=== PATIENT | female | born 1950 | race Hispanic/Latino ===

== ENCOUNTER 2019-02-18 03:42 | Inpatient (IN) | payer MEDICARE ==
[2019-02-18] MEDS ORDERED: NACL 0.9% 1000 ML 1,000 ML IV ONE ×2 (03:59→06:09)
[2019-02-18] MEDS ORDERED: HumuLIN R IV ONE ×2 (04:22→06:08)
[2019-02-18] MEDS ORDERED: HumuLIN R ONE (04:26)
[2019-02-18] MEDS ORDERED: ZOFRAN ONE ×2 (04:29→15:21)
[2019-02-18 04:31] LABS: Hematocrit 42.9 % (30.3-42.9); Mean Corpuscular HGB Conc 33 % (30-34); Mean Corpuscular Volume 88 fl (79-97); Platelet Count 260 K/mm3 (140-440); Red Blood Count 4.87 M/mm3 (3.65-5.03); Red Cell Distribution Width 13.7 % (13.2-15.2)
[2019-02-18] MEDS ORDERED: ZOFRAN IV ONE (04:33)
[2019-02-18 04:48] LABS: Albumin 3.7 g/dL (3.9-5); Calcium 9.1 mg/dL (8.4-10.2)
[2019-02-18] MEDS ORDERED: ATIVAN ONE ×2 (04:53→11:17)
[2019-02-18] MEDS ORDERED: KEPPRA 1,000 MG/NS 0.75% 100ML 1,000 MG/100 ML BAG IV ONE ×2 (04:54→06:34)
--- NOTE | 2019-02-18 05:02 | Cat Scan Report ---
CT HEAD WITHOUT CONTRAST INDICATION : Altered mental status. Possible stroke. TECHNIQUE: Axial, coronal and sagittal CT imaging was performed from the skull apex through the skul l base without contrast. All CT scans at this location are performed using CT dose reduction for ALA RA by means of automated exposure control. COMPARISON: None available. FINDINGS: PARENCHYMA: No mass, midline shift, hemorrhage, extraaxial collection or acute territorial infarctio n. There is generalized atrophy. VENTRICLES: Prominent secondary to atrophy. No acute abnormality. SOFT TISSUES: Soft tissues including the orbits appear normal. BONES: No acute osseous abnormality. SINUSES: No significant abnormality. ADDITIONAL FINDINGS: There is dense calcification of the internal carotid and vertebral arteries. IMPRESSION: No acute intracranial abnormality. If there is continued concern for an acute stroke, an MRI of the b rain without contrast is recommended for further evaluation. Signer Name: Júnior Kohler MD Signed: 02/18/2019 4:57 AM Workstation Name: [id number]
--- NOTE | 2019-02-18 05:11 | Emergency Department Report ---
<MARLY YADAV - Last Filed: 02/18/19 08:38> ED Altered Mental Status HPI - General Chief Complaint: Altered Mental Status Stated Complaint: AMS/HYPERGLYCEMIA Time Seen by Provider: 02/18/19 04:54 - Related Data Home Medications Medication Instructions Recorded Confirmed Last Taken Gabapentin [Neurontin] 600 mg PO BID 02/18/19 02/18/19 Unknown Losartan/Hydrochlorothiazide 1 each PO QDAY 02/18/19 02/18/19 Unknown [Losartan-Hctz 100-25 mg Tab] Meloxicam [Mobic] 7.5 mg PO QDAY 02/18/19 02/18/19 Unknown Sertraline [Zoloft] 150 mg PO QDAY 02/18/19 02/18/19 Unknown Simvastatin 40 mg PO QDAY 02/18/19 02/18/19 Unknown metFORMIN XR [Glucophage XR] 1,000 mg PO BID 02/18/19 02/18/19 Unknown Allergies Allergy/AdvReac Type Severity Reaction Status Date / Time No Known Allergies Allergy Verified 09/19/13 22:38 ED Past Medical Hx - Medications Home Medications: Home Medications Medication Instructions Recorded Confirmed Last Taken Type Gabapentin [Neurontin] 600 mg PO BID 02/18/19 02/18/19 Unknown History Losartan/Hydrochlorothiazide 1 each PO QDAY 02/18/19 02/18/19 Unknown History [Losartan-Hctz 100-25 mg Tab] Meloxicam [Mobic] 7.5 mg PO QDAY 02/18/19 02/18/19 Unknown History Sertraline [Zoloft] 150 mg PO QDAY 02/18/19 02/18/19 Unknown History Simvastatin 40 mg PO QDAY 02/18/19 02/18/19 Unknown History metFORMIN XR [Glucophage XR] 1,000 mg PO BID 02/18/19 02/18/19 Unknown History ED Course - Reevaluation(s) Reevaluation #2: 02/18/19 07:22 pt s/o to me by Dr Harris. Awaiting [facility] call back for admission approval - Consultations Consultation #1: 02/18/19 07:33 case d/w L[facility] with [facility], states pt may be admitted here also received call back from tele neuro Dr Albrecht (sp?), informed of cta findings + L carotid stenosis of 70%. He will place a note once computer technical issues are resolved. - ABG Interpretation Ph: [phone] PCO2: 92 PO2: 111 Bicarbonate: 25 Interpretation: respiratory acidosis, other (on 32% fio2) - Lab Data Result diagrams: 02/18/19 04:01 02/18/19 06:23 ED Disposition Clinical Impression: CVA (cerebral vascular accident), Altered mental status, DKA (diabetic ketoacidoses), Respiratory acidosis, New onset seizure Disposition: [id number] OP ADMIT IP TO THIS HOSP Is pt being admited?: Yes Condition: Stable Time of Disposition: 07:34 <SYLVIA HARRIS - Last Filed: 02/19/19 08:40> ED Altered Mental Status HPI - General Source: EMS Mode of arrival: Stretcher Limitations: Altered Mental Status - History of Present Illness Initial Comments: Patient is 68 years old female with history of hypertension, diabetes, COPD and depression. Patient brought to the emergency room via EMS for evaluation of al tered mental status. Patient accompanied by her grandson. He stated that last time he saw her normal at 8:30 PM before he went to bed. He stated that he woke up this morning trying to get to work he found her sitting on the floor, confused. He stated that he picked up and put her on her bed and then called 911. EMS personnel stated that patient was confused but moving all 4 extremities with a negative stroke scale. Upon arrival to the ER patient is moving all extremities but confused. Stroke scale is negative. MD Complaint: altered mental status, confusion -: unknown Consistency of Symptoms: waxing and waning ED Review of Systems ROS: Stated complaint: AMS/HYPERGLYCEMIA Other details as noted in HPI Comment: Unobtainable due to pts medical conditions ED Past Medical Hx - Past Medical History Hx Hypertension: Yes Hx Diabetes: Yes Hx Psychiatric Treatment: Yes (depression) Additional medical history: neuropathy, high chol. - Surgical History Additional Surgical History: tubal, c section, - Social History Smoking Status: Current Every Day Smoker Substance Use Type: None ED Physical Exam - General Limitations: Altered Mental Status General appearance: alert, in no apparent distress - Head Head exam: Present: atraumatic, normocephalic, normal inspection - ENT ENT exam: Present: normal exam, normal orophraynx, mucous membranes moist - Neck Neck exam: Present: normal inspection, full ROM. Absent: tenderness, meningismus, lymphadenopathy, thyromegaly - Respiratory Respiratory exam: Present: normal lung sounds bilaterally - Cardiovascular Cardiovascular Exam: Present: regular rate, normal rhythm, normal heart sounds - GI/Abdominal GI/Abdominal exam: Present: soft, normal bowel sounds. Absent: distended, tenderness, guarding, rebound, rigid - Extremities Exam Extremities exam: Present: normal inspection, full ROM, normal capillary refill - Back Exam Back exam: Present: normal inspection, full ROM - Neurological Exam Neurological exam: Present: alert, altered, CN II-XII intact - Skin Skin exam: Present: warm, intact, normal color ED Course Vital Signs 02/18/19 02/18/19 02/18/19 03:52 03:58 04:00 Temperature 98 F Pulse Rate 101 H 101 H 98 H Respiratory 20 18 21 Rate Blood Pressure 219/91 Blood Pressure 165/87 [Left] O2 Sat by Pulse 88 92 Oximetry 02/18/19 02/18/19 02/18/19 04:16 04:30 04:56 Temperature Pulse Rate 99 H 107 H Respiratory 25 H 21 Rate Blood Pressure 205/77 205/77 205/77 Blood Pressure [Left] O2 Sat by Pulse 96 98 Oximetry 02/18/19 02/18/19 02/18/19 05:24 05:30 05:46 Temperature Pulse Rate 128 H 125 H 121 H Respiratory 17 15 17 Rate Blood Pressure 229/94 229/94 205/77 Blood Pressure [Left] O2 Sat by Pulse 92 94 94 Oximetry 02/18/19 02/18/19 02/18/19 06:00 06:10 06:16 Temperature Pulse Rate 124 H 112 H 114 H Respiratory 14 20 20 Rate Blood Pressure 207/92 207/92 207/92 Blood Pressure [Left] O2 Sat by Pulse 93 98 97 Oximetry 02/18/19 02/18/19 02/18/19 06:30 06:46 07:00 Temperature Pulse Rate 118 H 118 H 125 H Respiratory 20 14 19 Rate Blood Pressure 207/92 207/92 223/98 Blood Pressure [Left] O2 Sat by Pulse 98 100 100 Oximetry 02/18/19 02/18/19 02/18/19 07:16 07:30 07:46 Temperature Pulse Rate 125 H 123 H 120 H Respiratory 14 19 28 H Rate Blood Pressure 223/98 223/98 186/83 Blood Pressure [Left] O2 Sat by Pulse 100 100 99 Oximetry 07/24/19 07/24/19 07/24/19 08:00 08:13 08:16 Temperature Pulse Rate 117 H 118 H 120 H Respiratory 28 H 28 H 12 Rate Blood Pressure 186/83 167/78 Blood Pressure 186/83 [Left] O2 Sat by Pulse 100 99 99 Oximetry 02/18/19 02/18/19 02/18/19 08:30 08:46 09:00 Temperature Pulse Rate 114 H 115 H 112 H Respiratory 28 H 28 H 24 Rate Blood Pressure 162/78 162/78 183/91 Blood Pressure [Left] O2 Sat by Pulse 99 100 99 Oximetry 02/18/19 02/18/19 02/18/19 09:16 09:30 09:46 Temperature Pulse Rate 121 H 112 H 117 H Respiratory 18 24 23 Rate Blood Pressure 183/91 178/91 178/91 Blood Pressure [Left] O2 Sat by Pulse 99 98 100 Oximetry 02/18/19 02/18/19 02/18/19 10:00 10:16 10:30 Temperature Pulse Rate 118 H 123 H 113 H Respiratory 14 19 19 Rate Blood Pressure 178/91 221/121 189/89 Blood Pressure [Left] O2 Sat by Pulse 100 100 100 Oximetry 02/18/19 02/18/19 02/18/19 10:46 11:00 11:16 Temperature Pulse Rate 120 H 115 H 112 H Respiratory 18 23 20 Rate Blood Pressure 189/89 181/90 181/90 Blood Pressure [Left] O2 Sat by Pulse 100 100 100 Oximetry 02/18/19 02/18/19 02/18/19 11:30 11:46 12:00 Temperature Pulse Rate 113 H 114 H 114 H Respiratory 19 12 15 Rate Blood Pressure 187/97 187/97 208/98 Blood Pressure [Left] O2 Sat by Pulse 97 100 98 Oximetry 02/18/19 02/18/19 02/18/19 12:16 12:30 12:46 Temperature Pulse Rate 114 H 114 H 119 H Respiratory 16 10 L 19 Rate Blood Pressure 208/98 208/98 226/105 Blood Pressure [Left] O2 Sat by Pulse 100 100 100 Oximetry 02/18/19 02/18/19 02/18/19 13:00 13:16 13:30 Temperature Pulse Rate 120 H 113 H 114 H Respiratory 15 12 14 Rate Blood Pressure 214/100 209/103 208/111 Blood Pressure [Left] O2 Sat by Pulse 99 99 100 Oximetry 02/18/19 02/18/19 02/18/19 13:46 14:00 14:16 Temperature Pulse Rate 111 H 108 H 105 H Respiratory 18 19 11 L Rate Blood Pressure 208/111 200/88 200/88 Blood Pressure [Left] O2 Sat by Pulse 100 98 99 Oximetry 02/18/19 02/18/19 02/18/19 14:30 14:46 15:10 Temperature Pulse Rate 109 H 109 H 110 H Respiratory 21 14 20 Rate Blood Pressure 191/84 191/84 181/69 Blood Pressure [Left] O2 Sat by Pulse 96 98 100 Oximetry 02/18/19 02/18/19 02/18/19 15:16 15:30 15:46 Temperature Pulse Rate 119 H 116 H 107 H Respiratory 14 22 19 Rate Blood Pressure 191/84 181/69 181/69 Blood Pressure [Left] O2 Sat by Pulse 99 Oximetry 02/18/19 02/18/19 16:00 16:16 Temperature Pulse Rate 106 H 105 H Respiratory 13 20 Rate Blood Pressure 178/84 178/84 Blood Pressure [Left] O2 Sat by Pulse 99 99 Oximetry - Reevaluation(s) Reevaluation #1: 02/18/19 05:11 At 4:33 AM, While nurses was inserting IV lines, she noticed that patient stopped moving her right upper extremities and noticed a facial droop to the right side. I examined the patient, confirmed stroke. Stroke protocol initiated patient immediately moved to CT scan and neurology consult obtained. Patient develop right sided seizure, focal. Patient immediately received Ativan and started on Keppra 1 g. 02/18/19 05:44 - Lab Data Result diagrams: 02/19/19 04:35 02/19/19 00:59 Lab Results 02/18/19 02/18/19 02/18/19 Range/Units 04:01 04:01 04:03 WBC 15.9 H (4.5-11.0) K/mm3 RBC 4.87 (3.65-5.03) M/mm3 Hgb 14.0 (10.1-14.3) gm/dl Hct 42.9 (30.3-42.9) % MCV 88 (79-97) fl MCH 29 (28-32) pg MCHC 33 (30-34) % RDW 13.7 (13.2-15.2) % Plt Count 260 (140-440) K/mm3 Add Manual Diff Complete Total Counted 100 Seg Neuts % (Manual) 84.0 H (40.0-70.0) % Band Neutrophils % 0 % Lymphocytes % (Manual) 12.0 L (13.4-35.0) % Reactive Lymphs % (Man) 0 % Monocytes % (Manual) 3.0 (0.0-7.3) % Eosinophils % (Manual) 1.0 (0.0-4.3) % Basophils % (Manual) 0 (0.0-1.8) % Metamyelocytes % 0 % Myelocytes % 0 % Promyelocytes % 0 % Blast Cells % 0 % Nucleated RBC % Not Reportable Seg Neutrophils # Man 13.4 H (1.8-7.7) K/mm3 Band Neutrophils # 0.0 K/mm3 Lymphocytes # (Manual) 1.9 (1.2-5.4) K/mm3 Abs React Lymphs (Man) 0.0 K/mm3 Monocytes # (Manual) 0.5 (0.0-0.8) K/mm3 Eosinophils # (Manual) 0.2 (0.0-0.4) K/mm3 Basophils # (Manual) 0.0 (0.0-0.1) K/mm3 Metamyelocytes # 0.0 K/mm3 Myelocytes # 0.0 K/mm3 Promyelocytes # 0.0 K/mm3 Blast Cells # 0.0 K/mm3 WBC Morphology Not Reportable Hypersegmented Neuts Not Reportable Hyposegmented Neuts Not Reportable Hypogranular Neuts Not Reportable Smudge Cells Not Reportable Toxic Granulation 1+ Toxic Vacuolation Not Reportable Dohle Bodies Not Reportable Pelger-Huet Anomaly Not Reportable Donaldo Rods Not Reportable Platelet Estimate Consistent w auto Clumped Platelets Not Reportable Plt Clumps, EDTA Not Reportable Large Platelets Not Reportable Giant Platelets Not Reportable Platelet Satelliting Not Reportable Plt Morphology Comment Not Reportable RBC Morphology Normal Dimorphic RBCs Not Reportable Polychromasia Not Reportable Hypochromasia Not Reportable Poikilocytosis Not Reportable Anisocytosis Not Reportable Microcytosis Not Reportable Macrocytosis Not Reportable Spherocytes Not Reportable Pappenheimer Bodies Not Reportable Sickle Cells Not Reportable Target Cells Not Reportable Tear Drop Cells Not Reportable Ovalocytes Not Reportable Helmet Cells Not Reportable Alejandre-Parcelas De Navarro Bodies Not Reportable Over[place] Rings Not Reportable [place] Cells Not Reportable Bite Cells Not Reportable Crenated Cell Not Reportable Elliptocytes Not Reportable Acanthocytes (Spur) Not Reportable Rouleaux Not Reportable Hemoglobin C Crystals Not Reportable Schistocytes Not Reportable Malaria parasites Not Reportable Liam Bodies Not Reportable Hem Pathologist Commnt No POC ABG pH (7.35-7.45) POC ABG pO2 (80-105) POC ABG HCO3 (22-26 mml/L) POC ABG Total CO2 (23-27mmol/L) POC ABG O2 Sat POC ABG Base Excess ((-2) - (+3)mmol/L) VBG pH (7.320-7.420) FiO2 % Sodium 127 L (137-145) mmol/L Potassium 4.0 (3.6-5.0) mmol/L Chloride 88.5 L (98-107) mmol/L Carbon Dioxide 23 (22-30) mmol/L Anion Gap 20 mmol/L BUN 16 (7-17) mg/dL Creatinine 1.3 H (0.7-1.2) mg/dL Estimated GFR 41 ml/min BUN/Creatinine Ratio 12 % Glucose 744 H* (65-100) mg/dL POC Glucose > 500 H (70-105) Lactic Acid (0.7-2.0) mmol/L Calcium 9.1 (8.4-10.2) mg/dL Phosphorus (2.5-4.5) mg/dL Magnesium (1.7-2.3) mg/dL Total Bilirubin 0.40 (0.1-1.2) mg/dL AST 28 (5-40) units/L ALT 14 (7-56) units/L Alkaline Phosphatase 153 H (35-129) units/L Total Protein 7.5 (6.3-8.2) g/dL Albumin 3.7 L (3.9-5) g/dL Albumin/Globulin Ratio 1.0 % Urine Color (Yellow) Urine Turbidity (Clear) Urine pH (5.0-7.0) Ur Specific [place] (1.003-1.030) Urine Protein (Negative) mg/dL Urine Glucose (UA) (Negative) mg/dL Urine Ketones (Negative) mg/dL Urine Blood (Negative) Urine Nitrite (Negative) Urine Bilirubin (Negative) Urine Urobilinogen (<2.0) mg/dL Ur Leukocyte Esterase (Negative) Urine WBC (Auto) (0.0-6.0) /HPF Urine RBC (Auto) (0.0-6.0) /HPF 02/18/19 02/18/19 02/18/19 Range/Units 05:25 05:32 06:03 WBC (4.5-11.0) K/mm3 RBC (3.65-5.03) M/mm3 Hgb (10.1-14.3) gm/dl Hct (30.3-42.9) % MCV (79-97) fl MCH (28-32) pg MCHC (30-34) % RDW (13.2-15.2) % Plt Count (140-440) K/mm3 Add Manual Diff Total Counted Seg Neuts % (Manual) (40.0-70.0) % Band Neutrophils % % Lymphocytes % (Manual) (13.4-35.0) % Reactive Lymphs % (Man) % Monocytes % (Manual) (0.0-7.3) % Eosinophils % (Manual) (0.0-4.3) % Basophils % (Manual) (0.0-1.8) % Metamyelocytes % % Myelocytes % % Promyelocytes % % Blast Cells % % Nucleated RBC % Seg Neutrophils # Man (1.8-7.7) K/mm3 Band Neutrophils # K/mm3 Lymphocytes # (Manual) (1.2-5.4) K/mm3 Abs React Lymphs (Man) K/mm3 Monocytes # (Manual) (0.0-0.8) K/mm3 Eosinophils # (Manual) (0.0-0.4) K/mm3 Basophils # (Manual) (0.0-0.1) K/mm3 Metamyelocytes # K/mm3 Myelocytes # K/mm3 Promyelocytes # K/mm3 Blast Cells # K/mm3 WBC Morphology Hypersegmented Neuts Hyposegmented Neuts Hypogranular Neuts Smudge Cells Toxic Granulation Toxic Vacuolation Dohle Bodies Pelger-Huet Anomaly Donaldo Rods Platelet Estimate Clumped Platelets Plt Clumps, EDTA Large Platelets Giant Platelets Platelet Satelliting Plt Morphology Comment RBC Morphology Dimorphic RBCs Polychromasia Hypochromasia Poikilocytosis Anisocytosis Microcytosis Macrocytosis Spherocytes Pappenheimer Bodies Sickle Cells Target Cells Tear Drop Cells Ovalocytes Helmet Cells Alejandre-Parcelas De Navarro Bodies Overton Rings [place] Cells Bite Cells Crenated Cell Elliptocytes Acanthocytes (Spur) Rouleaux Hemoglobin C Crystals Schistocytes Malaria parasites Liam Bodies Hem Pathologist Commnt POC ABG pH 7.058 L (7.35-7.45) POC ABG pO2 111 H (80-105) POC ABG HCO3 25.9 (22-26 mml/L) POC ABG Total CO2 29 (23-27mmol/L) POC ABG O2 Sat 95 POC ABG Base Excess -4 ((-2) - (+3)mmol/L) VBG pH 7.118 L* (7.320-7.420) FiO2 32 % Sodium (137-145) mmol/L Potassium (3.6-5.0) mmol/L Chloride (98-107) mmol/L Carbon Dioxide (22-30) mmol/L Anion Gap mmol/L BUN (7-17) mg/dL Creatinine (0.7-1.2) mg/dL Estimated GFR ml/min BUN/Creatinine Ratio % Glucose (65-100) mg/dL POC Glucose 484 H (70-105) Lactic Acid (0.7-2.0) mmol/L Calcium (8.4-10.2) mg/dL Phosphorus (2.5-4.5) mg/dL Magnesium (1.7-2.3) mg/dL Total Bilirubin (0.1-1.2) mg/dL AST (5-40) units/L ALT (7-56) units/L Alkaline Phosphatase (35-129) units/L Total Protein (6.3-8.2) g/dL Albumin (3.9-5) g/dL Albumin/Globulin Ratio % Urine Color (Yellow) Urine Turbidity (Clear) Urine pH (5.0-7.0) Ur Specific [place] (1.003-1.030) Urine Protein (Negative) mg/dL Urine Glucose (UA) (Negative) mg/dL Urine Ketones (Negative) mg/dL Urine Blood (Negative) Urine Nitrite (Negative) Urine Bilirubin (Negative) Urine Urobilinogen (<2.0) mg/dL Ur Leukocyte Esterase (Negative) Urine WBC (Auto) (0.0-6.0) /HPF Urine RBC (Auto) (0.0-6.0) /HPF 02/18/19 02/18/19 02/18/19 Range/Units 06:05 06:05 06:23 WBC (4.5-11.0) K/mm3 RBC (3.65-5.03) M/mm3 Hgb (10.1-14.3) gm/dl Hct (30.3-42.9) % MCV (79-97) fl MCH (28-32) pg MCHC (30-34) % RDW (13.2-15.2) % Plt Count (140-440) K/mm3 Add Manual Diff Total Counted Seg Neuts % (Manual) (40.0-70.0) % Band Neutrophils % % Lymphocytes % (Manual) (13.4-35.0) % Reactive Lymphs % (Man) % Monocytes % (Manual) (0.0-7.3) % Eosinophils % (Manual) (0.0-4.3) % Basophils % (Manual) (0.0-1.8) % Metamyelocytes % % Myelocytes % % Promyelocytes % % Blast Cells % % Nucleated RBC % Seg Neutrophils # Man (1.8-7.7) K/mm3 Band Neutrophils # K/mm3 Lymphocytes # (Manual) (1.2-5.4) K/mm3 Abs React Lymphs (Man) K/mm3 Monocytes # (Manual) (0.0-0.8) K/mm3 Eosinophils # (Manual) (0.0-0.4) K/mm3 Basophils # (Manual) (0.0-0.1) K/mm3 Metamyelocytes # K/mm3 Myelocytes # K/mm3 Promyelocytes # K/mm3 Blast Cells # K/mm3 WBC Morphology Hypersegmented Neuts Hyposegmented Neuts Hypogranular Neuts Smudge Cells Toxic Granulation Toxic Vacuolation Dohle Bodies Pelger-Huet Anomaly Donaldo Rods Platelet Estimate Clumped Platelets Plt Clumps, EDTA Large Platelets Giant Platelets Platelet Satelliting Plt Morphology Comment RBC Morphology Dimorphic RBCs Polychromasia Hypochromasia Poikilocytosis Anisocytosis Microcytosis Macrocytosis Spherocytes Pappenheimer Bodies Sickle Cells Target Cells Tear Drop Cells Ovalocytes Helmet Cells Alejandre-Parcelas De Navarro Bodies Over[place] Rings Erica Cells Bite Cells Crenated Cell Elliptocytes Acanthocytes (Spur) Rouleaux Hemoglobin C Crystals Schistocytes Malaria parasites Liam Bodies Hem Pathologist Commnt POC ABG pH (7.35-7.45) POC ABG pO2 (80-105) POC ABG HCO3 (22-26 mml/L) POC ABG Total CO2 (23-27mmol/L) POC ABG O2 Sat POC ABG Base Excess ((-2) - (+3)mmol/L) VBG pH (7.320-7.420) FiO2 % Sodium 127 L 131 L (137-145) mmol/L Potassium 3.3 L 3.9 (3.6-5.0) mmol/L Chloride 92.0 L 92.9 L (98-107) mmol/L Carbon Dioxide 22 25 (22-30) mmol/L Anion Gap 16 17 mmol/L BUN 14 14 (7-17) mg/dL Creatinine 1.3 H 1.3 H (0.7-1.2) mg/dL Estimated GFR 41 41 ml/min BUN/Creatinine Ratio 11 11 % Glucose 603 H* 544 H* (65-100) mg/dL POC Glucose (70-105) Lactic Acid (0.7-2.0) mmol/L Calcium 8.4 8.7 (8.4-10.2) mg/dL Phosphorus 4.90 H (2.5-4.5) mg/dL Magnesium 1.50 L (1.7-2.3) mg/dL Total Bilirubin (0.1-1.2) mg/dL AST (5-40) units/L ALT (7-56) units/L Alkaline Phosphatase (35-129) units/L Total Protein (6.3-8.2) g/dL Albumin (3.9-5) g/dL Albumin/Globulin Ratio % Urine Color (Yellow) Urine Turbidity (Clear) Urine pH (5.0-7.0) Ur Specific [place] (1.003-1.030) Urine Protein (Negative) mg/dL Urine Glucose (UA) (Negative) mg/dL Urine Ketones (Negative) mg/dL Urine Blood (Negative) Urine Nitrite (Negative) Urine Bilirubin (Negative) Urine Urobilinogen (<2.0) mg/dL Ur Leukocyte Esterase (Negative) Urine WBC (Auto) (0.0-6.0) /HPF Urine RBC (Auto) (0.0-6.0) /HPF 02/18/19 02/18/19 02/18/19 Range/Units 06:23 06:29 06:37 WBC (4.5-11.0) K/mm3 RBC (3.65-5.03) M/mm3 Hgb (10.1-14.3) gm/dl Hct (30.3-42.9) % MCV (79-97) fl MCH (28-32) pg MCHC (30-34) % RDW (13.2-15.2) % Plt Count (140-440) K/mm3 Add Manual Diff Total Counted Seg Neuts % (Manual) (40.0-70.0) % Band Neutrophils % % Lymphocytes % (Manual) (13.4-35.0) % Reactive Lymphs % (Man) % Monocytes % (Manual) (0.0-7.3) % Eosinophils % (Manual) (0.0-4.3) % Basophils % (Manual) (0.0-1.8) % Metamyelocytes % % Myelocytes % % Promyelocytes % % Blast Cells % % Nucleated RBC % Seg Neutrophils # Man (1.8-7.7) K/mm3 Band Neutrophils # K/mm3 Lymphocytes # (Manual) (1.2-5.4) K/mm3 Abs React Lymphs (Man) K/mm3 Monocytes # (Manual) (0.0-0.8) K/mm3 Eosinophils # (Manual) (0.0-0.4) K/mm3 Basophils # (Manual) (0.0-0.1) K/mm3 Metamyelocytes # K/mm3 Myelocytes # K/mm3 Promyelocytes # K/mm3 Blast Cells # K/mm3 WBC Morphology Hypersegmented Neuts Hyposegmented Neuts Hypogranular Neuts Smudge Cells Toxic Granulation Toxic Vacuolation Dohle Bodies Pelger-Huet Anomaly Donaldo Rods Platelet Estimate Clumped Platelets Plt Clumps, EDTA Large Platelets Giant Platelets Platelet Satelliting Plt Morphology Comment RBC Morphology Dimorphic RBCs Polychromasia Hypochromasia Poikilocytosis Anisocytosis Microcytosis Macrocytosis Spherocytes Pappenheimer Bodies Sickle Cells Target Cells Tear Drop Cells Ovalocytes Helmet Cells Alejandre-Parcelas De Navarro Bodies Over[place] Rings [place] Cells Bite Cells Crenated Cell Elliptocytes Acanthocytes (Spur) Rouleaux Hemoglobin C Crystals Schistocytes Malaria parasites Liam Bodies Hem Pathologist Commnt POC ABG pH (7.35-7.45) POC ABG pO2 (80-105) POC ABG HCO3 (22-26 mml/L) POC ABG Total CO2 (23-27mmol/L) POC ABG O2 Sat POC ABG Base Excess ((-2) - (+3)mmol/L) VBG pH (7.320-7.420) FiO2 % Sodium (137-145) mmol/L Potassium (3.6-5.0) mmol/L Chloride (98-107) mmol/L Carbon Dioxide (22-30) mmol/L Anion Gap mmol/L BUN (7-17) mg/dL Creatinine (0.7-1.2) mg/dL Estimated GFR ml/min BUN/Creatinine Ratio % Glucose (65-100) mg/dL POC Glucose 421 H (70-105) Lactic Acid 2.40 H* (0.7-2.0) mmol/L Calcium (8.4-10.2) mg/dL Phosphorus (2.5-4.5) mg/dL Magnesium (1.7-2.3) mg/dL Total Bilirubin (0.1-1.2) mg/dL AST (5-40) units/L ALT (7-56) units/L Alkaline Phosphatase (35-129) units/L Total Protein (6.3-8.2) g/dL Albumin (3.9-5) g/dL Albumin/Globulin Ratio % Urine Color Straw (Yellow) Urine Turbidity Clear (Clear) Urine pH 5.0 (5.0-7.0) Ur Specific [place] 1.027 (1.003-1.030) Urine Protein 100 mg/dl (Negative) mg/dL Urine Glucose (UA) >=500 (Negative) mg/dL Urine Ketones Neg (Negative) mg/dL Urine Blood Neg (Negative) Urine Nitrite Neg (Negative) Urine Bilirubin Neg (Negative) Urine Urobilinogen < 2.0 (<2.0) mg/dL Ur Leukocyte Esterase Neg (Negative) Urine WBC (Auto) < 1.0 (0.0-6.0) /HPF Urine RBC (Auto) 2.0 (0.0-6.0) /HPF 02/18/19 02/18/19 Range/Units 07:32 07:38 WBC (4.5-11.0) K/mm3 RBC (3.65-5.03) M/mm3 Hgb (10.1-14.3) gm/dl Hct (30.3-42.9) % MCV (79-97) fl MCH (28-32) pg MCHC (30-34) % RDW (13.2-15.2) % Plt Count (140-440) K/mm3 Add Manual Diff Total Counted Seg Neuts % (Manual) (40.0-70.0) % Band Neutrophils % % Lymphocytes % (Manual) (13.4-35.0) % Reactive Lymphs % (Man) % Monocytes % (Manual) (0.0-7.3) % Eosinophils % (Manual) (0.0-4.3) % Basophils % (Manual) (0.0-1.8) % Metamyelocytes % % Myelocytes % % Promyelocytes % % Blast Cells % % Nucleated RBC % Seg Neutrophils # Man (1.8-7.7) K/mm3 Band Neutrophils # K/mm3 Lymphocytes # (Manual) (1.2-5.4) K/mm3 Abs React Lymphs (Man) K/mm3 Monocytes # (Manual) (0.0-0.8) K/mm3 Eosinophils # (Manual) (0.0-0.4) K/mm3 Basophils # (Manual) (0.0-0.1) K/mm3 Metamyelocytes # K/mm3 Myelocytes # K/mm3 Promyelocytes # K/mm3 Blast Cells # K/mm3 WBC Morphology Hypersegmented Neuts Hyposegmented Neuts Hypogranular Neuts Smudge Cells Toxic Granulation Toxic Vacuolation Dohle Bodies Pelger-Huet Anomaly Donaldo Rods Platelet Estimate Clumped Platelets Plt Clumps, EDTA Large Platelets Giant Platelets Platelet Satelliting Plt Morphology Comment RBC Morphology Dimorphic RBCs Polychromasia Hypochromasia Poikilocytosis Anisocytosis Microcytosis Macrocytosis Spherocytes Pappenheimer Bodies Sickle Cells Target Cells Tear Drop Cells Ovalocytes Helmet Cells Alejandre-Parcelas De Navarro Bodies [place] Rings Erica Cells Bite Cells Crenated Cell Elliptocytes Acanthocytes (Spur) Rouleaux Hemoglobin C Crystals Schistocytes Malaria parasites Liam Bodies Hem Pathologist Commnt POC ABG pH (7.35-7.45) POC ABG pO2 (80-105) POC ABG HCO3 (22-26 mml/L) POC ABG Total CO2 (23-27mmol/L) POC ABG O2 Sat POC ABG Base Excess ((-2) - (+3)mmol/L) VBG pH (7.320-7.420) FiO2 % Sodium (137-145) mmol/L Potassium (3.6-5.0) mmol/L Chloride (98-107) mmol/L Carbon Dioxide (22-30) mmol/L Anion Gap mmol/L BUN (7-17) mg/dL Creatinine (0.7-1.2) mg/dL Estimated GFR ml/min BUN/Creatinine Ratio % Glucose (65-100) mg/dL POC Glucose 405 H (70-105) Lactic Acid 1.70 (0.7-2.0) mmol/L Calcium (8.4-10.2) mg/dL Phosphorus (2.5-4.5) mg/dL Magnesium (1.7-2.3) mg/dL Total Bilirubin (0.1-1.2) mg/dL AST (5-40) units/L ALT (7-56) units/L Alkaline Phosphatase (35-129) units/L Total Protein (6.3-8.2) g/dL Albumin (3.9-5) g/dL Albumin/Globulin Ratio % Urine Color (Yellow) Urine Turbidity (Clear) Urine pH (5.0-7.0) Ur Specific [place] (1.003-1.030) Urine Protein (Negative) mg/dL Urine Glucose (UA) (Negative) mg/dL Urine Ketones (Negative) mg/dL Urine Blood (Negative) Urine Nitrite (Negative) Urine Bilirubin (Negative) Urine Urobilinogen (<2.0) mg/dL Ur Leukocyte Esterase (Negative) Urine WBC (Auto) (0.0-6.0) /HPF Urine RBC (Auto) (0.0-6.0) /HPF - Medical Decision Making Patient is 68 years old female with history of hypertension, diabetes, COPD and depression. Patient brought to the emergency room via EMS for evaluation of altered mental status. Patient accompanied by her grandson. He stated that last time he saw her normal at 8:30 PM before he went to bed. He stated that he woke up this morning trying to get to work he found her sitting on the floor, confused. He stated that he picked up and put her on her bed and then called 911. EMS personnel stated that patient was confused but moving all 4 extremi ties with a negative stroke scale. Upon arrival to the ER patient is moving all extremities but confused. Stroke scale is negative. Patient care transferred to Dr. Marly Yadav at 07:00 AM. Critical Care Time: Yes Critical care time in (mins) excluding proc time.: 30 Critical care attestation.: If time is entered above; I have spent that time in minutes in the direct care of this critically ill patient, excluding procedure time. ED Disposition Is pt being admited?: Yes
[2019-02-18] MEDS ORDERED: D50W (25GM) Syringe IV PRN ×2 (05:47→09:30)
[2019-02-18 05:58] LABS: Basophils % (Manual) 0 % (0.0-1.8); Platelet Estimate Consistent w Auto; RBC Morphology Normal; Total Cells Counted 100; Toxic Granulation 1+
[2019-02-18] MEDS ORDERED: HumuLIN R 100 UNITS in NACL 0.9% 99 ML IV SCH ×2 (06:00→10:00)
[2019-02-18] MEDS ORDERED: ZOSYN/NS 3.375GM/50ML 3.375 GM/50 ML BAG IV ONE (06:08)
--- NOTE | 2019-02-18 06:31 | XRay Report ---
CHEST 1 VIEW 02/18/2019 6:11 AM INDICATION / CLINICAL INFORMATION: sepsis. COMPARISON: None available. FINDINGS: SUPPORT DEVICES: None. HEART / MEDIASTINUM: No significant abnormality. LUNGS / PLEURA: There is mild bibasilar atelectasis. No significant pleural effusion. No pneumothorax . ADDITIONAL FINDINGS: No significant additional findings. IMPRESSION: 1. No acute findings. 2. Mild bibasilar atelectasis. Signer Name: Júnior Kohler MD Signed: 02/18/2019 6:27 AM Workstation Name: [id number]
[2019-02-18 06:41] LABS: Calcium 8.4 mg/dL (8.4-10.2)
[2019-02-18] MEDS ORDERED: ATIVAN IV NR (06:45)
[2019-02-18 06:58] LABS: Bilirubin,Urine NEG (Negative); Blood,Urine NEG (Negative); Color,Urine Straw (Yellow); Urobilinogen,Urine < 2.0 mg/dL (<2.0); WBC,Urine < 1.0 /HPF (0.0-6.0)
[2019-02-18 07:06] LABS: Calcium 8.7 mg/dL (8.4-10.2)
--- NOTE | 2019-02-18 08:19 | Cat Scan Report ---
NECK CT ANGIOGRAM 02/18/2019 HISTORY: Stroke. FINDINGS: Contrast-enhanced CT angiographic images of the neck were obtained. In addition to the axia l images, sagittal and coronal reformatted images were obtained. In addition, 3 plane MIP reconstruct ions were produced. At the left bifurcation, prominent atherosclerotic plaque is present, associated with stenosis of the origin of the internal carotid artery, which has a maximum stenosis of approximately 70%. At the right bifurcation, there is atherosclerotic plaque associated with the carotid bifurcation. Th ere is approximately 20% narrowing at the origin of the right internal carotid artery. Vertebral artery contours are unremarkable. Visualized portions of the aortic arch are unremarkable. Incidental note is made of a 1.4 cm midline thyroid nodule, and some additional smaller bilateral thy roid cysts. Soft tissue structures are otherwise unremarkable. IMPRESSION: Atherosclerotic change of the carotid bifurcations, with 70% narrowing at the origin of t he left internal carotid artery. NASCET like criteria were used in this evaluation. INCIDENTAL THYROID NODULE RECOMMENDATIONS Nonpalpable nodules detected on US or other anatomic imaging studies are termed incidentally discover ed nodules or incidentalomas. Nonpalpable nodules have the same risk of malignancy as palpable nodule s with the same size. Generally, only nodules >1 cm should be evaluated, since they have a greater po tential to be clinically significant cancers. (CONNER, 2009). Follow up for incidental thyroid nodules <1 cm is not recommended. In patients <35 years with an incidental thyroid nodule detected on CT, MRI, or extrathyroidal ultras ound, dedicated thyroid ultrasound is recommended if the nodule is 1 cm, has no suspicious imaging fe atures, and if the patient has normal life expectancy. In patients 35 years with an incidental thyroid nodule detected on CT, MRI, or extrathyroidal ultraso und, dedicated thyroid ultrasound is recommended if the nodule is 1.5 cm, has no suspicious imaging f eatures, and if the patient has normal life expectancy. All CT scans at this location are performed using dose reduction to ALARA by means of automated expos ure control. Signer Name: Suleman Umanzor MD Signed: 02/18/2019 8:15 AM Workstation Name: [id number]
--- NOTE | 2019-02-18 08:24 | Cat Scan Report ---
BRAIN CT ANGIOGRAM 02/18/2019 HISTORY: Stroke FINDINGS: Contrast-enhanced CT angiographic images of the intracranial circulation were obtained. In addition to the axial images, sagittal and coronal reformatted images were obtained. In addition, 3 p leonardo MIP reconstructions were produced. Atherosclerotic vascular calcifications are seen along the course of the distal internal carotid gage wily bilaterally at the level of the cavernous sinuses. There is no evidence of occlusion or signific ant stenosis. Intracranial anterior circulation vessels show normal contours with no evidence of vessel occlusion. Vertebrobasilar system is unremarkable. Atherosclerotic vascular calcifications are associated with the distal left vertebral artery. IMPRESSION: No acute abnormality. All CT scans at this location are performed using dose reduction to ALARA by means of automated expos ure control. Signer Name: Suleman Umanzor MD Signed: 02/18/2019 8:20 AM Workstation Name: [id number]
--- NOTE | 2019-02-18 09:07 | History and Physical Report ---
History of Present Illness Date of examination: 02/18/19 Date of admission: 02/18/19 Chief complaint: AMS History of present illness: Unable to obtain hx from Patient, hX Obtained from FAMILY AND ED NOTE Patient is a 68-year-old female with past medical history according to the grandson of hypertension diabetes depression COPD and chronic tobacco use of pack a day for over 40+ years. She presents to the ED this morning after she was noted by the grandson for 4.30 a.m. to be on the floor following hearing a followed sound. The patient was confused and she attempted to pick the patient up from the floor and also called 911. On arrival now 1 personal history the patient was confused but moving all extremities was unable to follow any she was transferred to the ED on arrival to the ED was placed on a BiPAP machine as she was noted to have difficulty with respiration including hypercarbia. She was also noted to have a blood sugar for several 100s but no evidence of acetone or ketones. Also noted to have a blood pressure of over 2:30 on admission. According to the ED documentation the patient was noted to Have seizure disorder her in the ED on route to the CT No prior hx of stroke or seizure Past History Past Medical History: CAD, COPD, diabetes Past Surgical History: No surgical history Social history: lives with family, smoking Family history: no significant family history Medications and Allergies Allergies Allergy/AdvReac Type Severity Reaction Status Date / Time No Known Allergies Allergy Verified 09/19/13 22:38 Home Medications Medication Instructions Recorded Confirmed Last Taken Type Gabapentin [Neurontin] 600 mg PO BID 02/18/19 02/18/19 Unknown History Losartan/Hydrochlorothiazide 1 each PO QDAY 02/18/19 02/18/19 Unknown History [Losartan-Hctz 100-25 mg Tab] Meloxicam [Mobic] 7.5 mg PO QDAY 02/18/19 02/18/19 Unknown History Sertraline [Zoloft] 150 mg PO QDAY 02/18/19 02/18/19 Unknown History Simvastatin 40 mg PO QDAY 02/18/19 02/18/19 Unknown History metFORMIN XR [Glucophage XR] 1,000 mg PO BID 02/18/19 02/18/19 Unknown History Active Meds: Active Medications Dextrose (D50w (25gm) Syringe) 0 ml IV PRN PRN PRN Reason: Hypoglycemia Insulin Human Regular 100 (units/ Sodium Chloride) 100 mls @ 1 mls/hr IV TITR TAN; Protocol Last Admin: 02/18/19 06:45 Dose: 8 units/hr, 8 mls/hr Documented by: Review of Systems ROS unobtainable: due to mental status Exam - Physical Exam Narrative exam: VITAL SIGNS: Reviewed. GENERAL: The patient appears normally developed, in severe distress and AMS, on continus BIPAP. Vital signs as documented. HEAD: No signs of head trauma. EYES: Pupils are equal. EARS: Hearing grossly intact. MOUTH: Oropharynx is normal. NECK: No adenopathy, no JVD. CHEST: Chest with clear breath sounds bilaterally. No wheezes, rales, or rhonchi. CARDIAC: Regular rate and rhythm. S1 and S2, without murmurs, gallops, or r ubs. VASCULAR: No Edema. Peripheral pulses normal and equal in all extremities. ABDOMEN: Soft, non tender and non distended. No rebound or guarding, and no masses palpated. Bowel Sounds normal. MUSCULOSKELETAL: Good range of motion of all major joints. Extremities without clubbing, cyanosis or edema. NEUROLOGIC EXAM: Confused, agitated, not following commands. Moves all extremities PSYCHIATRIC: unable to examine SKIN: detail exam as documented in skin assessment - Constitutional Vitals: Temp Pulse Resp BP Pulse Ox 98 F 118 H 28 H 186/83 99 02/18/19 03:58 02/18/19 08:13 02/18/19 08:13 02/18/19 08:13 02/18/19 08:13 Results - Labs CBC & Chem 7: 02/18/19 04:01 02/18/19 12:09 Labs: Laboratory Last Values WBC 15.9 K/mm3 (4.5-11.0) H 02/18/19 04:01 RBC 4.87 M/mm3 (3.65-5.03) 02/18/19 04:01 Hgb 14.0 gm/dl (10.1-14.3) 02/18/19 04:01 Hct 42.9 % (30.3-42.9) 02/18/19 04:01 MCV 88 fl (79-97) 02/18/19 04:01 MCH 29 pg (28-32) 02/18/19 04:01 MCHC 33 % (30-34) 02/18/19 04:01 RDW 13.7 % (13.2-15.2) 02/18/19 04:01 Plt Count 260 K/mm3 (140-440) 02/18/19 04:01 Add Manual Diff Complete 02/18/19 04:01 Total Counted 100 02/18/19 04:01 Seg Neuts % (Manual) 84.0 % (40.0-70.0) H 02/18/19 04:01 0 % 02/18/19 04:01 12.0 % (13.4-35.0) L 02/18/19 04:01 Reactive Lymphs % (Man) 0 % 02/18/19 04:01 3.0 % (0.0-7.3) 02/18/19 04:01 1.0 % (0.0-4.3) 02/18/19 04:01 0 % (0.0-1.8) 02/18/19 04:01 0 % 02/18/19 04:01 0 % 02/18/19 04:01 0 % 02/18/19 04:01 0 % 02/18/19 04:01 Nucleated RBC % Not Reportable 02/18/19 04:01 Seg Neutrophils # Man 13.4 K/mm3 (1.8-7.7) H 02/18/19 04:01 Band Neutrophils # 0.0 K/mm3 02/18/19 04:01 1.9 K/mm3 (1.2-5.4) 02/18/19 04:01 Abs React Lymphs (Man) 0.0 K/mm3 02/18/19 04:01 0.5 K/mm3 (0.0-0.8) 02/18/19 04:01 0.2 K/mm3 (0.0-0.4) 02/18/19 04:01 0.0 K/mm3 (0.0-0.1) 02/18/19 04:01 0.0 K/mm3 02/18/19 04:01 0.0 K/mm3 02/18/19 04:01 0.0 K/mm3 02/18/19 04:01 Blast Cells # 0.0 K/mm3 02/18/19 04:01 WBC Morphology Not Reportable 02/18/19 04:01 Hypersegmented Neuts Not Reportable 02/18/19 04:01 Hyposegmented Neuts Not Reportable 02/18/19 04:01 Hypogranular Neuts Not Reportable 02/18/19 04:01 Not Reportable 02/18/19 04:01 1+ 02/18/19 04:01 Not Reportable 02/18/19 04:01 Not Reportable 02/18/19 04:01 Not Reportable 02/18/19 04:01 Not Reportable 02/18/19 04:01 Consistent w auto 02/18/19 04:01 Not Reportable 02/18/19 04:01 Plt Clumps, EDTA Not Reportable 02/18/19 04:01 Not Reportable 02/18/19 04:01 Not Reportable 02/18/19 04:01 Not Reportable 02/18/19 04:01 Plt Morphology Comment Not Reportable 02/18/19 04:01 RBC Morphology Normal 02/18/19 04:01 Dimorphic RBCs Not Reportable 02/18/19 04:01 Not Reportable 02/18/19 04:01 Not Reportable 02/18/19 04:01 Not Reportable 02/18/19 04:01 Not Reportable 02/18/19 04:01 Not Reportable 02/18/19 04:01 Not Reportable 02/18/19 04:01 Not Reportable 02/18/19 04:01 Not Reportable 02/18/19 04:01 Not Reportable 02/18/19 04:01 Not Reportable 02/18/19 04:01 Not Reportable 02/18/19 04:01 Not Reportable 02/18/19 04:01 Not Reportable 02/18/19 04:01 Not Reportable 02/18/19 04:01 Not Reportable 02/18/19 04:01 Not Reportable 02/18/19 04:01 Not Reportable 02/18/19 04:01 Not Reportable 02/18/19 04:01 Not Reportable 02/18/19 04:01 Acanthocytes (Spur) Not Reportable 02/18/19 04:01 Rouleaux Not Reportable 02/18/19 04:01 Not Reportable 02/18/19 04:01 Not Reportable 02/18/19 04:01 Not Reportable 02/18/19 04:01 Not Reportable 02/18/19 04:01 Hem Pathologist Commnt No 02/18/19 04:01 POC ABG pH 7.058 (7.35-7.45) L 02/18/19 06:03 POC ABG pO2 111 (80-105) H 02/18/19 06:03 POC ABG HCO3 25.9 (22-26 mml/L) 02/18/19 06:03 POC ABG Total CO2 29 (23-27mmol/L) 02/18/19 06:03 POC ABG O2 Sat 95 02/18/19 06:03 POC ABG Base Excess -4 ((-2) - (+3)mmol/L) 02/18/19 06:03 VBG pH 7.118 (7.320-7.420) L* 02/18/19 05:25 32 % 02/18/19 06:03 Sodium 131 mmol/L (137-145) L 02/18/19 06:23 Potassium 3.9 mmol/L (3.6-5.0) 02/18/19 06:23 Chloride 92.9 mmol/L (98-107) L 02/18/19 06:23 Carbon Dioxide 25 mmol/L (22-30) 02/18/19 06:23 17 mmol/L 02/18/19 06:23 BUN 14 mg/dL (7-17) 02/18/19 06:23 1.3 mg/dL (0.7-1.2) H 02/18/19 06:23 Estimated GFR 41 ml/min 02/18/19 06:23 11 % 02/18/19 06:23 Glucose 544 mg/dL (65-100) H* 02/18/19 06:23 POC Glucose 408 (70-105) H 02/18/19 08:40 Lactic Acid 1.70 mmol/L (0.7-2.0) 02/18/19 07:32 Calcium 8.7 mg/dL (8.4-10.2) 02/18/19 06:23 Phosphorus 4.90 mg/dL (2.5-4.5) H 02/18/19 06:05 Magnesium 1.50 mg/dL (1.7-2.3) L 02/18/19 06:05 0.40 mg/dL (0.1-1.2) 02/18/19 04:01 AST 28 units/L (5-40) 02/18/19 04:01 ALT 14 units/L (7-56) 02/18/19 04:01 153 units/L (35-129) H 02/18/19 04:01 7.5 g/dL (6.3-8.2) 02/18/19 04:01 3.7 g/dL (3.9-5) L 02/18/19 04:01 1.0 % 02/18/19 04:01 Straw (Yellow) 02/18/19 06:37 Clear (Clear) 02/18/19 06:37 5.0 (5.0-7.0) 02/18/19 06:37 Ur Specific [place] 1.027 (1.003-1.030) 02/18/19 06:37 100 mg/dl mg/dL (Negative) 02/18/19 06:37 >=500 mg/dL (Negative) 02/18/19 06:37 Neg mg/dL (Negative) 02/18/19 06:37 Neg (Negative) 02/18/19 06:37 Neg (Negative) 02/18/19 06:37 Neg (Negative) 02/18/19 06:37 < 2.0 mg/dL (<2.0) 02/18/19 06:37 Ur Leukocyte Esterase Neg (Negative) 02/18/19 06:37 < 1.0 /HPF (0.0-6.0) 02/18/19 06:37 2.0 /HPF (0.0-6.0) 02/18/19 06:37 Assessment and Plan Assessment and plan: Unable to obtain hx from Patient, hX Obtained from FAMILY AND ED NOTE Patient is a 68-year-old female with past medical history according to the grandson of hypertension diabetes depression COPD and chronic tobacco use of pack a day for over 40+ years. She presents to the ED this morning after she wa s noted by the grandson for 4.30 a.m. to be on the floor following hearing a followed sound. The patient was confused and she attempted to pick the patient up from the floor and also called 911. On arrival now 1 personal history the patient was confused but moving all extremities was unable to follow any she was transferred to the ED on arrival to the ED was placed on a BiPAP machine as she was noted to have difficulty with respiration including hypercarbia. She was also noted to have a blood sugar for several 100s but no evidence of acetone or ketones. Also noted to have a blood pressure of over 2:30 on admission. According to the ED documentation the patient was noted to Have seizure disorder her in the ED on route to the CT No prior hx of stroke or seizure CXR: unremarkable Acute Combined Hypoxic and Hypercapenic respiratory failure Hyperosomolar Nonketotic Hyperglycemia Acute Metabolic Encephalopathy Seizure Respiratory acidosis DM type 2 with hypgerlycemia Hyponatremia Leukocytosis Hypertensive Urgency Tobacco use disorder COPD Plan Admit to ICU Start on Insulin drip ON dka protocol. correct electrolytes as needed continue empiric abx Monitor cultures Seizure Prophylaxis Monitor Mental status Aspiration Precautions MoniTOR bp FOR BETTER CONTROL Hairspring Vibrator and Neurology consult The high probability of a clinically significant, sudden or life threatening deterioration of the [pulmonary, endocrine] system(s) required my full and direct attention, intervention and personal management. The aggregate critical care time was [75] minutes. This time is in addition to time spent performing reported procedures but includes the following: [x] Data Review and interpretation [x] Patient assessment and monitoring of vital signs [x] Documentation [x] Medication orders and management Advance Directives: Yes Plan of care discussed with patient/family: Yes
[2019-02-18] MEDS ORDERED: SODIUM CHLORIDE FLUSH SYRINGE 10 ML IV PRN (09:30)
[2019-02-18] MEDS ORDERED: SODIUM CHLORIDE FLUSH SYRINGE 10 ML IV NR (10:00)
[2019-02-18] MEDS ORDERED: MAGNESIUM SULFATE 1 GM in NACL 0.9% 50 ML IV ONE (10:00)
[2019-02-18] MEDS ORDERED: D5W/0.45% NACL/KCL 20 MEQ 20 MEQ/1,000 ML BAG IV SCH (10:00)
[2019-02-18 10:03] LABS: Calcium 8.6 mg/dL (8.4-10.2)
[2019-02-18 10:06] LABS: LDL Cholesterol,Direct TNR mg/dL (50-130)
[2019-02-18] MEDS: SODIUM CHLORIDE FLUSH SYRINGE 10 ML IV SCH (10:07)
[2019-02-18 10:20] LABS: Chol/HDL Ratio 5.26 %; HDL Cholesterol 42 mg/dL (40-59)
[2019-02-18] MEDS ORDERED: ATIVAN IV ONE (11:13)
[2019-02-18] MEDS ORDERED: NACL 0.9% 1000 ML 2,000 ML ONE (11:41)
[2019-02-18] MEDS ORDERED: NACL 0.9% 1000 ML 2,000 ML IV ONE (11:47)
--- NOTE | 2019-02-18 12:01 | Consultation ---
History of Present Illness Consult date: 02/18/19 Reason for Consult: ams Chief complaint: ams, per er attn, pt unable to give hx History of present illness: hx taken from grandson pt was found down at 2 am, 'i heard a thump and i saw her on the floor, she was confused disorient, but talking, but she wouldnt complete her sentences' no sz at the scene no prior strokes or sz or neuro hx pmh HTN DM COPD pt arrived w ams no vomiting no posturing no trauma no blood loss wax waning MS na 130 leukocytosis pt arrived w resp acidosis, BG >700, and altered stroke w/u was done, no tpa, CT head neg, CTA h.n, L ICA 70% no fever on admission HTN urgency on admission pt was found to have poss right sided weakness BP 230s/90s tachy no a.fib given zosyn, and ativan for witnessed sz in ED no recurrent sz placed on bipap somnolent on Insulin drip for ?DKA w gap FH neg for neuro dis SH smoker all: NKA ROS : unable to be obtained, pt is stuporous concern for stroke, in setting of elevated BG, new onset sz, right sided weakness, resp acidosis, dka keppra loaded Medications and Allergies Allergies Allergy/AdvReac Type Severity Reaction Status Date / Time No Known Allergies Allergy Verified 09/19/13 22:38 Home Medications Medication Instructions Recorded Confirmed Last Taken Type Gabapentin [Neurontin] 600 mg PO BID 02/18/19 02/18/19 Unknown History Losartan/Hydrochlorothiazide 1 each PO QDAY 02/18/19 02/18/19 Unknown History [Losartan-Hctz 100-25 mg Tab] Meloxicam [Mobic] 7.5 mg PO QDAY 02/18/19 02/18/19 Unknown History Sertraline [Zoloft] 150 mg PO QDAY 02/18/19 02/18/19 Unknown History Simvastatin 40 mg PO QDAY 02/18/19 02/18/19 Unknown History metFORMIN XR [Glucophage XR] 1,000 mg PO BID 02/18/19 02/18/19 Unknown History Active Meds: Active Medications Albuterol (Proventil) 2.5 mg IH Q3HRT PRN PRN Reason: Shortness Of Breath Dextrose (D50w (25gm) Syringe) 0 ml IV PRN PRN PRN Reason: Hypoglycemia Insulin Human Regular 100 (units/ Sodium Chloride) 100 mls @ 1 mls/hr IV TITR TAN; Protocol Last Titration: 02/18/19 11:03 Dose: 5 units/hr, 5 mls/hr Documented by: Potassium Chloride/Dextrose/Sod Cl (D5w/0.45% Nacl/Kcl 20 Meq) 20 meq in 1,000 mls @ 125 mls/hr IV DIRECT TAN Sodium Chloride (Nacl 0.9% 1000 Ml) 2,000 mls @ 999 mls/hr IV BOLUS ONE Stop: 02/18/19 13:47 Last Admin: 02/18/19 11:49 Dose: 999 mls/hr Documented by: Sodium Chloride (Sodium Chloride Flush Syringe 10 Ml) 10 ml IV BID TAN Last Admin: 02/18/19 10:07 Dose: 10 ml Documented by: Sodium Chloride (Sodium Chloride Flush Syringe 10 Ml) 10 ml IV PRN PRN PRN Reason: LINE FLUSH Physical Examination - Vital Signs Vital Signs: Vital Signs 187/97 114 99% 22 98 degrees Pulse Resp 101 H 20 02/18/19 03:52 02/18/19 03:52 - Physical Exam Narrative exam: stupor non verbal not FSC pt quickly becomes restless and agitated no active sz no interictal sz like activity favors moving the L side bipap no forced gaze, dolls not performed d/t pt found down, no CT cervical perrl CN: limited testing face mild R facial droop , no discharge nose or ears R arm leg spont movements, but seems weaker then L UE LE w/d to pain x 4 L>R no rash abd soft no asymm edema pulses good x 4 tone down x all limbs no posturing Results - Laboratory Findings CBC and BMP: 02/18/19 04:01 02/18/19 09:27 Abnormal Lab Findings: Abnormal Labs 02/18/19 02/18/19 02/18/19 04:01 04:01 04:03 WBC 15.9 H Seg Neuts % (Manual) 84.0 H Lymphocytes % (Manual) 12.0 L Seg Neutrophils # Man 13.4 H POC ABG pH POC ABG pCO2 POC ABG pO2 VBG pH Sodium 127 L Potassium Chloride 88.5 L Carbon Dioxide Creatinine 1.3 H Glucose 744 H* POC Glucose > 500 H Lactic Acid Phosphorus Magnesium Alkaline Phosphatase 153 H Albumin 3.7 L Triglycerides Cholesterol 02/18/19 02/18/19 02/18/19 05:25 05:32 06:03 WBC Seg Neuts % (Manual) Lymphocytes % (Manual) Seg Neutrophils # Man POC ABG pH 7.058 L POC ABG pCO2 POC ABG pO2 111 H VBG pH 7.118 L* Sodium Potassium Chloride Carbon Dioxide Creatinine Glucose POC Glucose 484 H Lactic Acid Phosphorus Magnesium Alkaline Phosphatase Albumin Triglycerides Cholesterol 02/18/19 02/18/19 02/18/19 06:05 06:05 06:23 WBC Seg Neuts % (Manual) Lymphocytes % (Manual) Seg Neutrophils # Man POC ABG pH POC ABG pCO2 POC ABG pO2 VBG pH Sodium 127 L 131 L Potassium 3.3 L Chloride 92.0 L 92.9 L Carbon Dioxide Creatinine 1.3 H 1.3 H Glucose 603 H* 544 H* POC Glucose Lactic Acid Phosphorus 4.90 H Magnesium 1.50 L Alkaline Phosphatase Albumin Triglycerides Cholesterol 02/18/19 02/18/19 02/18/19 06:23 06:29 07:38 WBC Seg Neuts % (Manual) Lymphocytes % (Manual) Seg Neutrophils # Man POC ABG pH POC ABG pCO2 POC ABG pO2 VBG pH Sodium Potassium Chloride Carbon Dioxide Creatinine Glucose POC Glucose 421 H 405 H Lactic Acid 2.40 H* Phosphorus Magnesium Alkaline Phosphatase Albumin Triglycerides Cholesterol 02/18/19 02/18/19 02/18/19 08:40 09:27 09:27 WBC Seg Neuts % (Manual) Lymphocytes % (Manual) Seg Neutrophils # Man POC ABG pH POC ABG pCO2 POC ABG pO2 VBG pH Sodium 130 L Potassium Chloride 97.5 L Carbon Dioxide 19 L Creatinine Glucose 401 H POC Glucose 408 H Lactic Acid Phosphorus Magnesium Alkaline Phosphatase Albumin Triglycerides 425 H Cholesterol 221 H 02/18/19 02/18/19 02/18/19 09:27 09:39 10:47 WBC Seg Neuts % (Manual) Lymphocytes % (Manual) Seg Neutrophils # Man POC ABG pH 7.154 L POC ABG pCO2 68.7 H POC ABG pO2 133 H VBG pH Sodium Potassium Chloride Carbon Dioxide Creatinine Glucose POC Glucose 357 H Lactic Acid Phosphorus 5.10 H Magnesium 1.60 L Alkaline Phosphatase Albumin Triglycerides Cholesterol 02/18/19 11:08 WBC Seg Neuts % (Manual) Lymphocytes % (Manual) Seg Neutrophils # Man POC ABG pH POC ABG pCO2 POC ABG pO2 VBG pH Sodium Potassium Chloride Carbon Dioxide Creatinine Glucose POC Glucose 278 H Lactic Acid Phosphorus Magnesium Alkaline Phosphatase Albumin Triglycerides Cholesterol Assessment and Plan AMS: acute in setting of DKA, resp acidosis, metabolic derrangements, leukocytosis , electrolyte derangements acute onset of R sided weakness, along w new onset sz, given keppra no recurrent sz, less probable that pt is in status, she arouses but goes back to sleep no a.fib no fever poss stroke acute isch L MCA embolic, stable vs new onset sz (poss d/t elevated BG) w todds paralysis to the right Ct cervical pt found down r/o fracture rectal asa daily no need for cont. AED for now, sz precautions, if recurrent sz please notify neuro hold EEG for now, sz likely provoked mri b if stroke on L MCA, vascular consult will be needed, concerning for poss symptomatic L ICA cont. current management of above mentioned issues
--- NOTE | 2019-02-18 13:06 | Consultation ---
History of Present Illness Consult date: 02/18/19 Requesting physician: MARLY BOWEN Reason for consult: other (Acute hypercapnic hypoxemic respiratory failure) History of present illness: PULMONARY/CCM CONSULT NOTE (Full dictation # [id number]) Please see dictated notes for full details Medications and Allergies Allergies Allergy/AdvReac Type Severity Reaction Status Date / Time No Known Allergies Allergy Verified 09/19/13 22:38 Home Medications Medication Instructions Recorded Confirmed Last Taken Type Gabapentin [Neurontin] 600 mg PO BID 02/18/19 02/18/19 Unknown History Losartan/Hydrochlorothiazide 1 each PO QDAY 02/18/19 02/18/19 Unknown History [Losartan-Hctz 100-25 mg Tab] Meloxicam [Mobic] 7.5 mg PO QDAY 02/18/19 02/18/19 Unknown History Sertraline [Zoloft] 150 mg PO QDAY 02/18/19 02/18/19 Unknown History Simvastatin 40 mg PO QDAY 02/18/19 02/18/19 Unknown History metFORMIN XR [Glucophage XR] 1,000 mg PO BID 02/18/19 02/18/19 Unknown History Active Meds: Active Medications Albuterol (Proventil) 2.5 mg IH Q3HRT PRN PRN Reason: Shortness Of Breath Aspirin (Aspirin) 300 mg MS QDAY TAN Dextrose (D50w (25gm) Syringe) 0 ml IV PRN PRN PRN Reason: Hypoglycemia Insulin Human Regular 100 (units/ Sodium Chloride) 100 mls @ 1 mls/hr IV TITR TAN; Protocol Last Titration: 02/18/19 12:29 Dose: 4 units/hr, 4 mls/hr Documented by: Potassium Chloride/Dextrose/Sod Cl (D5w/0.45% Nacl/Kcl 20 Meq) 20 meq in 1,000 mls @ 125 mls/hr IV DIRECT TAN Sodium Chloride (Nacl 0.9% 1000 Ml) 2,000 mls @ 999 mls/hr IV BOLUS ONE Stop: 02/18/19 13:47 Last Admin: 02/18/19 11:49 Dose: 999 mls/hr Documented by: Sodium Chloride (Sodium Chloride Flush Syringe 10 Ml) 10 ml IV BID TAN Last Admin: 02/18/19 10:07 Dose: 10 ml Documented by: Sodium Chloride (Sodium Chloride Flush Syringe 10 Ml) 10 ml IV PRN PRN PRN Reason: LINE FLUSH Physical Examination Vital signs: Vital Signs Pulse Resp 101 H 20 02/18/19 03:52 02/18/19 03:52 Results - Laboratory Findings CBC and BMP: 02/19/19 04:35 02/19/19 00:59 ABG POC ABG pH 7.154 (7.35-7.45) L 02/18/19 10:47 POC ABG pCO2 68.7 (35-45) H 02/18/19 10:47 POC ABG pO2 133 (80-105) H 02/18/19 10:47 POC ABG HCO3 24.1 (22-26 mml/L) 02/18/19 10:47 POC ABG Total CO2 26 (23-27mmol/L) 02/18/19 10:47 POC ABG O2 Sat 98 02/18/19 10:47 Abnormal lab findings: Abnormal Labs 02/18/19 02/18/19 02/18/19 04:01 04:01 04:03 WBC 15.9 H Seg Neuts % (Manual) 84.0 H Lymphocytes % (Manual) 12.0 L Seg Neutrophils # Man 13.4 H POC ABG pH POC ABG pCO2 POC ABG pO2 VBG pH Sodium 127 L Potassium Chloride 88.5 L Carbon Dioxide Creatinine 1.3 H Glucose 744 H* POC Glucose > 500 H Lactic Acid Phosphorus Magnesium Alkaline Phosphatase 153 H Albumin 3.7 L Triglycerides Cholesterol 02/18/19 02/18/19 02/18/19 05:25 05:32 06:03 WBC Seg Neuts % (Manual) Lymphocytes % (Manual) Seg Neutrophils # Man POC ABG pH 7.058 L POC ABG pCO2 POC ABG pO2 111 H VBG pH 7.118 L* Sodium Potassium Chloride Carbon Dioxide Creatinine Glucose POC Glucose 484 H Lactic Acid Phosphorus Magnesium Alkaline Phosphatase Albumin Triglycerides Cholesterol 02/18/19 02/18/19 02/18/19 06:05 06:05 06:23 WBC Seg Neuts % (Manual) Lymphocytes % (Manual) Seg Neutrophils # Man POC ABG pH POC ABG pCO2 POC ABG pO2 VBG pH Sodium 127 L 131 L Potassium 3.3 L Chloride 92.0 L 92.9 L Carbon Dioxide Creatinine 1.3 H 1.3 H Glucose 603 H* 544 H* POC Glucose Lactic Acid Phosphorus 4.90 H Magnesium 1.50 L Alkaline Phosphatase Albumin Triglycerides Cholesterol 02/18/19 02/18/19 02/18/19 06:23 06:29 07:38 WBC Seg Neuts % (Manual) Lymphocytes % (Manual) Seg Neutrophils # Man POC ABG pH POC ABG pCO2 POC ABG pO2 VBG pH Sodium Potassium Chloride Carbon Dioxide Creatinine Glucose POC Glucose 421 H 405 H Lactic Acid 2.40 H* Phosphorus Magnesium Alkaline Phosphatase Albumin Triglycerides Cholesterol 02/18/19 02/18/19 02/18/19 08:40 09:27 09:27 WBC Seg Neuts % (Manual) Lymphocytes % (Manual) Seg Neutrophils # Man POC ABG pH POC ABG pCO2 POC ABG pO2 VBG pH Sodium 130 L Potassium Chloride 97.5 L Carbon Dioxide 19 L Creatinine Glucose 401 H POC Glucose 408 H Lactic Acid Phosphorus Magnesium Alkaline Phosphatase Albumin Triglycerides 425 H Cholesterol 221 H 02/18/19 02/18/19 02/18/19 09:27 09:39 10:47 WBC Seg Neuts % (Manual) Lymphocytes % (Manual) Seg Neutrophils # Man POC ABG pH 7.154 L POC ABG pCO2 68.7 H POC ABG pO2 133 H VBG pH Sodium Potassium Chloride Carbon Dioxide Creatinine Glucose POC Glucose 357 H Lactic Acid Phosphorus 5.10 H Magnesium 1.60 L Alkaline Phosphatase Albumin Triglycerides Cholesterol 02/18/19 02/18/19 11:08 12:35 WBC Seg Neuts % (Manual) Lymphocytes % (Manual) Seg Neutrophils # Man POC ABG pH POC ABG pCO2 POC ABG pO2 VBG pH Sodium Potassium Chloride Carbon Dioxide Creatinine Glucose POC Glucose 278 H 239 H Lactic Acid Phosphorus Magnesium Alkaline Phosphatase Albumin Triglycerides Cholesterol
[2019-02-18 13:22] LABS: Calcium 8.5 mg/dL (8.4-10.2)
[2019-02-18] MEDS ORDERED: D5W/0.45% NACL/KCL 20 MEQ 20 MEQ/1,000 ML BAG IV ONE (13:36)
[2019-02-18] MEDS ORDERED: HYDROGEN PEROXIDE ONE (15:34)
[2019-02-18] MEDS ORDERED: HALDOL ONE (15:34)
[2019-02-18] MEDS ORDERED: HALDOL IM ONE (15:49)
--- NOTE | 2019-02-18 16:03 | Cat Scan Report ---
CT CERVICAL SPINE WITHOUT CONTRAST INDICATION / CLINICAL INFORMATION: pt found down, please r/o fracture. TECHNIQUE: Axial CT images were obtained through the cervical spine. Sagittal and coronal reformatted images wer e produced. All CT scans at this location are performed using CT dose reduction for ALARA by means of automated exposure control. COMPARISON: CTA neck 02/18/2019. LIMITATIONS: Patient was unable to cooperate for the examination. Patient motion artifact degrades im age quality. I cannot exclude the possibility of fracture or subluxation at the C5 or C6 levels. Sierra ent underwent CT neck on 02/18/2019. The CTA neck is a satisfactory study which includes complete eval uation of the cervical spine. If there is no reason to suspect an interval change in the status of th e cervical spine since CTA neck performed at 0531 hours on 02/18/2019 then no additional evaluation wo uld be required. If there has been an interval change since CTA neck examination then repeat CT cervi lillian spine should be performed. FINDINGS: ALIGNMENT: The C5 and C6 levels cannot be adequately evaluated on this study. VERTEBRAE: The C5 and C6 levels cannot be adequately evaluated on this study. DISC SPACES: The C5-6 and C6-7 disc levels cannot be adequately evaluated on this study. Disc height is normally maintained elsewhere. INDIVIDUAL LEVEL ANALYSIS: C2-3:No abnormality. C3-4: Mild facet arthropathy. No additional abnormality.. C4-5: Right worse than left facet arthritic changes. Mild bilateral foraminal narrowing. No additiona l abnormality. C5-6: This level cannot be evaluated on CT cervical spine. This level was adequately evaluated on rec ent CTA neck. On recent CTA neck bilateral facet arthropathy was demonstrated. C6-7: This level cannot be adequately evaluated on this CT cervical spine study. This level was not a dequately evaluated on CTA neck also dated 02/18/2019. Bilateral facet arthritic changes are demonstra leroy. Anterior osteophyte formation is observed. Central spinal canal is adequate in size. Mild bilate ral foraminal narrowing is observed. C7-T1: No abnormality. CRANIOCERVICAL JUNCTION:No significant abnormality. SPINAL CANAL: Central spinal canal cannot be evaluated C5 and C6 levels. PARASPINAL SOFT TISSUES: Abnormal thyroid gland. Please refer to CTA neck report. LUNG APICES: No significant abnormality of visualized lungs. IMPRESSION: 1. This study is limited by patient motion. C5-6 and C6-7 levels cannot be adequately evaluated on th is study. 2. Patient underwent recent CTA neck 02/18/2019 at 0531 hours. This included complete evaluation of th e cervical spine and was a technically satisfactory study. If there has been no change in the patient 's condition to suggest interval change in the status of the cervical spine and no further evaluation is required. If there has been a significant change suggesting a change in the status of the cervica l spine and repeat examination should be considered. Signer Name: Andrae Barraza MD Signed: 02/18/2019 3:59 PM Workstation Name: [id number]
[2019-02-18 17:47] LABS: Calcium 8.2 mg/dL (8.4-10.2)
[2019-02-18] MEDS: VASOTEC IV SCH ×2 (19:00→23:28)
[2019-02-18] MEDS: APRESOLINE IV PRN (20:09)
[2019-02-18] MEDS ORDERED: LANTUS SUB-Q SCH (22:00)
[2019-02-18] MEDS: ZOSYN/NS 4.5GM/100ML 4.5 GM/100 ML VIAL IV SCH (22:26)
[2019-02-19 01:45] LABS: Calcium 8.1 mg/dL (8.4-10.2)
[2019-02-19] MEDS: PROVENTIL IH PRN (02:56)
[2019-02-19] MEDS: ZOSYN/NS 4.5GM/100ML 4.5 GM/100 ML VIAL IV SCH ×3 (03:43→21:03)
[2019-02-19 05:08] LABS: Hematocrit 37.2 % (30.3-42.9); Hemoglobin 12.3 gm/dl (10.1-14.3); Mean Corpuscular HGB Conc 33 % (30-34); Mean Corpuscular Volume 88 fl (79-97); Platelet Count 200 K/mm3 (140-440); Red Blood Count 4.25 M/mm3 (3.65-5.03); Red Cell Distribution Width 13.9 % (13.2-15.2)
[2019-02-19] MEDS: HumaLOG SUB-Q SCH ×3 (07:31→18:50)
[2019-02-19] MEDS: VASOTEC IV SCH ×3 (08:00→19:00)
[2019-02-19] MEDS: APRESOLINE IV PRN ×2 (09:18→20:56)
[2019-02-19] MEDS: ASPIRIN PR SCH (11:01)
[2019-02-19] MEDS: SODIUM CHLORIDE FLUSH SYRINGE 10 ML IV SCH ×2 (11:02→21:54)
[2019-02-19] MEDS ORDERED: HALDOL IV ONE (12:05)
[2019-02-19] MEDS: ZITHROMAX 500 MG in NACL 0.9% 250ML 250 ML IV SCH (14:00)
[2019-02-19] MEDS: ZOFRAN IV PRN ×2 (15:00→21:52)
--- NOTE | 2019-02-19 15:02 | Progress Note ---
Assessment and Plan Acute toxic metabolic encephalopathy Hyperosmolar, nonketotic state. Leukocytosis, etiology unclear. Hypertensive urgency. Acute hypercapnic, hypoxemic respiratory failure. Hypomagnesemia. Obesity. History of coronary artery disease. Acute chronic obstructive pulmonary disease exacerbation. Tobacco use disorder. - get ABG stat and attempt to give daytime breaks of BIPAP - place NGT to LIS if vomits again - prn Haldol ordered +/- oral seroquel - avoid benzodiazepines - continue bronchodilators with pulmonary hygiene per RT - complete empiric AB's (de-escalate based on clinical and microbiologic data) - continue supplemental oxygen as needed to keep O2 sat's > 90% - send sputum C&S - continue accuchecks with glycemic control per SSI for target blood glucose <180mg/dL - Agitation management - Prevention of delirium, maintenance of sleep-wake cycle - VTE and Stress ulcer prophylaxis - continue other care per attending / other consultants ... re-evaluate in am & prn CONDITION: CRITICAL PROGNOSIS: GRAVE to GUARDED CODE STATUS: FULL CODE The high probability of a clinically significant, sudden or life-threatening deterioration of the [respiratory and neurologic] system(s) required my full and direct attention, intervention and personal management. The aggregate critical care time was [35] minutes without overlap. Time includes spent on; [x] Data Review and interpretation [x] Patient assessment and monitoring of vital signs [x] Documentation [x] Medication orders and management Subjective Date of service: 02/19/19 Principal diagnosis: Ac encephalopathy; HNKK; HTNsive urgency; Ac hypercapnic hypoxemic resp emmanuel Interval history: Patient is seen today for: Acute toxic metabolic encephalopathy; Hyperosmolar, nonketotic state; Leukocytosis, etiology unclear; Hypertensive urgency; Acute hypercapnic, hypoxemic respiratory failure; Hypomagnesemia; Obesity; History of coronary artery disease; Acute chronic obstructive pulmonary disease exacerbation; Tobacco use disorder. Seen and examined at bedside; 24hour events reviewed; nursing and respiratory care staff consulted; no adverse overnight events reported to me; remains on continuous BIPAP therapy; last ABG still uncompensated acidosis; still inco herent and requiring intermittent sedation / anxiolysis; no emesis reported today Objective Vital Signs - 12hr 02/19/19 02/19/19 02/19/19 03:15 03:45 04:00 Temperature 99.1 F Pulse Rate 116 H Pulse Rate [ 117 H Bilateral Throughout] Respiratory 17 Rate Respiratory 22 Rate [Bilateral Throughout] Blood Pressure 155/63 O2 Sat by Pulse 97 Oximetry 02/19/19 02/19/19 02/19/19 05:00 06:00 07:00 Temperature Pulse Rate 113 H 109 H Pulse Rate [ Bilateral Throughout] Respiratory 22 16 Rate Respiratory Rate [Bilateral Throughout] Blood Pressure 151/64 151/64 151/64 O2 Sat by Pulse 94 97 96 Oximetry 02/19/19 02/19/19 02/19/19 08:00 08:58 09:00 Temperature 98.2 F Pulse Rate 102 H 107 H 99 H Pulse Rate [ Bilateral Throughout] Respiratory 20 15 Rate Respiratory Rate [Bilateral Throughout] Blood Pressure 187/82 175/84 O2 Sat by Pulse 97 100 Oximetry 02/19/19 02/19/19 02/19/19 09:18 10:01 10:50 Temperature Pulse Rate 95 H 106 H 100 H Pulse Rate [ Bilateral Throughout] Respiratory 15 21 Rate Respiratory Rate [Bilateral Throughout] Blood Pressure 175/84 175/84 186/57 O2 Sat by Pulse 98 99 Oximetry 02/19/19 02/19/19 02/19/19 11:01 11:14 12:00 Temperature 98.7 F Pulse Rate 111 H 96 H Pulse Rate [ Bilateral Throughout] Respiratory 25 H 21 Rate Respiratory Rate [Bilateral Throughout] Blood Pressure 156/57 143/59 O2 Sat by Pulse 97 97 97 Oximetry 02/19/19 02/19/19 13:00 14:00 Temperature Pulse Rate 90 86 Pulse Rate [ Bilateral Throughout] Respiratory 18 14 Rate Respiratory Rate [Bilateral Throughout] Blood Pressure 145/61 145/57 O2 Sat by Pulse 99 99 Oximetry Constitutional: appears uncomfortable, other (elderly looking CF, normocephalic and traumatic with increased resp effort on BIPAP) Eyes: non-icteric ENT: oropharynx moist Neck: supple, no lymphadenopathy, no JVD, other (large neck circumference) Effort: mildly labored Ascultation: Bilateral: diminished breath sounds, rhonchi Percussion: Bilateral: not dull Cardiovascular: regular rate and rhythm, other (No R/M) Gastrointestinal: normoactive bowel sounds, soft, non-tender, non-distended Integumentary: rash Extremities: no cyanosis, no edema, pink and warm, pulses normal, no ischemia or petechiae Neurologic: non-focal exam (grossly), pupils equal and round, motor strength normal and, unable to assess Psychiatric: other (Unable to assess re: AMS) CBC and BMP: 02/21/19 04:03 02/21/19 04:03 ABG, PT/INR, D-dimer: ABG POC ABG pH 7.225 (7.35-7.45) L 02/18/19 15:34 POC ABG pCO2 52.1 (35-45) H 02/18/19 15:34 POC ABG pO2 99 (80-105) 02/18/19 15:34 POC ABG HCO3 21.6 (22-26 mml/L) 02/18/19 15:34 POC ABG Total CO2 23 (23-27mmol/L) 02/18/19 15:34 POC ABG O2 Sat 96 02/18/19 15:34 Abnormal lab findings: Abnormal Labs 02/18/19 02/18/19 02/18/19 04:01 04:01 04:03 WBC 15.9 H Seg Neuts % (Manual) 84.0 H Lymphocytes % (Manual) 12.0 L Seg Neutrophils # Man 13.4 H POC ABG pH POC ABG pCO2 POC ABG pO2 VBG pH Sodium 127 L Potassium Chloride 88.5 L Carbon Dioxide Creatinine 1.3 H Glucose 744 H* POC Glucose > 500 H Lactic Acid Calcium Phosphorus Magnesium Alkaline Phosphatase 153 H C-Reactive Protein Albumin 3.7 L Triglycerides Cholesterol 02/18/19 02/18/19 02/18/19 05:25 05:32 06:03 WBC Seg Neuts % (Manual) Lymphocytes % (Manual) Seg Neutrophils # Man POC ABG pH 7.058 L POC ABG pCO2 POC ABG pO2 111 H VBG pH 7.118 L* Sodium Potassium Chloride Carbon Dioxide Creatinine Glucose POC Glucose 484 H Lactic Acid Calcium Phosphorus Magnesium Alkaline Phosphatase C-Reactive Protein Albumin Triglycerides Cholesterol 02/18/19 02/18/19 02/18/19 06:05 06:05 06:23 WBC Seg Neuts % (Manual) Lymphocytes % (Manual) Seg Neutrophils # Man POC ABG pH POC ABG pCO2 POC ABG pO2 VBG pH Sodium 127 L 131 L Potassium 3.3 L Chloride 92.0 L 92.9 L Carbon Dioxide Creatinine 1.3 H 1.3 H Glucose 603 H* 544 H* POC Glucose Lactic Acid Calcium Phosphorus 4.90 H Magnesium 1.50 L Alkaline Phosphatase C-Reactive Protein Albumin Triglycerides Cholesterol 02/18/19 02/18/19 02/18/19 06:23 06:29 07:38 WBC Seg Neuts % (Manual) Lymphocytes % (Manual) Seg Neutrophils # Man POC ABG pH POC ABG pCO2 POC ABG pO2 VBG pH Sodium Potassium Chloride Carbon Dioxide Creatinine Glucose POC Glucose 421 H 405 H Lactic Acid 2.40 H* Calcium Phosphorus Magnesium Alkaline Phosphatase C-Reactive Protein Albumin Triglycerides Cholesterol 02/18/19 02/18/19 02/18/19 08:40 09:27 09:27 WBC Seg Neuts % (Manual) Lymphocytes % (Manual) Seg Neutrophils # Man POC ABG pH POC ABG pCO2 POC ABG pO2 VBG pH Sodium 130 L Potassium Chloride 97.5 L Carbon Dioxide 19 L Creatinine Glucose 401 H POC Glucose 408 H Lactic Acid Calcium Phosphorus Magnesium Alkaline Phosphatase C-Reactive Protein Albumin Triglycerides 425 H Cholesterol 221 H 02/18/19 02/18/19 02/18/19 09:27 09:39 10:47 WBC Seg Neuts % (Manual) Lymphocytes % (Manual) Seg Neutrophils # Man POC ABG pH 7.154 L POC ABG pCO2 68.7 H POC ABG pO2 133 H VBG pH Sodium Potassium Chloride Carbon Dioxide Creatinine Glucose POC Glucose 357 H Lactic Acid Calcium Phosphorus 5.10 H Magnesium 1.60 L Alkaline Phosphatase C-Reactive Protein Albumin Triglycerides Cholesterol 02/18/19 02/18/19 02/18/19 11:08 12:09 12:35 WBC Seg Neuts % (Manual) Lymphocytes % (Manual) Seg Neutrophils # Man POC ABG pH POC ABG pCO2 POC ABG pO2 VBG pH Sodium Potassium Chloride Carbon Dioxide Creatinine Glucose 216 H POC Glucose 278 H 239 H Lactic Acid Calcium Phosphorus Magnesium Alkaline Phosphatase C-Reactive Protein Albumin Triglycerides Cholesterol 02/18/19 02/18/19 02/18/19 13:37 14:42 15:34 WBC Seg Neuts % (Manual) Lymphocytes % (Manual) Seg Neutrophils # Man POC ABG pH 7.225 L POC ABG pCO2 52.1 H POC ABG pO2 VBG pH Sodium Potassium Chloride Carbon Dioxide Creatinine Glucose POC Glucose 165 H 205 H Lactic Acid Calcium Phosphorus Magnesium Alkaline Phosphatase C-Reactive Protein Albumin Triglycerides Cholesterol 02/18/19 02/18/19 02/18/19 16:04 16:55 17:06 WBC Seg Neuts % (Manual) Lymphocytes % (Manual) Seg Neutrophils # Man POC ABG pH POC ABG pCO2 POC ABG pO2 VBG pH Sodium Potassium Chloride Carbon Dioxide Creatinine Glucose 247 H POC Glucose 204 H 240 H Lactic Acid Calcium 8.2 L Phosphorus Magnesium Alkaline Phosphatase C-Reactive Protein Albumin Triglycerides Cholesterol 02/18/19 02/18/19 02/18/19 18:12 19:03 20:00 WBC Seg Neuts % (Manual) Lymphocytes % (Manual) Seg Neutrophils # Man POC ABG pH POC ABG pCO2 POC ABG pO2 VBG pH Sodium Potassium Chloride Carbon Dioxide Creatinine Glucose POC Glucose 211 H 192 H 168 H Lactic Acid Calcium Phosphorus Magnesium Alkaline Phosphatase C-Reactive Protein Albumin Triglycerides Cholesterol 02/18/19 02/18/19 02/18/19 21:06 22:04 23:08 WBC Seg Neuts % (Manual) Lymphocytes % (Manual) Seg Neutrophils # Man POC ABG pH POC ABG pCO2 POC ABG pO2 VBG pH Sodium Potassium Chloride Carbon Dioxide Creatinine Glucose POC Glucose 109 H 140 H 146 H Lactic Acid Calcium Phosphorus Magnesium Alkaline Phosphatase C-Reactive Protein Albumin Triglycerides Cholesterol 02/19/19 02/19/19 02/19/19 00:30 00:59 04:35 WBC 18.4 H Seg Neuts % (Manual) Lymphocytes % (Manual) Seg Neutrophils # Man POC ABG pH POC ABG pCO2 POC ABG pO2 VBG pH Sodium Potassium Chloride Carbon Dioxide 19 L D Creatinine Glucose 261 H POC Glucose 225 H Lactic Acid Calcium 8.1 L Phosphorus Magnesium Alkaline Phosphatase C-Reactive Protein Albumin Triglycerides Cholesterol 02/19/19 02/19/19 02/19/19 06:06 12:22 13:19 WBC Seg Neuts % (Manual) Lymphocytes % (Manual) Seg Neutrophils # Man POC ABG pH POC ABG pCO2 POC ABG pO2 VBG pH Sodium Potassium Chloride Carbon Dioxide Creatinine Glucose POC Glucose 366 H 246 H Lactic Acid 2.10 H* Calcium Phosphorus Magnesium Alkaline Phosphatase C-Reactive Protein Albumin Triglycerides Cholesterol 02/19/19 13:19 WBC Seg Neuts % (Manual) Lymphocytes % (Manual) Seg Neutrophils # Man POC ABG pH POC ABG pCO2 POC ABG pO2 VBG pH Sodium Potassium Chloride Carbon Dioxide Creatinine Glucose POC Glucose Lactic Acid Calcium Phosphorus Magnesium Alkaline Phosphatase C-Reactive Protein 1.40 H Albumin Triglycerides Cholesterol Chest x-ray: image reviewed (no focal infiltrate yesterday) Allied health notes reviewed: nursing
[2019-02-19] MEDS ORDERED: ZOFRAN ONE (15:10)
[2019-02-19] MEDS ORDERED: REGLAN IV PRN (15:12)
[2019-02-19] MEDS: D5/0.45NS 1,000 ML IV SCH (15:18)
--- NOTE | 2019-02-19 17:06 | Progress Note ---
Assessment and Plan Assessment and plan: Unable to obtain hx from Patient, hX Obtained from FAMILY AND ED NOTE Patient is a 68-year-old female with past medical history according to the grandson of hypertension diabetes depression COPD and chronic tobacco use of pack a day for over 40+ years. She presents to the ED this morning after she was noted by the grandson for 4.30 a.m. to be on the floor following hearing a followed sound. The patient was confused and she attempted to pick the patient up from the floor and also called 911. On arrival now 1 personal history the patient was confused but moving all extremities was unable to follow any she was transferred to the ED on arrival to the ED was placed on a BiPAP machine as she was noted to have difficulty with respiration including hypercarbia. She was also noted to have a blood sugar for several 100s but no evidence of acetone or ketones. Also noted to have a blood pressure of over 2:30 on admission. According to the ED documentation the patient was noted to Have seizure disorder her in the ED on route to the CT No prior hx of stroke or seizure CXR: unremarkable Acute Combined Hypoxic and Hypercapenic respiratory failure-IMPROVING Hyperosomolar Nonketotic Hyperglycemia Acute Metabolic Encephalopathy Seizure Respiratory acidosis DM type 2 with hypgerlycemia Hyponatremia Leukocytosis Hypertensive Urgency Tobacco use disorder COPD Plan Continue ICU care, can downgrade to IMCU if mental status is improving Now off insulin drip, adjust SQ insulin for better control Awaiting CT study correct electrolytes as needed continue empiric abx Monitor cultures Seizure Prophylaxis Haldol PRN Monitor Mental status Aspiration Precautions MoniTOR bp FOR BETTER CONTROL User Acceptance Tester and Neurology consult Poor prognosis, discussed with grandson The high probability of a clinically significant, sudden or life threatening deterioration of the [pulmonary, endocrine] system(s) required my full and direct attention, intervention and personal management. The aggregate critical care time was [35] minutes. This time is in addition to time spent performing reported procedures but includes the following: [x] Data Review and interpretation [x] Patient assessment and monitoring of vital signs [x] Documentation [x] Medication orders and management History Interval history: Patient seen and examined, although off BIPAP and maintaining adequate saturation, she remains confused Hospitalist Physical - Physical exam Narrative exam: VITAL SIGNS: Reviewed. GENERAL: The patient appears normally developed, still encephalopathic, off BIPAP. Vital signs as documented. HEAD: No signs of head trauma. EYES: Pupils are equal. EARS: Hearing grossly intact. MOUTH: Oropharynx is normal. NECK: No adenopathy, no JVD. CHEST: Chest with clear breath sounds bilaterally. No wheezes, rales, or rhonchi. CARDIAC: Regular rate and rhythm. S1 and S2, without murmurs, gallops, or rubs. VASCULAR: No Edema. Peripheral pulses normal and equal in all extremities. ABDOMEN: Soft, non tender and non distended. No rebound or guarding, and no masses palpated. Bowel Sounds normal. MUSCULOSKELETAL: Good range of motion of all major joints. Extremities without clubbing, cyanosis or edema. NEUROLOGIC EXAM: Confused, agitated, not following commands. Moves all extremities PSYCHIATRIC: unable to examine SKIN: detail exam as documented in skin assessment - Constitutional Vitals: Temp Pulse Resp BP Pulse Ox 98.7 F 86 14 145/57 99 02/19/19 12:00 02/19/19 14:00 02/19/19 14:00 02/19/19 14:00 02/19/19 14:00 Results - Labs CBC & Chem 7: 02/19/19 04:35 02/19/19 00:59 Labs: Laboratory Last Values WBC 18.4 K/mm3 (4.5-11.0) H 02/19/19 04:35 RBC 4.25 M/mm3 (3.65-5.03) 02/19/19 04:35 Hgb 12.3 gm/dl (10.1-14.3) 02/19/19 04:35 Hct 37.2 % (30.3-42.9) 02/19/19 04:35 MCV 88 fl (79-97) 02/19/19 04:35 MCH 29 pg (28-32) 02/19/19 04:35 MCHC 33 % (30-34) 02/19/19 04:35 RDW 13.9 % (13.2-15.2) 02/19/19 04:35 Plt Count 200 K/mm3 (140-440) 02/19/19 04:35 Add Manual Diff Complete 02/18/19 04:01 Total Counted 100 02/18/19 04:01 Seg Neuts % (Manual) 84.0 % (40.0-70.0) H 02/18/19 04:01 0 % 02/18/19 04:01 12.0 % (13.4-35.0) L 02/18/19 04:01 Reactive Lymphs % (Man) 0 % 02/18/19 04:01 3.0 % (0.0-7.3) 02/18/19 04:01 1.0 % (0.0-4.3) 02/18/19 04:01 0 % (0.0-1.8) 02/18/19 04:01 0 % 02/18/19 04:01 0 % 02/18/19 04:01 0 % 02/18/19 04:01 0 % 02/18/19 04:01 Nucleated RBC % Not Reportable 02/18/19 04:01 Seg Neutrophils # Man 13.4 K/mm3 (1.8-7.7) H 02/18/19 04:01 Band Neutrophils # 0.0 K/mm3 02/18/19 04:01 1.9 K/mm3 (1.2-5.4) 02/18/19 04:01 Abs React Lymphs (Man) 0.0 K/mm3 02/18/19 04:01 0.5 K/mm3 (0.0-0.8) 02/18/19 04:01 0.2 K/mm3 (0.0-0.4) 02/18/19 04:01 0.0 K/mm3 (0.0-0.1) 02/18/19 04:01 0.0 K/mm3 02/18/19 04:01 0.0 K/mm3 02/18/19 04:01 0.0 K/mm3 02/18/19 04:01 Blast Cells # 0.0 K/mm3 02/18/19 04:01 WBC Morphology Not Reportable 02/18/19 04:01 Hypersegmented Neuts Not Reportable 02/18/19 04:01 Hyposegmented Neuts Not Reportable 02/18/19 04:01 Hypogranular Neuts Not Reportable 02/18/19 04:01 Not Reportable 02/18/19 04:01 1+ 02/18/19 04:01 Not Reportable 02/18/19 04:01 Not Reportable 02/18/19 04:01 Not Reportable 02/18/19 04:01 Not Reportable 02/18/19 04:01 Consistent w auto 02/18/19 04:01 Not Reportable 02/18/19 04:01 Plt Clumps, EDTA Not Reportable 02/18/19 04:01 Not Reportable 02/18/19 04:01 Not Reportable 02/18/19 04:01 Not Reportable 02/18/19 04:01 Plt Morphology Comment Not Reportable 02/18/19 04:01 RBC Morphology Normal 02/18/19 04:01 Dimorphic RBCs Not Reportable 02/18/19 04:01 Not Reportable 02/18/19 04:01 Not Reportable 02/18/19 04:01 Not Reportable 02/18/19 04:01 Not Reportable 02/18/19 04:01 Not Reportable 02/18/19 04:01 Not Reportable 02/18/19 04:01 Not Reportable 02/18/19 04:01 Not Reportable 02/18/19 04:01 Not Reportable 02/18/19 04:01 Not Reportable 02/18/19 04:01 Not Reportable 02/18/19 04:01 Not Reportable 02/18/19 04:01 Not Reportable 02/18/19 04:01 Not Reportable 02/18/19 04:01 Not Reportable 02/18/19 04:01 Not Reportable 02/18/19 04:01 Not Reportable 02/18/19 04:01 Not Reportable 02/18/19 04:01 Not Reportable 02/18/19 04:01 Acanthocytes (Spur) Not Reportable 02/18/19 04:01 Rouleaux Not Reportable 02/18/19 04:01 Not Reportable 02/18/19 04:01 Not Reportable 02/18/19 04:01 Not Reportable 02/18/19 04:01 Not Reportable 02/18/19 04:01 Hem Pathologist Commnt No 02/18/19 04:01 POC ABG pH 7.390 (7.35-7.45) 02/19/19 15:10 POC ABG pCO2 52.1 (35-45) H 02/18/19 15:34 POC ABG pO2 81 (80-105) 02/19/19 15:10 POC ABG HCO3 16.8 (22-26 mml/L) 02/19/19 15:10 POC ABG Total CO2 18 (23-27mmol/L) 02/19/19 15:10 POC ABG O2 Sat 96 02/19/19 15:10 POC ABG Base Excess -8 ((-2) - (+3)mmol/L) 02/19/19 15:10 VBG pH 7.118 (7.320-7.420) L* 02/18/19 05:25 30 % 02/19/19 15:10 Sodium 137 mmol/L (137-145) 02/19/19 00:59 Potassium 4.3 mmol/L (3.6-5.0) 02/19/19 00:59 Chloride 104.0 mmol/L (98-107) 02/19/19 00:59 Carbon Dioxide 19 mmol/L (22-30) L D 02/19/19 00:59 18 mmol/L 02/19/19 00:59 BUN 12 mg/dL (7-17) 02/19/19 00:59 1.2 mg/dL (0.7-1.2) 02/19/19 00:59 Estimated GFR 45 ml/min 02/19/19 00:59 10 % 02/19/19 00:59 Glucose 261 mg/dL (65-100) H 02/19/19 00:59 POC Glucose 246 (70-105) H 02/19/19 12:22 304 Mosm/kg 02/18/19 09:27 Lactic Acid 2.10 mmol/L (0.7-2.0) H* 02/19/19 13:19 Calcium 8.1 mg/dL (8.4-10.2) L 02/19/19 00:59 Phosphorus 5.10 mg/dL (2.5-4.5) H 02/18/19 09:27 Magnesium 1.60 mg/dL (1.7-2.3) L 02/18/19 09:27 0.40 mg/dL (0.1-1.2) 02/18/19 04:01 AST 28 units/L (5-40) 02/18/19 04:01 ALT 14 units/L (7-56) 02/18/19 04:01 153 units/L (35-129) H 02/18/19 04:01 1.40 mg/dL (0.00-1.30) H 02/19/19 13:19 7.5 g/dL (6.3-8.2) 02/18/19 04:01 3.7 g/dL (3.9-5) L 02/18/19 04:01 1.0 % 02/18/19 04:01 Triglycerides 425 mg/dL (2-149) H 02/18/19 09:27 Cholesterol 221 mg/dL (50-199) H 02/18/19 09:27 TNR 02/18/19 09:27 42 mg/dL (40-59) 02/18/19 09:27 5.26 % 02/18/19 09:27 Straw (Yellow) 02/18/19 06:37 Clear (Clear) 02/18/19 06:37 5.0 (5.0-7.0) 02/18/19 06:37 Ur Specific [place] 1.027 (1.003-1.030) 02/18/19 06:37 100 mg/dl mg/dL (Negative) 02/18/19 06:37 >=500 mg/dL (Negative) 02/18/19 06:37 Neg mg/dL (Negative) 02/18/19 06:37 Neg (Negative) 02/18/19 06:37 Neg (Negative) 02/18/19 06:37 Neg (Negative) 02/18/19 06:37 < 2.0 mg/dL (<2.0) 02/18/19 06:37 Ur Leukocyte Esterase Neg (Negative) 02/18/19 06:37 < 1.0 /HPF (0.0-6.0) 02/18/19 06:37 2.0 /HPF (0.0-6.0) 02/18/19 06:37 Active Medications - Current Medications Current Medications: Generic Name Dose Route Start Last Admin Trade Name Freq PRN Reason Stop Dose Admin Albuterol 2.5 mg 02/18/19 11:00 02/19/19 02:56 Proventil IH 2.5 mg Q3HRT PRN Administration Shortness Of Breath Arformoterol Tartrate 15 mcg 02/19/19 12:30 Brovana Nebu IH Q12HRT TAN Aspirin 300 mg 02/18/19 14:00 02/19/19 11:01 Aspirin NM 300 mg QDAY TAN Administration Dextrose 0 ml 02/18/19 09:30 D50w (25gm) Syringe IV PRN PRN Hypoglycemia Enalaprilat 1.25 mg 02/18/19 18:00 02/19/19 13:12 Vasotec IV 1.25 mg Q6HR TAN Administration Famotidine 20 mg 02/20/19 10:00 Pepcid IV QDAY TAN Haloperidol Lactate 5 mg 02/19/19 15:02 Haldol IV 02/22/19 15:01 Q6H PRN Agitation Hydralazine HCl 10 mg 02/18/19 17:26 02/19/19 09:18 Apresoline IV 10 mg Q4HR PRN Administration Hypertension Potassium Chloride/Dextrose/Sod Cl 20 meq in 1,000 mls @ 125 mls/hr 02/18/19 10:00 02/18/19 13:43 D5w/0.45% Nacl/Kcl 20 Meq IV 125 mls/hr DIRECT TAN Administration Piperacillin Sod/Tazobactam Sod 4.5 gm in 100 mls @ 200 mls/hr 02/18/19 20:00 02/19/19 13:10 Zosyn/Ns 4.5gm/100ml IV 200 mls/hr Q8H TAN Administration Protocol Azithromycin 500 mg/ Sodium 250 mls @ 250 mls/hr 02/19/19 13:00 02/19/19 14:00 Chloride IV 02/24/19 12:59 250 mls/hr Q24HR TAN Administration Protocol Dextrose/Sodium Chloride 1,000 mls @ 50 mls/hr 02/19/19 15:00 02/19/19 15:18 D5/0.45ns IV 50 mls/hr DIRECT TAN Administration Insulin Human Isoph/Insulin Regular 20 unit 02/19/19 09:30 02/19/19 10:00 Humulin 70/30 SUB-Q 20 unit BIDDIAB TAN Administration Insulin Human Lispro 0 unit 02/19/19 06:00 02/19/19 13:13 Humalog SUB-Q 4 unit Q6HR TAN Administration Protocol Metoclopramide HCl 10 mg 02/19/19 15:12 Reglan IV Q6H PRN Nausea And Vomiting Ondansetron HCl 4 mg 02/19/19 15:12 Zofran IV Q6H PRN Nausea And Vomiting Sodium Chloride 10 ml 02/18/19 10:00 02/19/19 11:02 Sodium Chloride Flush Syringe 10 Ml IV 10 ml BID TAN Administration Sodium Chloride 10 ml 02/18/19 09:30 Sodium Chloride Flush Syringe 10 Ml IV PRN PRN LINE FLUSH Nutrition/Malnutrition Assess - Dietary Evaluation Nutrition/Malnutrition Findings: Nutrition Notes Start: 02/19/19 15:02 Freq: Status: Active Protocol: Document 02/19/19 15:02 RM (Rec: 02/19/19 15:07 RM [id number]) Nutrition Notes Need for Assessment generated from: MD Order Initial or Follow up Assessment Current Diagnosis COPD,Diabetes,Hypertension, Respiratory Failure Other Pertinent Diagnosis Depression, Hyperglycemia Current Diet NPO Labs/Tests Reviewed Pertinent Medications Reviewed Height 5 ft 4 in Weight 77.564 kg [place] Body Weight (kg) 54.54 BMI 29.3 Subjective/Other Information Consulted for nutritional recommendations and diet education. Screened for malnutrition and skin risk. Pollo 17 points. Pt asleep w/ BiPAP. No temporal or orbital wasting. Burn Absent Trauma Absent #1 Nutrition Diagnosis Predicted suboptimal energy intake Etiology COPD As Evidenced by Signs and Symptoms NPO status Is patient on ventilator? Yes Is Patient Ambulatory and/or Out of Bed No REE-([facility]-confined to bed) 1560.264 Calculation Used for Recommendations [facility] Additional Notes Protein Needs: 93-155g (1.2-2g /kg) Fluid Needs: 1 ml/kcal Nutrition Intervention Change Diet Order: Advance diet when medically able Add Supplement/Snack (indicate name/kcal Ensure Enlive 1 daily once /protein ) diet advanced Provides kCal: 350 Provides Protein (gm) 20 Goal #1 Diet advancement Anticipated Discharge Needs: Unable to determine at this time Follow-Up By: 02/23/19 Additional Comments Follow for diet advancement, DM diet education, malnurition assessment
[2019-02-19] MEDS: HALDOL IV PRN (18:48)
[2019-02-19] MEDS: BROVANA NEBU IH SCH (20:35)
[2019-02-20] MEDS: HumaLOG SUB-Q SCH ×4 (00:41→18:00)
[2019-02-20] MEDS: HALDOL IV PRN (00:47)
[2019-02-20] MEDS: VASOTEC IV SCH ×5 (01:00→23:25)
--- NOTE | 2019-02-20 01:13 | Consultation ---
PULMONARY CRITICAL CARE CONSULTATION NOTE CONSULTING PHYSICIAN: To Claros MD REASON FOR CONSULTATION: Acute hypoxemic and hypercapnic respiratory failure, possible diabetic ketoacidosis, altered mental status. CHIEF COMPLAINT AND HISTORY OF PRESENT ILLNESS: The patient is a 68-year-old female with past medical history significant amongst other things for a diagnosis of diabetes and hypertension, also chronic tobacco use, a 40+ pack year smoker, came into the Emergency Room after she was found on the floor around 4:30 a.m. on the day of presentation. She heard a sound, she was confused. 911 was called. In the ER, she was moving all extremities, but not following any commands. She had at least one episode of very small volume emesis when I stopped by to see her. She was hypoglycemic. She was placed on a bilevel positive airway pressure ventilation therapy earlier and she was beginning to show some improvement in her hypercapnia. There was a questionable history of seizures according to old documentation, but the family could not confirm that. When I stopped by to see her, she was just coming back from the CT scan of her brain. They said she was really agitated during that procedure. She was again moving all extremities, but not following commands. This really is as much of the history of presentation as I have. PAST MEDICAL HISTORY: Coronary artery disease, COPD, diabetes. She is obese and then possible history of seizures. PAST SURGICAL HISTORY: Unknown. MEDICATIONS: She was on at the time I stopped by to see were reviewed, pertinent medications include the following: Albuterol nebulizer treatments 2.5 mg nebulized q. 3 hours p.r.n., aspirin 300 mg per rectum daily, insulin drip was going at 4 units per hour. She had also received D5 half NS with 20 of K at 125 mL per hour. ALLERGIES: No known drug allergies. DIET: Obese lady, acute weight loss or gain, history is unknown. Family denies significant weight loss. FAMILY AND SOCIAL HISTORY: Lives in the community, 40+ pack year tobacco smoking history. No current alcohol or illicit drug use or abuse history. FAMILY HISTORY: Otherwise unknown and grandchildren unable to give me a history. REVIEW OF SYSTEMS: Unobtainable secondary to patient's medical and mental condition. Since she has been here, no gross hematochezia or melena, no gross hematuria, no hematemesis. She had the emesis small volume, it was creamy looking gastric contents. No witnessed seizures in the ER. Review of systems otherwise unobtainable. PHYSICAL EXAMINATION: VITAL SIGNS: At presentation in the Emergency Room, she was afebrile, temperature 98.0 Fahrenheit with a pulse of 101, respiratory rate of 20, blood pressure 165/87 as high as 219/91, O2 sats were 88%, inspired oxygen concentration at that time was not recorded. When I stopped by to see her, her O2 sats were 99% that was on 4 liters nasal cannula at that time. GENERAL: She is elderly looking obese female, normocephalic, atraumatic, restless in the bed with mildly increased respiratory effort at rest. HEAD, EYES, EARS, NOSE AND THROAT: She was anicteric, no conjunctival erythema. Oropharynx was moist. Unable to evaluate the posterior oropharynx. No gross jugular venous distention, no thyromegaly. NECK: Grossly, there were no palpable lymph nodes in the supraclavicular or submandibular lymph node chains. LUNGS: Auscultation of both lung downing revealed diminished bilateral breath sounds, prolonged expiratory phase. No active wheezing. HEART: Heart sounds 1 and 2 are heard. They were regular in rate and rhythm at time of my evaluation without overt rubs or murmurs. ABDOMEN: Soft, full, bowel sounds are positive. It was protuberant, but nontender, no palpable hepatosplenomegaly. EXTREMITIES: Without overt digital clubbing, cyanosis, no pedal edema. No calf erythema or tenderness. NEUROLOGIC: Pupils were equal, round, about 4 mm, reactive to light. Extraocular muscle movements could not be assessed. There was no nystagmus. She moved all 4 extremities spontaneously. The skin was of normal turgor without overt cellulitis or rash. LABORATORY DATA: From my review, white cell count 15,900 at presentation with a hemoglobin of 14.0, hematocrit of 42.9, platelet count of 260. No band forms on the manual differential. On presentation, blood gas showed a pH of 7.06 with a pCO2 not recorded and a pO2 of 100, that was on 3 liters, 32% FiO2. The most recent ABG showed a pH of 7.15 with a pCO2 of 69, pO2 of 33 that was on 35% FiO2. This presentation, sodium 131, potassium 3.9, chloride 93, bicarbonate 25, BUN was 14, creatinine 1.3, glucose was 544. Lactic acid was within normal limits. Magnesium was low at 1.5. Liver function tests otherwise within normal limits. Urinalysis, she was spilling glucose, but she was negative for nitrites or leukocyte esterase. Total cholesterol was 221. Blood cultures were drawn, no growth to date. She has just gone for a CT scan of the head, I will be following that as well as CTA of the head and neck. A chest x-ray was done, essentially it shows really clear lung downing, chronic looking interstitial markings, is poorly positioned faint film, it is lordotic also, borderline cardiomegaly, no pneumothorax, no gross bony fracture that I can see. CT of the cervical spine is also pending. It seems like the CT spine has been resulted, because of motion, difficult to evaluate C5-C6 and C6-C7, but a recent CT angiogram did not reveal any C-spine fracture. ASSESSMENT AND PLAN: 1. Acute toxic metabolic encephalopathy, most likely. I will follow up on the CT of the brain. 2. Hyperosmolar, nonketotic state. 3. Leukocytosis, etiology unclear. 4. Hypertensive urgency. 5. Acute hypercapnic, hypoxemic respiratory failure. 6. Hypomagnesemia. 7. Obesity. 8. History of coronary artery disease. 9. Acute chronic obstructive pulmonary disease exacerbation. 10. Tobacco use disorder. PLAN: 1. She has received a dose of Zofran. No further vomiting, no emesis or dry heaving noted. She will be placed back on bilevel positive air pressure ventilation therapy. She will be acutely hyperventilated. Aspiration precautions will be maintained. Oxygen will be weaned to keep sats greater than or equal to about 90%. I will start her on long-acting bronchodilators as well as inhaled corticosteroids. I will hold on systemic steroids as I doubt that she is really having a true COPD exacerbation. She will be placed on empiric antibiotics including coverage for community-acquired pneumonias. Lactic acid level will be ordered. CRP level will be ordered. Those will be trended to help assess clinical decision making. We will see if her mental status improves to where she can be started on oral nutrition. For now, we will keep her n.p.o. while she is on the IV insulin therapy. We will keep an eye on her anion gap, make sure she does not go into true diabetic ketoacidosis. Better blood pressure control will be obtained. If we are not able to obtain blood pressure control with p.r.n. hydralazine and labetalol, she will be started on IV Cardene drip. She may need to be evaluated for possible seizure activity, but we will see how her mental status improves as the acid base balance is corrected. Cultures have been drawn. Antibiotics will be deescalated based on results of clinical and microbiologic data, p.r.n. Ativan for any seizure type activity, but we will try and avoid benzodiazepines, especially with her altered mental status. I will write for some p.r.n. Haldol also. Vasopressors will be started as necessary if she does go the other route and then becomes hypotensive. Flu and pneumonia vaccination will be addressed per protocol. Once she is doing better, tobacco cessation will be strongly counseled. Thank you very much for the consult. We will follow along and make further recommendations as picture progresses/becomes clearer. I should mention repeat arterial blood gas will be ordered and if she is not headed in the right direction, endotracheal intubation will be done to improve ventilation. She is critically ill, on life-sustaining interventions and at high risk including the risk of from cardiopulmonary and neurologic system deterioration. At this time, I spent about 35-40 minutes of critical care time without overlap excluding any procedural time that may be necessary. JOB# [id number] MELONIE/ZARINA RHODES
[2019-02-20] MEDS: SODIUM CHLORIDE FLUSH SYRINGE 10 ML IV SCH ×3 (02:38→23:29)
[2019-02-20] MEDS: ZOSYN/NS 4.5GM/100ML 4.5 GM/100 ML VIAL IV SCH (05:46)
[2019-02-20] MEDS: D5/0.45NS 1,000 ML IV SCH (06:03)
[2019-02-20 06:05] LABS: Hematocrit 38.8 % (30.3-42.9); Hemoglobin 12.4 gm/dl (10.1-14.3); Mean Corpuscular HGB Conc 32 % (30-34); Mean Corpuscular Volume 88 fl (79-97); Platelet Count 179 K/mm3 (140-440); Red Blood Count 4.41 M/mm3 (3.65-5.03); Red Cell Distribution Width 13.9 % (13.2-15.2)
[2019-02-20 06:29] LABS: Calcium 8.5 mg/dL (8.4-10.2)
[2019-02-20] MEDS: BROVANA NEBU IH SCH ×3 (08:42→21:14)
[2019-02-20] MEDS ORDERED: NACL 0.9% 1000 ML 1,000 ML IV ONE (08:59)
--- NOTE | 2019-02-20 09:45 | Progress Note ---
Assessment and Plan Acute Combined Hypoxic and Hypercapenic respiratory failure-IMPROVING Hyperosomolar Nonketotic Hyperglycemia Acute Metabolic Encephalopathy Seizure Respiratory acidosis DM type 2 with hypgerlycemia Hyponatremia, resolved Acute renal failure Leukocytosis. with lactic acidosis Hypertensive Urgency Tobacco use disorder COPD -ABG in the morning -PATIENT ESCORT to evaluate swallow function, if she passes initiate a diet -Aspiration precautions, HOB >40 -Nicotine withdrawal precautions, place a patch she is at risk of withdrawal -Bronchodilators fro COPD management - avoid benzodiazepines - continue bronchodilators with pulmonary hygiene per RT - complete empiric AB's (de-escalate based on clinical and microbiologic data) - continue supplemental oxygen as needed to keep O2 sat's > 90% - continue accuchecks with glycemic control per SSI for target blood glucose <180mg/dL - Agitation management - Prevention of delirium, maintenance of sleep-wake cycle, melatonin QHS - VTE prophylaxis - continue other care per attending / other consultants CONDITION: CRITICAL PROGNOSIS: GUARDED CODE STATUS: FULL CODE The high probability of a clinically significant, sudden or life-threatening deterioration of the [respiratory, endocrine and neurologic] system(s) required my full and direct attention, intervention and personal management. The aggregate critical care time was [35] minutes without overlap. Time includes spent on; [x] Data Review and interpretation [x] Patient assessment and monitoring of vital signs [x] Documentation [x] Medication orders and management Subjective Date of service: 02/20/19 Interval history: Patient is seen today for: Acute toxic metabolic encephalopathy; Hyperosmolar- hyperglycemic state; leukocytosis with lactic acidosis; hypertensive urgency . Seen and examined at bedside; 24hour events reviewed; vitals, labs, medications, chart and imaging reviewed; nursing and respiratory care staff consulted; no adverse overnight events reported to me; in 4 point restraint and complains of thirst ; last ABG compensated acidosis; intermittent confusion per RN, however is able to obey simple commands, though inconsistently; no fevers overnight; no vomiting, no chest pain, has some shortness of breath, on 2L NC Objective Vital Signs - 12hr 02/19/19 02/20/19 02/20/19 22:00 00:00 00:03 Temperature 99.8 F H Pulse Rate 120 H 117 H Pulse Rate [ 117 H Left Dorsalis Pedis] Respiratory 15 18 Rate Blood Pressure 151/65 O2 Sat by Pulse 96 99 Oximetry 02/20/19 02/20/19 02/20/19 00:36 01:00 01:12 Temperature Pulse Rate 122 H 115 H 117 H Pulse Rate [ Left Dorsalis Pedis] Respiratory 12 22 18 Rate Blood Pressure 149/69 O2 Sat by Pulse 98 94 99 Oximetry 02/20/19 02/20/19 02/20/19 02:01 03:01 04:00 Temperature Pulse Rate 124 H 120 H 122 H Pulse Rate [ 115 H Left Dorsalis Pedis] Respiratory 15 13 16 Rate Blood Pressure 156/65 O2 Sat by Pulse 100 100 100 Oximetry 02/20/19 02/20/19 02/20/19 04:04 04:07 05:00 Temperature 98.8 F Pulse Rate 120 H 117 H Pulse Rate [ Left Dorsalis Pedis] Respiratory 24 14 Rate Blood Pressure 156/65 148/58 O2 Sat by Pulse 99 98 Oximetry 02/20/19 02/20/19 06:00 08:42 Temperature Pulse Rate 118 H Pulse Rate [ Left Dorsalis Pedis] Respiratory 13 Rate Blood Pressure 155/81 O2 Sat by Pulse 97 97 Oximetry Constitutional: appears uncomfortable, other (elderly looking CF, normocephalic and traumatic , in mild respiraotry distress, upper airway sounds, writhing in bed) Eyes: non-icteric ENT: oropharynx dry, other (short neck) Neck: supple, no lymphadenopathy, no JVD, other (large neck circumference) Effort: mildly labored Ascultation: Bilateral: diminished breath sounds, rhonchi Percussion: Bilateral: not dull Cardiovascular: regular rate and rhythm, other (S1,S2, No R/M) Gastrointestinal: normoactive bowel sounds, soft, non-tender, non-distended Integumentary: rash Extremities: no cyanosis, no edema, pink and warm, pulses normal, no ischemia or petechiae Neurologic: non-focal exam (moves all extremities, obeys one step commands), pupils equal and round, motor strength normal and Psychiatric: anxious, other CBC and BMP: 02/20/19 04:57 02/20/19 04:57 ABG, PT/INR, D-dimer: ABG POC ABG pH 7.390 (7.35-7.45) 02/19/19 15:10 POC ABG pO2 81 (80-105) 02/19/19 15:10 POC ABG HCO3 16.8 (22-26 mml/L) 02/19/19 15:10 POC ABG Total CO2 18 (23-27mmol/L) 02/19/19 15:10 POC ABG O2 Sat 96 02/19/19 15:10 Abnormal lab findings: Abnormal Labs 02/18/19 02/18/19 02/18/19 04:01 04:01 04:03 WBC 15.9 H Seg Neuts % (Manual) 84.0 H Lymphocytes % (Manual) 12.0 L Seg Neutrophils # Man 13.4 H POC ABG pH POC ABG pCO2 POC ABG pO2 VBG pH Sodium 127 L Potassium Chloride 88.5 L Carbon Dioxide Creatinine 1.3 H Glucose 744 H* POC Glucose > 500 H Lactic Acid Calcium Phosphorus Magnesium AST Alkaline Phosphatase 153 H C-Reactive Protein Albumin 3.7 L Triglycerides Cholesterol 02/18/19 02/18/19 02/18/19 05:25 05:32 06:03 WBC Seg Neuts % (Manual) Lymphocytes % (Manual) Seg Neutrophils # Man POC ABG pH 7.058 L POC ABG pCO2 POC ABG pO2 111 H VBG pH 7.118 L* Sodium Potassium Chloride Carbon Dioxide Creatinine Glucose POC Glucose 484 H Lactic Acid Calcium Phosphorus Magnesium AST Alkaline Phosphatase C-Reactive Protein Albumin Triglycerides Cholesterol 02/18/19 02/18/19 02/18/19 06:05 06:05 06:23 WBC Seg Neuts % (Manual) Lymphocytes % (Manual) Seg Neutrophils # Man POC ABG pH POC ABG pCO2 POC ABG pO2 VBG pH Sodium 127 L 131 L Potassium 3.3 L Chloride 92.0 L 92.9 L Carbon Dioxide Creatinine 1.3 H 1.3 H Glucose 603 H* 544 H* POC Glucose Lactic Acid Calcium Phosphorus 4.90 H Magnesium 1.50 L AST Alkaline Phosphatase C-Reactive Protein Albumin Triglycerides Cholesterol 02/18/19 02/18/19 02/18/19 06:23 06:29 07:38 WBC Seg Neuts % (Manual) Lymphocytes % (Manual) Seg Neutrophils # Man POC ABG pH POC ABG pCO2 POC ABG pO2 VBG pH Sodium Potassium Chloride Carbon Dioxide Creatinine Glucose POC Glucose 421 H 405 H Lactic Acid 2.40 H* Calcium Phosphorus Magnesium AST Alkaline Phosphatase C-Reactive Protein Albumin Triglycerides Cholesterol 02/18/19 02/18/1919 08:40 09:27 09:27 WBC Seg Neuts % (Manual) Lymphocytes % (Manual) Seg Neutrophils # Man POC ABG pH POC ABG pCO2 POC ABG pO2 VBG pH Sodium 130 L Potassium Chloride 97.5 L Carbon Dioxide 19 L Creatinine Glucose 401 H POC Glucose 408 H Lactic Acid Calcium Phosphorus Magnesium AST Alkaline Phosphatase C-Reactive Protein Albumin Triglycerides 425 H Cholesterol 221 H 02/18/19 02/18/19 02/18/19 09:27 09:39 10:47 WBC Seg Neuts % (Manual) Lymphocytes % (Manual) Seg Neutrophils # Man POC ABG pH 7.154 L POC ABG pCO2 68.7 H POC ABG pO2 133 H VBG pH Sodium Potassium Chloride Carbon Dioxide Creatinine Glucose POC Glucose 357 H Lactic Acid Calcium Phosphorus 5.10 H Magnesium 1.60 L AST Alkaline Phosphatase C-Reactive Protein Albumin Triglycerides Cholesterol 02/18/19 02/18/19 02/18/19 11:08 12:09 12:35 WBC Seg Neuts % (Manual) Lymphocytes % (Manual) Seg Neutrophils # Man POC ABG pH POC ABG pCO2 POC ABG pO2 VBG pH Sodium Potassium Chloride Carbon Dioxide Creatinine Glucose 216 H POC Glucose 278 H 239 H Lactic Acid Calcium Phosphorus Magnesium AST Alkaline Phosphatase C-Reactive Protein Albumin Triglycerides Cholesterol 02/18/19 02/18/19 02/18/19 13:37 14:42 15:34 WBC Seg Neuts % (Manual) Lymphocytes % (Manual) Seg Neutrophils # Man POC ABG pH 7.225 L POC ABG pCO2 52.1 H POC ABG pO2 VBG pH Sodium Potassium Chloride Carbon Dioxide Creatinine Glucose POC Glucose 165 H 205 H Lactic Acid Calcium Phosphorus Magnesium AST Alkaline Phosphatase C-Reactive Protein Albumin Triglycerides Cholesterol 02/18/19 02/18/19 02/18/19 16:04 16:55 17:06 WBC Seg Neuts % (Manual) Lymphocytes % (Manual) Seg Neutrophils # Man POC ABG pH POC ABG pCO2 POC ABG pO2 VBG pH Sodium Potassium Chloride Carbon Dioxide Creatinine Glucose 247 H POC Glucose 204 H 240 H Lactic Acid Calcium 8.2 L Phosphorus Magnesium AST Alkaline Phosphatase C-Reactive Protein Albumin Triglycerides Cholesterol 02/18/19 02/18/19 02/18/19 18:12 19:03 20:00 WBC Seg Neuts % (Manual) Lymphocytes % (Manual) Seg Neutrophils # Man POC ABG pH POC ABG pCO2 POC ABG pO2 VBG pH Sodium Potassium Chloride Carbon Dioxide Creatinine Glucose POC Glucose 211 H 192 H 168 H Lactic Acid Calcium Phosphorus Magnesium AST Alkaline Phosphatase C-Reactive Protein Albumin Triglycerides Cholesterol 02/18/19 02/18/19 02/18/19 21:06 22:04 23:08 WBC Seg Neuts % (Manual) Lymphocytes % (Manual) Seg Neutrophils # Man POC ABG pH POC ABG pCO2 POC ABG pO2 VBG pH Sodium Potassium Chloride Carbon Dioxide Creatinine Glucose POC Glucose 109 H 140 H 146 H Lactic Acid Calcium Phosphorus Magnesium AST Alkaline Phosphatase C-Reactive Protein Albumin Triglycerides Cholesterol 02/19/19 02/19/19 02/19/19 00:30 00:59 04:35 WBC 18.4 H Seg Neuts % (Manual) Lymphocytes % (Manual) Seg Neutrophils # Man POC ABG pH POC ABG pCO2 POC ABG pO2 VBG pH Sodium Potassium Chloride Carbon Dioxide 19 L D Creatinine Glucose 261 H POC Glucose 225 H Lactic Acid Calcium 8.1 L Phosphorus Magnesium AST Alkaline Phosphatase C-Reactive Protein Albumin Triglycerides Cholesterol 02/19/19 02/19/19 02/19/19 06:06 12:22 13:19 WBC Seg Neuts % (Manual) Lymphocytes % (Manual) Seg Neutrophils # Man POC ABG pH POC ABG pCO2 POC ABG pO2 VBG pH Sodium Potassium Chloride Carbon Dioxide Creatinine Glucose POC Glucose 366 H 246 H Lactic Acid 2.10 H* Calcium Phosphorus Magnesium AST Alkaline Phosphatase C-Reactive Protein Albumin Triglycerides Cholesterol 02/19/19 02/19/19 02/20/19 13:19 18:47 00:01 WBC Seg Neuts % (Manual) Lymphocytes % (Manual) Seg Neutrophils # Man POC ABG pH POC ABG pCO2 POC ABG pO2 VBG pH Sodium Potassium Chloride Carbon Dioxide Creatinine Glucose POC Glucose 159 H 217 H Lactic Acid Calcium Phosphorus Magnesium AST Alkaline Phosphatase C-Reactive Protein 1.40 H Albumin Triglycerides Cholesterol 02/20/19 02/20/19 02/20/19 04:57 04:57 05:44 WBC 17.3 H Seg Neuts % (Manual) Lymphocytes % (Manual) Seg Neutrophils # Man POC ABG pH POC ABG pCO2 POC ABG pO2 VBG pH Sodium Potassium Chloride 109.0 H Carbon Dioxide 18 L Creatinine 1.6 H Glucose 359 H POC Glucose 295 H Lactic Acid Calcium Phosphorus Magnesium AST 44 H Alkaline Phosphatase C-Reactive Protein Albumin 3.0 L Triglycerides Cholesterol 02/20/19 09:37 WBC Seg Neuts % (Manual) Lymphocytes % (Manual) Seg Neutrophils # Man POC ABG pH POC ABG pCO2 POC ABG pO2 VBG pH Sodium Potassium Chloride Carbon Dioxide Creatinine Glucose POC Glucose 213 H Lactic Acid Calcium Phosphorus Magnesium AST Alkaline Phosphatase C-Reactive Protein Albumin Triglycerides Cholesterol Chest x-ray: image reviewed (Rotated, increased interstitial markings,) Allied health notes reviewed: nursing
[2019-02-20] MEDS: PEPCID IV SCH (10:02)
--- NOTE | 2019-02-20 10:49 | Progress Note ---
Assessment and Plan AMS : multifactorial , improving : metabolic infectious respiratory hematologic, HTN urgency (? PRES) no recurrent sz no ob. signs of large stroke on exam no neuro decline MRI b pending no recurrent strokes no a.fib ddx: poss stroke (less likely) vs PRES cont. asa no indication for AED keep normotensive euthermic euglycemic avoid benzo and antipsych meds for sedation, use soft restraint sched melatonin and prn use of low dose benadryl IV Subjective Date of service: 02/20/19 Principal diagnosis: ams Interval history: AMS has improved mildly, Resp distress has improved moderately no sz no fever no concern for large stroke hard of hearing, but denies new focal brain deficits in restraints, moving all ext well no a.fib still leuckocytosis glucose in 200s ABG normalizing asa abx haldol HTN meds denies H[place] no LOC no n.v.v. still confused resp acidosis bipap Objective - Exam Narrative Exam: awake alert hard of hearing unable to name objects, will repeat will fsc oriented to self NAD sitting up comfortable, no resp distress no extra movements EOMI perrl CN intact 5/5 x all limbs tone symm sensory intact to LT to all limbs no agnosia no obvious aphasia, although confusion may be limiting testing of cortical functions - Vital Sign Vital Signs - 12hr 02/20/19 02/20/19 02/20/19 00:00 00:03 00:36 Temperature 99.8 F H Pulse Rate 117 H 122 H Pulse Rate [ Bilateral Throughout] Pulse Rate [ 117 H Left Dorsalis Pedis] Respiratory 18 12 Rate Respiratory Rate [Bilateral Throughout] Blood Pressure O2 Sat by Pulse 99 98 Oximetry 02/20/19 02/20/19 02/20/19 01:00 01:12 02:01 Temperature Pulse Rate 115 H 117 H 124 H Pulse Rate [ Bilateral Throughout] Pulse Rate [ Left Dorsalis Pedis] Respiratory 22 18 15 Rate Respiratory Rate [Bilateral Throughout] Blood Pressure 149/69 O2 Sat by Pulse 94 99 100 Oximetry 02/20/19 02/20/19 02/20/19 03:01 04:00 04:04 Temperature Pulse Rate 120 H 122 H 120 H Pulse Rate [ Bilateral Throughout] Pulse Rate [ 115 H Left Dorsalis Pedis] Respiratory 13 16 24 Rate Respiratory Rate [Bilateral Throughout] Blood Pressure 156/65 156/65 O2 Sat by Pulse 100 100 99 Oximetry 02/20/19 02/20/19 02/20/19 04:07 05:00 06:00 Temperature 98.8 F Pulse Rate 117 H 118 H Pulse Rate [ Bilateral Throughout] Pulse Rate [ Left Dorsalis Pedis] Respiratory 14 13 Rate Respiratory Rate [Bilateral Throughout] Blood Pressure 148/58 155/81 O2 Sat by Pulse 98 97 Oximetry 02/20/19 02/20/19 08:42 09:00 Temperature Pulse Rate Pulse Rate [ 108 H Bilateral Throughout] Pulse Rate [ Left Dorsalis Pedis] Respiratory Rate Respiratory 20 Rate [Bilateral Throughout] Blood Pressure O2 Sat by Pulse 97 Oximetry - Cardiovascular Extremities: no peripheral edema bilat - Gastrointestinal Gastrointestinal: soft - Laboratory Findings CBC and BMP: 02/20/19 04:57 02/20/19 04:57 Abnormal Lab Findings: Abnormal Labs 02/18/19 02/18/19 02/18/19 04:01 04:01 04:03 WBC 15.9 H Seg Neuts % (Manual) 84.0 H Lymphocytes % (Manual) 12.0 L Seg Neutrophils # Man 13.4 H POC ABG pH POC ABG pCO2 POC ABG pO2 VBG pH Sodium 127 L Potassium Chloride 88.5 L Carbon Dioxide Creatinine 1.3 H Glucose 744 H* POC Glucose > 500 H Lactic Acid Calcium Phosphorus Magnesium AST Alkaline Phosphatase 153 H C-Reactive Protein Albumin 3.7 L Triglycerides Cholesterol 02/18/19 02/18/19 02/18/19 05:25 05:32 06:03 WBC Seg Neuts % (Manual) Lymphocytes % (Manual) Seg Neutrophils # Man POC ABG pH 7.058 L POC ABG pCO2 POC ABG pO2 111 H VBG pH 7.118 L* Sodium Potassium Chloride Carbon Dioxide Creatinine Glucose POC Glucose 484 H Lactic Acid Calcium Phosphorus Magnesium AST Alkaline Phosphatase C-Reactive Protein Albumin Triglycerides Cholesterol 02/18/19 02/18/19 02/18/19 06:05 06:05 06:23 WBC Seg Neuts % (Manual) Lymphocytes % (Manual) Seg Neutrophils # Man POC ABG pH POC ABG pCO2 POC ABG pO2 VBG pH Sodium 127 L 131 L Potassium 3.3 L Chloride 92.0 L 92.9 L Carbon Dioxide Creatinine 1.3 H 1.3 H Glucose 603 H* 544 H* POC Glucose Lactic Acid Calcium Phosphorus 4.90 H Magnesium 1.50 L AST Alkaline Phosphatase C-Reactive Protein Albumin Triglycerides Cholesterol 02/18/19 02/18/19 02/18/19 06:23 06:29 07:38 WBC Seg Neuts % (Manual) Lymphocytes % (Manual) Seg Neutrophils # Man POC ABG pH POC ABG pCO2 POC ABG pO2 VBG pH Sodium Potassium Chloride Carbon Dioxide Creatinine Glucose POC Glucose 421 H 405 H Lactic Acid 2.40 H* Calcium Phosphorus Magnesium AST Alkaline Phosphatase C-Reactive Protein Albumin Triglycerides Cholesterol 02/18/19 02/18/19 02/18/19 08:40 09:27 09:27 WBC Seg Neuts % (Manual) Lymphocytes % (Manual) Seg Neutrophils # Man POC ABG pH POC ABG pCO2 POC ABG pO2 VBG pH Sodium 130 L Potassium Chloride 97.5 L Carbon Dioxide 19 L Creatinine Glucose 401 H POC Glucose 408 H Lactic Acid Calcium Phosphorus Magnesium AST Alkaline Phosphatase C-Reactive Protein Albumin Triglycerides 425 H Cholesterol 221 H 02/18/19 02/18/19 02/18/19 09:27 09:39 10:47 WBC Seg Neuts % (Manual) Lymphocytes % (Manual) Seg Neutrophils # Man POC ABG pH 7.154 L POC ABG pCO2 68.7 H POC ABG pO2 133 H VBG pH Sodium Potassium Chloride Carbon Dioxide Creatinine Glucose POC Glucose 357 H Lactic Acid Calcium Phosphorus 5.10 H Magnesium 1.60 L AST Alkaline Phosphatase C-Reactive Protein Albumin Triglycerides Cholesterol 02/18/19 02/18/19 02/18/19 11:08 12:09 12:35 WBC Seg Neuts % (Manual) Lymphocytes % (Manual) Seg Neutrophils # Man POC ABG pH POC ABG pCO2 POC ABG pO2 VBG pH Sodium Potassium Chloride Carbon Dioxide Creatinine Glucose 216 H POC Glucose 278 H 239 H Lactic Acid Calcium Phosphorus Magnesium AST Alkaline Phosphatase C-Reactive Protein Albumin Triglycerides Cholesterol 02/18/19 02/18/19 02/18/19 13:37 14:42 15:34 WBC Seg Neuts % (Manual) Lymphocytes % (Manual) Seg Neutrophils # Man POC ABG pH 7.225 L POC ABG pCO2 52.1 H POC ABG pO2 VBG pH Sodium Potassium Chloride Carbon Dioxide Creatinine Glucose POC Glucose 165 H 205 H Lactic Acid Calcium Phosphorus Magnesium AST Alkaline Phosphatase C-Reactive Protein Albumin Triglycerides Cholesterol 02/18/19 02/18/19 02/18/19 16:04 16:55 17:06 WBC Seg Neuts % (Manual) Lymphocytes % (Manual) Seg Neutrophils # Man POC ABG pH POC ABG pCO2 POC ABG pO2 VBG pH Sodium Potassium Chloride Carbon Dioxide Creatinine Glucose 247 H POC Glucose 204 H 240 H Lactic Acid Calcium 8.2 L Phosphorus Magnesium AST Alkaline Phosphatase C-Reactive Protein Albumin Triglycerides Cholesterol 02/18/19 02/18/19 02/18/19 18:12 19:03 20:00 WBC Seg Neuts % (Manual) Lymphocytes % (Manual) Seg Neutrophils # Man POC ABG pH POC ABG pCO2 POC ABG pO2 VBG pH Sodium Potassium Chloride Carbon Dioxide Creatinine Glucose POC Glucose 211 H 192 H 168 H Lactic Acid Calcium Phosphorus Magnesium AST Alkaline Phosphatase C-Reactive Protein Albumin Triglycerides Cholesterol 02/18/19 02/18/19 02/18/19 21:06 22:04 23:08 WBC Seg Neuts % (Manual) Lymphocytes % (Manual) Seg Neutrophils # Man POC ABG pH POC ABG pCO2 POC ABG pO2 VBG pH Sodium Potassium Chloride Carbon Dioxide Creatinine Glucose POC Glucose 109 H 140 H 146 H Lactic Acid Calcium Phosphorus Magnesium AST Alkaline Phosphatase C-Reactive Protein Albumin Triglycerides Cholesterol 02/19/19 02/19/19 02/19/19 00:30 00:59 04:35 WBC 18.4 H Seg Neuts % (Manual) Lymphocytes % (Manual) Seg Neutrophils # Man POC ABG pH POC ABG pCO2 POC ABG pO2 VBG pH Sodium Potassium Chloride Carbon Dioxide 19 L D Creatinine Glucose 261 H POC Glucose 225 H Lactic Acid Calcium 8.1 L Phosphorus Magnesium AST Alkaline Phosphatase C-Reactive Protein Albumin Triglycerides Cholesterol 02/19/19 02/19/19 02/19/19 06:06 12:22 13:19 WBC Seg Neuts % (Manual) Lymphocytes % (Manual) Seg Neutrophils # Man POC ABG pH POC ABG pCO2 POC ABG pO2 VBG pH Sodium Potassium Chloride Carbon Dioxide Creatinine Glucose POC Glucose 366 H 246 H Lactic Acid 2.10 H* Calcium Phosphorus Magnesium AST Alkaline Phosphatase C-Reactive Protein Albumin Triglycerides Cholesterol 02/19/19 02/19/19 02/20/19 13:19 18:47 00:01 WBC Seg Neuts % (Manual) Lymphocytes % (Manual) Seg Neutrophils # Man POC ABG pH POC ABG pCO2 POC ABG pO2 VBG pH Sodium Potassium Chloride Carbon Dioxide Creatinine Glucose POC Glucose 159 H 217 H Lactic Acid Calcium Phosphorus Magnesium AST Alkaline Phosphatase C-Reactive Protein 1.40 H Albumin Triglycerides Cholesterol 02/20/19 02/20/19 02/20/19 04:57 04:57 05:44 WBC 17.3 H Seg Neuts % (Manual) Lymphocytes % (Manual) Seg Neutrophils # Man POC ABG pH POC ABG pCO2 POC ABG pO2 VBG pH Sodium Potassium Chloride 109.0 H Carbon Dioxide 18 L Creatinine 1.6 H Glucose 359 H POC Glucose 295 H Lactic Acid Calcium Phosphorus Magnesium AST 44 H Alkaline Phosphatase C-Reactive Protein Albumin 3.0 L Triglycerides Cholesterol 02/20/19 09:37 WBC Seg Neuts % (Manual) Lymphocytes % (Manual) Seg Neutrophils # Man POC ABG pH POC ABG pCO2 POC ABG pO2 VBG pH Sodium Potassium Chloride Carbon Dioxide Creatinine Glucose POC Glucose 213 H Lactic Acid Calcium Phosphorus Magnesium AST Alkaline Phosphatase C-Reactive Protein Albumin Triglycerides Cholesterol
[2019-02-20] MEDS: HABITROL TD SCH (14:32)
[2019-02-20] MEDS: ZOSYN/NS 2.25 GM/50ML 2.25 GM/50 ML BAG IV SCH ×3 (14:37→23:25)
[2019-02-20] MEDS: ATROVENT IH SCH ×2 (16:25→21:14)
[2019-02-20] MEDS: PROVENTIL IH PRN (16:25)
[2019-02-20] MEDS: ZITHROMAX 500 MG in NACL 0.9% 250ML 250 ML IV SCH (16:43)
[2019-02-20] MEDS: ASPIRIN PR SCH (17:59)
[2019-02-21] MEDS: PROVENTIL IH PRN (01:55)
[2019-02-21] MEDS: ATROVENT IH SCH ×4 (01:56→19:54)
[2019-02-21 04:31] LABS: Hematocrit 36.8 % (30.3-42.9); Hemoglobin 11.9 gm/dl (10.1-14.3); Mean Corpuscular HGB Conc 32 % (30-34); Mean Corpuscular Volume 88 fl (79-97); Platelet Count 152 K/mm3 (140-440); Red Blood Count 4.17 M/mm3 (3.65-5.03); Red Cell Distribution Width 13.9 % (13.2-15.2)
[2019-02-21] MEDS: APRESOLINE IV PRN (04:35)
[2019-02-21 05:17] LABS: Albumin 2.8 g/dL (3.9-5); Calcium 8.5 mg/dL (8.4-10.2)
[2019-02-21] MEDS: ZOSYN/NS 2.25 GM/50ML 2.25 GM/50 ML BAG IV SCH ×3 (05:36→21:45)
[2019-02-21] MEDS: VASOTEC IV SCH (05:36)
[2019-02-21] MEDS: HumaLOG SUB-Q SCH ×3 (06:34→17:48)
[2019-02-21] MEDS: HCTZ PO SCH (09:51)
[2019-02-21] MEDS: APRESOLINE PO SCH ×3 (09:51→21:37)
[2019-02-21] MEDS: COZAAR PO SCH (09:51)
[2019-02-21] MEDS: DELTASONE PO SCH (09:51)
[2019-02-21] MEDS: KCL 10MEQ/100ML 10 MEQ/100 ML BAG IV SCH ×3 (09:52→13:07)
[2019-02-21] MEDS: HABITROL TD SCH (09:52)
[2019-02-21] MEDS: PEPCID IV SCH (09:52)
[2019-02-21] MEDS: SODIUM CHLORIDE FLUSH SYRINGE 10 ML IV SCH ×2 (09:53→21:43)
[2019-02-21] MEDS: HALDOL IV PRN ×2 (09:53→21:37)
[2019-02-21] MEDS: ZITHROMAX 500 MG in NACL 0.9% 250ML 250 ML IV SCH (09:55)
[2019-02-21] MEDS: ASPIRIN PR SCH (09:56)
[2019-02-21] MEDS: BROVANA NEBU IH SCH ×2 (09:58→19:53)
[2019-02-21] MEDS ORDERED: NON-FORMULARY (Losartan/Hydrochlorothiazide [Losartan-Hctz 100-25 Mg Tab] 1 EACH) PO SCH (10:00)
--- NOTE | 2019-02-21 10:17 | Progress Note ---
Assessment and Plan Assessment and plan: Unable to obtain hx from Patient, hX Obtained from FAMILY AND ED NOTE Patient is a 68-year-old female with past medical history according to the grandson of hypertension diabetes depression COPD and chronic tobacco use of pack a day for over 40+ years. She presents to the ED this morning after she was noted by the grandson for 4.30 a.m. to be on the floor following hearing a followed sound. The patient was confused and she attempted to pick the patient up from the floor and also called 911. On arrival now 1 personal history the patient was confused but moving all extremities was unable to follow any she was transferred to the ED on arrival to the ED was placed on a BiPAP machine as she was noted to have difficulty with respiration including hypercarbia. She was also noted to have a blood sugar for several 100s but no evidence of acetone or ketones. Also noted to have a blood pressure of over 2:30 on admission. According to the ED documentation the patient was noted to Have seizure disorder her in the ED on route to the CT No prior hx of stroke or seizure CXR: unremarkable Acute Combined Hypoxic and Hypercapenic respiratory failure-IMPROVING Hyperosomolar Nonketotic Hyperglycemia Acute Metabolic Encephalopathy Seizure Respiratory acidosis DM type 2 with hypgerlycemia Hyponatremia Leukocytosis Hypertensive Urgency Tobacco use disorder COPD Plan Continue ICU care, can downgrade to IMCU if mental status is improving Now off insulin drip, adjust SQ insulin for better control Awaiting CT study correct electrolytes as needed continue empiric abx Monitor cultures Seizure Prophylaxis Haldol PRN Monitor Mental status Aspiration Precautions MoniTOR bp FOR BETTER CONTROL Design Transferrer and Neurology consult Poor prognosis, discussed with grandson The high probability of a clinically significant, sudden or life threatening deterioration of the [pulmonary, endocrine] system(s) required my full and direct attention, intervention and personal management. The aggregate critical care time was [35] minutes. This time is in addition to time spent performing reported procedures but includes the following: [x] Data Review and interpretation [x] Patient assessment and monitoring of vital signs [x] Documentation [x] Medication orders and management History Interval history: Patient seen and examined, although off BIPAP and maintaining adequate saturation, she remains confused Hospitalist Physical - Physical exam Narrative exam: VITAL SIGNS: Reviewed. GENERAL: The patient appears normally developed, still encephalopathic, off BIPAP. Vital signs as documented. HEAD: No signs of head trauma. EYES: Pupils are equal. EARS: Hearing grossly intact. MOUTH: Oropharynx is normal. NECK: No adenopathy, no JVD. CHEST: Chest with clear breath sounds bilaterally. No wheezes, rales, or rhonchi. CARDIAC: Regular rate and rhythm. S1 and S2, without murmurs, gallops, or rubs. VASCULAR: No Edema. Peripheral pulses normal and equal in all extremities. ABDOMEN: Soft, non tender and non distended. No rebound or guarding, and no masses palpated. Bowel Sounds normal. MUSCULOSKELETAL: Good range of motion of all major joints. Extremities without clubbing, cyanosis or edema. NEUROLOGIC EXAM: Confused, agitated, not following commands. Moves all extremities PSYCHIATRIC: unable to examine SKIN: detail exam as documented in skin assessment - Constitutional Vitals: Temp Pulse Resp BP Pulse Ox 98.8 F 122 H 18 177/107 98 02/21/19 03:33 02/21/19 09:00 02/21/19 09:00 02/21/19 06:00 02/21/19 09:58 Results - Labs CBC & Chem 7: 02/21/19 04:03 02/21/19 04:03 Labs: Laboratory Last Values WBC 15.6 K/mm3 (4.5-11.0) H 02/21/19 04:03 RBC 4.17 M/mm3 (3.65-5.03) 02/21/19 04:03 Hgb 11.9 gm/dl (10.1-14.3) 02/21/19 04:03 Hct 36.8 % (30.3-42.9) 02/21/19 04:03 MCV 88 fl (79-97) 02/21/19 04:03 MCH 29 pg (28-32) 02/21/19 04:03 MCHC 32 % (30-34) 02/21/19 04:03 RDW 13.9 % (13.2-15.2) 02/21/19 04:03 Plt Count 152 K/mm3 (140-440) 02/21/19 04:03 Add Manual Diff Complete 02/18/19 04:01 Total Counted 100 02/18/19 04:01 Seg Neuts % (Manual) 84.0 % (40.0-70.0) H 02/18/19 04:01 0 % 02/18/19 04:01 12.0 % (13.4-35.0) L 02/18/19 04:01 Reactive Lymphs % (Man) 0 % 02/18/19 04:01 3.0 % (0.0-7.3) 02/18/19 04:01 1.0 % (0.0-4.3) 02/18/19 04:01 0 % (0.0-1.8) 02/18/19 04:01 0 % 02/18/19 04:01 0 % 02/18/19 04:01 0 % 02/18/19 04:01 0 % 02/18/19 04:01 Nucleated RBC % Not Reportable 02/18/19 04:01 Seg Neutrophils # Man 13.4 K/mm3 (1.8-7.7) H 02/18/19 04:01 Band Neutrophils # 0.0 K/mm3 02/18/19 04:01 1.9 K/mm3 (1.2-5.4) 02/18/19 04:01 Abs React Lymphs (Man) 0.0 K/mm3 02/18/19 04:01 0.5 K/mm3 (0.0-0.8) 02/18/19 04:01 0.2 K/mm3 (0.0-0.4) 02/18/19 04:01 0.0 K/mm3 (0.0-0.1) 02/18/19 04:01 0.0 K/mm3 02/18/19 04:01 0.0 K/mm3 02/18/19 04:01 0.0 K/mm3 02/18/19 04:01 Blast Cells # 0.0 K/mm3 02/18/19 04:01 WBC Morphology Not Reportable 02/18/19 04:01 Hypersegmented Neuts Not Reportable 02/18/19 04:01 Hyposegmented Neuts Not Reportable 02/18/19 04:01 Hypogranular Neuts Not Reportable 02/18/19 04:01 Not Reportable 02/18/19 04:01 1+ 02/18/19 04:01 Not Reportable 02/18/19 04:01 Not Reportable 02/18/19 04:01 Not Reportable 02/18/19 04:01 Not Reportable 02/18/19 04:01 Consistent w auto 02/18/19 04:01 Not Reportable 02/18/19 04:01 Plt Clumps, EDTA Not Reportable 02/18/19 04:01 Not Reportable 02/18/19 04:01 Not Reportable 02/18/19 04:01 Not Reportable 02/18/19 04:01 Plt Morphology Comment Not Reportable 02/18/19 04:01 RBC Morphology Normal 02/18/19 04:01 Dimorphic RBCs Not Reportable 02/18/19 04:01 Not Reportable 02/18/19 04:01 Not Reportable 02/18/19 04:01 Not Reportable 02/18/19 04:01 Not Reportable 02/18/19 04:01 Not Reportable 02/18/19 04:01 Not Reportable 02/18/19 04:01 Not Reportable 02/18/19 04:01 Not Reportable 02/18/19 04:01 Not Reportable 02/18/19 04:01 Not Reportable 02/18/19 04:01 Not Reportable 02/18/19 04:01 Not Reportable 02/18/19 04:01 Not Reportable 02/18/19 04:01 Not Reportable 02/18/19 04:01 Not Reportable 02/18/19 04:01 Not Reportable 02/18/19 04:01 Not Reportable 02/18/19 04:01 Not Reportable 02/18/19 04:01 Not Reportable 02/18/19 04:01 Acanthocytes (Spur) Not Reportable 02/18/19 04:01 Rouleaux Not Reportable 02/18/19 04:01 Not Reportable 02/18/19 04:01 Not Reportable 02/18/19 04:01 Not Reportable 02/18/19 04:01 Not Reportable 02/18/19 04:01 Hem Pathologist Commnt No 02/18/19 04:01 POC ABG pH 7.390 (7.35-7.45) 02/19/19 15:10 POC ABG pCO2 < 30 (35-45) L 02/19/19 15:10 POC ABG pO2 81 (80-105) 02/19/19 15:10 POC ABG HCO3 16.8 (22-26 mml/L) 02/19/19 15:10 POC ABG Total CO2 18 (23-27mmol/L) 02/19/19 15:10 POC ABG O2 Sat 96 02/19/19 15:10 POC ABG Base Excess -8 ((-2) - (+3)mmol/L) 02/19/19 15:10 VBG pH 7.118 (7.320-7.420) L* 02/18/19 05:25 30 % 02/19/19 15:10 Sodium 139 mmol/L (137-145) 02/21/19 04:03 Potassium 3.5 mmol/L (3.6-5.0) L 02/21/19 04:03 Chloride 107.6 mmol/L (98-107) H 02/21/19 04:03 Carbon Dioxide 22 mmol/L (22-30) 02/21/19 04:03 13 mmol/L 02/21/19 04:03 BUN 14 mg/dL (7-17) 02/21/19 04:03 1.2 mg/dL (0.7-1.2) 02/21/19 04:03 Estimated GFR 45 ml/min 02/21/19 04:03 12 % 02/21/19 04:03 Glucose 137 mg/dL (65-100) H 02/21/19 04:03 POC Glucose 135 (70-105) H 02/21/19 05:26 304 Mosm/kg 02/18/19 09:27 Lactic Acid 2.00 mmol/L (0.7-2.0) 02/19/19 17:14 Calcium 8.5 mg/dL (8.4-10.2) 02/21/19 04:03 Phosphorus 5.10 mg/dL (2.5-4.5) H 02/18/19 09:27 Magnesium 1.60 mg/dL (1.7-2.3) L 02/18/19 09:27 0.50 mg/dL (0.1-1.2) 02/21/19 04:03 AST 45 units/L (5-40) H 02/21/19 04:03 ALT 24 units/L (7-56) 02/21/19 04:03 98 units/L (35-129) 02/21/19 04:03 55.0 umol/L (25-60) 02/19/19 17:14 1.40 mg/dL (0.00-1.30) H 02/19/19 13:19 6.0 g/dL (6.3-8.2) L 02/21/19 04:03 2.8 g/dL (3.9-5) L 02/21/19 04:03 0.9 % 02/21/19 04:03 Triglycerides 425 mg/dL (2-149) H 02/18/19 09:27 Cholesterol 221 mg/dL (50-199) H 02/18/19 09:27 TNR 02/18/19 09:27 42 mg/dL (40-59) 02/18/19 09:27 5.26 % 02/18/19 09:27 Straw (Yellow) 02/18/19 06:37 Clear (Clear) 02/18/19 06:37 5.0 (5.0-7.0) 02/18/19 06:37 Ur Specific [place] 1.027 (1.003-1.030) 02/18/19 06:37 100 mg/dl mg/dL (Negative) 02/18/19 06:37 >=500 mg/dL (Negative) 02/18/19 06:37 Neg mg/dL (Negative) 02/18/19 06:37 Neg (Negative) 02/18/19 06:37 Neg (Negative) 02/18/19 06:37 Neg (Negative) 02/18/19 06:37 < 2.0 mg/dL (<2.0) 02/18/19 06:37 Ur Leukocyte Esterase Neg (Negative) 02/18/19 06:37 < 1.0 /HPF (0.0-6.0) 02/18/19 06:37 2.0 /HPF (0.0-6.0) 02/18/19 06:37 Active Medications - Current Medications Current Medications: Generic Name Dose Route Start Last Admin Trade Name Freq PRN Reason Stop Dose Admin Albuterol 2.5 mg 02/18/19 11:00 02/21/19 01:55 Proventil IH 2.5 mg Q3HRT PRN Administration Shortness Of Breath Arformoterol Tartrate 15 mcg 02/19/19 12:30 02/21/19 09:58 Brovana Nebu IH 15 mcg Q12HRT TAN Administration Aspirin 300 mg 02/18/19 14:00 02/21/19 09:56 Aspirin AL Not Given QDAY TAN Dextrose 0 ml 02/18/19 09:30 D50w (25gm) Syringe IV PRN PRN Hypoglycemia Famotidine 20 mg 02/20/19 10:00 02/21/19 09:52 Pepcid IV 20 mg QDAY TAN Administration Haloperidol Lactate 5 mg 02/19/19 15:02 02/21/19 09:53 Haldol IV 02/22/19 15:01 5 mg Q6H PRN Administration Agitation Hydralazine HCl 10 mg 02/18/19 17:26 02/21/19 04:35 Apresoline IV 10 mg Q4HR PRN Administration Hypertension Hydralazine HCl 50 mg 02/21/19 08:00 02/21/19 09:51 Apresoline PO 50 mg Q8HR TAN Administration Hydrochlorothiazide 25 mg 02/21/19 10:00 02/21/19 09:51 Hctz PO 25 mg QDAY TAN Administration Azithromycin 500 mg/ Sodium 250 mls @ 250 mls/hr 02/19/19 13:00 02/21/19 09:55 Chloride IV 02/24/19 12:59 250 mls/hr Q24HR TAN Administration Protocol Piperacillin Sod/Tazobactam Sod 2.25 gm in 50 mls @ 100 mls/hr 02/20/19 12:00 02/21/19 05:36 Zosyn/Ns 2.25 Gm/50ml IV 02/24/19 11:59 100 mls/hr Q6HR TAN Administration Potassium Chloride 10 meq in 100 mls @ 100 mls/hr 02/21/19 08:00 02/21/19 09:52 Kcl 10meq/100ml IV 02/21/19 11:59 100 mls/hr Q1H TAN Administration Insulin Human Isoph/Insulin Regular 20 unit 02/21/19 08:00 Humulin 70/30 SUB-Q BIDDIAB TAN Insulin Human Lispro 0 unit 02/19/19 06:00 02/21/19 06:34 Humalog SUB-Q Not Given Q6HR TAN Protocol Ipratropium [place] 0.5 mg 02/20/19 16:00 02/21/19 09:57 Atrovent IH 0.5 mg Q8HRT TAN Administration Losartan Potassium 100 mg 02/21/19 10:00 02/21/19 09:51 Cozaar PO 100 mg QDAY TAN Administration Metoclopramide HCl 10 mg 02/19/19 15:12 Reglan IV Q6H PRN Nausea And Vomiting Nicotine 21 mg 02/20/19 13:00 02/21/19 09:52 Habitrol TD 21 mg QDAY TAN Administration Ondansetron HCl 4 mg 02/19/19 15:12 02/19/19 21:52 Zofran IV 4 mg Q6H PRN Administration Nausea And Vomiting Prednisone 30 mg 02/21/19 10:00 02/21/19 09:51 Deltasone PO 30 mg QDAY TAN Administration Sodium Chloride 10 ml 02/18/19 10:00 02/21/19 09:53 Sodium Chloride Flush Syringe 10 Ml IV 10 ml BID TAN Administration Sodium Chloride 10 ml 02/18/19 09:30 Sodium Chloride Flush Syringe 10 Ml IV PRN PRN LINE FLUSH Nutrition/Malnutrition Assess - Dietary Evaluation Nutrition/Malnutrition Findings: Nutrition Notes Start: 02/19/19 15:02 Freq: Status: Active Protocol: Document 02/19/19 15:02 RM (Rec: 02/19/19 15:07 [email or web address]) Nutrition Notes Need for Assessment generated from: MD Order Initial or Follow up Assessment Current Diagnosis COPD,Diabetes,Hypertension, Respiratory Failure Other Pertinent Diagnosis Depression, Hyperglycemia Current Diet NPO Labs/Tests Reviewed Pertinent Medications Reviewed Height 5 ft 4 in Weight 77.564 kg [place] Body Weight (kg) 54.54 BMI 29.3 Subjective/Other Information Consulted for nutritional recommendations and diet education. Screened for malnutrition and skin risk. [place] 17 points. Pt asleep w/ BiPAP. No temporal or orbital wasting. Burn Absent Trauma Absent #1 Nutrition Diagnosis Predicted suboptimal energy intake Etiology COPD As Evidenced by Signs and Symptoms NPO status Is patient on ventilator? Yes Is Patient Ambulatory and/or Out of Bed No REE-([facility]-confined to bed) 1560.264 Calculation Used for Recommendations [facility] Additional Notes Protein Needs: 93-155g (1.2-2g /kg) Fluid Needs: 1 ml/kcal Nutrition Intervention Change Diet Order: Advance diet when medically able Add Supplement/Snack (indicate name/kcal Ensure Enlive 1 daily once /protein ) diet advanced Provides kCal: 350 Provides Protein (gm) 20 Goal #1 Diet advancement Anticipated Discharge Needs: Unable to determine at this time Follow-Up By: 02/23/19 Additional Comments Follow for diet advancement, DM diet education, malnurition assessment
--- NOTE | 2019-02-21 10:17 | Progress Note ---
Assessment and Plan Assessment and plan: Unable to obtain hx from Patient, hX Obtained from FAMILY AND ED NOTE Patient is a 68-year-old female with past medical history according to the grandson of hypertension diabetes depression COPD and chronic tobacco use of pack a day for over 40+ years. She presents to the ED this morning after she was noted by the grandson for 4.30 a.m. to be on the floor following hearing a followed sound. The patient was confused and she attempted to pick the patient up from the floor and also called 911. On arrival now 1 personal history the patient was confused but moving all extremities was unable to follow any she was transferred to the ED on arrival to the ED was placed on a BiPAP machine as she was noted to have difficulty with respiration including hypercarbia. She was also noted to have a blood sugar for several 100s but no evidence of acetone or ketones. Also noted to have a blood pressure of over 2:30 on admission. According to the ED documentation the patient was noted to Have seizure disorder her in the ED on route to the CT No prior hx of stroke or seizure CXR: unremarkable Acute Combined Hypoxic and Hypercapenic respiratory failure-IMPROVING Hyperosomolar Nonketotic Hyperglycemia Acute Metabolic Encephalopathy Seizure Respiratory acidosis DM type 2 with hypgerlycemia Hyponatremia Leukocytosis Hypertensive Urgency Tobacco use disorder COPD Plan Continue IMCU care Now off insulin drip, adjust SQ insulin for better control Awaiting CT study correct electrolytes as needed continue empiric abx Monitor cultures Echo Seizure Prophylaxis Haldol PRN Monitor Mental status Aspiration Precautions MoniTOR bp FOR BETTER CONTROL Activity Therapy Specialist and Neurology consult Poor prognosis, discussed with grandson The high probability of a clinically significant, sudden or life threatening det erioration of the [pulmonary, endocrine] system(s) required my full and direct attention, intervention and personal management. The aggregate critical care time was [35] minutes. This time is in addition to time spent performing reported procedures but includes the following: [x] Data Review and interpretation [x] Patient assessment and monitoring of vital signs [x] Documentation [x] Medication orders and management History Interval history: Patient seen and examined, although off BIPAP and maintaining adequate saturation, she remains confused. No clinical change Hospitalist Physical - Physical exam Narrative exam: VITAL SIGNS: Reviewed. GENERAL: The patient appears normally developed, still encephalopathic, off BIPAP. Vital signs as documented. HEAD: No signs of head trauma. EYES: Pupils are equal. EARS: Hearing grossly intact. MOUTH: Oropharynx is normal. NECK: No adenopathy, no JVD. CHEST: Chest with clear breath sounds bilaterally. No wheezes, rales, or rhonchi. CARDIAC: Regular rate and rhythm. S1 and S2, without murmurs, gallops, or ru bs. VASCULAR: No Edema. Peripheral pulses normal and equal in all extremities. ABDOMEN: Soft, non tender and non distended. No rebound or guarding, and no masses palpated. Bowel Sounds normal. MUSCULOSKELETAL: Good range of motion of all major joints. Extremities without clubbing, cyanosis or edema. NEUROLOGIC EXAM: Confused, agitated, not following commands. Moves all extremities PSYCHIATRIC: unable to examine SKIN: detail exam as documented in skin assessment - Constitutional Vitals: Temp Pulse Resp BP Pulse Ox 98.8 F 122 H 18 177/107 98 02/21/19 03:33 02/21/19 09:00 02/21/19 09:00 02/21/19 06:00 02/21/19 09:58 Results - Labs CBC & Chem 7: 02/21/19 04:03 02/21/19 04:03 Labs: Laboratory Last Values WBC 15.6 K/mm3 (4.5-11.0) H 02/21/19 04:03 RBC 4.17 M/mm3 (3.65-5.03) 02/21/19 04:03 Hgb 11.9 gm/dl (10.1-14.3) 02/21/19 04:03 Hct 36.8 % (30.3-42.9) 02/21/19 04:03 MCV 88 fl (79-97) 02/21/19 04:03 MCH 29 pg (28-32) 02/21/19 04:03 MCHC 32 % (30-34) 02/21/19 04:03 RDW 13.9 % (13.2-15.2) 02/21/19 04:03 Plt Count 152 K/mm3 (140-440) 02/21/19 04:03 Add Manual Diff Complete 02/18/19 04:01 Total Counted 100 02/18/19 04:01 Seg Neuts % (Manual) 84.0 % (40.0-70.0) H 02/18/19 04:01 0 % 02/18/19 04:01 12.0 % (13.4-35.0) L 02/18/19 04:01 Reactive Lymphs % (Man) 0 % 02/18/19 04:01 3.0 % (0.0-7.3) 02/18/19 04:01 1.0 % (0.0-4.3) 02/18/19 04:01 0 % (0.0-1.8) 02/18/19 04:01 0 % 02/18/19 04:01 0 % 02/18/19 04:01 0 % 02/18/19 04:01 0 % 02/18/19 04:01 Nucleated RBC % Not Reportable 02/18/19 04:01 Seg Neutrophils # Man 13.4 K/mm3 (1.8-7.7) H 02/18/19 04:01 Band Neutrophils # 0.0 K/mm3 02/18/19 04:01 1.9 K/mm3 (1.2-5.4) 02/18/19 04:01 Abs React Lymphs (Man) 0.0 K/mm3 02/18/19 04:01 0.5 K/mm3 (0.0-0.8) 02/18/19 04:01 0.2 K/mm3 (0.0-0.4) 02/18/19 04:01 0.0 K/mm3 (0.0-0.1) 02/18/19 04:01 0.0 K/mm3 02/18/19 04:01 0.0 K/mm3 02/18/19 04:01 0.0 K/mm3 02/18/19 04:01 Blast Cells # 0.0 K/mm3 02/18/19 04:01 WBC Morphology Not Reportable 02/18/19 04:01 Hypersegmented Neuts Not Reportable 02/18/19 04:01 Hyposegmented Neuts Not Reportable 02/18/19 04:01 Hypogranular Neuts Not Reportable 02/18/19 04:01 Not Reportable 02/18/19 04:01 1+ 02/18/19 04:01 Not Reportable 02/18/19 04:01 Not Reportable 02/18/19 04:01 Not Reportable 02/18/19 04:01 Not Reportable 02/18/19 04:01 Consistent w auto 02/18/19 04:01 Not Reportable 02/18/19 04:01 Plt Clumps, EDTA Not Reportable 02/18/19 04:01 Not Reportable 02/18/19 04:01 Not Reportable 02/18/19 04:01 Not Reportable 02/18/19 04:01 Plt Morphology Comment Not Reportable 02/18/19 04:01 RBC Morphology Normal 02/18/19 04:01 Dimorphic RBCs Not Reportable 02/18/19 04:01 Not Reportable 02/18/19 04:01 Not Reportable 02/18/19 04:01 Not Reportable 02/18/19 04:01 Not Reportable 02/18/19 04:01 Not Reportable 02/18/19 04:01 Not Reportable 02/18/19 04:01 Not Reportable 02/18/19 04:01 Not Reportable 02/18/19 04:01 Not Reportable 02/18/19 04:01 Not Reportable 02/18/19 04:01 Not Reportable 02/18/19 04:01 Not Reportable 02/18/19 04:01 Not Reportable 02/18/19 04:01 Not Reportable 02/18/19 04:01 Not Reportable 02/18/19 04:01 Not Reportable 02/18/19 04:01 Not Reportable 02/18/19 04:01 Not Reportable 02/18/19 04:01 Not Reportable 02/18/19 04:01 Acanthocytes (Spur) Not Reportable 02/18/19 04:01 Rouleaux Not Reportable 02/18/19 04:01 Not Reportable 02/18/19 04:01 Not Reportable 02/18/19 04:01 Not Reportable 02/18/19 04:01 Not Reportable 02/18/19 04:01 Hem Pathologist Commnt No 02/18/19 04:01 POC ABG pH 7.390 (7.35-7.45) 02/19/19 15:10 POC ABG pCO2 < 30 (35-45) L 02/19/19 15:10 POC ABG pO2 81 (80-105) 02/19/19 15:10 POC ABG HCO3 16.8 (22-26 mml/L) 02/19/19 15:10 POC ABG Total CO2 18 (23-27mmol/L) 02/19/19 15:10 POC ABG O2 Sat 96 02/19/19 15:10 POC ABG Base Excess -8 ((-2) - (+3)mmol/L) 02/19/19 15:10 VBG pH 7.118 (7.320-7.420) L* 02/18/19 05:25 30 % 02/19/19 15:10 Sodium 139 mmol/L (137-145) 02/21/19 04:03 Potassium 3.5 mmol/L (3.6-5.0) L 02/21/19 04:03 Chloride 107.6 mmol/L (98-107) H 02/21/19 04:03 Carbon Dioxide 22 mmol/L (22-30) 02/21/19 04:03 13 mmol/L 02/21/19 04:03 BUN 14 mg/dL (7-17) 02/21/19 04:03 1.2 mg/dL (0.7-1.2) 02/21/19 04:03 Estimated GFR 45 ml/min 02/21/19 04:03 12 % 02/21/19 04:03 Glucose 137 mg/dL (65-100) H 02/21/19 04:03 POC Glucose 135 (70-105) H 02/21/19 05:26 304 Mosm/kg 02/18/19 09:27 Lactic Acid 2.00 mmol/L (0.7-2.0) 02/19/19 17:14 Calcium 8.5 mg/dL (8.4-10.2) 02/21/19 04:03 Phosphorus 5.10 mg/dL (2.5-4.5) H 02/18/19 09:27 Magnesium 1.60 mg/dL (1.7-2.3) L 02/18/19 09:27 0.50 mg/dL (0.1-1.2) 02/21/19 04:03 AST 45 units/L (5-40) H 02/21/19 04:03 ALT 24 units/L (7-56) 02/21/19 04:03 98 units/L (35-129) 02/21/19 04:03 55.0 umol/L (25-60) 02/19/19 17:14 1.40 mg/dL (0.00-1.30) H 02/19/19 13:19 6.0 g/dL (6.3-8.2) L 02/21/19 04:03 2.8 g/dL (3.9-5) L 02/21/19 04:03 0.9 % 02/21/19 04:03 Triglycerides 425 mg/dL (2-149) H 02/18/19 09:27 Cholesterol 221 mg/dL (50-199) H 02/18/19 09:27 TNR 02/18/19 09:27 42 mg/dL (40-59) 02/18/19 09:27 5.26 % 02/18/19 09:27 Straw (Yellow) 02/18/19 06:37 Clear (Clear) 02/18/19 06:37 5.0 (5.0-7.0) 02/18/19 06:37 Ur Specific Bynum 1.027 (1.003-1.030) 02/18/19 06:37 100 mg/dl mg/dL (Negative) 02/18/19 06:37 >=500 mg/dL (Negative) 02/18/19 06:37 Neg mg/dL (Negative) 02/18/19 06:37 Neg (Negative) 02/18/19 06:37 Neg (Negative) 02/18/19 06:37 Neg (Negative) 02/18/19 06:37 < 2.0 mg/dL (<2.0) 02/18/19 06:37 Ur Leukocyte Esterase Neg (Negative) 02/18/19 06:37 < 1.0 /HPF (0.0-6.0) 02/18/19 06:37 2.0 /HPF (0.0-6.0) 02/18/19 06:37 Active Medications - Current Medications Current Medications: Generic Name Dose Route Start Last Admin Trade Name Freq PRN Reason Stop Dose Admin Albuterol 2.5 mg 02/18/19 11:00 02/21/19 01:55 Proventil IH 2.5 mg Q3HRT PRN Administration Shortness Of Breath Arformoterol Tartrate 15 mcg 02/19/19 12:30 02/21/19 09:58 Brovana Nebu IH 15 mcg Q12HRT TAN Administration Aspirin 300 mg 02/18/19 14:00 02/21/19 09:56 Aspirin FL Not Given QDAY TAN Dextrose 0 ml 02/18/19 09:30 D50w (25gm) Syringe IV PRN PRN Hypoglycemia Famotidine 20 mg 02/20/19 10:00 02/21/19 09:52 Pepcid IV 20 mg QDAY TAN Administration Haloperidol Lactate 5 mg 02/19/19 15:02 02/21/19 09:53 Haldol IV 02/22/19 15:01 5 mg Q6H PRN Administration Agitation Hydralazine HCl 10 mg 02/18/19 17:26 02/21/19 04:35 Apresoline IV 10 mg Q4HR PRN Administration Hypertension Hydralazine HCl 50 mg 02/21/19 08:00 02/21/19 09:51 Apresoline PO 50 mg Q8HR TAN Administration Hydrochlorothiazide 25 mg 02/21/19 10:00 02/21/19 09:51 Hctz PO 25 mg QDAY TAN Administration Azithromycin 500 mg/ Sodium 250 mls @ 250 mls/hr 02/19/19 13:00 02/21/19 09:55 Chloride IV 02/24/19 12:59 250 mls/hr Q24HR TAN Administration Protocol Piperacillin Sod/Tazobactam Sod 2.25 gm in 50 mls @ 100 mls/hr 02/20/19 12:00 02/21/19 05:36 Zosyn/Ns 2.25 Gm/50ml IV 02/24/19 11:59 100 mls/hr Q6HR TAN Administration Potassium Chloride 10 meq in 100 mls @ 100 mls/hr 02/21/19 08:00 02/21/19 09:52 Kcl 10meq/100ml IV 02/21/19 11:59 100 mls/hr Q1H TAN Administration Insulin Human Isoph/Insulin Regular 20 unit 02/21/19 08:00 Humulin 70/30 SUB-Q BIDDIAB TAN Insulin Human Lispro 0 unit 02/19/19 06:00 02/21/19 06:34 Humalog SUB-Q Not Given Q6HR TAN Protocol Ipratropium Natoma 0.5 mg 02/20/19 16:00 02/21/19 09:57 Atrovent IH 0.5 mg Q8HRT TAN Administration Losartan Potassium 100 mg 02/21/19 10:00 02/21/19 09:51 Cozaar PO 100 mg QDAY TAN Administration Metoclopramide HCl 10 mg 02/19/19 15:12 Reglan IV Q6H PRN Nausea And Vomiting Nicotine 21 mg 02/20/19 13:00 02/21/19 09:52 Habitrol TD 21 mg QDAY TAN Administration Ondansetron HCl 4 mg 02/19/19 15:12 02/19/19 21:52 Zofran IV 4 mg Q6H PRN Administration Nausea And Vomiting Prednisone 30 mg 02/21/19 10:00 02/21/19 09:51 Deltasone PO 30 mg QDAY TAN Administration Sodium Chloride 10 ml 02/18/19 10:00 02/21/19 09:53 Sodium Chloride Flush Syringe 10 Ml IV 10 ml BID TAN Administration Sodium Chloride 10 ml 02/18/19 09:30 Sodium Chloride Flush Syringe 10 Ml IV PRN PRN LINE FLUSH Nutrition/Malnutrition Assess - Dietary Evaluation Nutrition/Malnutrition Findings: Nutrition Notes Start: 02/19/19 15:02 Freq: Status: Active Protocol: Document 02/19/19 15:02 RM (Rec: 02/19/19 15:07 [id number]) Nutrition Notes Need for Assessment generated from: MD Order Initial or Follow up Assessment Current Diagnosis COPD,Diabetes,Hypertension, Respiratory Failure Other Pertinent Diagnosis Depression, Hyperglycemia Current Diet NPO Labs/Tests Reviewed Pertinent Medications Reviewed Height 5 ft 4 in Weight 77.564 kg [place] Body Weight (kg) 54.54 BMI 29.3 Subjective/Other Information Consulted for nutritional recommendations and diet education. Screened for malnutrition and skin risk. Pollo 17 points. Pt asleep w/ BiPAP. No temporal or orbital wasting. Burn Absent Trauma Absent #1 Nutrition Diagnosis Predicted suboptimal energy intake Etiology COPD As Evidenced by Signs and Symptoms NPO status Is patient on ventilator? Yes Is Patient Ambulatory and/or Out of Bed No REE-([facility]-confined to bed) 1560.264 Calculation Used for Recommendations [facility] Additional Notes Protein Needs: 93-155g (1.2-2g /kg) Fluid Needs: 1 ml/kcal Nutrition Intervention Change Diet Order: Advance diet when medically able Add Supplement/Snack (indicate name/kcal Ensure Enlive 1 daily once /protein ) diet advanced Provides kCal: 350 Provides Protein (gm) 20 Goal #1 Diet advancement Anticipated Discharge Needs: Unable to determine at this time Follow-Up By: 02/23/19 Additional Comments Follow for diet advancement, DM diet education, malnurition assessment
--- NOTE | 2019-02-21 10:31 | Discharge Summary ---
Providers - Providers Date of Admission: 02/18/19 08:38 Attending physician: ANABEL SALAS MD 02/18/19 08:40 Consult to Physician [CONS] Urgent Comment: Consulting Provider: YENNY KING Physician Instructions: Reason For Exam: resp acidosis, hyperglcemia, focal seizure 02/18/19 09:03 Consult to Dietitian/Nutrition [CONS] Routine Physician Instructions: Reason For Exam: DKA Reason for Consult: Nutrition Recommendations Reason for Consult: Diet education 02/18/19 09:05 Consult to Physician [CONS] Routine Comment: Consulting Provider: DENISE TENORIO Physician Instructions: Reason For Exam: SEIZURE 02/20/19 12:51 Speech Therapy Evaluation and Treat [CONS] Routine Reason For Exam: swallow evalaution, aspiration risk 02/20/19 12:53 Physical Therapy Evaluation and Treat [CONS] Routine Comment: Reason For Exam: deconditioning 02/20/19 22:25 Occupational Therapy Evaluate and Treat [CONS] Routine Comment: Reason For Exam: Debility Primary care physician: LASER ENGRAVER Hospitalization Condition: Stable Hospital course: Patient is a 68-year-old female with past medical history according to the grandson of hypertension diabetes depression COPD and chronic tobacco use of pack a day for over 40+ years. She presents to the ED this morning after she was noted by the grandson for 4.30 a.m. to be on the floor following hearing a followed sound. The patient was confused and she attempted to pick the patient up from the floor and also called 911. On arrival now 1 personal history the patient was confused but moving all extremities was unable to follow any she was transferred to the ED on arrival to the ED was placed on a BiPAP machine as she was noted to have difficulty with respiration including hypercarbia. She was also noted to have a blood sugar for several 100s but no evidence of acetone or ketones. Also noted to have a blood pressure of over 2:30 on admission. According to the ED documentation the patient was noted to Have seizure disorder her in the ED on route to the CT No prior hx of stroke or seizure PER Neurology AMS : multifactorial , improving : metabolic infectious respiratory hematologic, HTN urgency (? PRES) no recurrent sz no ob. signs of large stroke on exam no neuro decline MRI b pending no recurrent strokes no a.fib ddx: poss stroke (less likely) vs PRES cont. asa no indication for AED keep normotensive euthermic euglycemic avoid benzo and antipsych meds for sedation, use soft restraint sched melatonin and prn use of low dose benadryl IV CXR: unremarkable Acute Combined Hypoxic and Hypercapenic respiratory failure-IMPROVING Hyperosomolar Nonketotic Hyperglycemia Acute Metabolic Encephalopathy Seizure Respiratory acidosis DM type 2 with hypgerlycemia Hyponatremia Leukocytosis Hypertensive Urgency Tobacco use disorder COPD Plan Continue ICU care, can downgrade to IMCU if mental status is improving Now off insulin drip, adjust SQ insulin for better control Awaiting CT study correct electrolytes as needed continue empiric abx Monitor cultures Echo Seizure Prophylaxis Haldol PRN Monitor Mental status Aspiration Precautions MoniTOR bp FOR BETTER CONTROL Housing Property Manager and Neurology consult Poor prognosis, discussed with [employer] requested patient be transferred to [facility] per their contract. They understand the patient is confused and will need one on one sitter during transfer. Disposition: DC-30 STILL A PATIENT Core Measure Documentation - Palliative Care Palliative Care/ Comfort Measures: Not Applicable Exam - Constitutional Vitals: Temp Pulse Resp BP Pulse Ox 98.8 F 122 H 18 177/107 98 02/21/19 08:00 02/21/19 09:00 02/21/19 09:00 02/21/19 06:00 02/21/19 09:58 Plan Activity: advance as tolerated, fall precautions Diet: diabetic Follow up with: PRIMARY CAREMD [Primary Care Provider] - 3-5 Days
--- NOTE | 2019-02-21 10:35 | Progress Note ---
Assessment and Plan Acute toxic metabolic encephalopathy Hyperosmolar, nonketotic state. Leukocytosis, etiology unclear. Hypertensive urgency. Acute hypercapnic, hypoxemic respiratory failure. Hypomagnesemia. Obesity. History of coronary artery disease. Acute chronic obstructive pulmonary disease exacerbation. Tobacco use disorder. - continue to avoid benzodiazepines - follow 2d ECHO report - ST evaluation and advance diet as tolerated - continue aspiration precautions - prn Haldol ordered - continue bronchodilators with pulmonary hygiene per RT - complete empiric AB's (de-escalate based on clinical and microbiologic data)[BC's NGTD] - continue supplemental oxygen as needed to keep O2 sat's > 90% - follow sputum C&S - continue accuchecks with glycemic control per SSI for target blood glucose <180mg/dL - Agitation management - Prevention of delirium, maintenance of sleep-wake cycle - VTE and Stress ulcer prophylaxis - continue other care per attending / other consultants ... re-evaluate in am & prn CODE STATUS: FULL CODE Subjective Date of service: 02/21/19 Principal diagnosis: Ac encephalopathy; HNKK; HTNsive urgency; Ac hypercapnic hypoxemic resp emmanuel Interval history: Patient is seen today for: Acute toxic metabolic encephalopathy; Hyperosmolar, nonketotic state; Leukocytosis, etiology unclear; Hypertensive urgency; Acute hypercapnic, hypoxemic respiratory failure; Hypomagnesemia; Obesity; History of coronary artery disease; Acute chronic obstructive pulmonary disease exacerbation; Tobacco use disorder. Seen and examined at bedside; 24hour events reviewed; nursing and respiratory care staff consulted; no adverse overnight events reported to me; resting peacefully in bed; still with delirium; hemodynamically stable; No emesis or overt aspiration. Objective Vital Signs - 12hr 02/20/19 02/20/19 02/20/19 23:00 23:12 23:25 Temperature 98.4 F Pulse Rate 89 94 H Pulse Rate [ Bilateral Throughout] Pulse Rate [ Left Dorsalis Pedis] Respiratory 19 Rate Respiratory Rate [Bilateral Throughout] Blood Pressure 142/63 142/63 O2 Sat by Pulse 96 Oximetry 02/21/19 02/21/19 02/21/19 00:00 00:01 01:00 Temperature Pulse Rate 109 H 101 H 101 H Pulse Rate [ Bilateral Throughout] Pulse Rate [ 109 H Left Dorsalis Pedis] Respiratory 19 17 18 Rate Respiratory Rate [Bilateral Throughout] Blood Pressure 140/77 165/71 O2 Sat by Pulse 98 97 Oximetry 02/21/19 02/21/19 02/21/19 01:50 01:57 02:01 Temperature Pulse Rate 101 H 104 H Pulse Rate [ 107 H Bilateral Throughout] Pulse Rate [ Left Dorsalis Pedis] Respiratory 22 15 Rate Respiratory 18 Rate [Bilateral Throughout] Blood Pressure 165/71 160/69 O2 Sat by Pulse 100 100 Oximetry 02/21/19 02/21/19 02/21/19 03:00 03:33 04:00 Temperature 98.8 F Pulse Rate 109 H 106 H Pulse Rate [ Bilateral Throughout] Pulse Rate [ 104 H Left Dorsalis Pedis] Respiratory 27 H 21 Rate Respiratory Rate [Bilateral Throughout] Blood Pressure 160/69 187/89 O2 Sat by Pulse 100 100 Oximetry 02/21/19 02/21/19 02/21/19 04:35 05:00 05:36 Temperature Pulse Rate 107 H 118 H 113 H Pulse Rate [ Bilateral Throughout] Pulse Rate [ Left Dorsalis Pedis] Respiratory 20 Rate Respiratory Rate [Bilateral Throughout] Blood Pressure 187/89 175/88 177/107 O2 Sat by Pulse 98 Oximetry 02/21/19 02/21/19 02/21/19 06:00 08:00 09:00 Temperature 98.8 F Pulse Rate Pulse Rate [ 122 H Bilateral Throughout] Pulse Rate [ Left Dorsalis Pedis] Respiratory Rate Respiratory 18 Rate [Bilateral Throughout] Blood Pressure 177/107 O2 Sat by Pulse 100 Oximetry 02/21/19 09:58 Temperature Pulse Rate Pulse Rate [ Bilateral Throughout] Pulse Rate [ Left Dorsalis Pedis] Respiratory Rate Respiratory Rate [Bilateral Throughout] Blood Pressure O2 Sat by Pulse 98 Oximetry Constitutional: appears uncomfortable, other (elderly looking CF, normocephalic and traumatic with mildly increased resp effort at rest) Eyes: non-icteric ENT: oropharynx moist Neck: supple, no lymphadenopathy, no JVD, other (large neck circumference) Effort: mildly labored Ascultation: Bilateral: diminished breath sounds, rhonchi Percussion: Bilateral: not dull Cardiovascular: regular rate and rhythm, other (No R/M) Gastrointestinal: normoactive bowel sounds, soft, non-tender, non-distended Integumentary: rash Extremities: no cyanosis, no edema, pink and warm, pulses normal, no ischemia or petechiae Neurologic: non-focal exam (grossly), pupils equal and round, motor strength normal and, unable to assess Psychiatric: other (delirious) CBC and BMP: 02/21/19 04:03 02/21/19 04:03 ABG, PT/INR, D-dimer: ABG POC ABG pH 7.390 (7.35-7.45) 02/19/19 15:10 POC ABG pCO2 < 30 (35-45) L 02/19/19 15:10 POC ABG pO2 81 (80-105) 02/19/19 15:10 POC ABG HCO3 16.8 (22-26 mml/L) 02/19/19 15:10 POC ABG Total CO2 18 (23-27mmol/L) 02/19/19 15:10 POC ABG O2 Sat 96 02/19/19 15:10 Abnormal lab findings: Abnormal Labs 02/18/19 02/18/19 02/18/19 04:01 04:01 04:03 WBC 15.9 H Seg Neuts % (Manual) 84.0 H Lymphocytes % (Manual) 12.0 L Seg Neutrophils # Man 13.4 H POC ABG pH POC ABG pCO2 POC ABG pO2 VBG pH Sodium 127 L Potassium Chloride 88.5 L Carbon Dioxide Creatinine 1.3 H Glucose 744 H* POC Glucose > 500 H Lactic Acid Calcium Phosphorus Magnesium AST Alkaline Phosphatase 153 H C-Reactive Protein Total Protein Albumin 3.7 L Triglycerides Cholesterol 02/18/19 02/18/19 02/18/19 05:25 05:32 06:03 WBC Seg Neuts % (Manual) Lymphocytes % (Manual) Seg Neutrophils # Man POC ABG pH 7.058 L POC ABG pCO2 POC ABG pO2 111 H VBG pH 7.118 L* Sodium Potassium Chloride Carbon Dioxide Creatinine Glucose POC Glucose 484 H Lactic Acid Calcium Phosphorus Magnesium AST Alkaline Phosphatase C-Reactive Protein Total Protein Albumin Triglycerides Cholesterol 02/18/19 02/18/19 02/18/19 06:05 06:05 06:23 WBC Seg Neuts % (Manual) Lymphocytes % (Manual) Seg Neutrophils # Man POC ABG pH POC ABG pCO2 POC ABG pO2 VBG pH Sodium 127 L 131 L Potassium 3.3 L Chloride 92.0 L 92.9 L Carbon Dioxide Creatinine 1.3 H 1.3 H Glucose 603 H* 544 H* POC Glucose Lactic Acid Calcium Phosphorus 4.90 H Magnesium 1.50 L AST Alkaline Phosphatase C-Reactive Protein Total Protein Albumin Triglycerides Cholesterol 02/18/19 02/18/19 02/18/19 06:23 06:29 07:38 WBC Seg Neuts % (Manual) Lymphocytes % (Manual) Seg Neutrophils # Man POC ABG pH POC ABG pCO2 POC ABG pO2 VBG pH Sodium Potassium Chloride Carbon Dioxide Creatinine Glucose POC Glucose 421 H 405 H Lactic Acid 2.40 H* Calcium Phosphorus Magnesium AST Alkaline Phosphatase C-Reactive Protein Total Protein Albumin Triglycerides Cholesterol 02/18/19 02/18/19 02/18/19 08:40 09:27 09:27 WBC Seg Neuts % (Manual) Lymphocytes % (Manual) Seg Neutrophils # Man POC ABG pH POC ABG pCO2 POC ABG pO2 VBG pH Sodium 130 L Potassium Chloride 97.5 L Carbon Dioxide 19 L Creatinine Glucose 401 H POC Glucose 408 H Lactic Acid Calcium Phosphorus Magnesium AST Alkaline Phosphatase C-Reactive Protein Total Protein Albumin Triglycerides 425 H Cholesterol 221 H 02/18/19 02/18/19 02/18/19 09:27 09:39 10:47 WBC Seg Neuts % (Manual) Lymphocytes % (Manual) Seg Neutrophils # Man POC ABG pH 7.154 L POC ABG pCO2 68.7 H POC ABG pO2 133 H VBG pH Sodium Potassium Chloride Carbon Dioxide Creatinine Glucose POC Glucose 357 H Lactic Acid Calcium Phosphorus 5.10 H Magnesium 1.60 L AST Alkaline Phosphatase C-Reactive Protein Total Protein Albumin Triglycerides Cholesterol 02/18/19 02/18/19 02/18/19 11:08 12:09 12:35 WBC Seg Neuts % (Manual) Lymphocytes % (Manual) Seg Neutrophils # Man POC ABG pH POC ABG pCO2 POC ABG pO2 VBG pH Sodium Potassium Chloride Carbon Dioxide Creatinine Glucose 216 H POC Glucose 278 H 239 H Lactic Acid Calcium Phosphorus Magnesium AST Alkaline Phosphatase C-Reactive Protein Total Protein Albumin Triglycerides Cholesterol 02/18/19 02/18/19 02/18/19 13:37 14:42 15:34 WBC Seg Neuts % (Manual) Lymphocytes % (Manual) Seg Neutrophils # Man POC ABG pH 7.225 L POC ABG pCO2 52.1 H POC ABG pO2 VBG pH Sodium Potassium Chloride Carbon Dioxide Creatinine Glucose POC Glucose 165 H 205 H Lactic Acid Calcium Phosphorus Magnesium AST Alkaline Phosphatase C-Reactive Protein Total Protein Albumin Triglycerides Cholesterol 02/18/19 02/18/19 02/18/19 16:04 16:55 17:06 WBC Seg Neuts % (Manual) Lymphocytes % (Manual) Seg Neutrophils # Man POC ABG pH POC ABG pCO2 POC ABG pO2 VBG pH Sodium Potassium Chloride Carbon Dioxide Creatinine Glucose 247 H POC Glucose 204 H 240 H Lactic Acid Calcium 8.2 L Phosphorus Magnesium AST Alkaline Phosphatase C-Reactive Protein Total Protein Albumin Triglycerides Cholesterol 02/18/19 02/18/19 02/18/19 18:12 19:03 20:00 WBC Seg Neuts % (Manual) Lymphocytes % (Manual) Seg Neutrophils # Man POC ABG pH POC ABG pCO2 POC ABG pO2 VBG pH Sodium Potassium Chloride Carbon Dioxide Creatinine Glucose POC Glucose 211 H 192 H 168 H Lactic Acid Calcium Phosphorus Magnesium AST Alkaline Phosphatase C-Reactive Protein Total Protein Albumin Triglycerides Cholesterol 02/18/19 02/18/19 02/18/19 21:06 22:04 23:08 WBC Seg Neuts % (Manual) Lymphocytes % (Manual) Seg Neutrophils # Man POC ABG pH POC ABG pCO2 POC ABG pO2 VBG pH Sodium Potassium Chloride Carbon Dioxide Creatinine Glucose POC Glucose 109 H 140 H 146 H Lactic Acid Calcium Phosphorus Magnesium AST Alkaline Phosphatase C-Reactive Protein Total Protein Albumin Triglycerides Cholesterol 02/19/19 02/19/19 02/19/19 00:30 00:59 04:35 WBC 18.4 H Seg Neuts % (Manual) Lymphocytes % (Manual) Seg Neutrophils # Man POC ABG pH POC ABG pCO2 POC ABG pO2 VBG pH Sodium Potassium Chloride Carbon Dioxide 19 L D Creatinine Glucose 261 H POC Glucose 225 H Lactic Acid Calcium 8.1 L Phosphorus Magnesium AST Alkaline Phosphatase C-Reactive Protein Total Protein Albumin Triglycerides Cholesterol 02/19/19 02/19/19 02/19/19 06:06 12:22 13:19 WBC Seg Neuts % (Manual) Lymphocytes % (Manual) Seg Neutrophils # Man POC ABG pH POC ABG pCO2 POC ABG pO2 VBG pH Sodium Potassium Chloride Carbon Dioxide Creatinine Glucose POC Glucose 366 H 246 H Lactic Acid 2.10 H* Calcium Phosphorus Magnesium AST Alkaline Phosphatase C-Reactive Protein Total Protein Albumin Triglycerides Cholesterol 02/19/19 02/19/19 02/19/19 13:19 15:10 18:47 WBC Seg Neuts % (Manual) Lymphocytes % (Manual) Seg Neutrophils # Man POC ABG pH POC ABG pCO2 < 30 L POC ABG pO2 VBG pH Sodium Potassium Chloride Carbon Dioxide Creatinine Glucose POC Glucose 159 H Lactic Acid Calcium Phosphorus Magnesium AST Alkaline Phosphatase C-Reactive Protein 1.40 H Total Protein Albumin Triglycerides Cholesterol 02/20/19 02/20/19 02/20/19 00:01 04:57 04:57 WBC 17.3 H Seg Neuts % (Manual) Lymphocytes % (Manual) Seg Neutrophils # Man POC ABG pH POC ABG pCO2 POC ABG pO2 VBG pH Sodium Potassium Chloride 109.0 H Carbon Dioxide 18 L Creatinine 1.6 H Glucose 359 H POC Glucose 217 H Lactic Acid Calcium Phosphorus Magnesium AST 44 H Alkaline Phosphatase C-Reactive Protein Total Protein Albumin 3.0 L Triglycerides Cholesterol 02/20/19 02/20/19 02/20/19 05:44 09:37 12:32 WBC Seg Neuts % (Manual) Lymphocytes % (Manual) Seg Neutrophils # Man POC ABG pH POC ABG pCO2 POC ABG pO2 VBG pH Sodium Potassium Chloride Carbon Dioxide Creatinine Glucose POC Glucose 295 H 213 H 217 H Lactic Acid Calcium Phosphorus Magnesium AST Alkaline Phosphatase C-Reactive Protein Total Protein Albumin Triglycerides Cholesterol 02/20/19 02/20/19 02/20/19 16:44 18:00 23:43 WBC Seg Neuts % (Manual) Lymphocytes % (Manual) Seg Neutrophils # Man POC ABG pH POC ABG pCO2 POC ABG pO2 VBG pH Sodium Potassium Chloride Carbon Dioxide Creatinine Glucose POC Glucose 265 H 212 H 45 L Lactic Acid Calcium Phosphorus Magnesium AST Alkaline Phosphatase C-Reactive Protein Total Protein Albumin Triglycerides Cholesterol 02/21/19 02/21/19 02/21/19 02:38 04:03 04:03 WBC 15.6 H Seg Neuts % (Manual) Lymphocytes % (Manual) Seg Neutrophils # Man POC ABG pH POC ABG pCO2 POC ABG pO2 VBG pH Sodium Potassium 3.5 L Chloride 107.6 H Carbon Dioxide Creatinine Glucose 137 H POC Glucose 115 H Lactic Acid Calcium Phosphorus Magnesium AST 45 H Alkaline Phosphatase C-Reactive Protein Total Protein 6.0 L Albumin 2.8 L Triglycerides Cholesterol 02/21/19 05:26 WBC Seg Neuts % (Manual) Lymphocytes % (Manual) Seg Neutrophils # Man POC ABG pH POC ABG pCO2 POC ABG pO2 VBG pH Sodium Potassium Chloride Carbon Dioxide Creatinine Glucose POC Glucose 135 H Lactic Acid Calcium Phosphorus Magnesium AST Alkaline Phosphatase C-Reactive Protein Total Protein Albumin Triglycerides Cholesterol Chest x-ray: image reviewed Allied health notes reviewed: nursing
[2019-02-22] MEDS: HumaLOG SUB-Q SCH ×5 (01:00→22:00)
[2019-02-22] MEDS: ATROVENT IH SCH ×3 (01:38→17:27)
[2019-02-22] MEDS: HALDOL IV PRN ×2 (04:28→10:28)
[2019-02-22] MEDS: APRESOLINE PO SCH ×3 (05:15→21:36)
[2019-02-22] MEDS ORDERED: ZOSYN/NS 2.25 GM/50ML 2.25 GM/50 ML BAG IV SCH (06:00)
[2019-02-22] MEDS: BROVANA NEBU IH SCH ×2 (07:57→20:46)
--- NOTE | 2019-02-22 08:13 | Progress Note ---
Assessment and Plan Assessment and plan: Patient is a 68-year-old female with past medical history according to the grandson of hypertension diabetes depression COPD and chronic tobacco use of pack a day for over 40+ years. She presents to the ED this morning after she was noted by the grandson for 4.30 a.m. to be on the floor following hearing a followed sound. The patient was confused and she attempted to pick the patient up from the floor and also called 911. On arrival now 1 personal history the patient was confused but moving all extremities was unable to follow any she was transferred to the ED on arrival to the ED was placed on a BiPAP machine as she was noted to have difficulty with respiration including hypercarbia. She was also noted to have a blood sugar for several 100s but no evidence of acetone or ketones. Also noted to have a blood pressure of over 2:30 on admission. Patient confirms above discussion. States that she has been unable to eat for a week or so prior to presenting to the hospital. As a result she had not taken her insulin. cta neck. Atherosclerotic change of the carotid bifurcations, with 70% narrowing at the origin of the left internal carotid artery. Incidental note is made of a 1.4 cm midline thyroid nodule, and some additional smaller bilateral According to the ED documentation the patient was noted to Have seizure disorder her in the ED on route to the CT No prior hx of stroke or seizure CXR: unremarkable Acute Combined Hypoxic and Hypercapenic respiratory failure-IMPROVING Hyperosomolar Nonketotic Hyperglycemia Acute Metabolic Encephalopathy Seizure Thyroid Nodule Left ICA stenosis Respiratory acidosis DM type 2 with hypgerlycemia Hyponatremia Leukocytosis Hypertensive Urgency Tobacco use disorder COPD Plan Continue supportive care Transfer to [facility] Change accucheck to [facility] thyroid ultrasound and also TFT OUTPATIENT VASCULAR EVAL TO FURTHER EVALUATE ICA STENOSIS ASA Cultures with no growth. 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 GENERAL: The patient appears normally developed, off BIPAP. Vital signs as documented. HEAD: No signs of head trauma. EYES: Pupils are equal. EARS: Hearing grossly intact. MOUTH: Oropharynx is normal. NECK: No adenopathy, no JVD. CHEST: Chest with clear breath sounds bilaterally. No wheezes, rales, or rhonchi. CARDIAC: Regular rate and rhythm. S1 and S2, without murmurs, gallops, or rubs. VASCULAR: No Edema. Peripheral pulses normal and equal in all extremities. ABDOMEN: Soft, non tender and non distended. No rebound or guarding, and no masses palpated. Bowel Sounds normal. MUSCULOSKELETAL: Good range of motion of all major joints. Extremities without clubbing, cyanosis or edema. NEUROLOGIC EXAM: Confused, agitated, not following commands. Moves all extremities PSYCHIATRIC: unable to examine SKIN: detail exam as documented in skin assessment - Constitutional Vitals: Temp Pulse Resp BP Pulse Ox 98.8 F 112 H 16 181/76 98 02/22/19 03:59 02/22/19 08:00 02/22/19 08:00 02/22/19 06:00 02/22/19 08:00 Results - Labs CBC & Chem 7: 02/21/19 04:03 02/21/19 04:03 Labs: Laboratory Last Values WBC 15.6 K/mm3 (4.5-11.0) H 02/21/19 04:03 RBC 4.17 M/mm3 (3.65-5.03) 02/21/19 04:03 Hgb 11.9 gm/dl (10.1-14.3) 02/21/19 04:03 Hct 36.8 % (30.3-42.9) 02/21/19 04:03 MCV 88 fl (79-97) 02/21/19 04:03 MCH 29 pg (28-32) 02/21/19 04:03 MCHC 32 % (30-34) 02/21/19 04:03 RDW 13.9 % (13.2-15.2) 02/21/19 04:03 Plt Count 152 K/mm3 (140-440) 02/21/19 04:03 Add Manual Diff Complete 02/18/19 04:01 Total Counted 100 02/18/19 04:01 Seg Neuts % (Manual) 84.0 % (40.0-70.0) H 02/18/19 04:01 0 % 02/18/19 04:01 12.0 % (13.4-35.0) L 02/18/19 04:01 Reactive Lymphs % (Man) 0 % 02/18/19 04:01 3.0 % (0.0-7.3) 02/18/19 04:01 1.0 % (0.0-4.3) 02/18/19 04:01 0 % (0.0-1.8) 02/18/19 04:01 0 % 02/18/19 04:01 0 % 02/18/19 04:01 0 % 02/18/19 04:01 0 % 02/18/19 04:01 Nucleated RBC % Not Reportable 02/18/19 04:01 Seg Neutrophils # Man 13.4 K/mm3 (1.8-7.7) H 02/18/19 04:01 Band Neutrophils # 0.0 K/mm3 02/18/19 04:01 1.9 K/mm3 (1.2-5.4) 02/18/19 04:01 Abs React Lymphs (Man) 0.0 K/mm3 02/18/19 04:01 0.5 K/mm3 (0.0-0.8) 02/18/19 04:01 0.2 K/mm3 (0.0-0.4) 02/18/19 04:01 0.0 K/mm3 (0.0-0.1) 02/18/19 04:01 0.0 K/mm3 02/18/19 04:01 0.0 K/mm3 02/18/19 04:01 0.0 K/mm3 02/18/19 04:01 Blast Cells # 0.0 K/mm3 02/18/19 04:01 WBC Morphology Not Reportable 02/18/19 04:01 Hypersegmented Neuts Not Reportable 02/18/19 04:01 Hyposegmented Neuts Not Reportable 02/18/19 04:01 Hypogranular Neuts Not Reportable 02/18/19 04:01 Not Reportable 02/18/19 04:01 1+ 02/18/19 04:01 Not Reportable 02/18/19 04:01 Not Reportable 02/18/19 04:01 Not Reportable 02/18/19 04:01 Not Reportable 02/18/19 04:01 Consistent w auto 07/24/19 04:01 Not Reportable 02/18/19 04:01 Plt Clumps, EDTA Not Reportable 02/18/19 04:01 Not Reportable 02/18/19 04:01 Not Reportable 02/18/19 04:01 Not Reportable 02/18/19 04:01 Plt Morphology Comment Not Reportable 02/18/19 04:01 RBC Morphology Normal 02/18/19 04:01 Dimorphic RBCs Not Reportable 02/18/19 04:01 Not Reportable 02/18/19 04:01 Not Reportable 02/18/19 04:01 Not Reportable 02/18/19 04:01 Not Reportable 02/18/19 04:01 Not Reportable 02/18/19 04:01 Not Reportable 02/18/19 04:01 Not Reportable 02/18/19 04:01 Not Reportable 02/18/19 04:01 Not Reportable 02/18/19 04:01 Not Reportable 02/18/19 04:01 Not Reportable 02/18/19 04:01 Not Reportable 02/18/19 04:01 Not Reportable 02/18/19 04:01 Not Reportable 02/18/19 04:01 Not Reportable 02/18/19 04:01 Not Reportable 02/18/19 04:01 Not Reportable 02/18/19 04:01 Not Reportable 02/18/19 04:01 Not Reportable 02/18/19 04:01 Acanthocytes (Spur) Not Reportable 02/18/19 04:01 Rouleaux Not Reportable 02/18/19 04:01 Not Reportable 02/18/19 04:01 Not Reportable 02/18/19 04:01 Not Reportable 02/18/19 04:01 Not Reportable 02/18/19 04:01 Hem Pathologist Commnt No 02/18/19 04:01 POC ABG pH 7.390 (7.35-7.45) 02/19/19 15:10 POC ABG pCO2 < 30 (35-45) L 02/19/19 15:10 POC ABG pO2 81 (80-105) 02/19/19 15:10 POC ABG HCO3 16.8 (22-26 mml/L) 02/19/19 15:10 POC ABG Total CO2 18 (23-27mmol/L) 02/19/19 15:10 POC ABG O2 Sat 96 02/19/19 15:10 POC ABG Base Excess -8 ((-2) - (+3)mmol/L) 02/19/19 15:10 VBG pH 7.118 (7.320-7.420) L* 02/18/19 05:25 30 % 02/19/19 15:10 Sodium 139 mmol/L (137-145) 02/21/19 04:03 Potassium 3.5 mmol/L (3.6-5.0) L 02/21/19 04:03 Chloride 107.6 mmol/L (98-107) H 02/21/19 04:03 Carbon Dioxide 22 mmol/L (22-30) 02/21/19 04:03 13 mmol/L 02/21/19 04:03 BUN 14 mg/dL (7-17) 02/21/19 04:03 1.2 mg/dL (0.7-1.2) 02/21/19 04:03 Estimated GFR 45 ml/min 02/21/19 04:03 12 % 02/21/19 04:03 Glucose 137 mg/dL (65-100) H 02/21/19 04:03 POC Glucose 89 (70-105) 02/22/19 05:21 304 Mosm/kg 02/18/19 09:27 Lactic Acid 2.00 mmol/L (0.7-2.0) 02/19/19 17:14 Calcium 8.5 mg/dL (8.4-10.2) 02/21/19 04:03 Phosphorus 5.10 mg/dL (2.5-4.5) H 02/18/19 09:27 Magnesium 1.60 mg/dL (1.7-2.3) L 02/18/19 09:27 0.50 mg/dL (0.1-1.2) 02/21/19 04:03 AST 45 units/L (5-40) H 02/21/19 04:03 ALT 24 units/L (7-56) 02/21/19 04:03 98 units/L (35-129) 02/21/19 04:03 55.0 umol/L (25-60) 02/19/19 17:14 1.40 mg/dL (0.00-1.30) H 02/19/19 13:19 6.0 g/dL (6.3-8.2) L 02/21/19 04:03 2.8 g/dL (3.9-5) L 02/21/19 04:03 0.9 % 02/21/19 04:03 Triglycerides 425 mg/dL (2-149) H 02/18/19 09:27 Cholesterol 221 mg/dL (50-199) H 02/18/19 09:27 TNR 02/18/19 09:27 42 mg/dL (40-59) 02/18/19 09:27 5.26 % 02/18/19 09:27 Straw (Yellow) 02/18/19 06:37 Clear (Clear) 02/18/19 06:37 5.0 (5.0-7.0) 02/18/19 06:37 Ur Specific Entiat 1.027 (1.003-1.030) 02/18/19 06:37 100 mg/dl mg/dL (Negative) 02/18/19 06:37 >=500 mg/dL (Negative) 02/18/19 06:37 Neg mg/dL (Negative) 02/18/19 06:37 Neg (Negative) 02/18/19 06:37 Neg (Negative) 02/18/19 06:37 Neg (Negative) 02/18/19 06:37 < 2.0 mg/dL (<2.0) 02/18/19 06:37 Ur Leukocyte Esterase Neg (Negative) 02/18/19 06:37 < 1.0 /HPF (0.0-6.0) 02/18/19 06:37 2.0 /HPF (0.0-6.0) 02/18/19 06:37 Active Medications - Current Medications Current Medications: Generic Name Dose Route Start Last Admin Trade Name Freq PRN Reason Stop Dose Admin Albuterol 2.5 mg 02/18/19 11:00 02/21/19 01:55 Proventil IH 2.5 mg Q3HRT PRN Administration Shortness Of Breath Arformoterol Tartrate 15 mcg 02/19/19 12:30 02/22/19 07:57 Brovana Nebu IH 15 mcg Q12HRT TAN Administration Aspirin 300 mg 02/18/19 14:00 02/21/19 09:56 Aspirin MO Not Given QDAY TAN Dextrose 0 ml 02/18/19 09:30 D50w (25gm) Syringe IV PRN PRN Hypoglycemia Famotidine 20 mg 02/20/19 10:00 02/21/19 09:52 Pepcid IV 20 mg QDAY TAN Administration Haloperidol Lactate 5 mg 02/19/19 15:02 02/22/19 04:28 Haldol IV 02/22/19 15:01 5 mg Q6H PRN Administration Agitation Hydralazine HCl 10 mg 02/18/19 17:26 02/21/19 04:35 Apresoline IV 10 mg Q4HR PRN Administration Hypertension Hydralazine HCl 50 mg 02/21/19 08:00 02/22/19 05:15 Apresoline PO 50 mg Q8HR TAN Administration Hydrochlorothiazide 25 mg 02/21/19 10:00 02/21/19 09:51 Hctz PO 25 mg QDAY TAN Administration Azithromycin 500 mg/ Sodium 250 mls @ 250 mls/hr 02/19/19 13:00 02/21/19 09:55 Chloride IV 02/24/19 12:59 250 mls/hr Q24HR TAN Administration Protocol Piperacillin Sod/Tazobactam Sod 2.25 gm in 50 mls @ 100 mls/hr 02/22/19 06:00 02/22/19 05:15 Zosyn/Ns 2.25 Gm/50ml IV 100 mls/hr Q6HR TAN Administration Protocol Insulin Human Isoph/Insulin Regular 20 unit 02/21/19 08:00 02/21/19 17:47 Humulin 70/30 SUB-Q 20 unit BIDDIAB TAN Administration Insulin Human Lispro 0 unit 02/19/19 06:00 02/22/19 06:14 Humalog SUB-Q Not Given Q6HR [facility] Protocol Ipratropium [place] 0.5 mg 02/20/19 16:00 02/22/19 07:57 Atrovent IH 0.5 mg Q8HRT TAN Administration Losartan Potassium 100 mg 02/21/19 10:00 02/21/19 09:51 Cozaar PO 100 mg QDAY TAN Administration Metoclopramide HCl 10 mg 02/19/19 15:12 02/21/19 21:37 Reglan IV 10 mg Q6H PRN Administration Nausea And Vomiting Nicotine 21 mg 02/20/19 13:00 02/21/19 09:52 Habitrol TD 21 mg QDAY TAN Administration Ondansetron HCl 4 mg 02/19/19 15:12 02/19/19 21:52 Zofran IV 4 mg Q6H PRN Administration Nausea And Vomiting Prednisone 30 mg 02/21/19 10:00 02/21/19 09:51 Deltasone PO 30 mg QDAY TAN Administration Sodium Chloride 10 ml 02/18/19 10:00 02/21/19 21:43 Sodium Chloride Flush Syringe 10 Ml IV 10 ml BID TAN Administration Sodium Chloride 10 ml 02/18/19 09:30 Sodium Chloride Flush Syringe 10 Ml IV PRN PRN LINE FLUSH Nutrition/Malnutrition Assess - Dietary Evaluation Nutrition/Malnutrition Findings: Nutrition Notes Start: 02/19/19 15:02 Freq: Status: Active Protocol: Document 02/19/19 15:02 RM (Rec: 02/19/19 15:07 [email or web address]) Nutrition Notes Need for Assessment generated from: MD Order Initial or Follow up Assessment Current Diagnosis COPD,Diabetes,Hypertension, Respiratory Failure Other Pertinent Diagnosis Depression, Hyperglycemia Current Diet NPO Labs/Tests Reviewed Pertinent Medications Reviewed Height 5 ft 4 in Weight 77.564 kg [place] Body Weight (kg) 54.54 BMI 29.3 Subjective/Other Information Consulted for nutritional recommendations and diet education. Screened for malnutrition and skin risk. [place] 17 points. Pt asleep w/ BiPAP. No temporal or orbital wasting. Burn Absent Trauma Absent #1 Nutrition Diagnosis Predicted suboptimal energy intake Etiology COPD As Evidenced by Signs and Symptoms NPO status Is patient on ventilator? Yes Is Patient Ambulatory and/or Out of Bed No REE-([facility]-confined to bed) 1560.264 Calculation Used for Recommendations [facility] Additional Notes Protein Needs: 93-155g (1.2-2g /kg) Fluid Needs: 1 ml/kcal Nutrition Intervention Change Diet Order: Advance diet when medically able Add Supplement/Snack (indicate name/kcal Ensure Enlive 1 daily once /protein ) diet advanced Provides kCal: 350 Provides Protein (gm) 20 Goal #1 Diet advancement Anticipated Discharge Needs: Unable to determine at this time Follow-Up By: 02/23/19 Additional Comments Follow for diet advancement, DM diet education, malnurition assessment
[2019-02-22] MEDS: ASPIRIN PO SCH (10:23)
[2019-02-22] MEDS: COZAAR PO SCH (10:23)
[2019-02-22] MEDS: HABITROL TD SCH (10:27)
[2019-02-22] MEDS: PEPCID IV SCH (10:27)
[2019-02-22] MEDS: DELTASONE PO SCH (10:27)
[2019-02-22] MEDS: HCTZ PO SCH (10:27)
[2019-02-22] MEDS: ZITHROMAX 500 MG in NACL 0.9% 250ML 250 ML IV SCH (10:28)
[2019-02-22] MEDS: SODIUM CHLORIDE FLUSH SYRINGE 10 ML IV SCH ×2 (10:28→21:37)
--- NOTE | 2019-02-22 12:05 | Ultrasound Report ---
Examination: Thyroid ultrasound, 02/22/2019 Clinical information: History of thyroid nodule. Enhancing nodule seen on recent CT angiogram of the neck. Comparison: CT angiogram of the neck, 02/18/2019 Findings: Both lobes of the thyroid gland are normal in size. The right lobe measures 4 x 1.7x 1.8 cm. The left lobe measures 3.3 x 1.3x 1.7 cm. There is a mixed echogenic solid mass within the thyroid isthmus, which measures 1.9 x 1.2 X 1.5 cm. This corresponds to the enhancing mass seen on the recent CT of the neck. Several additional scattered cysts are seen within both lobes of the thyroid. Impression: 1. Solid mass within the thyroid isthmus as described above. Ultrasound-guided core biopsy or FNA is suggested when the patient's clinical condition permits. 2. Scattered thyroid cysts which require no additional evaluation. Signer Name: Clau Lee MD Signed: 02/22/2019 12:01 PM Workstation Name: [id number]
--- NOTE | 2019-02-22 16:25 | Progress Note ---
Assessment and Plan Acute toxic metabolic encephalopathy Hyperosmolar, nonketotic state. Leukocytosis, etiology unclear. Hypertensive urgency. Acute hypercapnic, hypoxemic respiratory failure. Hypomagnesemia. Obesity. History of coronary artery disease. Acute chronic obstructive pulmonary disease exacerbation. Tobacco use disorder. - continue to avoid benzodiazepines - follow 2d ECHO report - ST evaluation and advance diet as tolerated - continue aspiration precautions - prn Haldol ordered - continue bronchodilators with pulmonary hygiene per RT - complete empiric AB's (de-escalate based on clinical and microbiologic data)[BC's NGTD] - continue supplemental oxygen as needed to keep O2 sat's > 90% - follow sputum C&S - continue accuchecks with glycemic control per SSI for target blood glucose <180mg/dL - Agitation management - Prevention of delirium, maintenance of sleep-wake cycle - VTE and Stress ulcer prophylaxis - continue other care per attending / other consultants ... re-evaluate in am & prn CODE STATUS: FULL CODE Subjective Date of service: 02/22/19 Principal diagnosis: Ac encephalopathy; HNKK; HTNsive urgency; Ac hypercapnic hypoxemic resp emmanuel Interval history: Patient is seen today for: Acute toxic metabolic encephalopathy; Hyperosmolar, nonketotic state; Leukocytosis, etiology unclear; Hypertensive urgency; Acute hypercapnic, hypoxemic respiratory failure; Hypomagnesemia; Obesity; History of coronary artery disease; Acute chronic obstructive pulmonary disease exacerbation; Tobacco use disorder. Seen and examined at bedside; 24hour events reviewed; nursing and respiratory care staff consulted; no adverse overnight events reported to me; resting peacefully in bed; Objective Vital Signs - 12hr 02/22/19 02/22/19 02/22/19 05:00 05:15 06:00 Temperature Pulse Rate 98 H 101 H 103 H Pulse Rate [ Bilateral Throughout] Pulse Rate [ From Monitor] Respiratory 19 17 Rate Respiratory Rate [Bilateral Throughout] Blood Pressure 153/63 153/63 181/76 O2 Sat by Pulse 100 100 Oximetry 02/22/19 02/22/19 02/22/19 07:00 08:00 09:00 Temperature 97.9 F Pulse Rate 107 H 112 H 120 H Pulse Rate [ 110 H Bilateral Throughout] Pulse Rate [ 112 H From Monitor] Respiratory 21 18 11 L Rate Respiratory 19 Rate [Bilateral Throughout] Blood Pressure 161/72 160/73 157/66 O2 Sat by Pulse 96 97 Oximetry 02/22/19 02/22/19 02/22/19 10:00 10:23 11:00 Temperature Pulse Rate 120 H 122 H 119 H Pulse Rate [ Bilateral Throughout] Pulse Rate [ From Monitor] Respiratory 26 H 19 Rate Respiratory Rate [Bilateral Throughout] Blood Pressure 157/66 161/72 161/72 O2 Sat by Pulse 95 Oximetry 02/22/19 02/22/19 02/22/19 12:00 13:00 14:00 Temperature 99.1 F Pulse Rate 109 H 106 H 110 H Pulse Rate [ Bilateral Throughout] Pulse Rate [ 98 H From Monitor] Respiratory 16 15 23 Rate Respiratory Rate [Bilateral Throughout] Blood Pressure 147/64 148/65 148/65 O2 Sat by Pulse 91 98 96 Oximetry 02/22/19 02/22/19 02/22/19 14:27 15:00 16:00 Temperature Pulse Rate 104 H 108 H 107 H Pulse Rate [ Bilateral Throughout] Pulse Rate [ 102 H From Monitor] Respiratory 20 18 Rate Respiratory Rate [Bilateral Throughout] Blood Pressure 156/106 166/77 154/72 O2 Sat by Pulse 95 95 Oximetry Constitutional: appears uncomfortable, other (elderly looking CF, normocephalic and traumatic with mildly increased resp effort at rest) Eyes: non-icteric ENT: oropharynx moist Neck: supple, no lymphadenopathy, no JVD, other (large neck circumference) Effort: mildly labored Ascultation: Bilateral: diminished breath sounds, rhonchi Percussion: Bilateral: not dull Cardiovascular: regular rate and rhythm, other (No R/M) Gastrointestinal: normoactive bowel sounds, soft, non-tender, non-distended Integumentary: rash Extremities: no cyanosis, no edema, pink and warm, pulses normal, no ischemia or petechiae Neurologic: non-focal exam (grossly), pupils equal and round, motor strength normal and, unable to assess Psychiatric: other (delirious) CBC and BMP: 02/21/19 04:03 02/21/19 04:03 ABG, PT/INR, D-dimer: ABG POC ABG pH 7.390 (7.35-7.45) 02/19/19 15:10 POC ABG pCO2 < 30 (35-45) L 02/19/19 15:10 POC ABG pO2 81 (80-105) 02/19/19 15:10 POC ABG HCO3 16.8 (22-26 mml/L) 02/19/19 15:10 POC ABG Total CO2 18 (23-27mmol/L) 02/19/19 15:10 POC ABG O2 Sat 96 02/19/19 15:10 Abnormal lab findings: Abnormal Labs 02/18/19 02/18/19 02/18/19 04:01 04:01 04:03 WBC 15.9 H Seg Neuts % (Manual) 84.0 H Lymphocytes % (Manual) 12.0 L Seg Neutrophils # Man 13.4 H POC ABG pH POC ABG pCO2 POC ABG pO2 VBG pH Sodium 127 L Potassium Chloride 88.5 L Carbon Dioxide Creatinine 1.3 H Glucose 744 H* POC Glucose > 500 H Lactic Acid Calcium Phosphorus Magnesium AST Alkaline Phosphatase 153 H C-Reactive Protein Total Protein Albumin 3.7 L Triglycerides Cholesterol 02/18/19 02/18/19 02/18/19 05:25 05:32 06:03 WBC Seg Neuts % (Manual) Lymphocytes % (Manual) Seg Neutrophils # Man POC ABG pH 7.058 L POC ABG pCO2 POC ABG pO2 111 H VBG pH 7.118 L* Sodium Potassium Chloride Carbon Dioxide Creatinine Glucose POC Glucose 484 H Lactic Acid Calcium Phosphorus Magnesium AST Alkaline Phosphatase C-Reactive Protein Total Protein Albumin Triglycerides Cholesterol 02/18/19 02/18/19 02/18/19 06:05 06:05 06:23 WBC Seg Neuts % (Manual) Lymphocytes % (Manual) Seg Neutrophils # Man POC ABG pH POC ABG pCO2 POC ABG pO2 VBG pH Sodium 127 L 131 L Potassium 3.3 L Chloride 92.0 L 92.9 L Carbon Dioxide Creatinine 1.3 H 1.3 H Glucose 603 H* 544 H* POC Glucose Lactic Acid Calcium Phosphorus 4.90 H Magnesium 1.50 L AST Alkaline Phosphatase C-Reactive Protein Total Protein Albumin Triglycerides Cholesterol 02/18/19 02/18/19 02/18/19 06:23 06:29 07:38 WBC Seg Neuts % (Manual) Lymphocytes % (Manual) Seg Neutrophils # Man POC ABG pH POC ABG pCO2 POC ABG pO2 VBG pH Sodium Potassium Chloride Carbon Dioxide Creatinine Glucose POC Glucose 421 H 405 H Lactic Acid 2.40 H* Calcium Phosphorus Magnesium AST Alkaline Phosphatase C-Reactive Protein Total Protein Albumin Triglycerides Cholesterol 02/18/19 02/18/19 02/18/19 08:40 09:27 09:27 WBC Seg Neuts % (Manual) Lymphocytes % (Manual) Seg Neutrophils # Man POC ABG pH POC ABG pCO2 POC ABG pO2 VBG pH Sodium 130 L Potassium Chloride 97.5 L Carbon Dioxide 19 L Creatinine Glucose 401 H POC Glucose 408 H Lactic Acid Calcium Phosphorus Magnesium AST Alkaline Phosphatase C-Reactive Protein Total Protein Albumin Triglycerides 425 H Cholesterol 221 H 02/18/19 02/18/19 02/18/19 09:27 09:39 10:47 WBC Seg Neuts % (Manual) Lymphocytes % (Manual) Seg Neutrophils # Man POC ABG pH 7.154 L POC ABG pCO2 68.7 H POC ABG pO2 133 H VBG pH Sodium Potassium Chloride Carbon Dioxide Creatinine Glucose POC Glucose 357 H Lactic Acid Calcium Phosphorus 5.10 H Magnesium 1.60 L AST Alkaline Phosphatase C-Reactive Protein Total Protein Albumin Triglycerides Cholesterol 02/18/19 02/18/19 02/18/19 11:08 12:09 12:35 WBC Seg Neuts % (Manual) Lymphocytes % (Manual) Seg Neutrophils # Man POC ABG pH POC ABG pCO2 POC ABG pO2 VBG pH Sodium Potassium Chloride Carbon Dioxide Creatinine Glucose 216 H POC Glucose 278 H 239 H Lactic Acid Calcium Phosphorus Magnesium AST Alkaline Phosphatase C-Reactive Protein Total Protein Albumin Triglycerides Cholesterol 02/18/19 02/18/19 02/18/19 13:37 14:42 15:34 WBC Seg Neuts % (Manual) Lymphocytes % (Manual) Seg Neutrophils # Man POC ABG pH 7.225 L POC ABG pCO2 52.1 H POC ABG pO2 VBG pH Sodium Potassium Chloride Carbon Dioxide Creatinine Glucose POC Glucose 165 H 205 H Lactic Acid Calcium Phosphorus Magnesium AST Alkaline Phosphatase C-Reactive Protein Total Protein Albumin Triglycerides Cholesterol 02/18/19 02/18/19 02/18/19 16:04 16:55 17:06 WBC Seg Neuts % (Manual) Lymphocytes % (Manual) Seg Neutrophils # Man POC ABG pH POC ABG pCO2 POC ABG pO2 VBG pH Sodium Potassium Chloride Carbon Dioxide Creatinine Glucose 247 H POC Glucose 204 H 240 H Lactic Acid Calcium 8.2 L Phosphorus Magnesium AST Alkaline Phosphatase C-Reactive Protein Total Protein Albumin Triglycerides Cholesterol 02/18/19 02/18/19 02/18/19 18:12 19:03 20:00 WBC Seg Neuts % (Manual) Lymphocytes % (Manual) Seg Neutrophils # Man POC ABG pH POC ABG pCO2 POC ABG pO2 VBG pH Sodium Potassium Chloride Carbon Dioxide Creatinine Glucose POC Glucose 211 H 192 H 168 H Lactic Acid Calcium Phosphorus Magnesium AST Alkaline Phosphatase C-Reactive Protein Total Protein Albumin Triglycerides Cholesterol 02/18/19 02/18/19 02/18/19 21:06 22:04 23:08 WBC Seg Neuts % (Manual) Lymphocytes % (Manual) Seg Neutrophils # Man POC ABG pH POC ABG pCO2 POC ABG pO2 VBG pH Sodium Potassium Chloride Carbon Dioxide Creatinine Glucose POC Glucose 109 H 140 H 146 H Lactic Acid Calcium Phosphorus Magnesium AST Alkaline Phosphatase C-Reactive Protein Total Protein Albumin Triglycerides Cholesterol 02/19/19 02/19/19 02/19/19 00:30 00:59 04:35 WBC 18.4 H Seg Neuts % (Manual) Lymphocytes % (Manual) Seg Neutrophils # Man POC ABG pH POC ABG pCO2 POC ABG pO2 VBG pH Sodium Potassium Chloride Carbon Dioxide 19 L D Creatinine Glucose 261 H POC Glucose 225 H Lactic Acid Calcium 8.1 L Phosphorus Magnesium AST Alkaline Phosphatase C-Reactive Protein Total Protein Albumin Triglycerides Cholesterol 02/19/19 02/19/19 02/19/19 06:06 12:22 13:19 WBC Seg Neuts % (Manual) Lymphocytes % (Manual) Seg Neutrophils # Man POC ABG pH POC ABG pCO2 POC ABG pO2 VBG pH Sodium Potassium Chloride Carbon Dioxide Creatinine Glucose POC Glucose 366 H 246 H Lactic Acid 2.10 H* Calcium Phosphorus Magnesium AST Alkaline Phosphatase C-Reactive Protein Total Protein Albumin Triglycerides Cholesterol 02/19/19 02/19/19 02/19/19 13:19 15:10 18:47 WBC Seg Neuts % (Manual) Lymphocytes % (Manual) Seg Neutrophils # Man POC ABG pH POC ABG pCO2 < 30 L POC ABG pO2 VBG pH Sodium Potassium Chloride Carbon Dioxide Creatinine Glucose POC Glucose 159 H Lactic Acid Calcium Phosphorus Magnesium AST Alkaline Phosphatase C-Reactive Protein 1.40 H Total Protein Albumin Triglycerides Cholesterol 02/20/19 02/20/19 02/20/19 00:01 04:57 04:57 WBC 17.3 H Seg Neuts % (Manual) Lymphocytes % (Manual) Seg Neutrophils # Man POC ABG pH POC ABG pCO2 POC ABG pO2 VBG pH Sodium Potassium Chloride 109.0 H Carbon Dioxide 18 L Creatinine 1.6 H Glucose 359 H POC Glucose 217 H Lactic Acid Calcium Phosphorus Magnesium AST 44 H Alkaline Phosphatase C-Reactive Protein Total Protein Albumin 3.0 L Triglycerides Cholesterol 02/20/19 02/20/19 02/20/19 05:44 09:37 12:32 WBC Seg Neuts % (Manual) Lymphocytes % (Manual) Seg Neutrophils # Man POC ABG pH POC ABG pCO2 POC ABG pO2 VBG pH Sodium Potassium Chloride Carbon Dioxide Creatinine Glucose POC Glucose 295 H 213 H 217 H Lactic Acid Calcium Phosphorus Magnesium AST Alkaline Phosphatase C-Reactive Protein Total Protein Albumin Triglycerides Cholesterol 02/20/19 02/20/19 02/20/19 16:44 18:00 23:43 WBC Seg Neuts % (Manual) Lymphocytes % (Manual) Seg Neutrophils # Man POC ABG pH POC ABG pCO2 POC ABG pO2 VBG pH Sodium Potassium Chloride Carbon Dioxide Creatinine Glucose POC Glucose 265 H 212 H 45 L Lactic Acid Calcium Phosphorus Magnesium AST Alkaline Phosphatase C-Reactive Protein Total Protein Albumin Triglycerides Cholesterol 02/21/19 02/21/19 02/21/19 02:38 04:03 04:03 WBC 15.6 H Seg Neuts % (Manual) Lymphocytes % (Manual) Seg Neutrophils # Man POC ABG pH POC ABG pCO2 POC ABG pO2 VBG pH Sodium Potassium 3.5 L Chloride 107.6 H Carbon Dioxide Creatinine Glucose 137 H POC Glucose 115 H Lactic Acid Calcium Phosphorus Magnesium AST 45 H Alkaline Phosphatase C-Reactive Protein Total Protein 6.0 L Albumin 2.8 L Triglycerides Cholesterol 02/21/19 02/21/19 02/21/19 05:26 12:46 17:40 WBC Seg Neuts % (Manual) Lymphocytes % (Manual) Seg Neutrophils # Man POC ABG pH POC ABG pCO2 POC ABG pO2 VBG pH Sodium Potassium Chloride Carbon Dioxide Creatinine Glucose POC Glucose 135 H 304 H 184 H Lactic Acid Calcium Phosphorus Magnesium AST Alkaline Phosphatase C-Reactive Protein Total Protein Albumin Triglycerides Cholesterol 02/21/19 02/22/19 02/22/19 23:19 08:32 11:45 WBC Seg Neuts % (Manual) Lymphocytes % (Manual) Seg Neutrophils # Man POC ABG pH POC ABG pCO2 POC ABG pO2 VBG pH Sodium Potassium Chloride Carbon Dioxide Creatinine Glucose POC Glucose 199 H 130 H 274 H Lactic Acid Calcium Phosphorus Magnesium AST Alkaline Phosphatase C-Reactive Protein Total Protein Albumin Triglycerides Cholesterol Allied health notes reviewed: nursing
[2019-02-23] MEDS: ATROVENT IH SCH ×2 (00:47→08:39)
[2019-02-23 05:16] LABS: Hematocrit 37.4 % (30.3-42.9); Hemoglobin 12.2 gm/dl (10.1-14.3); Mean Corpuscular HGB Conc 33 % (30-34); Mean Corpuscular Volume 88 fl (79-97); Platelet Count 194 K/mm3 (140-440); Red Blood Count 4.27 M/mm3 (3.65-5.03); Red Cell Distribution Width 13.6 % (13.2-15.2)
[2019-02-23 05:20] LABS: Calcium 9.2 mg/dL (8.4-10.2)
[2019-02-23] MEDS: APRESOLINE PO SCH ×2 (05:51→14:29)
--- NOTE | 2019-02-23 07:32 | Consultation ---
History of Present Illness Consult date: 02/18/19 Past History Past Medical History: CAD, COPD, diabetes Past Surgical History: No surgical history Social history: lives with family, smoking Family history: no significant family history Medications and Allergies Allergies Allergy/AdvReac Type Severity Reaction Status Date / Time No Known Allergies Allergy Verified 09/19/13 22:38 Home Medications Medication Instructions Recorded Confirmed Last Taken Type Gabapentin [Neurontin] 600 mg PO BID 02/18/19 02/18/19 Unknown History Losartan/Hydrochlorothiazide 1 each PO QDAY 02/18/19 02/18/19 Unknown History [Losartan-Hctz 100-25 mg Tab] Meloxicam [Mobic] 7.5 mg PO QDAY 02/18/19 02/18/19 Unknown History Sertraline [Zoloft] 150 mg PO QDAY 02/18/19 02/18/19 Unknown History Simvastatin 40 mg PO QDAY 02/18/19 02/18/19 Unknown History metFORMIN XR [Glucophage XR] 1,000 mg PO BID 02/18/19 02/18/19 Unknown History ALBUTEROL NEB's [Proventil 0.083% 2.5 mg IH Q3HRT PRN nebu 02/21/19 Unknown Rx NEBS] Arformoterol Nebu [Brovana Nebu] 15 mcg IH Q12HRT ml 02/21/19 Unknown Rx Aspirin [Aspirin SUPPOS] 300 mg SD QDAY supp.rect 02/21/19 Unknown Rx Insulin NPH/Regular [NovoLIN 70/30] 20 unit SUB-Q BIDDIAB units 02/21/19 Unknown Rx Ipratropium [Atrovent NEB] 0.5 mg IH Q8HRT nebu 02/21/19 Unknown Rx Lispro Insulin [HumaLOG] 0 unit SUB-Q Q6HR units 02/21/19 Unknown Rx Losartan [Cozaar] 100 mg PO QDAY tablet 02/21/19 Unknown Rx Metoclopramide [Reglan INJ] 10 mg IV Q6H PRN vial 02/21/19 Unknown Rx Nicotine [Habitrol] 21 mg TD QDAY patch 02/21/19 Unknown Rx hydrALAZINE [Apresoline TAB] 50 mg PO Q8HR tablet 02/21/19 Unknown Rx hydroCHLOROthiazide [HCTZ] 25 mg PO QDAY tablet 02/21/19 Unknown Rx predniSONE [Deltasone] 30 mg PO QDAY tablet 02/21/19 Unknown Rx Active Meds: Active Medications Albuterol (Proventil) 2.5 mg IH Q3HRT PRN PRN Reason: Shortness Of Breath Last Admin: 02/21/19 01:55 Dose: 2.5 mg Documented by: Arformoterol Tartrate (Brovana Nebu) 15 mcg IH Q12HRT [facility] Last Admin: 02/22/19 20:46 Dose: 15 mcg Documented by: Aspirin (Aspirin) 325 mg PO QDAY [facility] Last Admin: 02/22/19 10:23 Dose: 325 mg Documented by: Dextrose (D50w (25gm) Syringe) 0 ml IV PRN PRN PRN Reason: Hypoglycemia Famotidine (Pepcid) 20 mg IV QDAY [facility] Last Admin: 02/22/19 10:27 Dose: 20 mg Documented by: Hydralazine HCl (Apresoline) 10 mg IV Q4HR PRN PRN Reason: Hypertension Last Admin: 02/21/19 04:35 Dose: 10 mg Documented by: Hydralazine HCl (Apresoline) 50 mg PO Q8HR [facility] Last Admin: 02/23/19 05:51 Dose: 50 mg Documented by: Hydrochlorothiazide (Hctz) 25 mg PO QDAY [facility] Last Admin: 02/22/19 10:27 Dose: 25 mg Documented by: Azithromycin 500 mg/ Sodium (Chloride) 250 mls @ 250 mls/hr IV Q24HR [facility]; Protocol Stop: 02/24/19 12:59 Last Admin: 02/22/19 10:28 Dose: 250 mls/hr Documented by: Insulin Human Isoph/Insulin Regular (Humulin 70/30) 15 unit SUB-Q BIDDIAB [facility] Last Admin: 02/22/19 17:29 Dose: 15 unit Documented by: Insulin Human Lispro (Humalog) 0 unit SUB-Q ACHS [facility]; Protocol Last Admin: 02/22/19 22:00 Dose: 4 unit Documented by: Ipratropium [place] (Atrovent) 0.5 mg IH Q8HRT [facility] Last Admin: 02/23/19 00:47 Dose: 0.5 mg Documented by: Losartan Potassium (Cozaar) 100 mg PO QDAY [facility] Last Admin: 02/22/19 10:23 Dose: 100 mg Documented by: Metoclopramide HCl (Reglan) 10 mg IV Q6H PRN PRN Reason: Nausea And Vomiting Last Admin: 02/21/19 21:37 Dose: 10 mg Documented by: Nicotine (Habitrol) 21 mg TD QDAY [facility] Last Admin: 02/22/19 10:27 Dose: 21 mg Documented by: Ondansetron HCl (Zofran) 4 mg IV Q6H PRN PRN Reason: Nausea And Vomiting Last Admin: 02/19/19 21:52 Dose: 4 mg Documented by: Prednisone (Deltasone) 30 mg PO QDAY [facility] Last Admin: 02/22/19 10:27 Dose: 30 mg Documented by: Sodium Chloride (Sodium Chloride Flush Syringe 10 Ml) 10 ml IV BID [facility] Last Admin: 02/22/19 21:37 Dose: 10 ml Documented by: Sodium Chloride (Sodium Chloride Flush Syringe 10 Ml) 10 ml IV PRN PRN PRN Reason: LINE FLUSH Physical Examination - Vital Signs Vital Signs: Vital Signs Pulse Resp 101 H 20 02/18/19 03:52 02/18/19 03:52 Results - Laboratory Findings CBC and BMP: 02/23/19 04:09 02/23/19 04:09 Abnormal Lab Findings: Abnormal Labs 02/18/19 02/18/19 02/18/19 04:01 04:01 04:03 WBC 15.9 H Seg Neuts % (Manual) 84.0 H Lymphocytes % (Manual) 12.0 L Seg Neutrophils # Man 13.4 H POC ABG pH POC ABG pCO2 POC ABG pO2 VBG pH Sodium 127 L Potassium Chloride 88.5 L Carbon Dioxide Creatinine 1.3 H Glucose 744 H* POC Glucose > 500 H Lactic Acid Calcium Phosphorus Magnesium AST Alkaline Phosphatase 153 H C-Reactive Protein Total Protein Albumin 3.7 L Triglycerides Cholesterol 02/18/19 02/18/19 02/18/19 05:25 05:32 06:03 WBC Seg Neuts % (Manual) Lymphocytes % (Manual) Seg Neutrophils # Man POC ABG pH 7.058 L POC ABG pCO2 POC ABG pO2 111 H VBG pH 7.118 L* Sodium Potassium Chloride Carbon Dioxide Creatinine Glucose POC Glucose 484 H Lactic Acid Calcium Phosphorus Magnesium AST Alkaline Phosphatase C-Reactive Protein Total Protein Albumin Triglycerides Cholesterol 02/18/19 02/18/19 02/18/19 06:05 06:05 06:23 WBC Seg Neuts % (Manual) Lymphocytes % (Manual) Seg Neutrophils # Man POC ABG pH POC ABG pCO2 POC ABG pO2 VBG pH Sodium 127 L 131 L Potassium 3.3 L Chloride 92.0 L 92.9 L Carbon Dioxide Creatinine 1.3 H 1.3 H Glucose 603 H* 544 H* POC Glucose Lactic Acid Calcium Phosphorus 4.90 H Magnesium 1.50 L AST Alkaline Phosphatase C-Reactive Protein Total Protein Albumin Triglycerides Cholesterol 02/18/19 02/18/19 02/18/19 06:23 06:29 07:38 WBC Seg Neuts % (Manual) Lymphocytes % (Manual) Seg Neutrophils # Man POC ABG pH POC ABG pCO2 POC ABG pO2 VBG pH Sodium Potassium Chloride Carbon Dioxide Creatinine Glucose POC Glucose 421 H 405 H Lactic Acid 2.40 H* Calcium Phosphorus Magnesium AST Alkaline Phosphatase C-Reactive Protein Total Protein Albumin Triglycerides Cholesterol 02/18/19 02/18/19 02/18/19 08:40 09:27 09:27 WBC Seg Neuts % (Manual) Lymphocytes % (Manual) Seg Neutrophils # Man POC ABG pH POC ABG pCO2 POC ABG pO2 VBG pH Sodium 130 L Potassium Chloride 97.5 L Carbon Dioxide 19 L Creatinine Glucose 401 H POC Glucose 408 H Lactic Acid Calcium Phosphorus Magnesium AST Alkaline Phosphatase C-Reactive Protein Total Protein Albumin Triglycerides 425 H Cholesterol 221 H 02/18/19 02/18/19 02/18/19 09:27 09:39 10:47 WBC Seg Neuts % (Manual) Lymphocytes % (Manual) Seg Neutrophils # Man POC ABG pH 7.154 L POC ABG pCO2 68.7 H POC ABG pO2 133 H VBG pH Sodium Potassium Chloride Carbon Dioxide Creatinine Glucose POC Glucose 357 H Lactic Acid Calcium Phosphorus 5.10 H Magnesium 1.60 L AST Alkaline Phosphatase C-Reactive Protein Total Protein Albumin Triglycerides Cholesterol 02/18/19 02/18/19 02/18/19 11:08 12:09 12:35 WBC Seg Neuts % (Manual) Lymphocytes % (Manual) Seg Neutrophils # Man POC ABG pH POC ABG pCO2 POC ABG pO2 VBG pH Sodium Potassium Chloride Carbon Dioxide Creatinine Glucose 216 H POC Glucose 278 H 239 H Lactic Acid Calcium Phosphorus Magnesium AST Alkaline Phosphatase C-Reactive Protein Total Protein Albumin Triglycerides Cholesterol 02/18/19 02/18/19 02/18/19 13:37 14:42 15:34 WBC Seg Neuts % (Manual) Lymphocytes % (Manual) Seg Neutrophils # Man POC ABG pH 7.225 L POC ABG pCO2 52.1 H POC ABG pO2 VBG pH Sodium Potassium Chloride Carbon Dioxide Creatinine Glucose POC Glucose 165 H 205 H Lactic Acid Calcium Phosphorus Magnesium AST Alkaline Phosphatase C-Reactive Protein Total Protein Albumin Triglycerides Cholesterol 02/18/19 02/18/19 02/18/19 16:04 16:55 17:06 WBC Seg Neuts % (Manual) Lymphocytes % (Manual) Seg Neutrophils # Man POC ABG pH POC ABG pCO2 POC ABG pO2 VBG pH Sodium Potassium Chloride Carbon Dioxide Creatinine Glucose 247 H POC Glucose 204 H 240 H Lactic Acid Calcium 8.2 L Phosphorus Magnesium AST Alkaline Phosphatase C-Reactive Protein Total Protein Albumin Triglycerides Cholesterol 02/18/19 02/18/19 02/18/19 18:12 19:03 20:00 WBC Seg Neuts % (Manual) Lymphocytes % (Manual) Seg Neutrophils # Man POC ABG pH POC ABG pCO2 POC ABG pO2 VBG pH Sodium Potassium Chloride Carbon Dioxide Creatinine Glucose POC Glucose 211 H 192 H 168 H Lactic Acid Calcium Phosphorus Magnesium AST Alkaline Phosphatase C-Reactive Protein Total Protein Albumin Triglycerides Cholesterol 02/18/19 02/18/19 02/18/19 21:06 22:04 23:08 WBC Seg Neuts % (Manual) Lymphocytes % (Manual) Seg Neutrophils # Man POC ABG pH POC ABG pCO2 POC ABG pO2 VBG pH Sodium Potassium Chloride Carbon Dioxide Creatinine Glucose POC Glucose 109 H 140 H 146 H Lactic Acid Calcium Phosphorus Magnesium AST Alkaline Phosphatase C-Reactive Protein Total Protein Albumin Triglycerides Cholesterol 02/19/19 02/19/19 02/19/19 00:30 00:59 04:35 WBC 18.4 H Seg Neuts % (Manual) Lymphocytes % (Manual) Seg Neutrophils # Man POC ABG pH POC ABG pCO2 POC ABG pO2 VBG pH Sodium Potassium Chloride Carbon Dioxide 19 L D Creatinine Glucose 261 H POC Glucose 225 H Lactic Acid Calcium 8.1 L Phosphorus Magnesium AST Alkaline Phosphatase C-Reactive Protein Total Protein Albumin Triglycerides Cholesterol 02/19/19 02/19/19 02/19/19 06:06 12:22 13:19 WBC Seg Neuts % (Manual) Lymphocytes % (Manual) Seg Neutrophils # Man POC ABG pH POC ABG pCO2 POC ABG pO2 VBG pH Sodium Potassium Chloride Carbon Dioxide Creatinine Glucose POC Glucose 366 H 246 H Lactic Acid 2.10 H* Calcium Phosphorus Magnesium AST Alkaline Phosphatase C-Reactive Protein Total Protein Albumin Triglycerides Cholesterol 02/19/19 02/19/19 02/19/19 13:19 15:10 18:47 WBC Seg Neuts % (Manual) Lymphocytes % (Manual) Seg Neutrophils # Man POC ABG pH POC ABG pCO2 < 30 L POC ABG pO2 VBG pH Sodium Potassium Chloride Carbon Dioxide Creatinine Glucose POC Glucose 159 H Lactic Acid Calcium Phosphorus Magnesium AST Alkaline Phosphatase C-Reactive Protein 1.40 H Total Protein Albumin Triglycerides Cholesterol 02/20/19 02/20/19 02/20/19 00:01 04:57 04:57 WBC 17.3 H Seg Neuts % (Manual) Lymphocytes % (Manual) Seg Neutrophils # Man POC ABG pH POC ABG pCO2 POC ABG pO2 VBG pH Sodium Potassium Chloride 109.0 H Carbon Dioxide 18 L Creatinine 1.6 H Glucose 359 H POC Glucose 217 H Lactic Acid Calcium Phosphorus Magnesium AST 44 H Alkaline Phosphatase C-Reactive Protein Total Protein Albumin 3.0 L Triglycerides Cholesterol 02/20/19 02/20/19 02/20/19 05:44 09:37 12:32 WBC Seg Neuts % (Manual) Lymphocytes % (Manual) Seg Neutrophils # Man POC ABG pH POC ABG pCO2 POC ABG pO2 VBG pH Sodium Potassium Chloride Carbon Dioxide Creatinine Glucose POC Glucose 295 H 213 H 217 H Lactic Acid Calcium Phosphorus Magnesium AST Alkaline Phosphatase C-Reactive Protein Total Protein Albumin Triglycerides Cholesterol 02/20/19 02/20/19 02/20/19 16:44 18:00 23:43 WBC Seg Neuts % (Manual) Lymphocytes % (Manual) Seg Neutrophils # Man POC ABG pH POC ABG pCO2 POC ABG pO2 VBG pH Sodium Potassium Chloride Carbon Dioxide Creatinine Glucose POC Glucose 265 H 212 H 45 L Lactic Acid Calcium Phosphorus Magnesium AST Alkaline Phosphatase C-Reactive Protein Total Protein Albumin Triglycerides Cholesterol 02/21/19 02/21/19 02/21/19 02:38 04:03 04:03 WBC 15.6 H Seg Neuts % (Manual) Lymphocytes % (Manual) Seg Neutrophils # Man POC ABG pH POC ABG pCO2 POC ABG pO2 VBG pH Sodium Potassium 3.5 L Chloride 107.6 H Carbon Dioxide Creatinine Glucose 137 H POC Glucose 115 H Lactic Acid Calcium Phosphorus Magnesium AST 45 H Alkaline Phosphatase C-Reactive Protein Total Protein 6.0 L Albumin 2.8 L Triglycerides Cholesterol 02/21/19 02/21/19 02/21/19 05:26 12:46 17:40 WBC Seg Neuts % (Manual) Lymphocytes % (Manual) Seg Neutrophils # Man POC ABG pH POC ABG pCO2 POC ABG pO2 VBG pH Sodium Potassium Chloride Carbon Dioxide Creatinine Glucose POC Glucose 135 H 304 H 184 H Lactic Acid Calcium Phosphorus Magnesium AST Alkaline Phosphatase C-Reactive Protein Total Protein Albumin Triglycerides Cholesterol 02/21/19 02/22/19 02/22/19 23:19 08:32 11:45 WBC Seg Neuts % (Manual) Lymphocytes % (Manual) Seg Neutrophils # Man POC ABG pH POC ABG pCO2 POC ABG pO2 VBG pH Sodium Potassium Chloride Carbon Dioxide Creatinine Glucose POC Glucose 199 H 130 H 274 H Lactic Acid Calcium Phosphorus Magnesium AST Alkaline Phosphatase C-Reactive Protein Total Protein Albumin Triglycerides Cholesterol 02/22/19 02/22/19 02/23/19 16:35 22:01 04:09 WBC 13.7 H Seg Neuts % (Manual) Lymphocytes % (Manual) Seg Neutrophils # Man POC ABG pH POC ABG pCO2 POC ABG pO2 VBG pH Sodium Potassium Chloride Carbon Dioxide Creatinine Glucose POC Glucose 344 H 299 H Lactic Acid Calcium Phosphorus Magnesium AST Alkaline Phosphatase C-Reactive Protein Total Protein Albumin Triglycerides Cholesterol 02/23/19 04:09 WBC Seg Neuts % (Manual) Lymphocytes % (Manual) Seg Neutrophils # Man POC ABG pH POC ABG pCO2 POC ABG pO2 VBG pH Sodium Potassium 3.4 L Chloride Carbon Dioxide 21 L Creatinine 1.3 H Glucose 215 H POC Glucose Lactic Acid Calcium Phosphorus Magnesium AST Alkaline Phosphatase C-Reactive Protein Total Protein Albumin Triglycerides Cholesterol
--- NOTE | 2019-02-23 07:35 | Consultation ---
History of Present Illness Consult date: 02/18/19 History of present illness: [facility] Impression: #1. The patient was last normal 8 pm the day before, fell out of bed at 2 am, with right sided sided weakness. #2. No TPA #3. CTA head/neck is negative. Comments: [employer] Called at 22:01 Online 22:05 Recommendations: Start antiplatelet if no obvious contraindication Stroke protocol admission/ orderset suggested with placement on stroke floor tele monitoring Bedside swallow evaluation HOB less than 30 degrees IV Fluid hydration with NS Euglycemia avoid hyperthermia, PRN acetaminophen dvt ppx Consider inpatient neurology consultation Discussed with ED MD Please call with questions CC History of Present Illness The patietn fell out of her bed and had right sided weakness, CTA head/neck is negative. She was last normal before wakeup, hence no TPA, > 24 hours not normal. Per her grandson, she was found down at 2 pt was found down at 2 am, i heard a thump and i saw her on the floor, she was confused disoriented but talking, but she was aphasic. no sz at the scene no prior strokes or sz or neuro hx pmh HTN DM COPD pt arrived w ams no vomiting no posturing no trauma no blood loss Diagnostic: CT head is negative. Exam: Patient is in no apparent distress. Patient appears as stated age. No obvious acute respiratory or cardiac distress. Patient is well groomed and well- nourished. NIHSS score:11 1A: Level of Consciousness - Requires repeated stimulation to arouse 3 1B: Ask Month and Age - 0 Questions Right 2 1C: 'Blink Eyes' & 'Squeeze Hands' - Performs 0 Tasks 2 2: Test Horizontal Extraocular Movements - Partial Gaze Palsy: Corrects with Oculocephalic Reflex 0 3: Test Visual Wilkinson - No Visual Loss 0 4: Test Facial Palsy - Normal symmetry 0 5A: Test Left Arm Motor Drift - Some Effort Against [place] 0 5B: Test Right Arm Motor Drift - Some Effort Against Gravity2 6A: Test Left Leg Motor Drift - Some Effort Against [place] 0 6B: Test Right Leg Motor Drift - Some Effort Against [place] 2 7: Test Limb Ataxia - Ataxia in 2 Limbs 0 8: Test Sensation - Complete Loss: Cannot Sense Being Touched At All 0 9: Test Language/Aphasia- Severe Aphasia: Fragmentary Expression, Inference Needed, Cannot Identify Materials 0 10: Test Dysarthria - Mute/Anarthric 0 11: Test Extinction/Inattention - Extinction to bilateral simultaneous stimulation 0 Medical Decision Making: - Extensive number of diagnosis or management options are considered above. - Extensive amount of complex data reviewed. - High risk of complication and/or morbidity or mortality are associated with differential diagnostic considerations above. - There may be Uncertain outcome and increased probability of prolonged functional impairment or high probability of severe prolonged functional impairment associated with some of these differential diagnosis. Medical Data Reviewed: 1.Data reviewed include clinical labs, radiology,Medical Tests; 2.Tests results discussed w/performing or interpreting physician; 3.Obtaining/reviewing old medical records; 4.Obtaining case history from another source; 5.Independent review of image, tracing or specimen Past History Past Medical History: CAD, COPD, diabetes Past Surgical History: No surgical history Social history: lives with family, smoking Family history: no significant family history Medications and Allergies Allergies Allergy/AdvReac Type Severity Reaction Status Date / Time No Known Allergies Allergy Verified 09/19/13 22:38 Home Medications Medication Instructions Recorded Confirmed Last Taken Type Gabapentin [Neurontin] 600 mg PO BID 02/18/19 02/18/19 Unknown History Losartan/Hydrochlorothiazide 1 each PO QDAY 02/18/19 02/18/19 Unknown History [Losartan-Hctz 100-25 mg Tab] Meloxicam [Mobic] 7.5 mg PO QDAY 02/18/19 02/18/19 Unknown History Sertraline [Zoloft] 150 mg PO QDAY 02/18/19 02/18/19 Unknown History Simvastatin 40 mg PO QDAY 02/18/19 02/18/19 Unknown History metFORMIN XR [Glucophage XR] 1,000 mg PO BID 02/18/19 02/18/19 Unknown History ALBUTEROL NEB's [Proventil 0.083% 2.5 mg IH Q3HRT PRN nebu 02/21/19 Unknown Rx NEBS] Arformoterol Nebu [Brovana Nebu] 15 mcg IH Q12HRT ml 02/21/19 Unknown Rx Aspirin [Aspirin SUPPOS] 300 mg AR QDAY supp.rect 02/21/19 Unknown Rx Insulin NPH/Regular [NovoLIN 70/30] 20 unit SUB-Q BIDDIAB units 02/21/19 Unknown Rx Ipratropium [Atrovent NEB] 0.5 mg IH Q8HRT nebu 02/21/19 Unknown Rx Lispro Insulin [HumaLOG] 0 unit SUB-Q Q6HR units 02/21/19 Unknown Rx Losartan [Cozaar] 100 mg PO QDAY tablet 02/21/19 Unknown Rx Metoclopramide [Reglan INJ] 10 mg IV Q6H PRN vial 02/21/19 Unknown Rx Nicotine [Habitrol] 21 mg TD QDAY patch 02/21/19 Unknown Rx hydrALAZINE [Apresoline TAB] 50 mg PO Q8HR tablet 02/21/19 Unknown Rx hydroCHLOROthiazide [HCTZ] 25 mg PO QDAY tablet 02/21/19 Unknown Rx predniSONE [Deltasone] 30 mg PO QDAY tablet 02/21/19 Unknown Rx Active Meds: Active Medications Albuterol (Proventil) 2.5 mg IH Q3HRT PRN PRN Reason: Shortness Of Breath Last Admin: 02/21/19 01:55 Dose: 2.5 mg Documented by: Arformoterol Tartrate (Brovana Nebu) 15 mcg IH Q12HRT TAN Last Admin: 02/22/19 20:46 Dose: 15 mcg Documented by: Aspirin (Aspirin) 325 mg PO QDAY TAN Last Admin: 02/22/19 10:23 Dose: 325 mg Documented by: Dextrose (D50w (25gm) Syringe) 0 ml IV PRN PRN PRN Reason: Hypoglycemia Famotidine (Pepcid) 20 mg IV QDAY TAN Last Admin: 02/22/19 10:27 Dose: 20 mg Documented by: Hydralazine HCl (Apresoline) 10 mg IV Q4HR PRN PRN Reason: Hypertension Last Admin: 02/21/19 04:35 Dose: 10 mg Documented by: Hydralazine HCl (Apresoline) 50 mg PO Q8HR TAN Last Admin: 02/23/19 05:51 Dose: 50 mg Documented by: Hydrochlorothiazide (Hctz) 25 mg PO QDAY [facility] Last Admin: 02/22/19 10:27 Dose: 25 mg Documented by: Azithromycin 500 mg/ Sodium (Chloride) 250 mls @ 250 mls/hr IV Q24HR [facility]; Protocol Stop: 02/24/19 12:59 Last Admin: 02/22/19 10:28 Dose: 250 mls/hr Documented by: Insulin Human Isoph/Insulin Regular (Humulin 70/30) 15 unit SUB-Q BIDDIAB [facility] Last Admin: 02/22/19 17:29 Dose: 15 unit Documented by: Insulin Human Lispro (Humalog) 0 unit SUB-Q ACHS [facility]; Protocol Last Admin: 02/22/19 22:00 Dose: 4 unit Documented by: Ipratropium Raymond (Atrovent) 0.5 mg IH Q8HRT [facility] Last Admin: 02/23/19 00:47 Dose: 0.5 mg Documented by: Losartan Potassium (Cozaar) 100 mg PO QDAY [facility] Last Admin: 02/22/19 10:23 Dose: 100 mg Documented by: Metoclopramide HCl (Reglan) 10 mg IV Q6H PRN PRN Reason: Nausea And Vomiting Last Admin: 02/21/19 21:37 Dose: 10 mg Documented by: Nicotine (Habitrol) 21 mg TD QDAY [facility] Last Admin: 02/22/19 10:27 Dose: 21 mg Documented by: Ondansetron HCl (Zofran) 4 mg IV Q6H PRN PRN Reason: Nausea And Vomiting Last Admin: 02/19/19 21:52 Dose: 4 mg Documented by: Prednisone (Deltasone) 30 mg PO QDAY [facility] Last Admin: 02/22/19 10:27 Dose: 30 mg Documented by: Sodium Chloride (Sodium Chloride Flush Syringe 10 Ml) 10 ml IV BID [facility] Last Admin: 02/22/19 21:37 Dose: 10 ml Documented by: Sodium Chloride (Sodium Chloride Flush Syringe 10 Ml) 10 ml IV PRN PRN PRN Reason: LINE FLUSH Physical Examination - Vital Signs Vital Signs: Vital Signs Pulse Resp 101 H 20 02/18/19 03:52 02/18/19 03:52 Results - Laboratory Findings CBC and BMP: 02/23/19 04:09 02/23/19 04:09 Abnormal Lab Findings: Abnormal Labs 02/18/19 02/18/19 02/18/19 04:01 04:01 04:03 WBC 15.9 H Seg Neuts % (Manual) 84.0 H Lymphocytes % (Manual) 12.0 L Seg Neutrophils # Man 13.4 H POC ABG pH POC ABG pCO2 POC ABG pO2 VBG pH Sodium 127 L Potassium Chloride 88.5 L Carbon Dioxide Creatinine 1.3 H Glucose 744 H* POC Glucose > 500 H Lactic Acid Calcium Phosphorus Magnesium AST Alkaline Phosphatase 153 H C-Reactive Protein Total Protein Albumin 3.7 L Triglycerides Cholesterol 02/18/19 02/18/19 02/18/19 05:25 05:32 06:03 WBC Seg Neuts % (Manual) Lymphocytes % (Manual) Seg Neutrophils # Man POC ABG pH 7.058 L POC ABG pCO2 POC ABG pO2 111 H VBG pH 7.118 L* Sodium Potassium Chloride Carbon Dioxide Creatinine Glucose POC Glucose 484 H Lactic Acid Calcium Phosphorus Magnesium AST Alkaline Phosphatase C-Reactive Protein Total Protein Albumin Triglycerides Cholesterol 02/18/19 02/18/19 02/18/19 06:05 06:05 06:23 WBC Seg Neuts % (Manual) Lymphocytes % (Manual) Seg Neutrophils # Man POC ABG pH POC ABG pCO2 POC ABG pO2 VBG pH Sodium 127 L 131 L Potassium 3.3 L Chloride 92.0 L 92.9 L Carbon Dioxide Creatinine 1.3 H 1.3 H Glucose 603 H* 544 H* POC Glucose Lactic Acid Calcium Phosphorus 4.90 H Magnesium 1.50 L AST Alkaline Phosphatase C-Reactive Protein Total Protein Albumin Triglycerides Cholesterol 02/18/19 02/18/19 02/18/19 06:23 06:29 07:38 WBC Seg Neuts % (Manual) Lymphocytes % (Manual) Seg Neutrophils # Man POC ABG pH POC ABG pCO2 POC ABG pO2 VBG pH Sodium Potassium Chloride Carbon Dioxide Creatinine Glucose POC Glucose 421 H 405 H Lactic Acid 2.40 H* Calcium Phosphorus Magnesium AST Alkaline Phosphatase C-Reactive Protein Total Protein Albumin Triglycerides Cholesterol 02/18/19 02/18/19 02/18/19 08:40 09:27 09:27 WBC Seg Neuts % (Manual) Lymphocytes % (Manual) Seg Neutrophils # Man POC ABG pH POC ABG pCO2 POC ABG pO2 VBG pH Sodium 130 L Potassium Chloride 97.5 L Carbon Dioxide 19 L Creatinine Glucose 401 H POC Glucose 408 H Lactic Acid Calcium Phosphorus Magnesium AST Alkaline Phosphatase C-Reactive Protein Total Protein Albumin Triglycerides 425 H Cholesterol 221 H 02/18/19 02/18/19 02/18/19 09:27 09:39 10:47 WBC Seg Neuts % (Manual) Lymphocytes % (Manual) Seg Neutrophils # Man POC ABG pH 7.154 L POC ABG pCO2 68.7 H POC ABG pO2 133 H VBG pH Sodium Potassium Chloride Carbon Dioxide Creatinine Glucose POC Glucose 357 H Lactic Acid Calcium Phosphorus 5.10 H Magnesium 1.60 L AST Alkaline Phosphatase C-Reactive Protein Total Protein Albumin Triglycerides Cholesterol 02/18/19 02/18/19 02/18/19 11:08 12:09 12:35 WBC Seg Neuts % (Manual) Lymphocytes % (Manual) Seg Neutrophils # Man POC ABG pH POC ABG pCO2 POC ABG pO2 VBG pH Sodium Potassium Chloride Carbon Dioxide Creatinine Glucose 216 H POC Glucose 278 H 239 H Lactic Acid Calcium Phosphorus Magnesium AST Alkaline Phosphatase C-Reactive Protein Total Protein Albumin Triglycerides Cholesterol 02/18/19 02/18/19 02/18/19 13:37 14:42 15:34 WBC Seg Neuts % (Manual) Lymphocytes % (Manual) Seg Neutrophils # Man POC ABG pH 7.225 L POC ABG pCO2 52.1 H POC ABG pO2 VBG pH Sodium Potassium Chloride Carbon Dioxide Creatinine Glucose POC Glucose 165 H 205 H Lactic Acid Calcium Phosphorus Magnesium AST Alkaline Phosphatase C-Reactive Protein Total Protein Albumin Triglycerides Cholesterol 02/18/19 02/18/19 02/18/19 16:04 16:55 17:06 WBC Seg Neuts % (Manual) Lymphocytes % (Manual) Seg Neutrophils # Man POC ABG pH POC ABG pCO2 POC ABG pO2 VBG pH Sodium Potassium Chloride Carbon Dioxide Creatinine Glucose 247 H POC Glucose 204 H 240 H Lactic Acid Calcium 8.2 L Phosphorus Magnesium AST Alkaline Phosphatase C-Reactive Protein Total Protein Albumin Triglycerides Cholesterol 02/18/19 02/18/19 02/18/19 18:12 19:03 20:00 WBC Seg Neuts % (Manual) Lymphocytes % (Manual) Seg Neutrophils # Man POC ABG pH POC ABG pCO2 POC ABG pO2 VBG pH Sodium Potassium Chloride Carbon Dioxide Creatinine Glucose POC Glucose 211 H 192 H 168 H Lactic Acid Calcium Phosphorus Magnesium AST Alkaline Phosphatase C-Reactive Protein Total Protein Albumin Triglycerides Cholesterol 07/02/18/19 02/18/19 21:06 22:04 23:08 WBC Seg Neuts % (Manual) Lymphocytes % (Manual) Seg Neutrophils # Man POC ABG pH POC ABG pCO2 POC ABG pO2 VBG pH Sodium Potassium Chloride Carbon Dioxide Creatinine Glucose POC Glucose 109 H 140 H 146 H Lactic Acid Calcium Phosphorus Magnesium AST Alkaline Phosphatase C-Reactive Protein Total Protein Albumin Triglycerides Cholesterol 02/19/19 02/19/19 02/19/19 00:30 00:59 04:35 WBC 18.4 H Seg Neuts % (Manual) Lymphocytes % (Manual) Seg Neutrophils # Man POC ABG pH POC ABG pCO2 POC ABG pO2 VBG pH Sodium Potassium Chloride Carbon Dioxide 19 L D Creatinine Glucose 261 H POC Glucose 225 H Lactic Acid Calcium 8.1 L Phosphorus Magnesium AST Alkaline Phosphatase C-Reactive Protein Total Protein Albumin Triglycerides Cholesterol 02/19/19 02/19/19 02/19/19 06:06 12:22 13:19 WBC Seg Neuts % (Manual) Lymphocytes % (Manual) Seg Neutrophils # Man POC ABG pH POC ABG pCO2 POC ABG pO2 VBG pH Sodium Potassium Chloride Carbon Dioxide Creatinine Glucose POC Glucose 366 H 246 H Lactic Acid 2.10 H* Calcium Phosphorus Magnesium AST Alkaline Phosphatase C-Reactive Protein Total Protein Albumin Triglycerides Cholesterol 02/19/19 02/19/19 02/19/19 13:19 15:10 18:47 WBC Seg Neuts % (Manual) Lymphocytes % (Manual) Seg Neutrophils # Man POC ABG pH POC ABG pCO2 < 30 L POC ABG pO2 VBG pH Sodium Potassium Chloride Carbon Dioxide Creatinine Glucose POC Glucose 159 H Lactic Acid Calcium Phosphorus Magnesium AST Alkaline Phosphatase C-Reactive Protein 1.40 H Total Protein Albumin Triglycerides Cholesterol 02/20/19 02/20/19 02/20/19 00:01 04:57 04:57 WBC 17.3 H Seg Neuts % (Manual) Lymphocytes % (Manual) Seg Neutrophils # Man POC ABG pH POC ABG pCO2 POC ABG pO2 VBG pH Sodium Potassium Chloride 109.0 H Carbon Dioxide 18 L Creatinine 1.6 H Glucose 359 H POC Glucose 217 H Lactic Acid Calcium Phosphorus Magnesium AST 44 H Alkaline Phosphatase C-Reactive Protein Total Protein Albumin 3.0 L Triglycerides Cholesterol 02/20/19 02/20/19 02/20/19 05:44 09:37 12:32 WBC Seg Neuts % (Manual) Lymphocytes % (Manual) Seg Neutrophils # Man POC ABG pH POC ABG pCO2 POC ABG pO2 VBG pH Sodium Potassium Chloride Carbon Dioxide Creatinine Glucose POC Glucose 295 H 213 H 217 H Lactic Acid Calcium Phosphorus Magnesium AST Alkaline Phosphatase C-Reactive Protein Total Protein Albumin Triglycerides Cholesterol 02/20/19 02/20/19 02/20/19 16:44 18:00 23:43 WBC Seg Neuts % (Manual) Lymphocytes % (Manual) Seg Neutrophils # Man POC ABG pH POC ABG pCO2 POC ABG pO2 VBG pH Sodium Potassium Chloride Carbon Dioxide Creatinine Glucose POC Glucose 265 H 212 H 45 L Lactic Acid Calcium Phosphorus Magnesium AST Alkaline Phosphatase C-Reactive Protein Total Protein Albumin Triglycerides Cholesterol 02/21/19 02/21/19 02/21/19 02:38 04:03 04:03 WBC 15.6 H Seg Neuts % (Manual) Lymphocytes % (Manual) Seg Neutrophils # Man POC ABG pH POC ABG pCO2 POC ABG pO2 VBG pH Sodium Potassium 3.5 L Chloride 107.6 H Carbon Dioxide Creatinine Glucose 137 H POC Glucose 115 H Lactic Acid Calcium Phosphorus Magnesium AST 45 H Alkaline Phosphatase C-Reactive Protein Total Protein 6.0 L Albumin 2.8 L Triglycerides Cholesterol 02/21/19 02/21/19 02/21/19 05:26 12:46 17:40 WBC Seg Neuts % (Manual) Lymphocytes % (Manual) Seg Neutrophils # Man POC ABG pH POC ABG pCO2 POC ABG pO2 VBG pH Sodium Potassium Chloride Carbon Dioxide Creatinine Glucose POC Glucose 135 H 304 H 184 H Lactic Acid Calcium Phosphorus Magnesium AST Alkaline Phosphatase C-Reactive Protein Total Protein Albumin Triglycerides Cholesterol 02/21/19 02/22/19 02/22/19 23:19 08:32 11:45 WBC Seg Neuts % (Manual) Lymphocytes % (Manual) Seg Neutrophils # Man POC ABG pH POC ABG pCO2 POC ABG pO2 VBG pH Sodium Potassium Chloride Carbon Dioxide Creatinine Glucose POC Glucose 199 H 130 H 274 H Lactic Acid Calcium Phosphorus Magnesium AST Alkaline Phosphatase C-Reactive Protein Total Protein Albumin Triglycerides Cholesterol 02/22/19 02/22/19 02/23/19 16:35 22:01 04:09 WBC 13.7 H Seg Neuts % (Manual) Lymphocytes % (Manual) Seg Neutrophils # Man POC ABG pH POC ABG pCO2 POC ABG pO2 VBG pH Sodium Potassium Chloride Carbon Dioxide Creatinine Glucose POC Glucose 344 H 299 H Lactic Acid Calcium Phosphorus Magnesium AST Alkaline Phosphatase C-Reactive Protein Total Protein Albumin Triglycerides Cholesterol 02/23/19 04:09 WBC Seg Neuts % (Manual) Lymphocytes % (Manual) Seg Neutrophils # Man POC ABG pH POC ABG pCO2 POC ABG pO2 VBG pH Sodium Potassium 3.4 L Chloride Carbon Dioxide 21 L Creatinine 1.3 H Glucose 215 H POC Glucose Lactic Acid Calcium Phosphorus Magnesium AST Alkaline Phosphatase C-Reactive Protein Total Protein Albumin Triglycerides Cholesterol
[2019-02-23] MEDS: BROVANA NEBU IH SCH (08:39)
[2019-02-23] MEDS: ZITHROMAX 500 MG in NACL 0.9% 250ML 250 ML IV SCH (09:49)
[2019-02-23] MEDS: COZAAR PO SCH (09:50)
[2019-02-23] MEDS: ASPIRIN PO SCH (09:50)
[2019-02-23] MEDS: DELTASONE PO SCH (09:51)
[2019-02-23] MEDS: HCTZ PO SCH (09:51)
[2019-02-23] MEDS: HABITROL TD SCH (09:51)
[2019-02-23] MEDS: SODIUM CHLORIDE FLUSH SYRINGE 10 ML IV SCH (09:52)
[2019-02-23] MEDS: HumaLOG SUB-Q SCH ×2 (10:00→12:35)
[2019-02-23] MEDS ORDERED: PEPCID PO SCH (10:00)
--- NOTE | 2019-02-23 10:19 | Discharge Summary ---
Providers - Providers Date of Admission: 02/18/19 08:38 Attending physician: ANABEL SALAS MD 02/18/19 08:40 Consult to Physician [CONS] Urgent Comment: Consulting Provider: YENNY KING Physician Instructions: Reason For Exam: resp acidosis, hyperglcemia, focal seizure 02/18/19 09:03 Consult to Dietitian/Nutrition [CONS] Routine Physician Instructions: Reason For Exam: DKA Reason for Consult: Nutrition Recommendations Reason for Consult: Diet education 02/18/19 09:05 Consult to Physician [CONS] Routine Comment: Consulting Provider: DENISE TENORIO Physician Instructions: Reason For Exam: SEIZURE 02/20/19 12:51 Speech Therapy Evaluation and Treat [CONS] Routine Reason For Exam: swallow evalaution, aspiration risk 02/20/19 12:53 Physical Therapy Evaluation and Treat [CONS] Routine Comment: Reason For Exam: deconditioning 02/20/19 22:25 Occupational Therapy Evaluate and Treat [CONS] Routine Comment: Reason For Exam: Debility Primary care physician: NEUROLOGIST Hospitalization Reason for admission: SEPSIS Condition: Stable Hospital course: Patient is a 68-year-old female with past medical history according to the grandson of hypertension diabetes depression COPD and chronic tobacco use of pack a day for over 40+ years. She presents to the ED this morning after she was noted by the grandson for 4.30 a.m. to be on the floor following hearing a followed sound. The patient was confused and she attempted to pick the patient up from the floor and also called 911. On arrival now 1 personal history the patient was confused but moving all extremities was unable to follow any she was transferred to the ED on arrival to the ED was placed on a BiPAP machine as she was noted to have difficulty with respiration including hypercarbia. She was also noted to have a blood sugar for several 100s but no evidence of acetone or ketones. Also noted to have a blood pressure of over 2:30 on admission. Patient confirms above discussion. States that she has been unable to eat for a week or so prior to presenting to the hospital. As a result she had not taken her insulin. Patient was treated with insulin, vascular eval with recommendation for outpatient review of the Left ICA and also endocrinology follow up for the throid nodule. She was subsequently transferred to the [facility] unit. AND Discharged following resolution of symptoms cta neck. Atherosclerotic change of the carotid bifurcations, with 70% narrowing at the origin of the left internal carotid artery. Incidental note is made of a 1.4 cm midline thyroid nodule, and some additional smaller bilateral * This finding was discussed with the patient and recommended outpatient evaluation for this. According to the ED documentation the patient was noted to Have seizure disorder her in the ED on route to the CT No prior hx of stroke or seizure CXR: unremarkable Acute Combined Hypoxic and Hypercapenic respiratory failure-IMPROVING Hyperosomolar Nonketotic Hyperglycemia Acute Metabolic Encephalopathy PRES Seizure Thyroid Nodule- outpatient Endocrinology eval and also FNA discussed with Patient and to be done outpatient per PCP Left ICA stenosis Respiratory acidosis DM type 2 with hypgerlycemia Hyponatremia Leukocytosis Hypertensive Urgency Tobacco use disorder Hypomagnesemia. Obesity. History of coronary artery disease. Acute chronic obstructive pulmonary disease exacerbation. Tobacco use disorder. Chronic Back pain Chronic opioid dependance Disposition: [id number] HOME UNDER HOME [facility] Time spent for discharge: 35 mins Core Measure Documentation - Palliative Care Palliative Care/ Comfort Measures: Not Applicable - Core Measures Any of the following diagnoses?: none Exam - Physical Exam Narrative exam: VITAL SIGNS: Reviewed. GENERAL: The patient appears normally developed, Vital signs as documented. HEAD: No signs of head trauma. EYES: Pupils are equal. EARS: Hearing grossly intact. MOUTH: Oropharynx is normal. NECK: No adenopathy, no JVD. CHEST: Chest with clear breath sounds bilaterally. No wheezes, rales, or rhonchi. CARDIAC: Regular rate and rhythm. S1 and S2, without murmurs, gallops, or rubs. VASCULAR: No Edema. Peripheral pulses normal and equal in all extremities. ABDOMEN: Soft, non tender and non distended. No rebound or guarding, and no masses palpated. Bowel Sounds normal. MUSCULOSKELETAL: Good range of motion of all major joints. Extremities without clubbing, cyanosis or edema. NEUROLOGIC EXAM: Moves all extremities, ALERT AND AWAKE PSYCHIATRIC: NORMAL SKIN: detail exam as documented in skin assessment - Constitutional Vitals: Temp Pulse Resp BP Pulse Ox 98.4 F 113 H 20 173/83 96 02/23/19 08:00 02/23/19 09:50 02/23/19 08:58 02/23/19 09:50 02/23/19 08:38 Plan Activity: advance as tolerated, no driving until cleared by PCP, fall precautions Diet: low fat, diabetic Special Instructions: record daily BP diary, record blood sugar diary, smoking cessation Additional Instructions: follow with [employer]iner of PCP choice Follow up with: PRIMARY CARE, [Primary Care Provider] - 3-5 Days VERA BEAL MD [Staff Physician] - 7 Days JEAN-CLAUDE MILLER MD [Staff Physician] - 7 Days Prescriptions: AtorvaSTATin [Lipitor] 40 mg PO QHS #30 tab Aspirin 325 mg PO QDAY #30 tablet Nicotine [Habitrol] 14 mg TD DAILY #20 patch Hydralazine HCl 50 mg PO TID #90 tablet Losartan/Hydrochlorothiazide [Losartan-Hctz 100-25 mg Tab] 1 each PO QDAY #30 tablet Gabapentin [Neurontin] 600 mg PO BID #60 tablet Famotidine [Pepcid] 20 mg PO DAILY #30 tablet Prednisone [predniSONE 5 mg (6-Day Pack, 21 Tabs)] 5 mg PO .TAPER #1 tab.ds.pk ALBUTEROL NEB's [Proventil 0.083% NEBS] 2.5 mg IH TID PRN #90 neb PRN Reason: Wheezing
--- NOTE | 2019-02-23 13:30 | Progress Note ---
Assessment and Plan Patient alert, awake. Resting on room air. O2 saturation 96%. No acute respiratory distress at this time. If patient going home, recommend pulmonary follow up as out patient. - Patient Problems (1) DKA (diabetic ketoacidoses) Status: Acute Plan to address problem: Improved. (2) Respiratory acidosis Status: Acute Plan to address problem: Improved. (3) CVA (cerebral vascular accident) Status: Acute Plan to address problem: Management as per primary care. (4) New onset seizure Status: Acute Plan to address problem: Management as per primary care. (5) Altered mental status Status: Acute Plan to address problem: Improved. Subjective Date of service: 02/23/19 Principal diagnosis: Ac encephalopathy; HNKK; HTNsive urgency; Ac hypercapnic hypoxemic resp emmanuel Interval history: Patient alert, awake. Resting on room air. O2 saturation 96%. No acute respiratory distress at this time. Objective Vital Signs - 12hr 02/23/19 02/23/19 02/23/19 02:00 03:00 04:00 Temperature 98.8 F Pulse Rate 108 H 105 H 104 H Pulse Rate [ Bilateral Throughout] Pulse Rate [ 104 H From Monitor] Respiratory 23 19 13 Rate Respiratory Rate [Bilateral Throughout] Blood Pressure 175/79 169/64 176/73 O2 Sat by Pulse 94 96 95 Oximetry 02/23/19 02/23/19 02/23/19 05:01 05:51 06:00 Temperature Pulse Rate 104 H 105 H 106 H Pulse Rate [ Bilateral Throughout] Pulse Rate [ From Monitor] Respiratory 18 19 Rate Respiratory Rate [Bilateral Throughout] Blood Pressure 176/73 163/65 170/70 O2 Sat by Pulse 96 94 Oximetry 02/23/19 02/23/19 02/23/19 07:00 08:00 08:01 Temperature 98.4 F Pulse Rate 109 H Pulse Rate [ Bilateral Throughout] Pulse Rate [ 109 H From Monitor] Respiratory 16 Rate Respiratory Rate [Bilateral Throughout] Blood Pressure 161/75 154/64 O2 Sat by Pulse 96 96 94 Oximetry 02/23/19 02/23/19 02/23/19 08:38 08:58 09:00 Temperature Pulse Rate 107 H Pulse Rate [ 105 H Bilateral Throughout] Pulse Rate [ From Monitor] Respiratory 21 Rate Respiratory 20 Rate [Bilateral Throughout] Blood Pressure 173/83 O2 Sat by Pulse 96 95 Oximetry 02/23/19 02/23/1902/23/19 09:50 10:00 11:07 Temperature Pulse Rate 113 H 113 H 107 H Pulse Rate [ Bilateral Throughout] Pulse Rate [ From Monitor] Respiratory 18 Rate Respiratory Rate [Bilateral Throughout] Blood Pressure 173/83 168/66 172/70 O2 Sat by Pulse 94 Oximetry 02/23/19 02/23/19 12:00 12:01 Temperature 98.3 F Pulse Rate 98 H 99 H Pulse Rate [ Bilateral Throughout] Pulse Rate [ 98 H From Monitor] Respiratory 15 22 Rate Respiratory Rate [Bilateral Throughout] Blood Pressure 173/77 O2 Sat by Pulse 95 98 Oximetry Constitutional: no acute distress, alert, other (elderly looking CF, normocephalic and traumatic with mildly increased resp effort at rest) Eyes: non-icteric ENT: oropharynx moist Neck: supple, no lymphadenopathy, no JVD, other (large neck circumference) Effort: mildly labored Ascultation: Bilateral: diminished breath sounds, rhonchi Percussion: Bilateral: not dull Cardiovascular: regular rate and rhythm, other (No R/M) Gastrointestinal: normoactive bowel sounds, soft, non-tender, non-distended Integumentary: rash Extremities: no cyanosis, no edema, pink and warm, pulses normal, no ischemia or petechiae Neurologic: non-focal exam (grossly), pupils equal and round, motor strength normal and, unable to assess Psychiatric: other (delirious) CBC and BMP: 02/23/19 04:09 02/23/19 04:09 ABG, PT/INR, D-dimer: ABG POC ABG pH 7.390 (7.35-7.45) 02/19/19 15:10 POC ABG pCO2 < 30 (35-45) L 02/19/19 15:10 POC ABG pO2 81 (80-105) 02/19/19 15:10 POC ABG HCO3 16.8 (22-26 mml/L) 02/19/19 15:10 POC ABG Total CO2 18 (23-27mmol/L) 02/19/19 15:10 POC ABG O2 Sat 96 02/19/19 15:10 Abnormal lab findings: Abnormal Labs 02/18/19 02/18/19 02/18/19 04:01 04:01 04:03 WBC 15.9 H Seg Neuts % (Manual) 84.0 H Lymphocytes % (Manual) 12.0 L Seg Neutrophils # Man 13.4 H POC ABG pH POC ABG pCO2 POC ABG pO2 VBG pH Sodium 127 L Potassium Chloride 88.5 L Carbon Dioxide Creatinine 1.3 H Glucose 744 H* POC Glucose > 500 H Lactic Acid Calcium Phosphorus Magnesium AST Alkaline Phosphatase 153 H C-Reactive Protein Total Protein Albumin 3.7 L Triglycerides Cholesterol 02/18/19 02/18/19 02/18/19 05:25 05:32 06:03 WBC Seg Neuts % (Manual) Lymphocytes % (Manual) Seg Neutrophils # Man POC ABG pH 7.058 L POC ABG pCO2 POC ABG pO2 111 H VBG pH 7.118 L* Sodium Potassium Chloride Carbon Dioxide Creatinine Glucose POC Glucose 484 H Lactic Acid Calcium Phosphorus Magnesium AST Alkaline Phosphatase C-Reactive Protein Total Protein Albumin Triglycerides Cholesterol 02/18/19 02/18/19 02/18/19 06:05 06:05 06:23 WBC Seg Neuts % (Manual) Lymphocytes % (Manual) Seg Neutrophils # Man POC ABG pH POC ABG pCO2 POC ABG pO2 VBG pH Sodium 127 L 131 L Potassium 3.3 L Chloride 92.0 L 92.9 L Carbon Dioxide Creatinine 1.3 H 1.3 H Glucose 603 H* 544 H* POC Glucose Lactic Acid Calcium Phosphorus 4.90 H Magnesium 1.50 L AST Alkaline Phosphatase C-Reactive Protein Total Protein Albumin Triglycerides Cholesterol 02/18/19 02/18/19 02/18/19 06:23 06:29 07:38 WBC Seg Neuts % (Manual) Lymphocytes % (Manual) Seg Neutrophils # Man POC ABG pH POC ABG pCO2 POC ABG pO2 VBG pH Sodium Potassium Chloride Carbon Dioxide Creatinine Glucose POC Glucose 421 H 405 H Lactic Acid 2.40 H* Calcium Phosphorus Magnesium AST Alkaline Phosphatase C-Reactive Protein Total Protein Albumin Triglycerides Cholesterol 02/18/19 02/18/19 02/18/19 08:40 09:27 09:27 WBC Seg Neuts % (Manual) Lymphocytes % (Manual) Seg Neutrophils # Man POC ABG pH POC ABG pCO2 POC ABG pO2 VBG pH Sodium 130 L Potassium Chloride 97.5 L Carbon Dioxide 19 L Creatinine Glucose 401 H POC Glucose 408 H Lactic Acid Calcium Phosphorus Magnesium AST Alkaline Phosphatase C-Reactive Protein Total Protein Albumin Triglycerides 425 H Cholesterol 221 H 0702/18/19 02/18/19 09:27 09:39 10:47 WBC Seg Neuts % (Manual) Lymphocytes % (Manual) Seg Neutrophils # Man POC ABG pH 7.154 L POC ABG pCO2 68.7 H POC ABG pO2 133 H VBG pH Sodium Potassium Chloride Carbon Dioxide Creatinine Glucose POC Glucose 357 H Lactic Acid Calcium Phosphorus 5.10 H Magnesium 1.60 L AST Alkaline Phosphatase C-Reactive Protein Total Protein Albumin Triglycerides Cholesterol 02/18/19 02/18/19 02/18/19 11:08 12:09 12:35 WBC Seg Neuts % (Manual) Lymphocytes % (Manual) Seg Neutrophils # Man POC ABG pH POC ABG pCO2 POC ABG pO2 VBG pH Sodium Potassium Chloride Carbon Dioxide Creatinine Glucose 216 H POC Glucose 278 H 239 H Lactic Acid Calcium Phosphorus Magnesium AST Alkaline Phosphatase C-Reactive Protein Total Protein Albumin Triglycerides Cholesterol 02/18/19 02/18/19 02/18/19 13:37 14:42 15:34 WBC Seg Neuts % (Manual) Lymphocytes % (Manual) Seg Neutrophils # Man POC ABG pH 7.225 L POC ABG pCO2 52.1 H POC ABG pO2 VBG pH Sodium Potassium Chloride Carbon Dioxide Creatinine Glucose POC Glucose 165 H 205 H Lactic Acid Calcium Phosphorus Magnesium AST Alkaline Phosphatase C-Reactive Protein Total Protein Albumin Triglycerides Cholesterol 02/18/19 02/18/19 02/18/19 16:04 16:55 17:06 WBC Seg Neuts % (Manual) Lymphocytes % (Manual) Seg Neutrophils # Man POC ABG pH POC ABG pCO2 POC ABG pO2 VBG pH Sodium Potassium Chloride Carbon Dioxide Creatinine Glucose 247 H POC Glucose 204 H 240 H Lactic Acid Calcium 8.2 L Phosphorus Magnesium AST Alkaline Phosphatase C-Reactive Protein Total Protein Albumin Triglycerides Cholesterol 02/18/19 02/18/19 02/18/19 18:12 19:03 20:00 WBC Seg Neuts % (Manual) Lymphocytes % (Manual) Seg Neutrophils # Man POC ABG pH POC ABG pCO2 POC ABG pO2 VBG pH Sodium Potassium Chloride Carbon Dioxide Creatinine Glucose POC Glucose 211 H 192 H 168 H Lactic Acid Calcium Phosphorus Magnesium AST Alkaline Phosphatase C-Reactive Protein Total Protein Albumin Triglycerides Cholesterol 02/18/19 02/18/19 02/18/19 21:06 22:04 23:08 WBC Seg Neuts % (Manual) Lymphocytes % (Manual) Seg Neutrophils # Man POC ABG pH POC ABG pCO2 POC ABG pO2 VBG pH Sodium Potassium Chloride Carbon Dioxide Creatinine Glucose POC Glucose 109 H 140 H 146 H Lactic Acid Calcium Phosphorus Magnesium AST Alkaline Phosphatase C-Reactive Protein Total Protein Albumin Triglycerides Cholesterol 02/19/19 02/19/19 02/19/19 00:30 00:59 04:35 WBC 18.4 H Seg Neuts % (Manual) Lymphocytes % (Manual) Seg Neutrophils # Man POC ABG pH POC ABG pCO2 POC ABG pO2 VBG pH Sodium Potassium Chloride Carbon Dioxide 19 L D Creatinine Glucose 261 H POC Glucose 225 H Lactic Acid Calcium 8.1 L Phosphorus Magnesium AST Alkaline Phosphatase C-Reactive Protein Total Protein Albumin Triglycerides Cholesterol 02/19/19 02/19/19 02/19/19 06:06 12:22 13:19 WBC Seg Neuts % (Manual) Lymphocytes % (Manual) Seg Neutrophils # Man POC ABG pH POC ABG pCO2 POC ABG pO2 VBG pH Sodium Potassium Chloride Carbon Dioxide Creatinine Glucose POC Glucose 366 H 246 H Lactic Acid 2.10 H* Calcium Phosphorus Magnesium AST Alkaline Phosphatase C-Reactive Protein Total Protein Albumin Triglycerides Cholesterol 02/19/19 02/19/19 02/19/19 13:19 15:10 18:47 WBC Seg Neuts % (Manual) Lymphocytes % (Manual) Seg Neutrophils # Man POC ABG pH POC ABG pCO2 < 30 L POC ABG pO2 VBG pH Sodium Potassium Chloride Carbon Dioxide Creatinine Glucose POC Glucose 159 H Lactic Acid Calcium Phosphorus Magnesium AST Alkaline Phosphatase C-Reactive Protein 1.40 H Total Protein Albumin Triglycerides Cholesterol 02/20/19 02/20/19 02/20/19 00:01 04:57 04:57 WBC 17.3 H Seg Neuts % (Manual) Lymphocytes % (Manual) Seg Neutrophils # Man POC ABG pH POC ABG pCO2 POC ABG pO2 VBG pH Sodium Potassium Chloride 109.0 H Carbon Dioxide 18 L Creatinine 1.6 H Glucose 359 H POC Glucose 217 H Lactic Acid Calcium Phosphorus Magnesium AST 44 H Alkaline Phosphatase C-Reactive Protein Total Protein Albumin 3.0 L Triglycerides Cholesterol 02/20/19 02/20/19 02/20/19 05:44 09:37 12:32 WBC Seg Neuts % (Manual) Lymphocytes % (Manual) Seg Neutrophils # Man POC ABG pH POC ABG pCO2 POC ABG pO2 VBG pH Sodium Potassium Chloride Carbon Dioxide Creatinine Glucose POC Glucose 295 H 213 H 217 H Lactic Acid Calcium Phosphorus Magnesium AST Alkaline Phosphatase C-Reactive Protein Total Protein Albumin Triglycerides Cholesterol 02/20/19 02/20/19 02/20/19 16:44 18:00 23:43 WBC Seg Neuts % (Manual) Lymphocytes % (Manual) Seg Neutrophils # Man POC ABG pH POC ABG pCO2 POC ABG pO2 VBG pH Sodium Potassium Chloride Carbon Dioxide Creatinine Glucose POC Glucose 265 H 212 H 45 L Lactic Acid Calcium Phosphorus Magnesium AST Alkaline Phosphatase C-Reactive Protein Total Protein Albumin Triglycerides Cholesterol 02/21/19 02/21/19 02/21/19 02:38 04:03 04:03 WBC 15.6 H Seg Neuts % (Manual) Lymphocytes % (Manual) Seg Neutrophils # Man POC ABG pH POC ABG pCO2 POC ABG pO2 VBG pH Sodium Potassium 3.5 L Chloride 107.6 H Carbon Dioxide Creatinine Glucose 137 H POC Glucose 115 H Lactic Acid Calcium Phosphorus Magnesium AST 45 H Alkaline Phosphatase C-Reactive Protein Total Protein 6.0 L Albumin 2.8 L Triglycerides Cholesterol 02/21/19 02/21/19 02/21/19 05:26 12:46 17:40 WBC Seg Neuts % (Manual) Lymphocytes % (Manual) Seg Neutrophils # Man POC ABG pH POC ABG pCO2 POC ABG pO2 VBG pH Sodium Potassium Chloride Carbon Dioxide Creatinine Glucose POC Glucose 135 H 304 H 184 H Lactic Acid Calcium Phosphorus Magnesium AST Alkaline Phosphatase C-Reactive Protein Total Protein Albumin Triglycerides Cholesterol 02/21/19 02/22/19 02/22/19 23:19 08:32 11:45 WBC Seg Neuts % (Manual) Lymphocytes % (Manual) Seg Neutrophils # Man POC ABG pH POC ABG pCO2 POC ABG pO2 VBG pH Sodium Potassium Chloride Carbon Dioxide Creatinine Glucose POC Glucose 199 H 130 H 274 H Lactic Acid Calcium Phosphorus Magnesium AST Alkaline Phosphatase C-Reactive Protein Total Protein Albumin Triglycerides Cholesterol 02/22/19 02/22/19 02/23/19 16:35 22:01 04:09 WBC 13.7 H Seg Neuts % (Manual) Lymphocytes % (Manual) Seg Neutrophils # Man POC ABG pH POC ABG pCO2 POC ABG pO2 VBG pH Sodium Potassium Chloride Carbon Dioxide Creatinine Glucose POC Glucose 344 H 299 H Lactic Acid Calcium Phosphorus Magnesium AST Alkaline Phosphatase C-Reactive Protein Total Protein Albumin Triglycerides Cholesterol 07/29/19 07/29/19 07/29/19 04:09 08:01 11:31 WBC Seg Neuts % (Manual) Lymphocytes % (Manual) Seg Neutrophils # Man POC ABG pH POC ABG pCO2 POC ABG pO2 VBG pH Sodium Potassium 3.4 L Chloride Carbon Dioxide 21 L Creatinine 1.3 H Glucose 215 H POC Glucose 183 H 174 H Lactic Acid Calcium Phosphorus Magnesium AST Alkaline Phosphatase C-Reactive Protein Total Protein Albumin Triglycerides Cholesterol Allied health notes reviewed: nursing
[2019-02-23 14:30] VITALS: BP 184/76
== END 2019-02-23 15:02 | disposition home health service (06) | DRG 64 ==
LOC: ED 03:42 → CC1 08:38 → IMCU 02-19 23:36
PROVIDERS: ADMIT Internal Medicine; ATTEND Internal Medicine
PROC: 4A033R1 Measurement of Arterial Saturation, Peripheral, Percutaneous Approach (ICD-10-PCS; principal; 2019-02-18)
PROC: 5A09357 Assistance with Respiratory Ventilation, Less than 24 Consecutive Hours, Continuous Positive Airway Pressure (ICD-10-PCS; 2019-02-18)
PROC: 5A09357 Assistance with Respiratory Ventilation, Less than 24 Consecutive Hours, Continuous Positive Airway Pressure (ICD-10-PCS; 2019-02-19)
PROC: 5A09357 Assistance with Respiratory Ventilation, Less than 24 Consecutive Hours, Continuous Positive Airway Pressure (ICD-10-PCS; 2019-02-20)
PROC: 5A09357 Assistance with Respiratory Ventilation, Less than 24 Consecutive Hours, Continuous Positive Airway Pressure (ICD-10-PCS; 2019-02-21)
PROC: 5A09357 Assistance with Respiratory Ventilation, Less than 24 Consecutive Hours, Continuous Positive Airway Pressure (ICD-10-PCS; 2019-02-22)
DX: I63.9 Cerebral infarction, unspecified (principal); E11.10 Type 2 diabetes mellitus with ketoacidosis without coma; G92 Toxic encephalopathy; J96.21 Acute and chronic respiratory failure with hypoxia; J96.22 Acute and chronic respiratory failure with hypercapnia; E87.2 Acidosis; E87.1 Hypo-osmolality and hyponatremia; J44.1 Chronic obstructive pulmonary disease with (acute) exacerbation; N17.9 Acute kidney failure, unspecified; F11.20 Opioid dependence, uncomplicated; I10 Essential (primary) hypertension; G89.29 Other chronic pain; M54.9 Dorsalgia, unspecified; I65.22 Occlusion and stenosis of left carotid artery; I16.0 Hypertensive urgency; W06.XXXA Fall from bed, initial encounter; E78.00 Pure hypercholesterolemia, unspecified; E11.40 Type 2 diabetes mellitus with diabetic neuropathy, unspecified; E04.1 Nontoxic single thyroid nodule; E83.42 Hypomagnesemia; E66.9 Obesity, unspecified; F32.9 Major depressive disorder, single episode, unspecified; J44.9 Chronic obstructive pulmonary disease, unspecified; F17.210 Nicotine dependence, cigarettes, uncomplicated; G40.909 Epilepsy, unspecified, not intractable, without status epilepticus; I25.10 Atherosclerotic heart disease of native coronary artery without angina pectoris; Z79.84 Long term (current) use of oral hypoglycemic drugs; Z68.29 Body mass index [BMI] 29.0-29.9, adult; Y93.89 Activity, other specified; Y92.098 Other place in other non-institutional residence as the place of occurrence of the external cause; Y99.8 Other external cause status; Z71.6 Tobacco abuse counseling
CPT/HCPCS: 36415; 36600; 70450; 70496; 70498; 71045; 72125; 76536; 80048; 80053; 80061; 81001; 82140; 82803; 82805; 82962; 83735; 83930; 84100; 84443; 85007; 85025; 85027; 86140; 87040; 93005; 93010; 93306; 94640; 94660; 94760; 96361; 96365; 96366; 96368; 96372; 96375; 99406; G0378; J0360; J0456; J1630; J1815; J1953; J2060; J2405; J2543; J2765; J3475; J3480; J7030; J7050; J7512; Q9967

== ENCOUNTER 2019-03-14 22:23 | Inpatient (IN) | payer MEDICARE ==
[2019-03-14] MEDS ORDERED: PROVENTIL IH ONE (22:52)
[2019-03-14] MEDS ORDERED: SOLU-Medrol IV ONE (22:52)
[2019-03-14] MEDS ORDERED: ATROVENT IH ONE (22:52)
[2019-03-14] MEDS ORDERED: NACL 0.9% 500 ML 500 ML IV ONE (22:53)
[2019-03-14] MEDS ORDERED: MAGNESIUM SULFATE 2GM/50ML 2 GM/50 ML BAG IV ONE (22:53)
--- NOTE | 2019-03-14 22:57 | Emergency Department Report ---
ED General Adult HPI - General Chief complaint: Dyspnea/Respdistress Stated complaint: SOB Time Seen by Provider: 03/14/19 22:39 Source: patient, family, EMS (ems notes not available at time of chart dictation), RN notes reviewed, old records reviewed Mode of arrival: Stretcher Limitations: Physical Limitation - History of Present Illness Initial comments: Primary care DrRizwana: Yony haider Past medical history: COPD, chronic tobacco use, obesity, diabetes, hyperosmolar state, seizure, thyroid nodule, hypertension This is a 68-year-old female. The patient is not known to this provider previously. The patient was admitted to this hospital last month for hyperglycemia, and nonspecific neurologic symptoms. She was reportedly diagnosed with COPD, as per her report. She presents to the ER today with complaint of painless wheezing, and shortness of breath. Symptoms started within the past 24 hours. They're constant. They do not radiate anywhere. They're worse with physical exertion. It decreased with rest. The patient is not on home oxygen. Patient started on BiPAP therapy in the ER, with fluids, albuterol, Atrovent, steroids and magnesium, all of which improved her symptoms. Contacted [place] [facility] physician, Dr. Chaney, who has authorized admission to this hospital for presumed acute respiratory failure secondary to COPD. -: Gradual, days(s) Consistency: constant Improves with: medication, rest Worsens with: movement - Related Data Home Medications Medication Instructions Recorded Confirmed Last Taken Meloxicam [Mobic] 7.5 mg PO QDAY 02/18/19 02/18/19 Unknown Sertraline [Zoloft] 150 mg PO QDAY 02/18/19 02/18/19 Unknown metFORMIN XR [Glucophage XR] 1,000 mg PO BID 02/18/19 02/18/19 Unknown Previous Rx's Medication Instructions Recorded Last Taken Type Insulin NPH/Regular [NovoLIN 70/30] 20 unit SUB-Q BIDDIAB units 02/21/19 Unknown Rx Ipratropium [Atrovent NEB] 0.5 mg IH Q8HRT nebu 02/21/19 Unknown Rx ALBUTEROL NEB's [Proventil 0.083% 2.5 mg IH TID PRN #90 neb 02/23/19 Unknown Rx NEBS] Aspirin 325 mg PO QDAY #30 tablet 02/23/19 Unknown Rx AtorvaSTATin [Lipitor] 40 mg PO QHS #30 tab 02/23/19 Unknown Rx Famotidine [Pepcid] 20 mg PO DAILY #30 tablet 02/23/19 Unknown Rx Gabapentin [Neurontin] 600 mg PO BID #60 tablet 02/23/19 Unknown Rx Hydralazine HCl 50 mg PO TID #90 tablet 02/23/19 Unknown Rx Losartan/Hydrochlorothiazide 1 each PO QDAY #30 tablet 02/23/19 Unknown Rx [Losartan-Hctz 100-25 mg Tab] Nicotine [Habitrol] 14 mg TD DAILY #20 patch 02/23/19 Unknown Rx Prednisone [predniSONE 5 mg (6-Day 5 mg PO .TAPER #1 tab.ds.pk 02/23/19 Unknown Rx Pack, 21 Tabs)] Allergies Allergy/AdvReac Type Severity Reaction Status Date / Time No Known Allergies Allergy Verified 09/19/13 22:38 ED Review of Systems ROS: Stated complaint: SOB Other details as noted in HPI Constitutional: malaise. denies: fever Eyes: denies: eye discharge ENT: congestion Respiratory: shortness of breath, SOB with exertion, wheezing Cardiovascular: denies: syncope Gastrointestinal: denies: abdominal pain Genitourinary: denies: dysuria Musculoskeletal: arthralgia Skin: other (skin ecchymosis from prophylactic Lovenox from recent hospitalization) Neurological: weakness ED Past Medical Hx - Past Medical History Hx Hypertension: Yes Hx Congestive Heart Failure: No Hx Diabetes: Yes Hx Psychiatric Treatment: Yes (depression) Additional medical history: neuropathy, high chol. - Surgical History Additional Surgical History: tubal, c section, - Social History Smoking Status: Current Every Day Smoker Substance Use Type: None - Medications Home Medications: Home Medications Medication Instructions Recorded Confirmed Last Taken Type Meloxicam [Mobic] 7.5 mg PO QDAY 02/18/19 02/18/19 Unknown History Sertraline [Zoloft] 150 mg PO QDAY 02/18/19 02/18/19 Unknown History metFORMIN XR [Glucophage XR] 1,000 mg PO BID 02/18/19 02/18/19 Unknown History Insulin NPH/Regular [NovoLIN 70/30] 20 unit SUB-Q BIDDIAB units 02/21/19 Unknown Rx Ipratropium [Atrovent NEB] 0.5 mg IH Q8HRT nebu 02/21/19 Unknown Rx ALBUTEROL NEB's [Proventil 0.083% 2.5 mg IH TID PRN #90 neb 02/23/19 Unknown Rx NEBS] Aspirin 325 mg PO QDAY #30 tablet 02/23/19 Unknown Rx AtorvaSTATin [Lipitor] 40 mg PO QHS #30 tab 02/23/19 Unknown Rx Famotidine [Pepcid] 20 mg PO DAILY #30 tablet 02/23/19 Unknown Rx Gabapentin [Neurontin] 600 mg PO BID #60 tablet 02/23/19 Unknown Rx Hydralazine HCl 50 mg PO TID #90 tablet 02/23/19 Unknown Rx Losartan/Hydrochlorothiazide 1 each PO QDAY #30 tablet 02/23/19 Unknown Rx [Losartan-Hctz 100-25 mg Tab] Nicotine [Habitrol] 14 mg TD DAILY #20 patch 02/23/19 Unknown Rx Prednisone [predniSONE 5 mg (6-Day 5 mg PO .TAPER #1 tab.ds.pk 02/23/19 Unknown Rx Pack, 21 Tabs)] ED Physical Exam - General Limitations: Physical Limitation General appearance: alert, anxious, in distress - Head Head exam: Present: atraumatic, normocephalic - Eye Eye exam: Present: normal appearance, EOMI. Absent: nystagmus - ENT ENT exam: Present: normal exam, normal orophraynx, mucous membranes moist, normal external ear exam - Neck Neck exam: Present: normal inspection, full ROM. Absent: tenderness, meningismus - Respiratory Respiratory exam: Present: respiratory distress, wheezes, rhonchi, accessory muscle use - Cardiovascular Cardiovascular Exam: Present: normal rhythm, tachycardia, normal heart sounds. Absent: systolic murmur, diastolic murmur, rubs, gallop - GI/Abdominal GI/Abdominal exam: Present: soft, other (superficial abdominal wall ecchymoses noted, with no redness, pus or streaking). Absent: distended, tenderness, guarding, rebound, rigid, pulsatile mass - Extremities Exam Extremities exam: Present: normal inspection, full ROM, other (2+ pulses noted in the bilateral upper, lower extremities. Compartments soft. No long bony tenderness. The pelvis is stable.). Absent: joint swelling, calf tenderness (there is no palpable cord. There is a negative Homans sign.) - Back Exam Back exam: Present: normal inspection, full ROM. Absent: tenderness, CVA tend erness (R), CVA tenderness (L), paraspinal tenderness, vertebral tenderness - Neurological Exam Neurological exam: Present: alert, other (Extraocular movements intact. Tongue midline. No facial droop. Facial sensation intact to light touch in the V1, V2, V3 distribution bilaterally. 5 and 5 strength in 4 extremities.. Sensation is intact to light touch in 4 extremities.). Absent: motor sensory deficit - Psychiatric Psychiatric exam: Present: anxious - Skin Skin exam: Present: warm, ecchymosis ED Course Vital Signs 03/14/19 03/14/19 03/14/19 22:54 23:29 23:42 Temperature 96.1 F L Pulse Rate 112 H 95 H Pulse Rate [ 98 H Anterior] Respiratory 26 H 20 Rate Respiratory 20 Rate [Anterior] Blood Pressure 147/56 O2 Sat by Pulse 84 97 Oximetry - Reevaluation(s) Reevaluation #1: 03/14/19 23:31 Differential diagnosis, including not limited to: COPD exacerbation, pulmonary hypertension, obstructive sleep apnea, obesity hypoventilation syndrome, ammonia Assessment and plan: 68-year-old female, obviously obese, COPD, probable obstructive sleep apnea, probable undiagnosed pulmonary hypertension, probable obesity hypoventilation syndrome, with acute respiratory failure requiring BiPAP and noninvasive ventilation. She is much improved on the aforementioned interventions. Screening laboratory studies, EKG, x-ray of the chest have been ordered. We have discussed with the [facility] physician of record. Patient is amenable to hospitalization at this time. Reevaluation #2: 03/14/19 23:34 Appreciate that patient's abnormal vital signs put her in systemic inflammatory response syndrome category, however, based off of the history and physical, do not suspect bacteremia at this time, but rather suspect underlying decompensation from her multiple respiratory comorbidities. Therefore, we will cover empirically with Levaquin, however, or 30 mL/kg bolus of IV fluid Patient can receive judicious hydration in more controlled aliquots. Chest x-ray reviewed and appreciated, we will cover empirically with Levaquin, and deferred to inpatient team for further management. 03/15/19 00:37 Reevaluation #3: 03/15/19 00:21 Dr Magi Holguin accepts to the medical service ED Medical Decision Making - Lab Data Result diagrams: 03/14/19 22:59 03/14/19 22:59 Vital Signs 03/14/19 03/14/19 03/14/19 22:54 23:29 23:42 Temperature 96.1 F L Pulse Rate 112 H 95 H Pulse Rate [ 98 H Anterior] Respiratory 26 H 20 Rate Respiratory 20 Rate [Anterior] Blood Pressure 147/56 O2 Sat by Pulse 84 97 Oximetry Lab Results 03/14/19 03/14/19 03/14/19 Range/Units 22:59 22:59 22:59 WBC 11.6 H (4.5-11.0) K/mm3 RBC 3.15 L (3.65-5.03) M/mm3 Hgb 9.1 L (10.1-14.3) gm/dl Hct 27.4 L (30.3-42.9) % MCV 87 (79-97) fl MCH 29 (28-32) pg MCHC 33 (30-34) % RDW 13.6 (13.2-15.2) % Plt Count 261 (140-440) K/mm3 Lymph % (Auto) 19.4 (13.4-35.0) % Bertie % (Auto) 9.0 H (0.0-7.3) % Eos % (Auto) 1.3 (0.0-4.3) % Baso % (Auto) 0.3 (0.0-1.8) % Lymph # 2.3 (1.2-5.4) K/mm3 Bertie # 1.0 H (0.0-0.8) K/mm3 Eos # 0.2 (0.0-0.4) K/mm3 Baso # 0.0 (0.0-0.1) K/mm3 Seg Neutrophils % 70.0 (40.0-70.0) % Seg Neutrophils # 8.2 H (1.8-7.7) K/mm3 PT 14.0 (12.2-14.9) Sec. INR 1.11 (0.87-1.13) APTT 31.0 (24.2-36.6) Sec. Sodium 138 (137-145) mmol/L Potassium 4.2 (3.6-5.0) mmol/L Chloride 103.7 (98-107) mmol/L Carbon Dioxide 22 (22-30) mmol/L Anion Gap 17 mmol/L BUN 27 H (7-17) mg/dL Creatinine 1.4 H (0.7-1.2) mg/dL Estimated GFR 38 ml/min BUN/Creatinine Ratio 19 % Glucose 173 H (65-100) mg/dL Calcium 8.9 (8.4-10.2) mg/dL Magnesium 1.90 (1.7-2.3) mg/dL Total Bilirubin 0.20 (0.1-1.2) mg/dL AST 31 (5-40) units/L ALT 26 (7-56) units/L Alkaline Phosphatase 135 H (35-129) units/L Total Creatine Kinase 53 (30-135) units/L Troponin T < 0.010 (0.00-0.029) ng/mL Total Protein 6.9 (6.3-8.2) g/dL Albumin 3.3 L (3.9-5) g/dL Albumin/Globulin Ratio 0.9 % - EKG Data -: EKG Interpreted by Ms EKG shows normal: sinus rhythm Rate: normal - EKG Data 03/15/19 00:37 This is a sinus tachycardia, 104 bpm, left axis deviation, left anterior fa scicular block, poor R-wave progression, QTC prolonged, the EKG is abnormal, the EKG is not consistent with ST elevation myocardial infarction, this EKG appears to be unchanged from prior EKG from January 2019 - Radiology Data Radiology results: report reviewed, image reviewed Referring Physician: ANURAG BROOKS Patient Name: SOO CARMICHAEL Date of : 1950 Sex: Female Report Date: 2019-03-15 Report Status: Finalized [address] [address] XRay Report Signed Patient: SOO CARMICHAEL MR#: [id number] : 1950 Acct:[id number] Age/Sex: 68 / F ADM Date: 03/14/19 Loc: ED Attending Dr: Makayla lieberman Physician: ANURGA BROOKS MD Date of Service: 03/14/19 Procedure(s): XR chest 1V ap Accession Number(s): [id number] cc: ANURAG BROOKS MD Fluoro Time In Minutes: CHEST 1 VIEW 11:26 PM INDICATION / CLINICAL INFORMATION: Dyspnea. COMPARISON: 02/18/2019. FINDINGS: SUPPORT DEVICES: None. HEART / MEDIASTINUM: There is moderate cardiomegaly. Pulmonary vasculature is difficult to evaluate. LUNGS / PLEURA: There is moderate patchy parenchymal disease in both mid to lower lung zones, left greater than right, new since the prior study. There are probable small bilateral pleural effusions. No pneumothorax. ADDITIONAL FINDINGS: No significant additional findings. IMPRESSION: Interval development of moderate bilateral parenchymal disease and small bilateral pleural effusions, more prominent on the left than the right. Differential diagnosis asymmetric pulmonary edema, bacterial pneumonia and aspiration. Signer Name: Nikko Harris MD Signed: 03/15/2019 12:28 AM Workstation Name: [id number] Transcribed By: RT Dictated By: Nikko Harris MD Electronically Authenticated By: Nikko Santos MD Signed Date/Time: 03/15/19 0028 Critical Care Time: Yes Critical care time in (mins) excluding proc time.: 35 Critical care attestation.: If time is entered above; I have spent that time in minutes in the direct care of this critically ill patient, excluding procedure time. ED Disposition Clinical Impression: Acute respiratory failure, COPD with exacerbation Disposition: DC-09 OP ADMIT IP TO THIS HOSP Is pt being admited?: Yes Condition: Serious Instructions: Chronic Obstructive Pulmonary Disease (ED) Referrals: PRIMARY CAREMD [Primary Care Provider] - 3-5 Days
[2019-03-14 23:18] LABS: Basophils % (Auto) 0.3 % (0.0-1.8); Eosinophils # (Auto) 0.2 K/mm3 (0.0-0.4); Eosinophils % (Auto) 1.3 % (0.0-4.3); Hematocrit 27.4 % (30.3-42.9); Hemoglobin 9.1 gm/dl (10.1-14.3); Lymphocytes # (Auto) 2.3 K/mm3 (1.2-5.4); Lymphocytes % (Auto) 19.4 % (13.4-35.0); Mean Corpuscular HGB Conc 33 % (30-34); Mean Corpuscular Volume 87 fl (79-97); Platelet Count 261 K/mm3 (140-440); Red Blood Count 3.15 M/mm3 (3.65-5.03); Red Cell Distribution Width 13.6 % (13.2-15.2)
[2019-03-14 23:31] LABS: INR 1.11 (0.87-1.13)
[2019-03-14 23:32] LABS: Alanine Aminotransferase 26 units/L (7-56); Albumin 3.3 g/dL (3.9-5); BUN/Creatinine Ratio 19; Blood Urea Nitrogen 27 mg/dL (7-17); Calcium 8.9 mg/dL (8.4-10.2); Hemolysis Index 2
[2019-03-14] MEDS ORDERED: LEVAQUIN 500MG/100ML 500 MG/100 ML BAG IV ONE (23:32)
--- NOTE | 2019-03-15 00:32 | XRay Report ---
CHEST 1 VIEW 11:26 PM INDICATION / CLINICAL INFORMATION: Dyspnea. COMPARISON: 02/18/2019. FINDINGS: SUPPORT DEVICES: None. HEART / MEDIASTINUM: There is moderate cardiomegaly. Pulmonary vasculature is difficult to evaluate. LUNGS / PLEURA: There is moderate patchy parenchymal disease in both mid to lower lung zones, left gr eater than right, new since the prior study. There are probable small bilateral pleural effusions. No pneumothorax. ADDITIONAL FINDINGS: No significant additional findings. IMPRESSION: Interval development of moderate bilateral parenchymal disease and small bilateral pleura l effusions, more prominent on the left than the right. Differential diagnosis asymmetric pulmonary e gaston, bacterial pneumonia and aspiration. Signer Name: Nikko Harris MD Signed: 03/15/2019 12:28 AM Workstation Name: [id number]
[2019-03-15] MEDS ORDERED: TYLENOL PO PRN (01:00)
[2019-03-15] MEDS ORDERED: ZOFRAN IV PRN (01:00)
[2019-03-15] MEDS ORDERED: NORCO 5/325 PO PRN (01:00)
[2019-03-15] MEDS ORDERED: MORPHINE IV PRN (01:06)
--- NOTE | 2019-03-15 01:59 | History and Physical Report ---
History of Present Illness Date of examination: 03/15/19 Date of admission: 03/15/19 01:00 Chief complaint: Shortness of breath History of present illness: Patient is a 68 year old female with history of COPD who presented to the ED on account of 2 days history of worsening shortness of breath. She has positive abdominal distention with soreness and lightheadedness. She denies cough, fever, chills, palpitations, chest pain, leg swelling, orthopnea or PND. No headaches, nausea, vomiting, syncope or loss of consciousness. No dysuria, frequency, constipation or diarrhea. In the ED, she was placed on BiPAP due to respiratory distress. Past History Past Medical History: COPD, diabetes, hypertension, hyperlipidemia, renal failure, other (diabetic neuropathy) Past Surgical History: , Other (tubal ligation) Social history: other (patient has about 45 years history of cigarette smoking. She quit in December 2018 and she's on nicotine patch. She denies alcohol or illicit drug use) Family history: diabetes (mother), hypertension (mother) Medications and Allergies Allergies Allergy/AdvReac Type Severity Reaction Status Date / Time No Known Allergies Allergy Verified 09/19/13 22:38 Home Medications Medication Instructions Recorded Confirmed Last Taken Type Meloxicam [Mobic] 7.5 mg PO QDAY 02/18/19 02/18/19 Unknown History Sertraline [Zoloft] 150 mg PO QDAY 02/18/19 02/18/19 Unknown History Insulin NPH/Regular [NovoLIN 70/30] 20 unit SUB-Q BIDDIAB units 02/21/19 Unknown Rx Ipratropium [Atrovent NEB] 0.5 mg IH Q8HRT nebu 02/21/19 Unknown Rx ALBUTEROL NEB's [Proventil 0.083% 2.5 mg IH TID PRN #90 neb 02/23/19 Unknown Rx NEBS] Aspirin 325 mg PO QDAY #30 tablet 02/23/19 Unknown Rx AtorvaSTATin [Lipitor] 40 mg PO QHS #30 tab 02/23/19 Unknown Rx Famotidine [Pepcid] 20 mg PO DAILY #30 tablet 02/23/19 Unknown Rx Gabapentin [Neurontin] 600 mg PO BID #60 tablet 02/23/19 Unknown Rx Hydralazine HCl 50 mg PO TID #90 tablet 02/23/19 Unknown Rx Losartan/Hydrochlorothiazide 1 each PO QDAY #30 tablet 02/23/19 Unknown Rx [Losartan-Hctz 100-25 mg Tab] Nicotine [Habitrol] 14 mg TD DAILY #20 patch 02/23/19 Unknown Rx Prednisone [predniSONE 5 mg (6-Day 5 mg PO .TAPER #1 tab.ds.pk 02/23/19 Unknown Rx Pack, 21 Tabs)] Active Meds: Active Medications Acetaminophen (Tylenol) 650 mg PO Q4H PRN PRN Reason: Pain MILD(1-3)/Fever >100.5/HENSLEY Acetaminophen/Hydrocodone Bitart ([place] 5/325) 1 each PO Q6H PRN PRN Reason: Pain, Moderate (4-6) Heparin Sodium (Porcine) (Heparin) 5,000 unit SUB-Q Q8HR TAN Levofloxacin/Dextrose (Levaquin 750mg/150ml) 750 mg in 150 mls @ 100 mls/hr IV Q24HR@2200 TAN; Protocol Methylprednisolone Sodium Succinate (Solu-Medrol) 125 mg IV Q8HR TAN Morphine Sulfate (Morphine) 2 mg IV Q4H PRN PRN Reason: Pain , Severe (7-10) Ondansetron HCl (Zofran) 4 mg IV Q8H PRN PRN Reason: Nausea And Vomiting Sodium Chloride (Sodium Chloride Flush Syringe 10 Ml) 10 ml IV BID TAN Sodium Chloride (Sodium Chloride Flush Syringe 10 Ml) 10 ml IV PRN PRN PRN Reason: LINE FLUSH Review of Systems All systems: negative (all other systems reviewed with the patient and are negative) Exam - Constitutional Vitals: Temp Pulse Resp BP Pulse Ox 96.1 F L 99 H 21 135/55 96 03/14/19 22:54 03/15/19 01:23 03/15/19 01:23 03/15/19 01:23 03/15/19 01:23 General appearance: Present: no acute distress, obese, other (on BiPAP) - EENT Eyes: Present: PERRL, EOM intact ENT: hearing intact, clear oral mucosa - Neck Neck: Present: supple, normal ROM - Respiratory Respiratory effort: normal Respiratory: bilateral: CTA, diminished - Cardiovascular Rhythm: regular (with tachycardia) Heart Sounds: Present: S1 & S2. Absent: rub, click - Extremities Extremities: pulses symmetrical, No edema Peripheral Pulses: within normal limits - Abdominal General gastrointestinal: Present: soft, non-tender, non-distended, normal bowel sounds Female genitourinary: Present: deferred - Integumentary Integumentary: Present: clear, warm, dry - Musculoskeletal Musculoskeletal: gait normal, strength equal bilaterally - Psychiatric Psychiatric: appropriate mood/affect, intact judgment & insight - Neurologic Neurologic: CNII-XII intact, moves all extremities Results - Labs CBC & Chem 7: 03/14/19 22:59 03/14/19 22:59 Labs: Laboratory Last Values WBC 11.6 K/mm3 (4.5-11.0) H 03/14/19 22:59 RBC 3.15 M/mm3 (3.65-5.03) L 03/14/19 22:59 Hgb 9.1 gm/dl (10.1-14.3) L 03/14/19 22:59 Hct 27.4 % (30.3-42.9) L 03/14/19 22:59 MCV 87 fl (79-97) 03/14/19 22:59 MCH 29 pg (28-32) 03/14/19 22:59 MCHC 33 % (30-34) 03/14/19 22:59 RDW 13.6 % (13.2-15.2) 03/14/19 22:59 Plt Count 261 K/mm3 (140-440) 03/14/19 22:59 Lymph % (Auto) 19.4 % (13.4-35.0) 03/14/19 22:59 [place] % (Auto) 9.0 % (0.0-7.3) H 03/14/19 22:59 Eos % (Auto) 1.3 % (0.0-4.3) 03/14/19 22:59 Baso % (Auto) 0.3 % (0.0-1.8) 03/14/19 22:59 Lymph # 2.3 K/mm3 (1.2-5.4) 03/14/19 22:59 [place] # 1.0 K/mm3 (0.0-0.8) H 03/14/19 22:59 Eos # 0.2 K/mm3 (0.0-0.4) 03/14/19 22:59 Baso # 0.0 K/mm3 (0.0-0.1) 03/14/19 22:59 Seg Neutrophils % 70.0 % (40.0-70.0) 03/14/19 22:59 Seg Neutrophils # 8.2 K/mm3 (1.8-7.7) H 03/14/19 22:59 PT 14.0 Sec. (12.2-14.9) 03/14/19 22:59 INR 1.11 (0.87-1.13) 03/14/19 22:59 APTT 31.0 Sec. (24.2-36.6) 03/14/19 22:59 Sodium 138 mmol/L (137-145) 03/14/19 22:59 Potassium 4.2 mmol/L (3.6-5.0) 03/14/19 22:59 Chloride 103.7 mmol/L (98-107) 03/14/19 22:59 Carbon Dioxide 22 mmol/L (22-30) 03/14/19 22:59 17 mmol/L 03/14/19 22:59 BUN 27 mg/dL (7-17) H 03/14/19 22:59 1.4 mg/dL (0.7-1.2) H 03/14/19 22:59 Estimated GFR 38 ml/min 03/14/19 22:59 19 % 03/14/19 22:59 Glucose 173 mg/dL (65-100) H 03/14/19 22:59 Lactic Acid 0.80 mmol/L (0.7-2.0) 03/15/19 00:37 Calcium 8.9 mg/dL (8.4-10.2) 03/14/19 22:59 Magnesium 1.90 mg/dL (1.7-2.3) 03/14/19 22:59 0.20 mg/dL (0.1-1.2) 03/14/19 22:59 AST 31 units/L (5-40) 03/14/19 22:59 ALT 26 units/L (7-56) 03/14/19 22:59 135 units/L (35-129) H 03/14/19 22:59 53 units/L (30-135) 03/14/19 22:59 < 0.010 ng/mL (0.00-0.029) 03/14/19 22:59 6.9 g/dL (6.3-8.2) 03/14/19 22:59 3.3 g/dL (3.9-5) L 03/14/19 22:59 0.9 % 03/14/19 22:59 Assessment and Plan Assessment and plan: Sepsis evidenced by HR>90 and RR>20 -probably secondary to pneumonia -CXR showed findings suggestive of pulmonary edema versus bacterial pneumonia versus aspiration -On IV antibiotic with levofloxacin -Sputum and blood cultures pending Acute severe COPD exacerbation -On IV steroids and duonebs Acute respiratory failure with hypoxia -Likely secondary to COPD exacerbation -Cont BiPAP DM2 with neuropathy -On SSI and Lantus -Continue gabapentin CKD stage III -Renal function level is about baseline, will monitor Abdominal distention -Abdominal x-ray and lipase level pending HTN -Stable, resume home anti-hypertensives HLD -Stable, continue statin History of tobacco use -Continue nicotine patch Morbid obesity with BMI of 77.5 -Lifestyle modification recommended DVT prophylaxis with heparin Disposition: Patient will be placed in inpatient status with plan for discharge when medically stable Time spent: 40 minutes
[2019-03-15] MEDS ORDERED: D50W (25GM) Syringe IV PRN (02:12)
[2019-03-15] MEDS ORDERED: DUONEB *Not for PRN Use IH SCH (04:00)
--- NOTE | 2019-03-15 04:00 | XRay Report ---
ABDOMEN 2 VIEW INDICATION / CLINICAL INFORMATION: Abdominal distention. COMPARISON: None available. FINDINGS: TUBES / LINES: None. BOWEL GAS PATTERN: The bowel gas pattern is normal without evidence of obstruction. FREE AIR / EXTRALUMINAL GAS: None seen. ADDITIONAL FINDINGS: There is no evidence of mass effect or abnormal calcification. IMPRESSION: No significant abnormality. Signer Name: Nikko Harris MD Signed: 03/15/2019 3:55 AM Workstation Name: [email or web address]
[2019-03-15 05:04] LABS: ABG Base Excess -4.3 mmol/L (-2.0-3.0); ABG HCO3 20.9 mmol/L (20.0-26.0); ABG Methemoglobin 0.6 % (0.0-1.5); ABG Oxygen Saturation 95.6 % (95.0-99.0); ABG PCO2 38.8 mm Hg; ABG PH 7.35 pH Units (7.350-7.450); ABG PO2 72.9 mm Hg (80.0-90.0)
[2019-03-15] MEDS: HEPARIN SUB-Q SCH ×3 (05:56→21:09)
[2019-03-15] MEDS: SOLU-Medrol IV SCH ×3 (05:56→21:09)
[2019-03-15] MEDS: DUONEB *Not for PRN Use IH SCH ×3 (07:13→19:23)
[2019-03-15] MEDS ORDERED: LOVENOX SUB-Q SCH (10:00)
[2019-03-15] MEDS: HumaLOG SUB-Q SCH ×3 (13:09→21:09)
[2019-03-15] MEDS ORDERED: PROVENTIL IH PRN (19:21)
[2019-03-15] MEDS: SODIUM CHLORIDE FLUSH SYRINGE 10 ML IV SCH (21:10)
[2019-03-15] MEDS: SODIUM CHLORIDE FLUSH SYRINGE 10 ML IV PRN (21:18)
[2019-03-15] MEDS ORDERED: LANTUS SUB-Q SCH (22:00)
[2019-03-15] MEDS ORDERED: LEVAQUIN 750MG/150ML 750 MG/150 ML BAG IV SCH (22:00)
[2019-03-16 04:11] LABS: Basophils % (Auto) 0.1 % (0.0-1.8); Hematocrit 28.7 % (30.3-42.9); Hemoglobin 9.4 gm/dl (10.1-14.3); Lymphocytes # (Auto) 1.1 K/mm3 (1.2-5.4); Lymphocytes % (Auto) 9.8 % (13.4-35.0); Mean Corpuscular HGB Conc 33 % (30-34); Mean Corpuscular Volume 88 fl (79-97); Monocytes # (Auto) 0.4 K/mm3 (0.0-0.8); Monocytes % (Auto) 3.6 % (0.0-7.3); Platelet Count 278 K/mm3 (140-440); Red Blood Count 3.28 M/mm3 (3.65-5.03); Red Cell Distribution Width 13.9 % (13.2-15.2)
[2019-03-16] MEDS: SOLU-Medrol IV SCH ×3 (06:18→22:29)
[2019-03-16] MEDS: HEPARIN SUB-Q SCH ×3 (06:18→22:29)
[2019-03-16] MEDS: SODIUM CHLORIDE FLUSH SYRINGE 10 ML IV PRN (06:19)
[2019-03-16] MEDS: DUONEB *Not for PRN Use IH SCH ×3 (08:01→19:48)
[2019-03-16] MEDS: HumaLOG SUB-Q SCH ×5 (09:09→22:31)
--- NOTE | 2019-03-16 11:25 | Progress Note ---
Objective - Vital Signs Vital signs: Vital Signs - 12hr 03/15/19 03/16/19 03/16/19 23:58 04:36 07:43 Temperature 97.7 F 98.1 F 97.4 F L Pulse Rate 103 H 98 H 95 H Pulse Rate [ Anterior] Respiratory 20 22 18 Rate Respiratory Rate [Anterior] Blood Pressure 152/79 143/66 148/69 O2 Sat by Pulse 91 91 93 Oximetry 03/16/19 03/16/19 08:01 08:23 Temperature Pulse Rate Pulse Rate [ 96 H Anterior] Respiratory Rate Respiratory 20 Rate [Anterior] Blood Pressure O2 Sat by Pulse 97 Oximetry - Lab 03/16/19 03:53 03/16/19 03:53 Most recent lab results ABG pH 7.350 pH Units (7.350-7.450) 03/15/19 04:50 ABG pCO2 38.8 mm Hg 03/15/19 04:50 ABG pO2 72.9 mm Hg (80.0-90.0) L 03/15/19 04:50 ABG HCO3 20.9 mmol/L (20.0-26.0) 03/15/19 04:50 ABG O2 Saturation 95.6 % (95.0-99.0) 03/15/19 04:50 Calcium 9.0 mg/dL (8.4-10.2) 03/16/19 03:53 Magnesium 1.90 mg/dL (1.7-2.3) 03/14/19 22:59 Medications & Allergies - Medications Allergies/Adverse Reactions: Allergies No Known Allergies Allergy (Verified 09/19/13 22:38) Home Medications: Home Medications Medication Instructions Recorded Confirmed Last Taken Type Meloxicam [Mobic] 7.5 mg PO QDAY 02/18/19 03/15/19 Unknown History Sertraline [Zoloft] 150 mg PO QDAY 02/18/19 03/15/19 Unknown History Insulin NPH/Regular [NovoLIN 70/30] 20 unit SUB-Q BIDDIAB units 02/21/19 03/15/19 Unknown Rx Ipratropium [Atrovent NEB] 0.5 mg IH Q8HRT nebu 02/21/19 03/15/19 Unknown Rx ALBUTEROL NEB's [Proventil 0.083% 2.5 mg IH TID PRN #90 neb 02/23/19 03/15/19 Unknown Rx NEBS] Aspirin 325 mg PO QDAY #30 tablet 02/23/19 03/15/19 Unknown Rx AtorvaSTATin [Lipitor] 40 mg PO QHS #30 tab 02/23/19 03/15/19 Unknown Rx Famotidine [Pepcid] 20 mg PO DAILY #30 tablet 02/23/19 03/15/19 Unknown Rx Gabapentin [Neurontin] 600 mg PO BID #60 tablet 02/23/19 03/15/19 Unknown Rx Hydralazine HCl 50 mg PO TID #90 tablet 02/23/19 03/15/19 Unknown Rx Losartan/Hydrochlorothiazide 1 each PO QDAY #30 tablet 02/23/19 03/15/19 Unknown Rx [Losartan-Hctz 100-25 mg Tab] Nicotine [Habitrol] 14 mg TD DAILY #20 patch 02/23/19 03/15/19 Unknown Rx Prednisone [predniSONE 5 mg (6-Day 5 mg PO .TAPER #1 tab.ds.pk 02/23/19 03/15/19 Unknown Rx Pack, 21 Tabs)] Active Medications: Generic Name Dose Route Start Last Admin Trade Name Freq PRN Reason Stop Dose Admin Acetaminophen 650 mg 03/15/19 01:00 Tylenol PO Q4H PRN Pain MILD(1-3)/Fever >100.5/HENSLEY Acetaminophen/Hydrocodone Bitart 1 each 03/15/19 01:00 [place] 5/325 PO Q6H PRN Pain, Moderate (4-6) Albuterol 2.5 mg 03/15/19 19:21 Proventil IH Q4H PRN Shortness Of Breath Albuterol/Ipratropium 1 ampul 03/15/19 08:00 03/16/19 08:01 Duoneb *Not For Prn Use* IH 1 ampul TIDRT TAN Administration Dextrose 50 ml 03/15/19 02:12 D50w (25gm) Syringe IV PRN PRN Hypoglycemia Heparin Sodium (Porcine) 5,000 unit 03/15/19 06:00 03/16/19 06:18 Heparin SUB-Q 5,000 unit Q8HR TAN Administration Levofloxacin/Dextrose 750 mg in 150 mls @ 100 mls/hr 03/15/19 22:00 03/15/19 21:08 Levaquin 750mg/150ml IV 100 mls/hr Q24HR@2200 TAN Administration Protocol Insulin Glargine 20 units 03/15/19 22:00 03/15/19 21:10 Lantus SUB-Q 20 units QHS TAN Administration Insulin Human Lispro 0 unit 03/15/19 07:30 03/16/19 09:09 Humalog SUB-Q 4 unit ACHS TAN Administration Protocol Methylprednisolone Sodium Succinate 125 mg 03/15/19 06:00 03/16/19 06:18 Solu-Medrol IV 125 mg Q8HR TAN Administration Morphine Sulfate 2 mg 03/15/19 01:06 Morphine IV Q4H PRN Pain , Severe (7-10) Ondansetron HCl 4 mg 03/15/19 01:00 Zofran IV Q8H PRN Nausea And Vomiting Sodium Chloride 10 ml 03/15/19 10:00 03/15/19 21:10 Sodium Chloride Flush Syringe 10 Ml IV 10 ml BID TAN Administration Sodium Chloride 10 ml 03/15/19 01:00 03/16/19 06:19 Sodium Chloride Flush Syringe 10 Ml IV 10 ml PRN PRN Administration LINE FLUSH
--- NOTE | 2019-03-16 11:26 | Consultation ---
History of Present Illness - Reason for Consult Consult date: 03/16/19 chronic renal failure Requesting physician: ТАТЬЯНА GORDILLO - History of Present Illness 62-year-old lady with a history of diabetes mellitus, hypertension, chronic kidney disease admitted on account of 2 days history of shortness of breath. Patient was brought by ambulance. She denies any cough, chest pain, dizziness, diaphoresis, nausea or vomiting. She denies any exposure to smoke and no fever or other constitutional symptoms. She was admitted about a month ago and during that hospitalization Creatinine was 1.6 mg per dl on February 20 2019. She denies any history of kidney stones or recurrent infections. She uses meloxicam 7.5 mg daily and she is also on HCTZ 25 mg daily. 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 Patient has about 45 years history of cigarette smoking. She quit in December 2018 and she's on nicotine patch. She denies alcohol or illicit drug use). denies: smoking (smokes cigarettes for 45 years quit 02/18/2019. She is on nicotine patch), alcohol abuse, prescription drug abuse, IV drug use Family history: diabetes (mother), hypertension (mother) Medications and Allergies Allergies Allergy/AdvReac Type Severity Reaction Status Date / Time No Known Allergies Allergy Verified 09/19/13 22:38 Home Medications Medication Instructions Recorded Confirmed Last Taken Type Meloxicam [Mobic] 7.5 mg PO QDAY 02/18/19 03/15/19 Unknown History Sertraline [Zoloft] 150 mg PO QDAY 02/18/19 03/15/19 Unknown History Insulin NPH/Regular [NovoLIN 70/30] 20 unit SUB-Q BIDDIAB units 02/21/19 03/15/19 Unknown Rx Ipratropium [Atrovent NEB] 0.5 mg IH Q8HRT nebu 02/21/19 03/15/19 Unknown Rx ALBUTEROL NEB's [Proventil 0.083% 2.5 mg IH TID PRN #90 neb 02/23/19 03/15/19 Unknown Rx NEBS] Aspirin 325 mg PO QDAY #30 tablet 02/23/19 03/15/19 Unknown Rx AtorvaSTATin [Lipitor] 40 mg PO QHS #30 tab 02/23/19 03/15/19 Unknown Rx Famotidine [Pepcid] 20 mg PO DAILY #30 tablet 02/23/19 03/15/19 Unknown Rx Gabapentin [Neurontin] 600 mg PO BID #60 tablet 02/23/19 03/15/19 Unknown Rx Hydralazine HCl 50 mg PO TID #90 tablet 02/23/19 03/15/19 Unknown Rx Losartan/Hydrochlorothiazide 1 each PO QDAY #30 tablet 02/23/19 03/15/19 Unknown Rx [Losartan-Hctz 100-25 mg Tab] Nicotine [Habitrol] 14 mg TD DAILY #20 patch 02/23/19 03/15/19 Unknown Rx Prednisone [predniSONE 5 mg (6-Day 5 mg PO .TAPER #1 tab.ds.pk 02/23/19 03/15/19 Unknown Rx Pack, 21 Tabs)] Active Meds: Active Medications Acetaminophen (Tylenol) 650 mg PO Q4H PRN PRN Reason: Pain MILD(1-3)/Fever >100.5/[place] Acetaminophen/Hydrocodone Bitart ([place] 5/325) 1 each PO Q6H PRN PRN Reason: Pain, Moderate (4-6) Albuterol (Proventil) 2.5 mg IH Q4H PRN PRN Reason: Shortness Of Breath Albuterol/Ipratropium (Duoneb *Not For Prn Use*) 1 ampul IH TIDRT [facility] Last Admin: 03/16/19 08:01 Dose: 1 ampul Documented by: Dextrose (D50w (25gm) Syringe) 50 ml IV PRN PRN PRN Reason: Hypoglycemia Heparin Sodium (Porcine) (Heparin) 5,000 unit SUB-Q Q8HR [facility] Last Admin: 03/16/19 06:18 Dose: 5,000 unit Documented by: Levofloxacin/Dextrose (Levaquin 750mg/150ml) 750 mg in 150 mls @ 100 mls/hr IV Q24HR@2200 [facility]; Protocol Last Admin: 03/15/19 21:08 Dose: 100 mls/hr Documented by: Insulin Glargine (Lantus) 20 units SUB-Q QHS [facility] Last Admin: 03/15/19 21:10 Dose: 20 units Documented by: Insulin Human Lispro (Humalog) 0 unit SUB-Q ACHS [facility]; Protocol Last Admin: 03/16/19 09:09 Dose: 4 unit Documented by: Methylprednisolone Sodium Succinate (Solu-Medrol) 125 mg IV Q8HR [facility] Last Admin: 03/16/19 06:18 Dose: 125 mg Documented by: Morphine Sulfate (Morphine) 2 mg IV Q4H PRN PRN Reason: Pain , Severe (7-10) Ondansetron HCl (Zofran) 4 mg IV Q8H PRN PRN Reason: Nausea And Vomiting Sodium Chloride (Sodium Chloride Flush Syringe 10 Ml) 10 ml IV BID [facility] Last Admin: 03/15/19 21:10 Dose: 10 ml Documented by: Sodium Chloride (Sodium Chloride Flush Syringe 10 Ml) 10 ml IV PRN PRN PRN Reason: LINE FLUSH Last Admin: 03/16/19 06:19 Dose: 10 ml Documented by: Review of Systems All systems: negative (Constitutional: no fever or chills. No anorexia or weight loss. HEENT: No sore throat or sinus drainage no hearing or vision impairment . Cardiovascular: See history of present illness. Respiratory: No cough, sputum, hemoptysis or wheezing. Gastrointestinal: No nausea, vomiting, diarrhea, abdominal pain, hematemesis or melena. Genitourinary: No frequency urgency dysuria or hematuria. hematologic: No abnormal bleeding or bruising. Integumentary: no pruritus or rash. Neurological: Needs to headache no focal weakness or numbness, no syncope or seizures. Musculoskeletal: No joint pains but admits to stiffness. Endocrine: Admits to cold intolerance. Psychiatry: Admits to both anxiety and depression) Exam - Vital Signs Vital signs: Vital Signs Pulse Ox 96 03/14/19 22:40 - Physical Exam Narrative exam: Obese middle-aged female lying in bed in no acute distress HEENT: NCAT, pink oral mucous membrane Neck: Supple, no venous distention CVS: S1S2 RRR with no murmur, rub or gallop Chest: Clear to auscultation Abdomen: Protuberant, soft, nontender, no organomegaly, bowel sounds are present Extremities: Trace edema Neuro: Awake, alert no focal deficits Results - Lab Results 03/16/19 03:53 03/16/19 03:53 Most recent lab results ABG pH 7.350 pH Units (7.350-7.450) 03/15/19 04:50 ABG pCO2 38.8 mm Hg 03/15/19 04:50 ABG pO2 72.9 mm Hg (80.0-90.0) L 03/15/19 04:50 ABG HCO3 20.9 mmol/L (20.0-26.0) 03/15/19 04:50 ABG O2 Saturation 95.6 % (95.0-99.0) 03/15/19 04:50 Calcium 9.0 mg/dL (8.4-10.2) 03/16/19 03:53 Magnesium 1.90 mg/dL (1.7-2.3) 03/14/19 22:59 Assessment and Plan - Patient Problems (1) Chronic kidney disease, stage III (moderate) Current Visit: Yes Status: Acute Plan to address problem: Chronic kidney disease presumably secondary to diabetic nephropathy/hypertensive nephrosclerosis. Doubt acute kidney injury though possible since patient is taking meloxicam a moderate dose of thiazide diuretic. Patient is close to her ?baseline. Stop meloxicam and avoid NSAIDs. Hold hydrochlorothiazide. Follow- up electrolytes and renal function. (2) Hypertensive chronic kidney disease with stage 1 through stage 4 chronic kidney disease, or unspecified chronic kidney disease Current Visit: Yes Status: Acute Plan to address problem: Follow blood pressure (3) Type 2 diabetes mellitus with diabetic chronic kidney disease Current Visit: Yes Status: Acute Plan to address problem: Blood sugar management by primary attending. Hold metformin since GFR is close to 30minute as its clearance is diminished at stage IV chronic kidney disease with increased risk of lactic acidosis (4) COPD with exacerbation Current Visit: Yes Status: Acute Plan to address problem: Bronchodilator nebulizer treatments, supplemental oxygen (5) Anemia in chronic kidney disease Current Visit: Yes Status: Acute Plan to address problem: Follow-up hemoglobin. We need to start Erythropoesis stimulating agent if hemoglobin decreases to less than 9 g/dL and iron studies are normal
--- NOTE | 2019-03-16 12:23 | Progress Note ---
Assessment and Plan Assessment and plan: persistent hyperglycemia optimize insulins, likely worse due to steroids Sepsis evidenced by HR>90 and RR>20 -probably secondary to pneumonia -CXR showed findings suggestive of pulmonary edema versus bacterial pneumonia versus aspiration -On IV antibiotic with levofloxacin -Sputum and blood cultures pending Acute severe COPD exacerbation -On IV steroids and duonebs Acute respiratory failure with hypoxia -Likely secondary to COPD exacerbation -Cont BiPAP DM2 with neuropathy -On SSI and Lantus -Continue gabapentin CKD stage III -Renal function level is about baseline, will monitor Abdominal distention -Abdominal x-ray and lipase level pending HTN -Stable, resume home anti-hypertensives HLD -Stable, continue statin History of tobacco use -Continue nicotine patch Morbid obesity with BMI of 77.5 -Lifestyle modification recommended DVT prophylaxis with heparin Disposition: Patient will be placed in inpatient status with plan for discharge when medically stable Time spent: 40 minutes Hospitalist Physical - Constitutional Vitals: Temp Pulse Resp BP Pulse Ox 97.4 F L 96 H 20 148/69 97 03/16/19 07:43 03/16/19 08:23 03/16/19 08:23 03/16/19 07:43 03/16/19 08:01 General appearance: Present: no acute distress, obese, other (on BiPAP) Results - Labs CBC & Chem 7: 03/16/19 03:53 03/16/19 03:53 Labs: Laboratory Last Values WBC 11.0 K/mm3 (4.5-11.0) 03/16/19 03:53 RBC 3.28 M/mm3 (3.65-5.03) L 03/16/19 03:53 Hgb 9.4 gm/dl (10.1-14.3) L 03/16/19 03:53 Hct 28.7 % (30.3-42.9) L 03/16/19 03:53 MCV 88 fl (79-97) 03/16/19 03:53 MCH 29 pg (28-32) 03/16/19 03:53 MCHC 33 % (30-34) 03/16/19 03:53 RDW 13.9 % (13.2-15.2) 03/16/19 03:53 Plt Count 278 K/mm3 (140-440) 03/16/19 03:53 Lymph % (Auto) 9.8 % (13.4-35.0) L 03/16/19 03:53 [place] % (Auto) 3.6 % (0.0-7.3) 03/16/19 03:53 Eos % (Auto) 0.0 % (0.0-4.3) 03/16/19 03:53 Baso % (Auto) 0.1 % (0.0-1.8) 03/16/19 03:53 Lymph # 1.1 K/mm3 (1.2-5.4) L 03/16/19 03:53 [place] # 0.4 K/mm3 (0.0-0.8) 03/16/19 03:53 Eos # 0.0 K/mm3 (0.0-0.4) 03/16/19 03:53 Baso # 0.0 K/mm3 (0.0-0.1) 03/16/19 03:53 Seg Neutrophils % 86.5 % (40.0-70.0) H 03/16/19 03:53 Seg Neutrophils # 9.5 K/mm3 (1.8-7.7) H 03/16/19 03:53 PT 14.0 Sec. (12.2-14.9) 03/14/19 22:59 INR 1.11 (0.87-1.13) 03/14/19 22:59 APTT 31.0 Sec. (24.2-36.6) 03/14/19 22:59 ABG pH 7.350 pH Units (7.350-7.450) 03/15/19 04:50 ABG pCO2 38.8 mm Hg 03/15/19 04:50 ABG pO2 72.9 mm Hg (80.0-90.0) L 03/15/19 04:50 ABG HCO3 20.9 mmol/L (20.0-26.0) 03/15/19 04:50 ABG O2 Saturation 95.6 % (95.0-99.0) 03/15/19 04:50 ABG O2 Content 10.9 (0.0-44) 03/15/19 04:50 ABG Base Excess -4.3 mmol/L (-2.0-3.0) L 03/15/19 04:50 ABG Hemoglobin 8.2 gm/dl (12.0-16.0) L 03/15/19 04:50 ABG Carboxyhemoglobin 1.3 % (0.0-5.0) 03/15/19 04:50 ABG Methemoglobin 0.6 % (0.0-1.5) 03/15/19 04:50 93.8 % (95.0-99.0) L 03/15/19 04:50 40 % 03/15/19 04:50 Sodium 137 mmol/L (137-145) 03/16/19 03:53 Potassium 4.9 mmol/L (3.6-5.0) 03/16/19 03:53 Chloride 102.9 mmol/L (98-107) 03/16/19 03:53 Carbon Dioxide 20 mmol/L (22-30) L 03/16/19 03:53 19 mmol/L 03/16/19 03:53 BUN 37 mg/dL (7-17) H 03/16/19 03:53 1.5 mg/dL (0.7-1.2) H 03/16/19 03:53 Estimated GFR 35 ml/min 03/16/19 03:53 25 % 03/16/19 03:53 Glucose 283 mg/dL (65-100) H 03/16/19 03:53 POC Glucose 270 (70-105) H 03/16/19 07:49 Lactic Acid 0.80 mmol/L (0.7-2.0) 03/15/19 00:37 Calcium 9.0 mg/dL (8.4-10.2) 03/16/19 03:53 Magnesium 1.90 mg/dL (1.7-2.3) 03/14/19 22:59 0.20 mg/dL (0.1-1.2) 03/14/19 22:59 AST 31 units/L (5-40) 03/14/19 22:59 ALT 26 units/L (7-56) 03/14/19 22:59 135 units/L (35-129) H 03/14/19 22:59 53 units/L (30-135) 03/14/19 22:59 < 0.010 ng/mL (0.00-0.029) 03/15/19 05:28 NT-Pro-B Natriuret Pep 2577 pg/mL (0-900) H 03/15/19 05:28 6.9 g/dL (6.3-8.2) 03/14/19 22:59 3.3 g/dL (3.9-5) L 03/14/19 22:59 0.9 % 03/14/19 22:59 38 units/L (13-60) 03/15/19 05:28 Active Medications - Current Medications Current Medications: Generic Name Dose Route Start Last Admin Trade Name Freq PRN Reason Stop Dose Admin Acetaminophen 650 mg 03/15/19 01:00 Tylenol PO Q4H PRN Pain MILD(1-3)/Fever >100.5/[place] Acetaminophen/Hydrocodone Bitart 1 each 03/15/19 01:00 [place] 5/325 PO Q6H PRN Pain, Moderate (4-6) Albuterol 2.5 mg 03/15/19 19:21 Proventil IH Q4H PRN Shortness Of Breath Albuterol/Ipratropium 1 ampul 03/15/19 08:00 03/16/19 08:01 Duoneb *Not For Prn Use* IH 1 ampul TIDRT [facility] Administration Dextrose 50 ml 03/15/19 02:12 D50w (25gm) Syringe IV PRN PRN Hypoglycemia Heparin Sodium (Porcine) 5,000 unit 03/15/19 06:00 03/16/19 06:18 Heparin SUB-Q 5,000 unit Q8HR TAN Administration Levofloxacin/Dextrose 750 mg in 150 mls @ 100 mls/hr 03/17/19 22:00 Levaquin 750mg/150ml IV Q48HR@2200 [facility] Protocol Insulin Glargine 20 units 03/15/19 22:00 03/15/19 21:10 Lantus SUB-Q 20 units QHS TAN Administration Insulin Human Lispro 0 unit 03/15/19 07:30 03/16/19 09:09 Humalog SUB-Q 4 unit ACHS TAN Administration Protocol Methylprednisolone Sodium Succinate 125 mg 03/15/19 06:00 03/16/19 06:18 Solu-Medrol IV 125 mg Q8HR [facility] Administration Morphine Sulfate 2 mg 03/15/19 01:06 Morphine IV Q4H PRN Pain , Severe (7-10) Ondansetron HCl 4 mg 03/15/19 01:00 Zofran IV Q8H PRN Nausea And Vomiting Sodium Chloride 10 ml 03/15/19 10:00 03/15/19 21:10 Sodium Chloride Flush Syringe 10 Ml IV 10 ml BID TAN Administration Sodium Chloride 10 ml 03/15/19 01:00 03/16/19 06:19 Sodium Chloride Flush Syringe 10 Ml IV 10 ml PRN PRN Administration LINE FLUSH
--- NOTE | 2019-03-16 12:33 | Consultation ---
History of Present Illness Consult date: 03/16/19 Requesting physician: ТАТЬЯНА GARRIDO History of present illness: Patient is a 68 year old female with history of COPD who presented to the ED on account of 2 days history of worsening shortness of breath. She has positive abdominal distention with soreness and lightheadedness. She denies cough, fever, chills, palpitations, chest pain, leg swelling, orthopnea or PND. No headaches, nausea, vomiting, syncope or loss of consciousness. No dysuria, frequency, constipation or diarrhea. In the ED, she was placed on BiPAP due to respiratory distress. 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 Patient has about 45 years history of cigarette smoking. She quit in December 2018 and she's on nicotine patch. She denies alcohol or illicit drug use). denies: smoking (smokes cigarettes for 45 years quit 02/18/2019. She is on nicotine patch), alcohol abuse, prescription drug abuse, IV drug use Family history: diabetes (mother), hypertension (mother) Review of Systems All systems: negative (all other systems reviewed with the patient and are negative except as in HPI.) Past History Past Medical History: COPD, diabetes, hypertension, hyperlipidemia, renal failure, other (diabetic neuropathy) Past Surgical History: , Other (tubal ligation) Social history: other (patient has about 45 years history of cigarette smoking. She quit in December 2018 and she's on nicotine patch. She denies alcohol or illicit drug use) Family history: diabetes (mother), hypertension (mother) Medications and Allergies Allergies Allergy/AdvReac Type Severity Reaction Status Date / Time No Known Allergies Allergy Verified 09/19/13 22:38 Home Medications Medication Instructions Recorded Confirmed Last Taken Type Meloxicam [Mobic] 7.5 mg PO QDAY 02/18/19 03/15/19 Unknown History Sertraline [Zoloft] 150 mg PO QDAY 02/18/19 03/15/19 Unknown History Insulin NPH/Regular [NovoLIN 70/30] 20 unit SUB-Q BIDDIAB units 02/21/19 03/15/19 Unknown Rx Ipratropium [Atrovent NEB] 0.5 mg IH Q8HRT nebu 02/21/19 03/15/19 Unknown Rx ALBUTEROL NEB's [Proventil 0.083% 2.5 mg IH TID PRN #90 neb 02/23/19 03/15/19 Unknown Rx NEBS] Aspirin 325 mg PO QDAY #30 tablet 02/23/19 03/15/19 Unknown Rx AtorvaSTATin [Lipitor] 40 mg PO QHS #30 tab 02/23/19 03/15/19 Unknown Rx Famotidine [Pepcid] 20 mg PO DAILY #30 tablet 02/23/19 03/15/19 Unknown Rx Gabapentin [Neurontin] 600 mg PO BID #60 tablet 02/23/19 03/15/19 Unknown Rx Hydralazine HCl 50 mg PO TID #90 tablet 02/23/19 03/15/19 Unknown Rx Losartan/Hydrochlorothiazide 1 each PO QDAY #30 tablet 02/23/19 03/15/19 Unknown Rx [Losartan-Hctz 100-25 mg Tab] Nicotine [Habitrol] 14 mg TD DAILY #20 patch 02/23/19 03/15/19 Unknown Rx Prednisone [predniSONE 5 mg (6-Day 5 mg PO .TAPER #1 tab.ds.pk 02/23/19 03/15/19 Unknown Rx Pack, 21 Tabs)] Active Meds: Active Medications Acetaminophen (Tylenol) 650 mg PO Q4H PRN PRN Reason: Pain MILD(1-3)/Fever >100.5/[place] Acetaminophen/Hydrocodone Bitart ([place] 5/325) 1 each PO Q6H PRN PRN Reason: Pain, Moderate (4-6) Albuterol (Proventil) 2.5 mg IH Q4H PRN PRN Reason: Shortness Of Breath Albuterol/Ipratropium (Duoneb *Not For Prn Use*) 1 ampul IH TIDRT [facility] Last Admin: 03/16/19 08:01 Dose: 1 ampul Documented by: Dextrose (D50w (25gm) Syringe) 50 ml IV PRN PRN PRN Reason: Hypoglycemia Heparin Sodium (Porcine) (Heparin) 5,000 unit SUB-Q Q8HR [facility] Last Admin: 03/16/19 06:18 Dose: 5,000 unit Documented by: Levofloxacin/Dextrose (Levaquin 750mg/150ml) 750 mg in 150 mls @ 100 mls/hr IV Q48HR@2200 [facility]; Protocol Insulin Glargine (Lantus) 20 units SUB-Q QHS [facility] Last Admin: 03/15/19 21:10 Dose: 20 units Documented by: Insulin Human Lispro (Humalog) 0 unit SUB-Q ACHS [facility]; Protocol Last Admin: 03/16/19 09:09 Dose: 4 unit Documented by: Methylprednisolone Sodium Succinate (Solu-Medrol) 125 mg IV Q8HR [facility] Last Admin: 03/16/19 06:18 Dose: 125 mg Documented by: Morphine Sulfate (Morphine) 2 mg IV Q4H PRN PRN Reason: Pain , Severe (7-10) Ondansetron HCl (Zofran) 4 mg IV Q8H PRN PRN Reason: Nausea And Vomiting Sodium Chloride (Sodium Chloride Flush Syringe 10 Ml) 10 ml IV BID [facility] Last Admin: 03/15/19 21:10 Dose: 10 ml Documented by: Sodium Chloride (Sodium Chloride Flush Syringe 10 Ml) 10 ml IV PRN PRN PRN Reason: LINE FLUSH Last Admin: 03/16/19 06:19 Dose: 10 ml Documented by: Physical Examination Vital signs: Vital Signs Pulse Ox 96 03/14/19 22:40 General appearance: Presentmild respiratory distress, obese, other (on BiPAP) - EENT Eyes: Present: PERRL, EOM intact ENT: hearing intact - Neck Neck: Present: supple, normal ROM - Respiratory Respiratory effort: normal Respiratory: bilateral: very quiet chest - Cardiovascular Rhythm: regular (with tachycardia) Heart Sounds: Present: S1 & S2. Absent: rub, click - Extremities Extremities: pulses symmetrical, No edema Peripheral Pulses: within normal limits - Abdominal General gastrointestinal: Present: soft, non-tender, non-distended, normal bowel sounds Female genitourinary: Present: deferred - Integumentary Integumentary: Present: clear, warm, dry - Musculoskeletal Musculoskeletal: no edema, no cyanosis, no clubbing - Psychiatric Psychiatric: appropriate mood/affect, intact judgment & insight - Neurologic Neurologic: moves all extremities Results - Laboratory Findings CBC and BMP: 03/16/19 03:53 03/18/19 04:05 ABG ABG pH 7.350 pH Units (7.350-7.450) 03/15/19 04:50 ABG pCO2 38.8 mm Hg 03/15/19 04:50 ABG pO2 72.9 mm Hg (80.0-90.0) L 03/15/19 04:50 ABG O2 Saturation 95.6 % (95.0-99.0) 03/15/19 04:50 PT/INR, D-dimer PT 14.0 Sec. (12.2-14.9) 03/14/19 22:59 INR 1.11 (0.87-1.13) 03/14/19 22:59 Abnormal lab findings: Abnormal Labs 03/14/19 03/14/19 03/15/19 22:59 22:59 04:50 WBC 11.6 H RBC 3.15 L Hgb 9.1 L Hct 27.4 L Lymph % (Auto) [place] % (Auto) 9.0 H Lymph # [place] # 1.0 H Seg Neutrophils % Seg Neutrophils # 8.2 H ABG pO2 72.9 L ABG Base Excess -4.3 L ABG Hemoglobin 8.2 L Oxyhemoglobin 93.8 L Carbon Dioxide BUN 27 H Creatinine 1.4 H Glucose 173 H POC Glucose Alkaline Phosphatase 135 H NT-Pro-B Natriuret Pep Albumin 3.3 L 03/15/19 03/15/19 03/15/19 05:28 09:00 12:24 WBC RBC Hgb Hct Lymph % (Auto) [place] % (Auto) Lymph # [place] # Seg Neutrophils % Seg Neutrophils # ABG pO2 ABG Base Excess ABG Hemoglobin Oxyhemoglobin Carbon Dioxide BUN Creatinine Glucose POC Glucose 383 H 399 H Alkaline Phosphatase NT-Pro-B Natriuret Pep 2577 H Albumin 03/15/19 03/15/19 03/16/19 15:58 20:57 03:53 WBC RBC 3.28 L Hgb 9.4 L Hct 28.7 L Lymph % (Auto) 9.8 L [place] % (Auto) Lymph # 1.1 L [place] # Seg Neutrophils % 86.5 H Seg Neutrophils # 9.5 H ABG pO2 ABG Base Excess ABG Hemoglobin Oxyhemoglobin Carbon Dioxide BUN Creatinine Glucose POC Glucose 347 H 395 H Alkaline Phosphatase NT-Pro-B Natriuret Pep Albumin 03/16/19 03/16/19 03:53 07:49 WBC RBC Hgb Hct Lymph % (Auto) [place] % (Auto) Lymph # [place] # Seg Neutrophils % Seg Neutrophils # ABG pO2 ABG Base Excess ABG Hemoglobin Oxyhemoglobin Carbon Dioxide 20 L BUN 37 H Creatinine 1.5 H Glucose 283 H POC Glucose 270 H Alkaline Phosphatase NT-Pro-B Natriuret Pep Albumin - Diagnostic Findings Chest x-ray: image reviewed (Mixed interstial-alveolar infitrates) Assessment and Plan Acute hypoxic respiratory failure, multifactorial CAP AE-COPD Alveolar/pulmonary edema on imaging DM2 with neuropathy CKD stage III Abdominal distention HTN History of tobacco use Morbid obesity with BMI 38 -Supplemental oxygen to keep O2 sat 90% and above -Bronchodilators -Steroids with quick taper -Nicotine withdrawal precautions -Antibiotics for AE-COPD/CAP, with possible aspiration component -VTE prophylaxis -Avoid nephrotoxins and adjust all medications for GFR and CrCL -NIPPV qhs and prn -Follow up CXR in 72 hours -Gentle diuresis while monitoring renal function,hemodynamics and electrolyte profile -Accuchecks with glycemic control, while on steroids. Target blood glucose 140- 180mg/dL -PT/OT/Mobility -Aspiration precautions - Maintenance of sleep-wake cycle. Avoid delirium -Home oxygen evaluation prior to discharge -Early outpatient pulmonary follow up on discharge -Smoking cessation counselling. Encouraged to remain quit -Life style modifications and weight loss discussed Discussed with Dr. Garrido Discussed with RT/RN CONDITION: FAIR PROGNOSIS; GUARDED CODE STATUS: FULL The high probability of a clinically significant, sudden or life threatening deterioration of the respiratory, ,cardiovascular ,renal system(s) required my full and direct attention, intervention and personal management. The aggregate critical care time was [30] minutes. This time is in addition to time spent performing reported procedures but includes the following: [x] Data Review and interpretation [x]Patient assessment and monitoring of vital signs [x] Documentation [x] Medication orders and management
[2019-03-16] MEDS: SODIUM CHLORIDE FLUSH SYRINGE 10 ML IV SCH ×3 (15:07→22:30)
[2019-03-16] MEDS: LANTUS SUB-Q SCH (22:30)
[2019-03-16] MEDS ORDERED: LASIX IV ONE (22:48)
[2019-03-16] MEDS: PEPCID PO SCH (23:01)
[2019-03-17] MEDS: HEPARIN SUB-Q SCH ×3 (06:15→21:51)
[2019-03-17] MEDS: SOLU-Medrol IV SCH ×3 (06:15→21:51)
[2019-03-17] MEDS: HumaLOG SUB-Q SCH ×7 (07:37→22:04)
[2019-03-17] MEDS: DUONEB *Not for PRN Use IH SCH ×3 (08:00→20:19)
[2019-03-17] MEDS: PEPCID PO SCH (09:02)
[2019-03-17] MEDS: SODIUM CHLORIDE FLUSH SYRINGE 10 ML IV SCH ×2 (09:02→21:52)
[2019-03-17 09:20] LABS: Calcium 9.1 mg/dL (8.4-10.2)
--- NOTE | 2019-03-17 13:10 | Progress Note ---
Assessment and Plan Assessment and plan: persistent hyperglycemia optimize insulins, likely worse due to steroids Diastolic CHF exacerbation recent echo 02/13 shows preserved EF, lasix initiated SIRS without organ dysfunction Acute severe COPD exacerbation -On IV steroids and duonebs, cont oxygen Acute respiratory failure with hypoxia -Likely secondary to COPD exacerbation -weaned off bipap, cont NC DM2 with neuropathy -On SSI and Lantus -Continue gabapentin CKD stage III -Renal function level is about baseline, will monitor Abdominal distention -Abdominal x-ray and lipase level pending HTN -Stable, resume home anti-hypertensives HLD -Stable, continue statin History of tobacco use -Continue nicotine patch Morbid obesity with BMI of 77.5 -Lifestyle modification recommended DVT prophylaxis with heparin Disposition: Patient will be placed in inpatient status with plan for discharge when medically stable Hospitalist Physical - Constitutional Vitals: Temp Pulse Resp BP Pulse Ox 97.7 F 96 H 20 155/75 97 03/17/19 07:14 03/17/19 07:14 03/17/19 07:14 03/17/19 07:14 03/17/19 07:14 General appearance: Present: no acute distress, obese, other (on BiPAP) Results - Labs CBC & Chem 7: 03/16/19 03:53 03/18/19 04:05 Labs: Laboratory Last Values WBC 11.0 K/mm3 (4.5-11.0) 03/16/19 03:53 RBC 3.28 M/mm3 (3.65-5.03) L 03/16/19 03:53 Hgb 9.4 gm/dl (10.1-14.3) L 03/16/19 03:53 Hct 28.7 % (30.3-42.9) L 03/16/19 03:53 MCV 88 fl (79-97) 03/16/19 03:53 MCH 29 pg (28-32) 03/16/19 03:53 MCHC 33 % (30-34) 03/16/19 03:53 RDW 13.9 % (13.2-15.2) 03/16/19 03:53 Plt Count 278 K/mm3 (140-440) 03/16/19 03:53 Lymph % (Auto) 9.8 % (13.4-35.0) L 03/16/19 03:53 [place] % (Auto) 3.6 % (0.0-7.3) 03/16/19 03:53 Eos % (Auto) 0.0 % (0.0-4.3) 03/16/19 03:53 Baso % (Auto) 0.1 % (0.0-1.8) 03/16/19 03:53 Lymph # 1.1 K/mm3 (1.2-5.4) L 03/16/19 03:53 [place] # 0.4 K/mm3 (0.0-0.8) 03/16/19 03:53 Eos # 0.0 K/mm3 (0.0-0.4) 03/16/19 03:53 Baso # 0.0 K/mm3 (0.0-0.1) 03/16/19 03:53 Seg Neutrophils % 86.5 % (40.0-70.0) H 03/16/19 03:53 Seg Neutrophils # 9.5 K/mm3 (1.8-7.7) H 03/16/19 03:53 PT 14.0 Sec. (12.2-14.9) 03/14/19 22:59 INR 1.11 (0.87-1.13) 03/14/19 22:59 APTT 31.0 Sec. (24.2-36.6) 03/14/19 22:59 ABG pH 7.350 pH Units (7.350-7.450) 03/15/19 04:50 ABG pCO2 38.8 mm Hg 03/15/19 04:50 ABG pO2 72.9 mm Hg (80.0-90.0) L 03/15/19 04:50 ABG HCO3 20.9 mmol/L (20.0-26.0) 03/15/19 04:50 ABG O2 Saturation 95.6 % (95.0-99.0) 03/15/19 04:50 ABG O2 Content 10.9 (0.0-44) 03/15/19 04:50 ABG Base Excess -4.3 mmol/L (-2.0-3.0) L 03/15/19 04:50 ABG Hemoglobin 8.2 gm/dl (12.0-16.0) L 03/15/19 04:50 ABG Carboxyhemoglobin 1.3 % (0.0-5.0) 03/15/19 04:50 ABG Methemoglobin 0.6 % (0.0-1.5) 03/15/19 04:50 93.8 % (95.0-99.0) L 03/15/19 04:50 40 % 03/15/19 04:50 Sodium 142 mmol/L (137-145) 03/17/19 08:43 Potassium 4.4 mmol/L (3.6-5.0) 03/17/19 08:43 Chloride 105.7 mmol/L (98-107) 03/17/19 08:43 Carbon Dioxide 24 mmol/L (22-30) 03/17/19 08:43 17 mmol/L 03/17/19 08:43 BUN 44 mg/dL (7-17) H 03/17/19 08:43 1.4 mg/dL (0.7-1.2) H 03/17/19 08:43 Estimated GFR 38 ml/min 03/17/19 08:43 31 % 03/17/19 08:43 Glucose 277 mg/dL (65-100) H 03/17/19 08:43 POC Glucose 233 (70-105) H 03/17/19 11:28 Lactic Acid 0.80 mmol/L (0.7-2.0) 03/15/19 00:37 Calcium 9.1 mg/dL (8.4-10.2) 03/17/19 08:43 Magnesium 1.90 mg/dL (1.7-2.3) 03/14/19 22:59 0.20 mg/dL (0.1-1.2) 03/14/19 22:59 AST 31 units/L (5-40) 03/14/19 22:59 ALT 26 units/L (7-56) 03/14/19 22:59 135 units/L (35-129) H 03/14/19 22:59 53 units/L (30-135) 03/14/19 22:59 < 0.010 ng/mL (0.00-0.029) 03/15/19 05:28 NT-Pro-B Natriuret Pep 2577 pg/mL (0-900) H 03/15/19 05:28 6.9 g/dL (6.3-8.2) 03/14/19 22:59 3.3 g/dL (3.9-5) L 03/14/19 22:59 0.9 % 03/14/19 22:59 38 units/L (13-60) 03/15/19 05:28 Active Medications - Current Medications Current Medications: Generic Name Dose Route Start Last Admin Trade Name Freq PRN Reason Stop Dose Admin Acetaminophen 650 mg 03/15/19 01:00 Tylenol PO Q4H PRN Pain MILD(1-3)/Fever >100.5/[place] Acetaminophen/Hydrocodone Bitart 1 each 03/15/19 01:00 [place] 5/325 PO Q6H PRN Pain, Moderate (4-6) Albuterol 2.5 mg 03/15/19 19:21 03/16/19 22:18 Proventil IH 2.5 mg Q4H PRN Administration Shortness Of Breath Albuterol/Ipratropium 1 ampul 03/15/19 08:00 03/16/19 19:48 Duoneb *Not For Prn Use* IH 1 ampul TIDRT [facility] Administration Dextrose 50 ml 03/15/19 02:12 D50w (25gm) Syringe IV PRN PRN Hypoglycemia Famotidine 20 mg 03/16/19 23:00 03/17/19 09:02 Pepcid PO 20 mg QDAY [facility] Administration Heparin Sodium (Porcine) 5,000 unit 03/15/19 06:00 03/17/19 06:15 Heparin SUB-Q 5,000 unit Q8HR [facility] Administration Levofloxacin/Dextrose 750 mg in 150 mls @ 100 mls/hr 03/17/19 22:00 Levaquin 750mg/150ml IV Q48HR@2200 [facility] Protocol Insulin Glargine 35 units 03/16/19 16:56 03/16/19 22:30 Lantus SUB-Q 35 units QHS [facility] Administration Insulin Human Lispro 0 unit 03/15/19 07:30 03/17/19 11:33 Humalog SUB-Q 4 unit ACHS [facility] Administration Protocol Insulin Human Lispro 7 unit 03/17/19 07:30 03/17/19 11:34 Humalog SUB-Q 7 unit AC [facility] Administration Methylprednisolone Sodium Succinate 125 mg 03/15/19 06:00 03/17/19 06:15 Solu-Medrol IV 125 mg Q8HR [facility] Administration Morphine Sulfate 2 mg 03/15/19 01:06 Morphine IV Q4H PRN Pain , Severe (7-10) Ondansetron HCl 4 mg 03/15/19 01:00 Zofran IV Q8H PRN Nausea And Vomiting Sodium Chloride 10 ml 03/15/19 10:00 03/17/19 09:02 Sodium Chloride Flush Syringe 10 Ml IV 10 ml BID [facility] Administration Sodium Chloride 10 ml 03/15/19 01:00 03/16/19 06:19 Sodium Chloride Flush Syringe 10 Ml IV 10 ml PRN PRN Administration LINE FLUSH Nutrition/Malnutrition Assess - Dietary Evaluation Nutrition/Malnutrition Findings: Nutrition Notes Start: 03/16/19 14:00 Freq: Status: Active Protocol: Document 03/16/19 14:00 [place] (Rec: 03/16/19 14:13 OH [id number]) Nutrition Notes Need for Assessment generated from: fondant puff maker Current Diagnosis CKD(stage I-IV),COPD,Diabetes, Hypertension Other Pertinent Diagnosis HX SMOKING; PNEUMONIA; OBESITY Current Diet consistent CHO Labs/Tests Reviewed Pertinent Medications heparin prednisone Lantus Height 5 ft Weight 65.52 kg [place] Body Weight (kg) 45.45 BMI 28.2 Intake Prior to Admission Good Weight Status Overweight Subjective/Other Information RN MST: Pt. sitting up in bed. Per pt she came to [facility] in January and her bottom dentures were lost. Pt. c/o difficulty chewing due to no bottom teeth . CHAIR TRIMMER pt consuming fruit/ tomatoes/cucumbers/beans secondary to poor appetite. She does enjoy ONS and used it at home [employer]AIR TRIMMER. Per pt last hgba1c 13. Pt. on 60u at home of insulin bid down from 100 u . Pt. has a PCP who manages dm . Last dm education >5 years with x1 class attended. Due to renal concerns will add renal qualifier to diet order. Percent of energy/protein needs met: 50/50% Burn Absent Trauma Absent Difficulty In Chewing Food Allergy No Current % PO Fair (50-74%) #1 Nutrition Diagnosis Food and nutrition-related knowledge deficit Etiology inadequate/poor dm education As Evidenced by Signs and Symptoms uncontrolled DM; >50 u insulin required to manage bloodsugar levels Is patient on ventilator? No Is Patient Ambulatory and/or Out of Bed Yes REE-([place]-amb[place]/OOB) [ 1445.210 NUTR.[id number]] Kcal/Kg value to use for calculation 25 Approximate Energy Requirements Using 1638 kcal/Kg Calculation Used for Recommendations Kcal/kg Additional Notes PROTEIN: 0.6-0.8 g/kg/IBW 27-37 g/day FLUID: 1 ml/kcal Nutrition Intervention Change Diet Order: consistent CHO w/renal Barriers to Learning Motivation,Age related, Financial,Environmental Goal #1 po intake to exceed 75% at meals Anticipated Discharge Needs: DM/RENAL education Follow-Up By: 03/18/19 Additional Comments f/u po intake; need for ONS
[2019-03-17] MEDS: SODIUM CHLORIDE FLUSH SYRINGE 10 ML IV PRN (13:27)
[2019-03-17] MEDS: LASIX IV SCH (14:27)
--- NOTE | 2019-03-17 14:35 | Progress Note ---
Assessment and Plan Acute hypoxic respiratory failure, multifactorial CAP AE-COPD Alveolar/pulmonary edema on imaging DM2 with neuropathy CKD stage III Abdominal distention HTN History of tobacco use Morbid obesity with BMI 38 -Supplemental oxygen to keep O2 sat 90% and above -Bronchodilators -Steroids with quick taper -Nicotine withdrawal precautions -Antibiotics for AE-COPD/CAP, with possible aspiration component -VTE prophylaxis -Avoid nephrotoxins and adjust all medications for GFR and CrCL -NIPPV qhs and prn -Follow up CXR in 72 hours -Gentle diuresis while monitoring renal function,hemodynamics and electrolyte profile -Accuchecks with glycemic control, while on steroids. Target blood glucose 140- 180mg/dL -PT/OT/Mobility -Aspiration precautions - Maintenance of sleep-wake cycle. Avoid delirium -Home oxygen evaluation prior to discharge -Early outpatient pulmonary follow up on discharge -Smoking cessation counselling. Encouraged to remain quit -Life style modifications and weight loss discussed Discussed with Dr. Garrido Discussed with RT/RN CONDITION: FAIR PROGNOSIS; GUARDED CODE STATUS: FULL Subjective Date of service: 03/17/19 Interval history: Patient is seen today for: Seen and examined at bedside; 24-hour events reviewed; nursing and respiratory care staff consulted; no adverse overnight events reported to me; Objective Vital Signs - 12hr 03/17/19 03/17/19 03/17/19 02:40 03:08 07:14 Temperature 97.7 F Pulse Rate 102 H 96 H Pulse Rate [ Anterior] Respiratory 20 20 Rate Respiratory Rate [Anterior] Blood Pressure 144/66 155/75 O2 Sat by Pulse 97 Oximetry 03/17/19 03/17/19 03/17/19 08:00 08:15 10:00 Temperature Pulse Rate Pulse Rate [ 101 H 107 H Anterior] Respiratory Rate Respiratory 19 20 Rate [Anterior] Blood Pressure O2 Sat by Pulse 95 Oximetry CBC and BMP: 03/16/19 03:53 03/18/19 04:05 ABG, PT/INR, D-dimer: ABG ABG pH 7.350 pH Units (7.350-7.450) 03/15/19 04:50 ABG pCO2 38.8 mm Hg 03/15/19 04:50 ABG pO2 72.9 mm Hg (80.0-90.0) L 03/15/19 04:50 ABG O2 Saturation 95.6 % (95.0-99.0) 03/15/19 04:50 PT/INR, D-dimer PT 14.0 Sec. (12.2-14.9) 03/14/19 22:59 INR 1.11 (0.87-1.13) 03/14/19 22:59 Abnormal lab findings: Abnormal Labs 03/14/19 03/14/19 03/15/19 22:59 22:59 04:50 WBC 11.6 H RBC 3.15 L Hgb 9.1 L Hct 27.4 L Lymph % (Auto) [place] % (Auto) 9.0 H Lymph # [place] # 1.0 H Seg Neutrophils % Seg Neutrophils # 8.2 H ABG pO2 72.9 L ABG Base Excess -4.3 L ABG Hemoglobin 8.2 L Oxyhemoglobin 93.8 L Carbon Dioxide BUN 27 H Creatinine 1.4 H Glucose 173 H POC Glucose Alkaline Phosphatase 135 H NT-Pro-B Natriuret Pep Albumin 3.3 L 03/15/19 03/15/19 03/15/19 05:28 09:00 12:24 WBC RBC Hgb Hct Lymph % (Auto) [place] % (Auto) Lymph # [place] # Seg Neutrophils % Seg Neutrophils # ABG pO2 ABG Base Excess ABG Hemoglobin Oxyhemoglobin Carbon Dioxide BUN Creatinine Glucose POC Glucose 383 H 399 H Alkaline Phosphatase NT-Pro-B Natriuret Pep 2577 H Albumin 03/15/19 03/15/19 03/16/19 15:58 20:57 03:53 WBC RBC 3.28 L Hgb 9.4 L Hct 28.7 L Lymph % (Auto) 9.8 L [place] % (Auto) Lymph # 1.1 L [place] # Seg Neutrophils % 86.5 H Seg Neutrophils # 9.5 H ABG pO2 ABG Base Excess ABG Hemoglobin Oxyhemoglobin Carbon Dioxide BUN Creatinine Glucose POC Glucose 347 H 395 H Alkaline Phosphatase NT-Pro-B Natriuret Pep Albumin 03/16/19 03/16/19 03/16/19 03:53 07:49 12:33 WBC RBC Hgb Hct Lymph % (Auto) [place] % (Auto) Lymph # [place] # Seg Neutrophils % Seg Neutrophils # ABG pO2 ABG Base Excess ABG Hemoglobin Oxyhemoglobin Carbon Dioxide 20 L BUN 37 H Creatinine 1.5 H Glucose 283 H POC Glucose 270 H 339 H Alkaline Phosphatase NT-Pro-B Natriuret Pep Albumin 03/16/19 03/16/19 03/17/19 16:16 21:16 07:24 WBC RBC Hgb Hct Lymph % (Auto) [place] % (Auto) Lymph # [place] # Seg Neutrophils % Seg Neutrophils # ABG pO2 ABG Base Excess ABG Hemoglobin Oxyhemoglobin Carbon Dioxide BUN Creatinine Glucose POC Glucose 328 H 338 H 285 H Alkaline Phosphatase NT-Pro-B Natriuret Pep Albumin 03/17/19 03/17/19 08:43 11:28 WBC RBC Hgb Hct Lymph % (Auto) [place] % (Auto) Lymph # [place] # Seg Neutrophils % Seg Neutrophils # ABG pO2 ABG Base Excess ABG Hemoglobin Oxyhemoglobin Carbon Dioxide BUN 44 H Creatinine 1.4 H Glucose 277 H POC Glucose 233 H Alkaline Phosphatase NT-Pro-B Natriuret Pep Albumin
--- NOTE | 2019-03-17 15:33 | XRay Report ---
CHEST 1 VIEW INDICATION: Shortness of breath. COMPARISON: 03/14/2019 FINDINGS: Support devices: None. Heart: Mild cardiomegaly is stable. Lungs/Pleura: Bilateral pulmonary edema and small pleural effusions have decreased by 25-50% since th e previous exam. No pneumothorax. Additional findings: None. IMPRESSION: Mild CHF slightly improved since the exam 3 days ago. Signer Name: Chet Dumont Jr, MD Signed: 03/17/2019 3:29 PM Workstation Name: [id number]
--- NOTE | 2019-03-17 18:44 | Progress Note ---
Assessment and Plan - Patient Problems (1) Chronic kidney disease, stage III (moderate) Current Visit: Yes Status: Acute Plan to address problem: Chronic kidney disease presumably secondary to diabetic nephropathy/hypertensive nephrosclerosis. Doubt acute kidney injury though possible since patient is taking meloxicam a moderate dose of thiazide diuretic. Kidney function is marginally better. Patient is possibly close to her baseline. Meloxicam stopped. Avoid radiocontrast and NSAIDs and other potential nephrotoxins.. Hold hydrochlorothiazide. Follow-up electrolytes and renal function. (2) Hypertensive chronic kidney disease with stage 1 through stage 4 chronic kidney disease, or unspecified chronic kidney disease Current Visit: Yes Status: Acute Plan to address problem: Follow blood pressure (3) Type 2 diabetes mellitus with diabetic chronic kidney disease Current Visit: Yes Status: Acute Plan to address problem: Blood sugar management by primary attending. Hold metformin since GFR is close to 30minute as its clearance is diminished at stage IV chronic kidney disease with increased risk of lactic acidosis (4) COPD with exacerbation Current Visit: Yes Status: Acute Plan to address problem: Bronchodilator nebulizer treatments, supplemental oxygen (5) Anemia in chronic kidney disease Current Visit: Yes Status: Acute Plan to address problem: Follow-up hemoglobin. We need to start Erythropoesis stimulating agent if hemoglobin decreases to less than 9 g/dL and iron studies are normal Subjective Date of service: 03/17/19 Principal diagnosis: chronic kidney disease, shortness of breath Interval history: Patient seen lying in bed this morning. Family member at bedside. I feel better this morning. Had shortness of breath overnight. Objective - Exam Narrative Exam: Obese middle-aged female lying in bed in no acute distress HEENT: NCAT, pink oral mucous membrane Neck: Supple, no venous distention CVS: S1S2 RRR with no murmur, rub or gallop Chest: Faint rhonchi Abdomen: Protuberant, soft, nontender, no organomegaly, bowel sounds are present Extremities: Trace edema Neuro: Awake, alert no focal deficits - Vital Signs Vital signs: Vital Signs - 12hr 03/17/19 03/17/19 03/17/19 07:14 08:00 08:15 Temperature 97.7 F Pulse Rate 96 H Pulse Rate [ 101 H 107 H Anterior] Pulse Rate [ From Monitor] Respiratory 20 Rate Respiratory 19 20 Rate [Anterior] Blood Pressure 155/75 O2 Sat by Pulse 97 Oximetry 03/17/19 03/17/19 03/17/19 10:00 14:00 14:20 Temperature Pulse Rate Pulse Rate [ 98 H Anterior] Pulse Rate [ 107 H From Monitor] Respiratory 20 Rate Respiratory 23 Rate [Anterior] Blood Pressure O2 Sat by Pulse 95 95 Oximetry 03/17/19 03/17/19 14:23 16:10 Temperature 98.3 F Pulse Rate 99 H Pulse Rate [ 89 Anterior] Pulse Rate [ From Monitor] Respiratory 20 Rate Respiratory 24 Rate [Anterior] Blood Pressure 150/65 O2 Sat by Pulse 97 Oximetry - Lab 03/16/19 03:53 03/17/19 08:43 Most recent lab results ABG pH 7.350 pH Units (7.350-7.450) 03/15/19 04:50 ABG pCO2 38.8 mm Hg 03/15/19 04:50 ABG pO2 72.9 mm Hg (80.0-90.0) L 03/15/19 04:50 ABG HCO3 20.9 mmol/L (20.0-26.0) 03/15/19 04:50 ABG O2 Saturation 95.6 % (95.0-99.0) 03/15/19 04:50 Calcium 9.1 mg/dL (8.4-10.2) 03/17/19 08:43 Magnesium 1.90 mg/dL (1.7-2.3) 03/14/19 22:59 Medications & Allergies - Medications Allergies/Adverse Reactions: Allergies No Known Allergies Allergy (Verified 09/19/13 22:38) Home Medications: Home Medications Medication Instructions Recorded Confirmed Last Taken Type Meloxicam [Mobic] 7.5 mg PO QDAY 02/18/19 03/15/19 Unknown History Sertraline [Zoloft] 150 mg PO QDAY 02/18/19 03/15/19 Unknown History Insulin NPH/Regular [NovoLIN 70/30] 20 unit SUB-Q BIDDIAB units 02/21/19 03/15/19 Unknown Rx Ipratropium [Atrovent NEB] 0.5 mg IH Q8HRT nebu 02/21/19 03/15/19 Unknown Rx ALBUTEROL NEB's [Proventil 0.083% 2.5 mg IH TID PRN #90 neb 02/23/19 03/15/19 Unknown Rx NEBS] Aspirin 325 mg PO QDAY #30 tablet 02/23/19 03/15/19 Unknown Rx AtorvaSTATin [Lipitor] 40 mg PO QHS #30 tab 02/23/19 03/15/19 Unknown Rx Famotidine [Pepcid] 20 mg PO DAILY #30 tablet 02/23/19 03/15/19 Unknown Rx Gabapentin [Neurontin] 600 mg PO BID #60 tablet 02/23/19 03/15/19 Unknown Rx Hydralazine HCl 50 mg PO TID #90 tablet 02/23/19 03/15/19 Unknown Rx Losartan/Hydrochlorothiazide 1 each PO QDAY #30 tablet 02/23/19 03/15/19 Unknown Rx [Losartan-Hctz 100-25 mg Tab] Nicotine [Habitrol] 14 mg TD DAILY #20 patch 02/23/19 03/15/19 Unknown Rx Prednisone [predniSONE 5 mg (6-Day 5 mg PO .TAPER #1 tab.ds.pk 02/23/19 03/15/19 Unknown Rx Pack, 21 Tabs)] Active Medications: Generic Name Dose Route Start Last Admin Trade Name Freq PRN Reason Stop Dose Admin Acetaminophen 650 mg 03/15/19 01:00 Tylenol PO Q4H PRN Pain MILD(1-3)/Fever >100.5/[place] Acetaminophen/Hydrocodone Bitart 1 each 03/15/19 01:00 [place] 5/325 PO Q6H PRN Pain, Moderate (4-6) Albuterol 2.5 mg 03/15/19 19:21 03/16/19 22:18 Proventil IH 2.5 mg Q4H PRN Administration Shortness Of Breath Albuterol/Ipratropium 1 ampul 03/15/19 08:00 03/17/19 14:00 Duoneb *Not For Prn Use* IH 1 ampul TIDRT TAN Administration Dextrose 50 ml 03/15/19 02:12 D50w (25gm) Syringe IV PRN PRN Hypoglycemia Famotidine 20 mg 03/16/19 23:00 03/17/19 09:02 Pepcid PO 20 mg QDAY TAN Administration Furosemide 40 mg 03/17/19 15:00 03/17/19 14:27 Lasix IV 40 mg Q12H TAN Administration Heparin Sodium (Porcine) 5,000 unit 03/15/19 06:00 03/17/19 13:24 Heparin SUB-Q 5,000 unit Q8HR TAN Administration Levofloxacin/Dextrose 750 mg in 150 mls @ 100 mls/hr 03/17/19 22:00 Levaquin 750mg/150ml IV Q48HR@2200 [facility] Protocol Insulin Glargine 35 units 03/16/19 16:56 03/16/19 22:30 Lantus SUB-Q 35 units QHS TAN Administration Insulin Human Lispro 0 unit 03/15/19 07:30 03/17/19 16:48 Humalog SUB-Q 4 unit ACHS TAN Administration Protocol Insulin Human Lispro 7 unit 03/17/19 07:30 03/17/19 16:49 Humalog SUB-Q 7 unit AC TAN Administration Methylprednisolone Sodium Succinate 125 mg 03/15/19 06:00 03/17/19 13:26 Solu-Medrol IV 125 mg Q8HR TAN Administration Morphine Sulfate 2 mg 03/15/19 01:06 Morphine IV Q4H PRN Pain , Severe (7-10) Ondansetron HCl 4 mg 03/15/19 01:00 Zofran IV Q8H PRN Nausea And Vomiting Sodium Chloride 10 ml 03/15/19 10:00 03/17/19 09:02 Sodium Chloride Flush Syringe 10 Ml IV 10 ml BID TAN Administration Sodium Chloride 10 ml 03/15/19 01:00 03/17/19 13:27 Sodium Chloride Flush Syringe 10 Ml IV 10 ml PRN PRN Administration LINE FLUSH
[2019-03-17] MEDS: LANTUS SUB-Q SCH (21:51)
[2019-03-17] MEDS: LEVAQUIN 750MG/150ML 750 MG/150 ML BAG IV SCH (21:52)
[2019-03-18] MEDS: LASIX IV SCH ×2 (03:06→14:08)
[2019-03-18] MEDS: HEPARIN SUB-Q SCH ×3 (05:28→23:17)
[2019-03-18] MEDS: SOLU-Medrol IV SCH ×3 (05:28→23:16)
[2019-03-18 05:50] LABS: Calcium 8.9 mg/dL (8.4-10.2)
[2019-03-18] MEDS ORDERED: DUONEB *Not for PRN Use IH SCH (08:00)
[2019-03-18] MEDS: HumaLOG SUB-Q SCH ×6 (08:59→17:40)
[2019-03-18] MEDS: DUONEB *Not for PRN Use IH SCH ×3 (09:31→21:50)
[2019-03-18] MEDS: HABITROL TD SCH (10:07)
[2019-03-18] MEDS: SODIUM CHLORIDE FLUSH SYRINGE 10 ML IV SCH ×2 (10:07→23:19)
[2019-03-18] MEDS: PEPCID PO SCH (10:07)
--- NOTE | 2019-03-18 12:12 | Progress Note ---
Assessment and Plan - Patient Problems (1) Chronic kidney disease, stage III (moderate) Current Visit: Yes Status: Acute Plan to address problem: Chronic kidney disease presumably secondary to diabetic nephropathy/hypertensive nephrosclerosis. Doubt acute kidney injury though possible since patient is taking meloxicam a moderate dose of thiazide diuretic. Kidney function is improving slowly. Patient is possibly close to her baseline. Meloxicam stopped. Avoid radiocontrast and NSAIDs and other potential nephrotoxins.. Hold hydrochlorothiazide. Follow-up electrolytes and renal function. Discharge planning per primary attending (2) Hypertensive chronic kidney disease with stage 1 through stage 4 chronic kidney disease, or unspecified chronic kidney disease Current Visit: Yes Status: Acute Plan to address problem: Follow blood pressure (3) Type 2 diabetes mellitus with diabetic chronic kidney disease Current Visit: Yes Status: Acute Plan to address problem: Blood sugar management by primary attending. Hold metformin since GFR is close to 30minute as its clearance is diminished at stage IV chronic kidney disease with increased risk of lactic acidosis (4) COPD with exacerbation Current Visit: Yes Status: Acute Plan to address problem: Bronchodilator nebulizer treatments, supplemental oxygen (5) Anemia in chronic kidney disease Current Visit: Yes Status: Acute Plan to address problem: Follow-up hemoglobin. We need to start Erythropoesis stimulating agent if hemoglobin decreases to less than 9 g/dL and iron studies are normal Subjective Date of service: 03/18/19 Principal diagnosis: chronic kidney disease, shortness of breath Interval history: Patient seen lying in bed this morning. No Family member at bedside. I feel much better this morning. Had a much better night last night. No shortness of breath. Objective - Exam Narrative Exam: Obese middle-aged female lying in bed in no acute distress HEENT: NCAT, pink oral mucous membrane Neck: Supple, no venous distention CVS: S1S2 RRR with no murmur, rub or gallop Chest: Clear Abdomen: Protuberant, soft, nontender, no organomegaly, bowel sounds are present Extremities: No edema Neuro: Awake, alert no focal deficits - Vital Signs Vital signs: Vital Signs - 12hr 03/18/19 03/18/19 03/18/19 02:00 02:32 03:22 Temperature 98.5 F Pulse Rate 92 H Pulse Rate [ Anterior] Pulse Rate [ 104 H From Monitor] Respiratory 18 18 Rate Respiratory Rate [Anterior] Blood Pressure 147/75 O2 Sat by Pulse 96 94 96 Oximetry 03/18/19 03/18/19 03/18/19 07:49 09:32 09:35 Temperature 98.3 F Pulse Rate 86 Pulse Rate [ 91 H Anterior] Pulse Rate [ From Monitor] Respiratory 20 Rate Respiratory 20 Rate [Anterior] Blood Pressure 146/71 O2 Sat by Pulse 96 97 Oximetry 03/18/19 11:31 Temperature Pulse Rate Pulse Rate [ Anterior] Pulse Rate [ From Monitor] Respiratory 18 Rate Respiratory Rate [Anterior] Blood Pressure O2 Sat by Pulse 96 Oximetry - Lab 03/16/19 03:53 03/18/19 04:05 Most recent lab results ABG pH 7.350 pH Units (7.350-7.450) 03/15/19 04:50 ABG pCO2 38.8 mm Hg 03/15/19 04:50 ABG pO2 72.9 mm Hg (80.0-90.0) L 03/15/19 04:50 ABG HCO3 20.9 mmol/L (20.0-26.0) 03/15/19 04:50 ABG O2 Saturation 95.6 % (95.0-99.0) 03/15/19 04:50 Calcium 8.9 mg/dL (8.4-10.2) 03/18/19 04:05 Magnesium 1.90 mg/dL (1.7-2.3) 03/14/19 22:59 Medications & Allergies - Medications Allergies/Adverse Reactions: Allergies No Known Allergies Allergy (Verified 09/19/13 22:38) Home Medications: Home Medications Medication Instructions Recorded Confirmed Last Taken Type Meloxicam [Mobic] 7.5 mg PO QDAY 02/18/19 03/15/19 Unknown History Sertraline [Zoloft] 150 mg PO QDAY 02/18/19 03/15/19 Unknown History Insulin NPH/Regular [NovoLIN 70/30] 20 unit SUB-Q BIDDIAB units 02/21/19 03/15/19 Unknown Rx Ipratropium [Atrovent NEB] 0.5 mg IH Q8HRT nebu 02/21/19 03/15/19 Unknown Rx ALBUTEROL NEB's [Proventil 0.083% 2.5 mg IH TID PRN #90 neb 02/23/19 03/15/19 Unknown Rx NEBS] Aspirin 325 mg PO QDAY #30 tablet 02/23/19 03/15/19 Unknown Rx AtorvaSTATin [Lipitor] 40 mg PO QHS #30 tab 02/23/19 03/15/19 Unknown Rx Famotidine [Pepcid] 20 mg PO DAILY #30 tablet 02/23/19 03/15/19 Unknown Rx Gabapentin [Neurontin] 600 mg PO BID #60 tablet 02/23/19 03/15/19 Unknown Rx Hydralazine HCl 50 mg PO TID #90 tablet 02/23/19 03/15/19 Unknown Rx Losartan/Hydrochlorothiazide 1 each PO QDAY #30 tablet 02/23/19 03/15/19 Unknown Rx [Losartan-Hctz 100-25 mg Tab] Nicotine [Habitrol] 14 mg TD DAILY #20 patch 02/23/19 03/15/19 Unknown Rx Prednisone [predniSONE 5 mg (6-Day 5 mg PO .TAPER #1 tab.ds.pk 02/23/19 03/15/19 Unknown Rx Pack, 21 Tabs)] Active Medications: Generic Name Dose Route Start Last Admin Trade Name Freq PRN Reason Stop Dose Admin Acetaminophen 650 mg 03/15/19 01:00 Tylenol PO Q4H PRN Pain MILD(1-3)/Fever >100.5/[place] Acetaminophen/Hydrocodone Bitart 1 each 03/15/19 01:00 [place] 5/325 PO Q6H PRN Pain, Moderate (4-6) Albuterol 2.5 mg 03/15/19 19:21 03/16/19 22:18 Proventil IH 2.5 mg Q4H PRN Administration Shortness Of Breath Albuterol/Ipratropium 1 ampul 03/18/19 08:00 03/18/19 09:31 Duoneb *Not For Prn Use* IH 1 ampul TIDRT TAN Administration Dextrose 50 ml 03/15/19 02:12 D50w (25gm) Syringe IV PRN PRN Hypoglycemia Famotidine 20 mg 03/16/19 23:00 03/18/19 10:07 Pepcid PO 20 mg QDAY TAN Administration Furosemide 40 mg 03/17/19 15:00 03/18/19 03:06 Lasix IV 40 mg Q12H TAN Administration Heparin Sodium (Porcine) 5,000 unit 03/15/19 06:00 03/18/19 05:28 Heparin SUB-Q 5,000 unit Q8HR TAN Administration Levofloxacin/Dextrose 750 mg in 150 mls @ 100 mls/hr 03/17/19 22:00 03/17/19 21:52 Levaquin 750mg/150ml IV 100 mls/hr Q48HR@2200 TAN Administration Protocol Insulin Glargine 35 units 03/16/19 16:56 03/17/19 21:51 Lantus SUB-Q 35 units QHS TAN Administration Insulin Human Lispro 0 unit 03/15/19 07:30 03/18/19 08:59 Humalog SUB-Q 3 unit ACHS TAN Administration Protocol Insulin Human Lispro 7 unit 03/17/19 07:30 03/18/19 09:00 Humalog SUB-Q 7 unit AC TAN Administration Methylprednisolone Sodium Succinate 125 mg 03/15/19 06:00 03/18/19 05:28 Solu-Medrol IV 125 mg Q8HR TAN Administration Morphine Sulfate 2 mg 03/15/19 01:06 Morphine IV Q4H PRN Pain , Severe (7-10) Nicotine 21 mg 03/18/19 10:00 03/18/19 10:07 Habitrol TD 21 mg QDAY TAN Administration Ondansetron HCl 4 mg 03/15/19 01:00 Zofran IV Q8H PRN Nausea And Vomiting Sodium Chloride 10 ml 03/15/19 10:00 03/18/19 10:07 Sodium Chloride Flush Syringe 10 Ml IV 10 ml BID TAN Administration Sodium Chloride 10 ml 03/15/19 01:00 03/17/19 13:27 Sodium Chloride Flush Syringe 10 Ml IV 10 ml PRN PRN Administration LINE FLUSH
--- NOTE | 2019-03-18 16:07 | Progress Note ---
Assessment and Plan Diastolic CHF exacerbation recent echo 02/13 shows preserved EF, lasix initiated SIRS without organ dysfunction Acute severe COPD exacerbation -On IV steroids and duonebs, cont oxygen Acute respiratory failure with hypoxia -Likely secondary to COPD exacerbation -weaned off bipap, cont NC DM2 with neuropathy -On SSI and Lantus -Continue gabapentin CKD stage III -Renal function level is about baseline, will monitor Abdominal distention -Abdominal x-ray and lipase level pending HTN -Stable, resume home anti-hypertensives HLD -Stable, continue statin History of tobacco use -Continue nicotine patch Morbid obesity with BMI of 77.5 -Lifestyle modification recommended DVT prophylaxis with heparin Subjective Date of service: 03/18/19 Principal diagnosis: chronic kidney disease, shortness of breath Interval history: Sob better Objective - Constitutional Vitals: Vital Signs - 12hr 03/18/19 03/18/19 03/18/19 07:49 09:32 09:35 Temperature 98.3 F Pulse Rate 86 Pulse Rate [ 91 H Anterior] Respiratory 20 Rate Respiratory 20 Rate [Anterior] Blood Pressure 146/71 O2 Sat by Pulse 96 97 Oximetry 03/18/19 03/18/19 11:31 13:40 Temperature Pulse Rate Pulse Rate [ 89 Anterior] Respiratory 18 Rate Respiratory 18 Rate [Anterior] Blood Pressure O2 Sat by Pulse 96 Oximetry General appearance: Present: no acute distress, well-nourished - EENT Eyes: PERRL, EOM intact ENT: hearing intact, clear oral mucosa Ears: bilateral: normal - Neck Neck: supple, normal ROM - Respiratory Respiratory effort: normal Respiratory: bilateral: CTA - Breasts Breasts: normal - Cardiovascular Rhythm: regular Heart Sounds: Present: S1 & S2. Absent: gallop, rub Extremities: no ischemia, pulses intact, No edema, normal color, Full ROM - Gastrointestinal General gastrointestinal: Present: soft, non-tender, non-distended, normal bowel sounds - Genitourinary Female genitourinary: normal - Integumentary Integumentary: clear, warm, dry - Musculoskeletal Musculoskeletal: 1, strength equal bilaterally - Neurologic Neurologic: moves all extremities - Psychiatric Psychiatric: memory intact, appropriate mood/affect, intact judgment & insight - Labs CBC & Chem 7: 03/16/19 03:53 03/18/19 04:05 Labs: Abnormal lab results 03/17/19 03/17/19 03/18/19 Range/Units 16:49 21:07 04:05 BUN 46 H (7-17) mg/dL Creatinine 1.3 H (0.7-1.2) mg/dL Glucose 147 H (65-100) mg/dL POC Glucose 216 H 224 H (70-105) 03/18/19 03/18/19 Range/Units 07:58 11:33 BUN (7-17) mg/dL Creatinine (0.7-1.2) mg/dL Glucose (65-100) mg/dL POC Glucose 172 H 235 H (70-105)
[2019-03-18] MEDS: LEVAQUIN 750MG/150ML 750 MG/150 ML BAG IV SCH (23:14)
[2019-03-18] MEDS: LANTUS SUB-Q SCH (23:16)
[2019-03-19] MEDS: HEPARIN SUB-Q SCH (06:54)
[2019-03-19] MEDS: SOLU-Medrol IV SCH (06:54)
[2019-03-19] MEDS: DUONEB *Not for PRN Use IH SCH ×2 (07:58→13:55)
[2019-03-19] MEDS: HumaLOG SUB-Q SCH ×4 (08:07→12:03)
[2019-03-19] MEDS ORDERED: ZOLOFT PO SCH (10:00)
[2019-03-19] MEDS: PEPCID PO SCH (10:10)
[2019-03-19] MEDS: HABITROL TD SCH (10:11)
[2019-03-19] MEDS: SODIUM CHLORIDE FLUSH SYRINGE 10 ML IV SCH (10:11)
--- NOTE | 2019-03-19 11:17 | Progress Note ---
Assessment and Plan Acute hypoxemic respiratory failure, multifactorial CAP AE-COPD Alveolar/pulmonary edema on imaging DM2 with neuropathy CKD stage III Abdominal distention HTN History of tobacco use Morbid obesity with BMI 38 - Supplemental oxygen to keep O2 sat 90% and above - Bronchodilators - Steroids with quick taper - Nicotine withdrawal precautions - Antibiotics for AE-COPD/CAP, with possible aspiration component - VTE prophylaxis - Avoid nephrotoxins and adjust all medications for GFR and CrCL - NIPPV qhs and prn - Follow up CXR in 72 hours - Gentle diuresis while monitoring renal function,hemodynamics and electrolyte profile - Accuchecks with glycemic control, while on steroids. Target blood glucose 140- 180mg/dL - PT/OT/Mobility - Aspiration precautions - Maintenance of sleep-wake cycle. Avoid delirium - Home oxygen evaluation prior to discharge - Early outpatient pulmonary follow up on discharge - Smoking cessation counselling. Encouraged to remain quit - Life style modifications and weight loss discussed CONDITION: FAIR PROGNOSIS; GUARDED CODE STATUS: FULL Subjective Principal diagnosis: chronic kidney disease, shortness of breath Interval history: Patient is seen today for: Acute hypoxemic respiratory failure; Pneumonia (CAP); AE-COPD; Alveolar/pulmonary edema on imaging; DM2 with neuropathy; CKD stage III; Abdominal distention; HTN; History of tobacco use; Morbid obesity with BMI 38 Seen and examined at bedside; 24hour events reviewed; nursing and respiratory care staff consulted; no adverse overnight events reported to me; Objective Vital Signs - 12hr 03/19/19 03/19/19 03/19/19 02:18 02:21 07:22 Temperature 98.8 F 99.2 F Pulse Rate 94 H 85 Pulse Rate [ Anterior] Respiratory 22 20 Rate Respiratory Rate [Anterior] Blood Pressure 172/82 Blood Pressure 178/82 [Left] O2 Sat by Pulse 92 92 Oximetry 03/19/19 03/19/19 07:57 07:59 Temperature Pulse Rate Pulse Rate [ 87 Anterior] Respiratory Rate Respiratory 18 Rate [Anterior] Blood Pressure Blood Pressure [Left] O2 Sat by Pulse 93 Oximetry CBC and BMP: 03/16/19 03:53 03/18/19 04:05 ABG, PT/INR, D-dimer: ABG ABG pH 7.350 pH Units (7.350-7.450) 03/15/19 04:50 ABG pCO2 38.8 mm Hg 03/15/19 04:50 ABG pO2 72.9 mm Hg (80.0-90.0) L 03/15/19 04:50 ABG O2 Saturation 95.6 % (95.0-99.0) 03/15/19 04:50 PT/INR, D-dimer PT 14.0 Sec. (12.2-14.9) 03/14/19 22:59 INR 1.11 (0.87-1.13) 03/14/19 22:59 Abnormal lab findings: Abnormal Labs 03/14/19 03/14/19 03/15/19 22:59 22:59 04:50 WBC 11.6 H RBC 3.15 L Hgb 9.1 L Hct 27.4 L Lymph % (Auto) [place] % (Auto) 9.0 H Lymph # [place] # 1.0 H Seg Neutrophils % Seg Neutrophils # 8.2 H ABG pO2 72.9 L ABG Base Excess -4.3 L ABG Hemoglobin 8.2 L Oxyhemoglobin 93.8 L Carbon Dioxide BUN 27 H Creatinine 1.4 H Glucose 173 H POC Glucose Alkaline Phosphatase 135 H NT-Pro-B Natriuret Pep Albumin 3.3 L 03/15/19 03/15/19 03/15/19 05:28 09:00 12:24 WBC RBC Hgb Hct Lymph % (Auto) [place] % (Auto) Lymph # [place] # Seg Neutrophils % Seg Neutrophils # ABG pO2 ABG Base Excess ABG Hemoglobin Oxyhemoglobin Carbon Dioxide BUN Creatinine Glucose POC Glucose 383 H 399 H Alkaline Phosphatase NT-Pro-B Natriuret Pep 2577 H Albumin 03/15/19 03/15/19 03/16/19 15:58 20:57 03:53 WBC RBC 3.28 L Hgb 9.4 L Hct 28.7 L Lymph % (Auto) 9.8 L [place] % (Auto) Lymph # 1.1 L [place] # Seg Neutrophils % 86.5 H Seg Neutrophils # 9.5 H ABG pO2 ABG Base Excess ABG Hemoglobin Oxyhemoglobin Carbon Dioxide BUN Creatinine Glucose POC Glucose 347 H 395 H Alkaline Phosphatase NT-Pro-B Natriuret Pep Albumin 03/16/19 03/16/19 03/16/19 03:53 07:49 12:33 WBC RBC Hgb Hct Lymph % (Auto) [place] % (Auto) Lymph # [place] # Seg Neutrophils % Seg Neutrophils # ABG pO2 ABG Base Excess ABG Hemoglobin Oxyhemoglobin Carbon Dioxide 20 L BUN 37 H Creatinine 1.5 H Glucose 283 H POC Glucose 270 H 339 H Alkaline Phosphatase NT-Pro-B Natriuret Pep Albumin 03/16/19 03/16/19 03/17/19 16:16 21:16 07:24 WBC RBC Hgb Hct Lymph % (Auto) [place] % (Auto) Lymph # [place] # Seg Neutrophils % Seg Neutrophils # ABG pO2 ABG Base Excess ABG Hemoglobin Oxyhemoglobin Carbon Dioxide BUN Creatinine Glucose POC Glucose 328 H 338 H 285 H Alkaline Phosphatase NT-Pro-B Natriuret Pep Albumin 03/17/19 03/17/19 03/17/19 08:43 11:28 16:49 WBC RBC Hgb Hct Lymph % (Auto) [place] % (Auto) Lymph # [place] # Seg Neutrophils % Seg Neutrophils # ABG pO2 ABG Base Excess ABG Hemoglobin Oxyhemoglobin Carbon Dioxide BUN 44 H Creatinine 1.4 H Glucose 277 H POC Glucose 233 H 216 H Alkaline Phosphatase NT-Pro-B Natriuret Pep Albumin 03/17/19 03/18/19 03/18/19 21:07 04:05 07:58 WBC RBC Hgb Hct Lymph % (Auto) [place] % (Auto) Lymph # [place] # Seg Neutrophils % Seg Neutrophils # ABG pO2 ABG Base Excess ABG Hemoglobin Oxyhemoglobin Carbon Dioxide BUN 46 H Creatinine 1.3 H Glucose 147 H POC Glucose 224 H 172 H Alkaline Phosphatase NT-Pro-B Natriuret Pep Albumin 03/18/19 03/18/19 03/18/19 11:33 16:33 22:14 WBC RBC Hgb Hct Lymph % (Auto) [place] % (Auto) Lymph # [place] # Seg Neutrophils % Seg Neutrophils # ABG pO2 ABG Base Excess ABG Hemoglobin Oxyhemoglobin Carbon Dioxide BUN Creatinine Glucose POC Glucose 235 H 206 H 194 H Alkaline Phosphatase NT-Pro-B Natriuret Pep Albumin 03/19/19 07:22 WBC RBC Hgb Hct Lymph % (Auto) [place] % (Auto) Lymph # [place] # Seg Neutrophils % Seg Neutrophils # ABG pO2 ABG Base Excess ABG Hemoglobin Oxyhemoglobin Carbon Dioxide BUN Creatinine Glucose POC Glucose 225 H Alkaline Phosphatase NT-Pro-B Natriuret Pep Albumin
[2019-03-19 13:59] VITALS: BP 165/76
--- NOTE | 2019-03-19 15:40 | Discharge Summary ---
Providers - Providers Date of Admission: 03/15/19 01:00 Date of discharge: 03/19/19 Attending physician: CHANDRIKA CASTILLO 03/15/19 14:29 Consult to Physician [CONS] Routine Comment: Consulting Provider: YENNY KING Physician Instructions: Reason For Exam: copd Consult to Physician [CONS] Routine Comment: Consulting Provider: SAM REDD Physician Instructions: Reason For Exam: nani Primary care physician: CLASSIFICATION AND TREATMENT DIRECTOR Hospitalization Condition: Serious Hospital course: Diastolic CHF exacerbation recent echo 02/13 shows preserved EF, lasix initiated Improved SIRS without organ dysfunction Resolved Acute severe COPD exacerbation -On IV steroids and duonebs, cont oxygen Off oxygen Acute respiratory failure with hypoxia -Likely secondary to COPD exacerbation -weaned off bipap, cont NC Off O2 DM2 with neuropathy -On SSI and Lantus -Continue gabapentin CKD stage III -Renal function level is about baseline, will monitor Abdominal distention -Abdominal x-ray and lipase level pending HTN -Stable, resume home anti-hypertensives HLD -Stable, continue statin History of tobacco use -Continue nicotine patch Morbid obesity with BMI of 77.5 -Lifestyle modification recommended DVT prophylaxis with heparin Disposition: DC-01 TO HOME OR SELFCARE Core Measure Documentation - Palliative Care Palliative Care/ Comfort Measures: Not Applicable - Core Measures Any of the following diagnoses?: heart failure, none - Heart Failure Discharge Requirements CASSY/ARB for LVSD if EF <40%: Yes Beta cortez at discharge: Yes Exam - Constitutional Vitals: Temp Pulse Resp BP Pulse Ox 98.6 F 94 H 18 165/76 92 03/19/19 13:46 03/19/19 13:56 03/19/19 13:56 03/19/19 13:46 03/19/19 13:46 General appearance: Present: no acute distress, well-nourished - EENT Eyes: Present: PERRL ENT: hearing intact, clear oral mucosa - Neck Neck: Present: supple, normal ROM - Respiratory Respiratory effort: normal Respiratory: bilateral: CTA - Cardiovascular Heart rate: 78 Rhythm: regular (78) Heart Sounds: Present: S1 & S2. Absent: rub, click - Extremities Extremities: no ischemia, pulses intact, pulses symmetrical, No edema Peripheral Pulses: within normal limits - Abdominal General gastrointestinal: Present: soft, non-tender, non-distended, normal bowel sounds Female genitourinary: Present: normal - Integumentary Integumentary: Present: clear, warm, dry - Musculoskeletal Musculoskeletal: gait normal, strength equal bilaterally - Psychiatric Psychiatric: appropriate mood/affect, intact judgment & insight - Neurologic Neurologic: CNII-XII intact, moves all extremities - Allied Health Allied health notes reviewed: nursing, case management Plan Activity: no restrictions Diet: low fat, low cholesterol, low salt, diabetic Follow up with: PRIMARY CAREMD [Primary Care Provider] - 3-5 Days TONIE SCHMIDT MD [Staff Physician] - 7 Days
== END 2019-03-19 17:45 | disposition home or self-care (01) | DRG 871 ==
LOC: ED 22:23 → 4A 03-15 01:00 → 2B-ACE 03-16 17:06
PROVIDERS: ADMIT Internal Medicine; ATTEND Internal Medicine
PROC: 5A09357 Assistance with Respiratory Ventilation, Less than 24 Consecutive Hours, Continuous Positive Airway Pressure (ICD-10-PCS; 2019-03-14)
PROC: 4A033R1 Measurement of Arterial Saturation, Peripheral, Percutaneous Approach (ICD-10-PCS; principal; 2019-03-15)
PROC: 5A09357 Assistance with Respiratory Ventilation, Less than 24 Consecutive Hours, Continuous Positive Airway Pressure (ICD-10-PCS; 2019-03-15)
PROC: 5A09357 Assistance with Respiratory Ventilation, Less than 24 Consecutive Hours, Continuous Positive Airway Pressure (ICD-10-PCS; 2019-03-16)
PROC: 5A09357 Assistance with Respiratory Ventilation, Less than 24 Consecutive Hours, Continuous Positive Airway Pressure (ICD-10-PCS; 2019-03-17)
DX: A41.9 Sepsis, unspecified organism (principal); J96.01 Acute respiratory failure with hypoxia; J18.9 Pneumonia, unspecified organism; I50.33 Acute on chronic diastolic (congestive) heart failure; J44.1 Chronic obstructive pulmonary disease with (acute) exacerbation; I13.0 Hypertensive heart and chronic kidney disease with heart failure and stage 1 through stage 4 chronic kidney disease, or unspecified chronic kidney disease; E11.22 Type 2 diabetes mellitus with diabetic chronic kidney disease; E11.40 Type 2 diabetes mellitus with diabetic neuropathy, unspecified; N18.3 Chronic kidney disease, stage 3 (moderate); E66.01 Morbid (severe) obesity due to excess calories; E11.65 Type 2 diabetes mellitus with hyperglycemia; R14.0 Abdominal distension (gaseous); E78.5 Hyperlipidemia, unspecified; D63.1 Anemia in chronic kidney disease; M19.90 Unspecified osteoarthritis, unspecified site; F17.200 Nicotine dependence, unspecified, uncomplicated; F32.9 Major depressive disorder, single episode, unspecified; Z68.35 Body mass index [BMI] 35.0-35.9, adult; Z71.3 Dietary counseling and surveillance; Z98.51 Tubal ligation status; Z82.49 Family history of ischemic heart disease and other diseases of the circulatory system; Z83.3 Family history of diabetes mellitus; Z79.4 Long term (current) use of insulin; Z79.82 Long term (current) use of aspirin; Z79.899 Other long term (current) drug therapy; Z71.6 Tobacco abuse counseling
CPT/HCPCS: 36415; 36600; 71045; 74019; 80048; 80053; 82140; 82550; 82803; 82962; 83690; 83735; 83880; 84484; 85025; 85610; 85730; 87040; 87205; 93005; 93010; 94640; 94644; 94660; 94760; 99406; G0378; J1644; J1815; J1940; J1956; J2930; J3475; J7040

== ENCOUNTER 2019-06-21 22:30 | Inpatient (IN) | payer MEDICARE ==
[2019-06-21] MEDS ORDERED: methylPREDNISolone Sod Succinate 125 MG/2 ML INJ IV ONE (22:54)
[2019-06-21] MEDS ORDERED: ALBUTEROL 2.5 MG/3 ML NEBU IH ONE (22:54)
[2019-06-21] MEDS ORDERED: IPRATROPIUM 0.02% NEBU 2.5 ML IH ONE (22:54)
--- NOTE | 2019-06-21 22:54 | Emergency Department Report ---
HPI - General Chief Complaint: Dyspnea/Respdistress Time Seen by Provider: 06/21/19 22:50 - HPI HPI: 68-year-old female presents to the emergency department via EMS from home with the complaint of a 24-hour history of progressively worsening shor tness of breath and wheezing. The patient has a past medical history of insulin-dependent diabetes, CVA, hypertension and recently was diagnosed with COPD. The patient is a former smoker. She is not oxygen dependent. EMS gave her a CPAP and supplemental oxygen and the patient says she began feeling better. She denies any fever, chest pain, edema. Her primary care physician is a Dr. Gerard. 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 The patient has [employer] insurance. No recent travel or sick contacts. ED Past Medical Hx - Past Medical History Hx Hypertension: Yes Hx Congestive Heart Failure: No Hx Diabetes: Yes Hx Psychiatric Treatment: Yes (depression) Hx COPD: Yes Additional medical history: neuropathy, high chol. - Surgical History Additional Surgical History: tubal, c section, - Social History Smoking Status: Former Smoker - Medications Home Medications: Home Medications Medication Instructions Recorded Confirmed Last Taken Type Nicotine [Habitrol] 14 mg TD DAILY #20 patch 02/23/19 03/15/19 Unknown Rx ALBUTEROL NEB's [Proventil 0.083% 2.5 mg IH TID PRN #90 neb 03/19/19 Unknown Rx NEBS] Aspirin 325 mg PO QDAY #30 tablet 03/19/19 Unknown Rx AtorvaSTATin [Lipitor] 40 mg PO QHS 30 Days #30 tab 03/19/19 Unknown Rx Famotidine [Pepcid] 20 mg PO DAILY #30 tablet 03/19/19 Unknown Rx Furosemide [Lasix] 20 mg PO QDAY #30 tablet 03/19/19 Unknown Rx Gabapentin [Neurontin] 600 mg PO BID #60 tablet 03/19/19 Unknown Rx Hydralazine HCl 50 mg PO TID 30 Days #90 tablet 03/19/19 Unknown Rx Insulin NPH/Regular [NovoLIN 70/30] 20 unit SUB-Q BIDDIAB #5 pen 03/19/19 Unknown Rx Ipratropium [Atrovent NEB] 0.5 mg IH Q8HRT #50 nebu 03/19/19 Unknown Rx Losartan/Hydrochlorothiazide 1 each PO QDAY #30 tablet 03/19/19 Unknown Rx [Losartan-Hctz 100-25 mg Tab] Meloxicam [Mobic] 7.5 mg PO QDAY #30 tablet 03/19/19 Unknown Rx Potassium Chloride [K-Dur] 10 meq PO QDAY #30 tablet 03/19/19 Unknown Rx Prednisone [predniSONE 5 mg (6-Day 5 mg PO .TAPER 6 Days #1 tab.ds.pk 03/19/19 Unknown Rx Pack, 21 Tabs)] Sertraline [Zoloft] 150 mg PO QDAY #30 tablet 03/19/19 Unknown Rx ED Review of Systems ROS: Stated complaint: [place] Other details as noted in HPI Comment: All other systems reviewed and negative Constitutional: denies: chills, fever Eyes: denies: eye pain, vision change ENT: denies: ear pain, throat pain Respiratory: cough, shortness of breath, wheezing Cardiovascular: denies: chest pain, palpitations Gastrointestinal: denies: abdominal pain, vomiting Genitourinary: denies: dysuria, discharge Musculoskeletal: denies: back pain, arthralgia Skin: denies: rash, lesions Neurological: denies: headache, weakness Physical Exam - Physical Exam Vital Signs: Vital Signs 06/21/19 22:38 Temperature 98.7 F Pulse Rate 111 H Respiratory 26 H Rate O2 Sat by Pulse 97 Oximetry Physical Exam: GENERAL: The patient is well-developed well-nourished. HENT: Normocephalic. Atraumatic. Patient has moist mucous membranes. EYES: Extraocular motions are intact. NECK: Supple. Trachea is midline. CHEST/LUNGS: Mild wheezing throughout the chest. There are coarse breath sound. The patient has tachypnea and accessory muscle use. There is conversational dyspnea. There is respiratory distress noted. HEART/CARDIOVASCULAR: Regular. There is mild tachycardia. There is no murmur. ABDOMEN: Abdomen is soft, nontender. Patient has normal bowel sounds. There is no abdominal distention. SKIN: Skin is warm and dry. NEURO: The patient is awake, alert, and oriented. The patient is cooperative. The patient has no focal neurologic deficits. MUSCULOSKELETAL: There is no tenderness or deformity. There is no evidence of acute injury. ED Course Vital Signs 06/21/19 22:38 Temperature 98.7 F Pulse Rate 111 H Respiratory 26 H Rate O2 Sat by Pulse 97 Oximetry ED Medical Decision Making - Lab Data Result diagrams: 06/21/19 23:33 06/21/19 23:33 - EKG Data -: EKG Interpreted by Me EKG shows normal: sinus rhythm, axis (left axis deviation), intervals, QRS complexes (LAFB, q waves to septal leads), ST-T waves Rate: tachycardia (110 bpm) - EKG Data When compared to previous EKG there are: no significant change Interpretation: unchanged when compared t (03/16/19) - Radiology Data Radiology results: report reviewed CHEST 1 VIEW INDICATION / CLINICAL INFORMATION: Shortness of breath. COMPARISON: 03/14/2019 and 03/17/2019 chest radiographs FINDINGS: SUPPORT DEVICES: None. HEART / MEDIASTINUM: Stable cardiomediastinal silhouette with probable mild cardiomegaly allowing for AP technique. A portion of the left heart border is obscured. LUNGS / PLEURA: Dense left retrocardiac opacity is again seen, similar to that on the previous examinations from February. The left diaphragm is obscured. There are additionally patchy opacities in the left middle lung zone and in the right middle and lower lung zones. There may be a tiny right pleural effusion. No pneumothorax. IMPRESSION: 1. Similar examination to 03/14/2019 and 03/17/2019, with dense left retrocardiac opacity that may represent any combination of layering pleural fluid, atelectasis, aspirated material and/or pneumo shruthi. Similar but less severe opacities are present at the right lung base and left middle lung zone. NUCLEAR MEDICINE VENTILATION/PERFUSION LUNG SCAN INDICATION: Shortness of breath TECHNIQUE: 21.6 mCi of Xenon-133 were given by inhalation. 5.4 mCi of Tc 99m MAA were given by IV. FINDINGS: Comparison with chest radiograph from 06/21/2019. Wash-in, equilibrium, and wash-out phases of ventilation are normal. No air-trapping is seen. No perfusion defects are noted. IMPRESSION: Low probability for pulmonary embolism. - Medical Decision Making This patient presents to the emergency department with some shortness of breath. She had some hypoxia on room air. She was placed on CPAP by EMS. Upon arrival to the emergency department, the patient still appears to have some respiratory distress and significant shortness of breath. She was placed on a BiPAP with 100% FiO2 and did appear to have some improvement at this time. A chest x-ray was done that shows some multilobular and retrocardiac density that could be pneumonia, atelectasis, pleural effusions. She had an ABG done that did not show any significant acid-base disturbances but did show some hypoxemia. Labs were mostly unremarkable except for some chronic renal insufficiency, an elevated BNP and 8 elevated and equivocal d-dimer. The patient had a VQ scan that was read as low probability for a pulmonary embolism. The patient received breathing treatments, Solu-Medrol and Lasix. I was able to wean the patient off of the BiPAP. However, since the patient is not oxygen dependent at home, I attempted to test her back on room air again and the patient immediately went down to the low 80s for her pulse ox. She was once again given supplemental oxygen and the patient will be admitted to the hospital for further evaluation and treatment. I spoke to Dr. Chaney at the [place] transfer line who has given us permission to keep the patient at our facility. The patient has been accepted by the hospitalist, Dr. Regan. - Differential Diagnosis PE, pneumonia, COPD, CHF Critical Care Time: Yes Critical care time in (mins) excluding proc time.: 31 Critical care attestation.: If time is entered above; I have spent that time in minutes in the direct care of this critically ill patient, excluding procedure time. Critical care time was spent on this patient and doing her initial evaluation, multiple re- evaluations, ordering and interpretation of labs and imaging, discussion with the [place] physician, and multiple discussions with the patient herself. Critical Care Time: 31 minutes ED Disposition Clinical Impression: Acute respiratory distress, COPD exacerbation, Hypoxemia CHF (congestive heart failure) Qualifiers: Heart failure type: unspecified Heart failure chronicity: unspecified Qualified Code(s): I50.9 - Heart failure, unspecified Chronic kidney disease Qualifiers: Chronic kidney disease stage: unspecified stage Qualified Code(s): N18.9 - Chronic kidney disease, unspecified Disposition: OP ADMIT IP TO THIS HOSP Is pt being admited?: Yes Condition: Serious Instructions: Chronic Obstructive Pulmonary Disease (ED) Referrals: PRIMARY CARE, [Primary Care Provider] - 3-5 Days Time of Disposition: 05:09
[2019-06-21 23:56] LABS: Basophils % (Auto) 0.3 % (0.0-1.8); Eosinophils % (Auto) 0.3 % (0.0-4.3); Hematocrit 31.6 % (30.3-42.9); Hemoglobin 10.1 gm/dl (10.1-14.3); Lymphocytes # (Auto) 1.6 K/mm3 (1.2-5.4); Lymphocytes % (Auto) 13.4 % (13.4-35.0); Mean Corpuscular HGB Conc 32 % (30-34); Mean Corpuscular Volume 84 fl (79-97); Monocytes # (Auto) 0.8 K/mm3 (0.0-0.8); Monocytes % (Auto) 6.4 % (0.0-7.3); Platelet Count 197 K/mm3 (140-440); Red Blood Count 3.75 M/mm3 (3.65-5.03); Red Cell Distribution Width 14.8 % (13.2-15.2)
--- NOTE | 2019-06-21 23:59 | XRay Report ---
CHEST 1 VIEW INDICATION / CLINICAL INFORMATION: Shortness of breath. COMPARISON: 03/14/2019 and 03/17/2019 chest radiographs FINDINGS: SUPPORT DEVICES: None. HEART / MEDIASTINUM: Stable cardiomediastinal silhouette with probable mild cardiomegaly allowing for AP technique. A portion of the left heart border is obscured. LUNGS / PLEURA: Dense left retrocardiac opacity is again seen, similar to that on the previous examin ations from February. The left diaphragm is obscured. There are additionally patchy opacities in the le ft middle lung zone and in the right middle and lower lung zones. There may be a tiny right pleural e ffusion. No pneumothorax. IMPRESSION: 1. Similar examination to 03/14/2019 and 03/17/2019, with dense left retrocardiac opacity that may repr esent any combination of layering pleural fluid, atelectasis, aspirated material and/or pneumonia. Si milar but less severe opacities are present at the right lung base and left middle lung zone. Signer Name: Tao Webber MD Signed: 06/21/2019 11:55 PM Workstation Name: [id number]
[2019-06-22 00:19] LABS: Alanine Aminotransferase 15 units/L (7-56); Albumin 3.4 g/dL (3.9-5); BUN/Creatinine Ratio 12; Blood Urea Nitrogen 16 mg/dL (7-17); Calcium 8.5 mg/dL (8.4-10.2); Hemolysis Index 18
[2019-06-22 00:28] LABS: INR 1.06 (0.87-1.13)
--- NOTE | 2019-06-22 04:01 | Nuclear Medicine Report ---
NUCLEAR MEDICINE VENTILATION/PERFUSION LUNG SCAN INDICATION: Shortness of breath TECHNIQUE: 21.6 mCi of Xenon-133 were given by inhalation. 5.4 mCi of Tc 99m MAA were given by IV. FINDINGS: Comparison with chest radiograph from 06/21/2019. Wash-in, equilibrium, and wash-out phases of ventilation are normal. No air-trapping is seen. No perfusion defects are noted. IMPRESSION: Low probability for pulmonary embolism. Signer Name: Clau Lee MD Signed: 06/22/2019 3:56 AM Workstation Name: [id number]
[2019-06-22] MEDS ORDERED: FUROSEMIDE 40 MG/4 ML INJ IV ONE (04:32)
[2019-06-22] MEDS ORDERED: DEXTROSE 50% IN WATER (25GM) 50 ML SYRINGE IV PRN (04:55)
[2019-06-22] MEDS ORDERED: ACETAMINOPHEN 325 MG TAB PO PRN (04:55)
[2019-06-22] MEDS ORDERED: ONDANSETRON 4 MG/2 ML INJ IV PRN (04:55)
[2019-06-22] MEDS ORDERED: ALBUTEROL 2.5 MG/3 ML NEBU IH PRN (04:55)
--- NOTE | 2019-06-22 05:31 | History and Physical Report ---
<CYRUS ALEJO - Last Filed: 06/22/19 05:49> History of Present Illness Date of examination: 06/22/19 Date of admission: 06/22/2019 Chief complaint: [place] History of present illness: 68-year-old female with history of hypertension, depression, hyperlipidemia, diabetes with neuropathy, CDK stage III, COPD not on home oxygen, diastolic heart failure with EF 45-60% who presents [facility] ED via EMS with complaints of difficulty breathing. Pt states that she has been experiencing progressively worsening SOB over the past 24 hours. She has tried inhaler and home nebulizer with no relief. Upon EMS arrival pt was placed on CPAP with some improvement in breathing. Her PCP is Dr. Gerard. 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 She denies chest pain, leg swelling, orthopnea or PND. At the time of my examination pt is on Venti mask 35% FiO2 with saturation of 95%. She continue to confirm that her breathing has improve , since presentation. Past History Past Medical History: COPD, diabetes (neuropathy), heart failure (EF 55-60%), hypertension, hyperlipidemia, renal failure (CKD stage3), other (depression) Past Surgical History: , Other (tubal ligation) Social history: other (former smoker) Family history: no significant family history Medications and Allergies Allergies Allergy/AdvReac Type Severity Reaction Status Date / Time amoxicillin Allergy Itching Verified 06/22/19 00:33 Home Medications Medication Instructions Recorded Confirmed Last Taken Type Nicotine [Habitrol] 14 mg TD DAILY #20 patch 02/23/19 03/15/19 Unknown Rx ALBUTEROL NEB's [Proventil 0.083% 2.5 mg IH TID PRN #90 neb 03/19/19 Unknown Rx NEBS] Aspirin 325 mg PO QDAY #30 tablet 03/19/19 Unknown Rx AtorvaSTATin [Lipitor] 40 mg PO QHS 30 Days #30 tab 03/19/19 Unknown Rx Famotidine [Pepcid] 20 mg PO DAILY #30 tablet 03/19/19 Unknown Rx Furosemide [Lasix] 20 mg PO QDAY #30 tablet 03/19/19 Unknown Rx Gabapentin [Neurontin] 600 mg PO BID #60 tablet 03/19/19 Unknown Rx Hydralazine HCl 50 mg PO TID 30 Days #90 tablet 03/19/19 Unknown Rx Insulin NPH/Regular [NovoLIN 70/30] 20 unit SUB-Q BIDDIAB #5 pen 03/19/19 Unknown Rx Ipratropium [Atrovent NEB] 0.5 mg IH Q8HRT #50 nebu 03/19/19 Unknown Rx Losartan/Hydrochlorothiazide 1 each PO QDAY #30 tablet 03/19/19 Unknown Rx [Losartan-Hctz 100-25 mg Tab] Meloxicam [Mobic] 7.5 mg PO QDAY #30 tablet 03/19/19 Unknown Rx Potassium Chloride [K-Dur] 10 meq PO QDAY #30 tablet 03/19/19 Unknown Rx Prednisone [predniSONE 5 mg (6-Day 5 mg PO .TAPER 6 Days #1 tab.ds.pk 03/19/19 Unknown Rx Pack, 21 Tabs)] Sertraline [Zoloft] 150 mg PO QDAY #30 tablet 03/19/19 Unknown Rx Active Meds: Active Medications Acetaminophen (Tylenol) 650 mg PO Q4H PRN PRN Reason: Pain MILD(1-3)/Fever >100.5/[place] Albuterol (Proventil) 2.5 mg IH Q3HRT PRN PRN Reason: Shortness Of Breath Albuterol/Ipratropium (Duoneb *Not For Prn Use*) 1 ampul IH Q6HRT TAN Atorvastatin Calcium (Lipitor) 40 mg PO QHS TAN Budesonide (Pulmicort) 0.5 mg IH Q12HRT TAN Dextrose (D50w (25gm) Syringe) 50 ml IV Q30MIN PRN; Protocol PRN Reason: Hypoglycemia Docusate Sodium (Colace) 100 mg PO BID TAN Famotidine (Pepcid) 20 mg PO DAILY [facility] Gabapentin (Gabapentin) 600 mg PO BID [facility] Heparin Sodium (Porcine) (Heparin) 5,000 unit SUB-Q Q12HR TAN Levofloxacin/Dextrose (Levaquin 750mg/150ml) 750 mg in 150 mls @ 100 mls/hr IV Q24HR TAN; Protocol Insulin Glargine (Lantus) 10 units SUB-Q QHS TAN Insulin Human Lispro (Humalog) 0 unit SUB-Q ACHS TAN; Protocol Ondansetron HCl (Zofran) 4 mg IV Q8H PRN PRN Reason: Nausea And Vomiting Sodium Chloride (Sodium Chloride Flush Syringe 10 Ml) 10 ml IV BID TAN Sodium Chloride (Sodium Chloride Flush Syringe 10 Ml) 10 ml IV PRN PRN PRN Reason: LINE FLUSH Review of Systems All systems: negative Respiratory: shortness of breath, dyspnea on exertion Exam - Physical Exam Narrative exam: Physical exam General appearance: Present: Mild Distress, alert and oriented 3, pleasant, well-developed, older adult female - EENT Eyes: Present: PERRL, EOM intact ENT: hearing intact, missing teeth - Neck Neck: Present: supple, normal ROM - Respiratory Respiratory effort: Slightly labored, on Ventimask Respiratory: Diminished - Cardiovascular Heart rate: 101 (bpm) Rhythm: Sinus tachycardia Heart Sounds: Present: S1 & S2. Absent: rub, click - Extremities Extremities: no ischemia, pulses intact, - Peripheral Assessment Peripheral Pulses: within normal limits - Abdominal General gastrointestinal: soft, non-tender, normal bowel sounds - Integumentary Integumentary: Present: warm, dry - Musculoskeletal Musculoskeletal: Able to move all extremities -Neurological Neurological: CN II-XII intact - Psychiatric Psychiatric: Appropriate for situation ,cooperative - Constitutional Vitals: Temp Pulse Resp BP Pulse Ox 98.7 F 101 H 18 134/64 91 06/21/19 22:38 06/22/19 02:21 06/22/19 02:21 06/22/19 02:21 06/22/19 04:44 Results - Labs CBC & Chem 7: 06/21/19 23:33 06/21/19 23:33 Labs: Laboratory Last Values WBC 12.1 K/mm3 (4.5-11.0) H 06/21/19 23:33 RBC 3.75 M/mm3 (3.65-5.03) 06/21/19 23:33 Hgb 10.1 gm/dl (10.1-14.3) 06/21/19 23:33 Hct 31.6 % (30.3-42.9) 06/21/19 23:33 MCV 84 fl (79-97) 06/21/19 23:33 MCH 27 pg (28-32) L 06/21/19 23:33 MCHC 32 % (30-34) 06/21/19 23:33 RDW 14.8 % (13.2-15.2) 06/21/19 23:33 Plt Count 197 K/mm3 (140-440) 06/21/19 23:33 Lymph % (Auto) 13.4 % (13.4-35.0) 06/21/19 23:33 [place] % (Auto) 6.4 % (0.0-7.3) 06/21/19 23:33 Eos % (Auto) 0.3 % (0.0-4.3) 06/21/19 23:33 Baso % (Auto) 0.3 % (0.0-1.8) 06/21/19 23:33 Lymph # 1.6 K/mm3 (1.2-5.4) 06/21/19 23:33 [place] # 0.8 K/mm3 (0.0-0.8) 06/21/19 23:33 Eos # 0.0 K/mm3 (0.0-0.4) 06/21/19 23:33 Baso # 0.0 K/mm3 (0.0-0.1) 06/21/19 23:33 Seg Neutrophils % 79.6 % (40.0-70.0) H 06/21/19 23:33 Seg Neutrophils # 9.7 K/mm3 (1.8-7.7) H 06/21/19 23:33 PT 13.7 Sec. (12.2-14.9) 06/21/19 23:33 INR 1.06 (0.87-1.13) 06/21/19 23:33 D-Dimer 510.30 ng/mlDDU (0-234) H 06/21/19 23:33 POC ABG pH 7.346 (7.35-7.45) L 06/21/19 23:23 POC ABG pCO2 41.2 (35-45) 06/21/19 23:23 POC ABG pO2 69 (80-105) L 06/21/19 23:23 POC ABG HCO3 22.5 (22-26 mml/L) 06/21/19 23:23 POC ABG Total CO2 24 (23-27mmol/L) 06/21/19 23:23 POC ABG O2 Sat 93 06/21/19 23:23 POC ABG Base Excess -3 ((-2) - (+3)mmol/L) 06/21/19 23:23 FiO2 40 % 06/21/19 23:23 Sodium 139 mmol/L (137-145) 06/21/19 23:33 Potassium 4.2 mmol/L (3.6-5.0) 06/21/19 23:33 Chloride 103.2 mmol/L (98-107) 06/21/19 23:33 Carbon Dioxide 20 mmol/L (22-30) L 06/21/19 23:33 Anion Gap 20 mmol/L 06/21/19 23:33 BUN 16 mg/dL (7-17) 06/21/19 23:33 Creatinine 1.3 mg/dL (0.7-1.2) H 06/21/19 23:33 Estimated GFR 41 ml/min 06/21/19 23:33 BUN/Creatinine Ratio 12 % 06/21/19 23:33 Glucose 236 mg/dL (65-100) H 06/21/19 23:33 Calcium 8.5 mg/dL (8.4-10.2) 06/21/19 23:33 Total Bilirubin 0.40 mg/dL (0.1-1.2) 06/21/19 23:33 AST 26 units/L (5-40) 06/21/19 23:33 ALT 15 units/L (7-56) 06/21/19 23:33 Alkaline Phosphatase 96 units/L (35-129) 06/21/19 23:33 Troponin T < 0.010 ng/mL (0.00-0.029) 06/21/19 23:33 NT-Pro-B Natriuret Pep 1569 pg/mL (0-900) H 06/21/19 23:33 Total Protein 7.0 g/dL (6.3-8.2) 06/21/19 23:33 Albumin 3.4 g/dL (3.9-5) L 06/21/19 23:33 Albumin/Globulin Ratio 0.9 % 06/21/19 23:33 - Imaging and Cardiology Imaging and Cardiology: CXR FINDINGS: SUPPORT DEVICES: None. HEART / MEDIASTINUM: Stable cardiomediastinal silhouette with probable mild cardiomegaly allowing for AP technique. A portion of the left heart border is obscured. LUNGS / PLEURA: Dense left retrocardiac opacity is again seen, similar to that on the previous examinations from February. The left diaphragm is obscured. There are additionally patchy opacities in the left middle lung zone and in the right middle and lower lung zones. There may be a tiny right pleural effusion. No pneumothorax. IMPRESSION: 1. Similar examination to 03/14/2019 and 03/17/2019, with dense left retrocardiac opacity that may represent any combination of layering pleural fluid, atelectasis, aspirated material and/or pneumo shruthi. Similar but less severe opacities are present at the right lung base and left middle lung zone. V/Q Scan: FINDINGS: Comparison with chest radiograph from 06/21/2019. Wash-in, equilibrium, and wash-out phases of ventilation are normal. No air- trapping is seen. No perfusion defects are noted. IMPRESSION: Low probability for pulmonary embolism. Assessment and Plan Assessment and plan: 68-year-old female with history of hypertension, depression, hyperlipidemia, diabetes with neuropathy, CDK stage III, COPD not on home oxygen, diastolic heart failure with EF 45-60% who presents [facility] ED via EMS with complaints of difficulty breathing. Acute exacerbation COPD -Increased shortness of breath -Scheduled to DuoNebs and Pulmicort, albuterol when necessary -IV Abx -Continue supportive care Acute hypoxic respiratory failure -No Baseline home oxygen requirements -Currently on Ventimask 12 L/m 35% FiO2 -Monitor saturations -Continue supplemental oxygen wean as tolerated Elevated d-dimer -510.30 -VQ scan negative for PE CHF -EF 55-60% seen on Echo (02/21/19) -Continue heart failure meds CKD 3 -Cr on admission 1.6 -Avoid nephrotoxic agents -Renal dose all meds DM -POC BG monitoring -Scheduled Lantus and SSI coverage prn -HgbA1C pending HTN -Monitor BP -Resume home hypertensive meds once home medication reconciliation has been updated -IV hydralazine when necessary Hx Depression -resume home meds once medication reconciliation has been updated DVT PPX -On Heparin Advance Directives: No VTE prophylaxis?: Chemical Plan of care discussed with patient/family: Yes <BRE FIERRO - Last Filed: 06/22/19 06:14> History of Present Illness Date of admission: 06/22/19 05:32 Medications and Allergies Active Meds: Active Medications Acetaminophen (Tylenol) 650 mg PO Q4H PRN PRN Reason: Pain MILD(1-3)/Fever >100.5/[place] Albuterol (Proventil) 2.5 mg IH Q3HRT PRN PRN Reason: Shortness Of Breath Albuterol/Ipratropium (Duoneb *Not For Prn Use*) 1 ampul IH Q6HRT TAN Atorvastatin Calcium (Lipitor) 40 mg PO QHS TAN Budesonide (Pulmicort) 0.5 mg IH Q12HRT TAN Dextrose (D50w (25gm) Syringe) 50 ml IV Q30MIN PRN; Protocol PRN Reason: Hypoglycemia Docusate Sodium (Colace) 100 mg PO BID TAN Famotidine (Pepcid) 20 mg PO DAILY [facility] Gabapentin (Gabapentin) 600 mg PO BID [facility] Heparin Sodium (Porcine) (Heparin) 5,000 unit SUB-Q Q12HR [facility] Levofloxacin/Dextrose (Levaquin 750mg/150ml) 750 mg in 150 mls @ 100 mls/hr IV Q48HR TAN; Protocol Insulin Glargine (Lantus) 10 units SUB-Q QHS [facility] Insulin Human Lispro (Humalog) 0 unit SUB-Q ACHS TAN; Protocol Methylprednisolone Sodium Succinate (Solu-Medrol) 125 mg IV Q6HR TAN Ondansetron HCl (Zofran) 4 mg IV Q8H PRN PRN Reason: Nausea And Vomiting Sodium Chloride (Sodium Chloride Flush Syringe 10 Ml) 10 ml IV BID [facility] Sodium Chloride (Sodium Chloride Flush Syringe 10 Ml) 10 ml IV PRN PRN PRN Reason: LINE FLUSH Exam - Constitutional Vitals: Temp Pulse Resp BP Pulse Ox 98.7 F 59 L 16 112/61 98 06/21/19 22:38 06/22/19 06:04 06/22/19 06:04 06/22/19 06:04 06/22/19 06:04 Results - Labs CBC & Chem 7: 06/21/19 23:33 06/21/19 23:33 Labs: Laboratory Last Values WBC 12.1 K/mm3 (4.5-11.0) H 06/21/19 23:33 RBC 3.75 M/mm3 (3.65-5.03) 06/21/19 23:33 Hgb 10.1 gm/dl (10.1-14.3) 06/21/19 23:33 Hct 31.6 % (30.3-42.9) 06/21/19 23: MCV 84 fl (79-97) 06/21/19 23: MCH 27 pg (28-32) L 06/21/19 23: MCHC 32 % (30-34) 06/21/19 23: RDW 14.8 % (13.2-15.2) 06/21/19 23: Plt Count 197 K/mm3 (140-440) 06/21/19 23: Lymph % (Auto) 13.4 % (13.4-35.0) 06/21/19 23: [place] % (Auto) 6.4 % (0.0-7.3) 06/21/19 23: Eos % (Auto) 0.3 % (0.0-4.3) 06/21/19 23: Baso % (Auto) 0.3 % (0.0-1.8) 06/21/19 23: Lymph # 1.6 K/mm3 (1.2-5.4) 06/21/19 23: [place] # 0.8 K/mm3 (0.0-0.8) 06/21/19 23: Eos # 0.0 K/mm3 (0.0-0.4) 06/21/19 23: Baso # 0.0 K/mm3 (0.0-0.1) 06/21/19 23: Seg Neutrophils % 79.6 % (40.0-70.0) H 06/21/19 23: Seg Neutrophils # 9.7 K/mm3 (1.8-7.7) H 06/21/19 23: PT 13.7 Sec. (12.2-14.9) 06/21/19 23: INR 1.06 (0.87-1.13) 06/21/19 23: D-Dimer 510.30 ng/mlDDU (0-234) H 06/21/19 23:33 POC ABG pH 7.346 (7.35-7.45) L 06/21/19 23: POC ABG pCO2 41.2 (35-45) 06/21/19 23: POC ABG pO2 69 (80-105) L 06/21/19 23:23 POC ABG HCO3 22.5 (22-26 mml/L) 06/21/19 23:23 POC ABG Total CO2 24 (23-27mmol/L) 06/21/19 23:23 POC ABG O2 Sat 93 06/21/19 23:23 POC ABG Base Excess -3 ((-2) - (+3)mmol/L) 06/21/19 23:23 FiO2 40 % 06/21/19 23:23 Sodium 139 mmol/L (137-145) 06/21/19 23:33 Potassium 4.2 mmol/L (3.6-5.0) 06/21/19 23:33 Chloride 103.2 mmol/L (98-107) 06/21/19 23:33 Carbon Dioxide 20 mmol/L (22-30) L 06/21/19 23:33 Anion Gap 20 mmol/L 06/21/19 23:33 BUN 16 mg/dL (7-17) 06/21/19 23:33 Creatinine 1.3 mg/dL (0.7-1.2) H 06/21/19 23:33 Estimated GFR 41 ml/min 06/21/19 23:33 BUN/Creatinine Ratio 12 % 06/21/19 23:33 Glucose 236 mg/dL (65-100) H 06/21/19 23:33 Hemoglobin A1c 6.6 % (4-6) H 06/21/19 23:23 Calcium 8.5 mg/dL (8.4-10.2) 06/21/19 23:33 Total Bilirubin 0.40 mg/dL (0.1-1.2) 06/21/19 23:33 AST 26 units/L (5-40) 06/21/19 23:33 ALT 15 units/L (7-56) 06/21/19 23:33 Alkaline Phosphatase 96 units/L (35-129) 06/21/19 23:33 Troponin T < 0.010 ng/mL (0.00-0.029) 06/21/19 23:33 NT-Pro-B Natriuret Pep 1569 pg/mL (0-900) H 06/21/19 23:33 Total Protein 7.0 g/dL (6.3-8.2) 06/21/19 23:33 Albumin 3.4 g/dL (3.9-5) L 06/21/19 23:33 Albumin/Globulin Ratio 0.9 % 06/21/19 23:33 Assessment and Plan Assessment and plan: 68 -year-old lady with a history of hypertension, diabetes, COPD comes emergency room with complaints of her stay shortness of breath, not currently returned positive treatments. No cough, fever or chills. Agree with plan as stated aboved, add steroids
[2019-06-22] MEDS ORDERED: methylPREDNISolone Sod Succinate 125 MG/2 ML INJ IV SCH (06:00)
[2019-06-22] MEDS: INSULIN LISPRO 100 UNIT/ML SUB-Q SCH ×3 (09:30→18:00)
[2019-06-22] MEDS ORDERED: NON-FORMULARY EACH (Gabapentin [Neurontin] 600 MG) PO SCH (10:00)
[2019-06-22] MEDS: FAMOTIDINE 20 MG TAB PO SCH (10:33)
[2019-06-22] MEDS: GABAPENTIN 300 MG CAP PO SCH ×2 (10:33→23:49)
[2019-06-22] MEDS: DOCUSATE SODIUM 100 MG CAP PO SCH ×2 (10:33→23:49)
[2019-06-22] MEDS: HEPARIN 5,000 UNIT/1 ML VIAL SUB-Q SCH ×2 (10:34→23:50)
[2019-06-22] MEDS: methylPREDNISolone Sod Succinate 125 MG/2 ML INJ IV SCH ×3 (13:07→23:33)
[2019-06-22] MEDS: IPRATROPIUM/ALBUTEROL SULFATE 3 ML AMPUL.NEB IH SCH ×3 (14:14→20:18)
[2019-06-22] MEDS: BUDESONIDE 0.5 MG/2 ML NEBU IH SCH ×2 (14:23→20:18)
--- NOTE | 2019-06-22 19:00 | Event Note ---
Date: 06/22/19 Patient seen and examined medical records reviewed Patient was admitted early this morning with acute exacerbation of COPD Chronic kidney disease and diabetes mellitus, medical records reviewed Agree with the current management Closely monitor and adjust the management as needed Plan of care reviewed with the patient and family members at the bedside
[2019-06-22] MEDS ORDERED: INSULIN GLARGINE 100 UNITS/ML SUB-Q SCH (22:00)
[2019-06-23] MEDS: INSULIN LISPRO 100 UNIT/ML SUB-Q SCH ×5 (00:02→22:40)
[2019-06-23] MEDS: methylPREDNISolone Sod Succinate 125 MG/2 ML INJ IV SCH ×4 (00:06→17:13)
[2019-06-23] MEDS: IPRATROPIUM/ALBUTEROL SULFATE 3 ML AMPUL.NEB IH SCH ×4 (02:05→20:40)
[2019-06-23 05:54] LABS: Hematocrit 28.8 % (30.3-42.9); Hemoglobin 9.4 gm/dl (10.1-14.3); Lymphocytes # (Auto) 0.9 K/mm3 (1.2-5.4); Lymphocytes % (Auto) 8.8 % (13.4-35.0); Mean Corpuscular HGB Conc 33 % (30-34); Mean Corpuscular Volume 83 fl (79-97); Monocytes # (Auto) 0.3 K/mm3 (0.0-0.8); Monocytes % (Auto) 2.9 % (0.0-7.3); Platelet Count 205 K/mm3 (140-440); Red Blood Count 3.48 M/mm3 (3.65-5.03); Red Cell Distribution Width 14.6 % (13.2-15.2)
[2019-06-23 06:33] LABS: Calcium 9.3 mg/dL (8.4-10.2)
[2019-06-23] MEDS: BUDESONIDE 0.5 MG/2 ML NEBU IH SCH ×2 (08:42→20:40)
[2019-06-23] MEDS: GABAPENTIN 300 MG CAP PO SCH ×2 (10:15→22:40)
[2019-06-23] MEDS: FAMOTIDINE 20 MG TAB PO SCH (10:15)
[2019-06-23] MEDS: DOCUSATE SODIUM 100 MG CAP PO SCH ×2 (10:15→22:40)
[2019-06-23] MEDS: HEPARIN 5,000 UNIT/1 ML VIAL SUB-Q SCH ×2 (10:20→22:40)
--- NOTE | 2019-06-23 18:41 | Progress Note ---
Assessment and Plan Assessment and plan: 68-year-old female with history of hypertension, depression, hyperlipidemia, diabetes with neuropathy, CDK stage III, COPD not on home oxygen, diastolic heart failure with EF 45-60% who presents [facility] ED via EMS with complaints of difficulty breathing. Acute exacerbation COPD -Increased shortness of breath -Scheduled to DuoNebs and Pulmicort, albuterol when necessary -IV Abx -Continue supportive care Acute hypoxic respiratory failure -No Baseline home oxygen requirements -Currently on Ventimask 12 L/m 35% FiO2 -Monitor saturations -Continue supplemental oxygen wean as tolerated Elevated d-dimer -510.30 -VQ scan negative for PE CHF: Acute on chronic diastolic congestive heart failure -EF 55-60% seen on Echo (02/21/19) -Continue heart failure meds Ac on CKD 3 -Cr on admission 1.6 -Vasomotor nephropathy -Avoid nephrotoxic agents -Renal dose all meds DM -POC BG monitoring -Scheduled Lantus and SSI coverage prn -HgbA1C pending HTN -Monitor BP -Resume home hypertensive meds once home medication reconciliation has been updated -IV hydralazine when necessary Hx Depression -resume home meds once medication reconciliation has been updated DVT PPX -On Heparin Advance Directives: No VTE prophylaxis?: Chemical Plan of care discussed with patient/family: Yes History Interval history: Patient seen and examined medical records reviewed Patient complains of severe shortness of breath and worsening wheezing Blood sugars uncontrolled probably secondary to steroid use Patient is alert awake oriented mild distress Vital signs noted Hospitalist Physical - Constitutional Vitals: Temp Pulse Resp BP Pulse Ox 98.1 F 107 H 20 130/60 97 06/23/19 07:49 06/23/19 17:06 06/23/19 14:15 06/23/19 07:49 06/23/19 10:00 General appearance: Present: mild distress, well-nourished - EENT Eyes: Present: PERRL, EOM intact - Neck Neck: Present: supple, normal ROM - Respiratory Respiratory effort: labored Respiratory: bilateral: diminished, wheezing, negative: rales, rhonchi - Cardiovascular Rhythm: regular Heart Sounds: Present: S1 & S2 - Extremities Extremities: no ischemia, No edema - Abdominal General gastrointestinal: soft, non-tender, non-distended, normal bowel sounds - Integumentary Integumentary: Present: clear, warm - Psychiatric Psychiatric: appropriate mood/affect, cooperative - Neurologic Neurologic: moves all extremities Results - Labs CBC & Chem 7: 06/23/19 05:15 06/24/19 05:20 Labs: Laboratory Last Values WBC 10.6 K/mm3 (4.5-11.0) 06/23/19 05:15 RBC 3.48 M/mm3 (3.65-5.03) L 06/23/19 05:15 Hgb 9.4 gm/dl (10.1-14.3) L 06/23/19 05:15 Hct 28.8 % (30.3-42.9) L 06/23/19 05:15 MCV 83 fl (79-97) 06/23/19 05:15 MCH 27 pg (28-32) L 06/23/19 05:15 MCHC 33 % (30-34) 06/23/19 05:15 RDW 14.6 % (13.2-15.2) 06/23/19 05:15 Plt Count 205 K/mm3 (140-440) 06/23/19 05:15 Lymph % (Auto) 8.8 % (13.4-35.0) L 06/23/19 05:15 Ransom % (Auto) 2.9 % (0.0-7.3) 06/23/19 05:15 Eos % (Auto) 0.0 % (0.0-4.3) 06/23/19 05:15 Baso % (Auto) 0.0 % (0.0-1.8) 06/23/19 05:15 Lymph # 0.9 K/mm3 (1.2-5.4) L 06/23/19 05:15 Ransom # 0.3 K/mm3 (0.0-0.8) 06/23/19 05:15 Eos # 0.0 K/mm3 (0.0-0.4) 06/23/19 05:15 Baso # 0.0 K/mm3 (0.0-0.1) 06/23/19 05:15 Seg Neutrophils % 88.3 % (40.0-70.0) H 06/23/19 05:15 Seg Neutrophils # 9.4 K/mm3 (1.8-7.7) H 06/23/19 05:15 PT 13.7 Sec. (12.2-14.9) 06/21/19 23:33 INR 1.06 (0.87-1.13) 06/21/19 23:33 D-Dimer 510.30 ng/mlDDU (0-234) H 06/21/19 23:33 POC ABG pH 7.346 (7.35-7.45) L 06/21/19 23:23 POC ABG pCO2 41.2 (35-45) 06/21/19 23:23 POC ABG pO2 69 (80-105) L 06/21/19 23:23 POC ABG HCO3 22.5 (22-26 mml/L) 06/21/19 23:23 POC ABG Total CO2 24 (23-27mmol/L) 06/21/19 23:23 POC ABG O2 Sat 93 06/21/19 23:23 POC ABG Base Excess -3 ((-2) - (+3)mmol/L) 06/21/19 23:23 FiO2 40 % 06/21/19 23:23 Sodium 139 mmol/L (137-145) 06/23/19 05:15 Potassium 4.1 mmol/L (3.6-5.0) 06/23/19 05:15 Chloride 101.5 mmol/L (98-107) 06/23/19 05:15 Carbon Dioxide 23 mmol/L (22-30) 06/23/19 05:15 Anion Gap 19 mmol/L 06/23/19 05:15 BUN 37 mg/dL (7-17) H 06/23/19 05:15 Creatinine 1.6 mg/dL (0.7-1.2) H 06/23/19 05:15 Estimated GFR 32 ml/min 06/23/19 05:15 BUN/Creatinine Ratio 23 % 06/23/19 05:15 Glucose 329 mg/dL (65-100) H 06/23/19 05:15 POC Glucose 279 (70-105) H 06/23/19 16:11 Hemoglobin A1c 6.6 % (4-6) H 06/21/19 23:23 Calcium 9.3 mg/dL (8.4-10.2) 06/23/19 05:15 Total Bilirubin 0.40 mg/dL (0.1-1.2) 06/21/19 23:33 AST 26 units/L (5-40) 06/21/19 23:33 ALT 15 units/L (7-56) 06/21/19 23:33 Alkaline Phosphatase 96 units/L (35-129) 06/21/19 23:33 Troponin T < 0.010 ng/mL (0.00-0.029) 06/21/19 23:33 NT-Pro-B Natriuret Pep 1569 pg/mL (0-900) H 06/21/19 23:33 Total Protein 7.0 g/dL (6.3-8.2) 06/21/19 23:33 Albumin 3.4 g/dL (3.9-5) L 06/21/19 23:33 Albumin/Globulin Ratio 0.9 % 06/21/19 23:33 Active Medications - Current Medications Current Medications: Generic Name Dose Route Start Last Admin Trade Name Freq PRN Reason Stop Dose Admin Acetaminophen 650 mg 06/22/19 04:55 Tylenol PO Q4H PRN Pain MILD(1-3)/Fever >100.5/HENSLEY Albuterol 2.5 mg 06/22/19 04:55 Proventil IH Q3HRT PRN Shortness Of Breath Albuterol/Ipratropium 1 ampul 06/22/19 08:00 06/23/19 14:15 Duoneb *Not For Prn Use* IH 1 ampul Q6HRT TAN Administration Atorvastatin Calcium 40 mg 06/22/19 22:00 06/22/19 23:49 Lipitor PO 40 mg QHS TAN Administration Budesonide 0.5 mg 06/22/19 08:00 06/23/19 08:42 Pulmicort IH 0.5 mg Q12HRT TAN Administration Dextrose 50 ml 06/22/19 04:55 D50w (25gm) Syringe IV Q30MIN PRN Hypoglycemia Protocol Docusate Sodium 100 mg 06/22/19 10:00 06/23/19 10:15 Colace PO 100 mg BID TAN Administration Famotidine 20 mg 06/22/19 10:00 06/23/19 10:15 Pepcid PO 20 mg DAILY TAN Administration Gabapentin 600 mg 06/22/19 10:00 06/23/19 10:15 Gabapentin PO 600 mg BID TAN Administration Heparin Sodium (Porcine) 5,000 unit 06/22/19 10:00 06/23/19 10:20 Heparin SUB-Q 5,000 unit Q12HR TAN Administration Levofloxacin/Dextrose 750 mg in 150 mls @ 100 mls/hr 06/22/19 10:00 06/23/19 05:37 Levaquin 750mg/150ml IV 06/26/19 23:59 Infused Q48HR TAN Infusion Protocol Insulin Glargine 10 units 06/22/19 22:00 06/22/19 23:50 Lantus SUB-Q 10 units QHS TAN Administration Insulin Human Lispro 0 unit 06/22/19 07:30 06/23/19 17:12 Humalog SUB-Q 4 unit ACHS TAN Administration Protocol Methylprednisolone Sodium Succinate 125 mg 06/22/19 06:15 06/23/19 17:13 Solu-Medrol IV 125 mg Q6HR TAN Administration Ondansetron HCl 4 mg 06/22/19 04:55 Zofran IV Q8H PRN Nausea And Vomiting Sodium Chloride 10 ml 06/22/19 10:00 06/23/19 10:16 Sodium Chloride Flush Syringe 10 Ml IV 10 ml BID TAN Administration Sodium Chloride 10 ml 06/22/19 04:55 Sodium Chloride Flush Syringe 10 Ml IV PRN PRN LINE FLUSH Nutrition/Malnutrition Assess - Dietary Evaluation Nutrition/Malnutrition Findings: Nutrition Notes Start: 06/23/19 12:48 Freq: Status: Active Protocol: Document 06/23/19 12:48 LP (Rec: 06/23/19 12:50 LP [id number]) Nutrition Notes Need for Assessment generated from: MD Order Initial or Follow up Assessment Current Diagnosis CKD(stage I-IV),COPD,Diabetes, Hypertension,Heart Failure, Stroke Current Diet Mechanical Soft Labs/Tests A1c 6.6 BUN 37 Cr 1.6 BG 329 Pertinent Medications Lantus Solumedrol Subjective/Other Information Consult for diet education. Pt sleeping at time of visit. Nutrition Intervention Follow-Up By: 06/24/19 Additional Comments Follow for diet education
[2019-06-23] MEDS ORDERED: ALBUTEROL 2.5 MG/3 ML NEBU IH PRN (18:44)
[2019-06-23] MEDS ORDERED: INSULIN NPH/REGULAR 70/30 INJ SUB-Q ONE (18:46)
[2019-06-23] MEDS ORDERED: methylPREDNISolone Sod Succinate 125 MG/2 ML INJ IV SCH ×2 (19:00→20:00)
[2019-06-24] MEDS: IPRATROPIUM/ALBUTEROL SULFATE 3 ML AMPUL.NEB IH SCH ×3 (02:32→14:31)
[2019-06-24 05:09] VITALS: BP 134/63
[2019-06-24 06:57] LABS: Calcium 9.4 mg/dL (8.4-10.2); Chol/HDL Ratio 2.15 %
[2019-06-24] MEDS: INSULIN LISPRO 100 UNIT/ML SUB-Q SCH ×3 (08:00→17:07)
[2019-06-24] MEDS: BUDESONIDE 0.5 MG/2 ML NEBU IH SCH (08:09)
[2019-06-24] MEDS: INSULIN NPH/REGULAR 70/30 INJ SUB-Q SCH ×2 (08:35→17:07)
[2019-06-24] MEDS: DOCUSATE SODIUM 100 MG CAP PO SCH (09:46)
[2019-06-24] MEDS: GABAPENTIN 300 MG CAP PO SCH (09:46)
[2019-06-24] MEDS: FAMOTIDINE 20 MG TAB PO SCH (09:46)
[2019-06-24] MEDS: HEPARIN 5,000 UNIT/1 ML VIAL SUB-Q SCH (09:47)
[2019-06-24] MEDS ORDERED: NICOTINE 14 MG/24 HR PATCH TD SCH (10:00)
[2019-06-24] MEDS ORDERED: SERTRALINE 100 MG TAB PO SCH (10:00)
[2019-06-24] MEDS ORDERED: SERTRALINE 25 MG TAB PO SCH (10:00)
[2019-06-24] MEDS ORDERED: ASPIRIN 325 MG TAB PO SCH (10:00)
[2019-06-24] MEDS ORDERED: POTASSIUM CHLORIDE ER 10 MEQ TAB PO SCH (10:00)
[2019-06-24] MEDS: methylPREDNISolone Sod Succinate 125 MG/2 ML INJ IV SCH ×2 (10:02→18:19)
--- NOTE | 2019-06-24 17:43 | Discharge Summary ---
Providers - Providers Date of Admission: 06/22/19 05:32 Date of discharge: 06/24/19 Attending physician: SUMIT DAMON 06/22/19 04:58 Consult to Dietitian/Nutrition [CONS] Routine Physician Instructions: Reason For Exam: Reason for Consult: Diet education Primary care physician: [employer] Hospitalization Reason for admission: Worsening shortness of breat Condition: Stable Pertinent studies: VQ scan Chest xray Hospital course: 68-year-old female with history of hypertension, depression, hyperlipidemia, diabetes with neuropathy, CDK stage III, COPD not on home oxygen, diastolic heart failure with EF 45-60% who presents [facility] ED via EMS with complaints of difficulty breathing. Pt states that she has been experiencing progressively worsening SOB over the past 24 hours. She has tried inhaler and home nebulizer with no relief. Upon EMS arrival pt was placed on CPAP with some improvement. Admitted and managed with high dose steroids,slowly tapered , antibiotics.Symptoms improved .today patient is comfortable,no new complaints ,vital signs good. Stable at discharge. Discharge Diagnosis: --Acute exacerbation COPD symptoms significantly improved discharge on steroids,inhalers f/u PMD and pulm as needed --Acute hypoxic respiratory failure No home oxygen requirements --Elevated d-dimer VQ scan negative for PE --CHF: Acute on chronic diastolic congestive heart failure EF 55-60% seen on Echo (02/21/19) on heart failure meds --Ac on CKD 3 Cr on admission 1.6 Vasomotor nephropathy Avoid nephrotoxic agents mild improvement --DM2 accu checks,SSC,ADA diet --HTN: stable on antihypertensives --Hx Depression continue antihypertensives DVT PPX: On Heparin Stable at discharge Disposition: DC-01 TO HOME OR SELFCARE Time spent for discharge: 32 min Core Measure Documentation - Palliative Care Palliative Care/ Comfort Measures: Not Applicable - Core Measures Any of the following diagnoses?: none Exam - Constitutional Vitals: Temp Pulse Resp BP Pulse Ox 98.1 F 100 H 18 134/63 98 06/24/19 04:40 06/24/19 10:00 06/24/19 10:00 06/24/19 04:40 06/24/19 10:00 General appearance: Present: no acute distress, well-nourished - EENT Eyes: Present: PERRL, EOM intact - Neck Neck: Present: supple, normal ROM - Respiratory Respiratory effort: normal Respiratory: bilateral: diminished, rhonchi, negative: rales, wheezing - Cardiovascular Rhythm: regular Heart Sounds: Present: S1 & S2 - Extremities Extremities: no ischemia, No edema - Abdominal General gastrointestinal: Present: soft, non-tender, non-distended, normal bowel sounds - Integumentary Integumentary: Present: clear, warm - Musculoskeletal Musculoskeletal: strength equal bilaterally, generalized weakness - Psychiatric Psychiatric: appropriate mood/affect, cooperative - Neurologic Neurologic: CNII-XII intact, moves all extremities Plan Activity: advance as tolerated Diet: diabetic Additional Instructions: Oxygen 2-3 L via nasal cannula as needed. Advised to see private examination proctor per schedule. If you have Shortness of breath or pa[address] pain contact MD or go to emergency room Follow up with: PRIMARY CARE,MD [Primary Care Provider] - 3-5 Days Prescriptions: Fluticasone/Salmeterol [Advair Diskus 250-50 mcg] 1 puff IH BID #1 disk.w.dev levoFLOXacin [Levaquin] 750 mg PO QDAY #5 tablet Prednisone [predniSONE 10 mg (6-Day Pack, 21 Tabs)] 10 mg PO .TAPER #1 tab.ds.pk Benzonatate [Tessalon Perles] 100 mg PO Q8HR #21 capsule Cetirizine HCl [Zyrtec 10mg tab] 10 mg PO DAILY #10 tablet
== END 2019-06-24 19:10 | disposition home or self-care (01) | DRG 189 ==
LOC: ED 22:30 → 4A 06-22 05:32
PROVIDERS: ADMIT Internal Medicine; ATTEND Internal Medicine
PROC: 4A033R1 Measurement of Arterial Saturation, Peripheral, Percutaneous Approach (ICD-10-PCS; principal; 2019-06-21)
PROC: 5A09357 Assistance with Respiratory Ventilation, Less than 24 Consecutive Hours, Continuous Positive Airway Pressure (ICD-10-PCS; 2019-06-21)
DX: J96.01 Acute respiratory failure with hypoxia (principal); J44.1 Chronic obstructive pulmonary disease with (acute) exacerbation; I13.0 Hypertensive heart and chronic kidney disease with heart failure and stage 1 through stage 4 chronic kidney disease, or unspecified chronic kidney disease; I50.32 Chronic diastolic (congestive) heart failure; N18.3 Chronic kidney disease, stage 3 (moderate); F32.9 Major depressive disorder, single episode, unspecified; E11.22 Type 2 diabetes mellitus with diabetic chronic kidney disease; E78.5 Hyperlipidemia, unspecified; E11.40 Type 2 diabetes mellitus with diabetic neuropathy, unspecified; Z98.51 Tubal ligation status; Z79.4 Long term (current) use of insulin; Z79.82 Long term (current) use of aspirin; Z86.73 Personal history of transient ischemic attack (TIA), and cerebral infarction without residual deficits; Z87.891 Personal history of nicotine dependence
CPT/HCPCS: 36415; 71045; 78582; 80048; 80053; 80061; 82803; 82962; 83036; 83880; 84484; 85025; 85379; 85610; 93005; 93010; 94640; 94644; 94760; G0378; A9270-GY; A9540; A9558; J1644; J1815; J1940; J1956; J2930